=== PATIENT | female | born 1950 | race Caucasian/White ===

== ENCOUNTER 2018-03-14 14:48 | Inpatient (IN) ==
[2018-03-14] MEDS ORDERED: Vancomycin Inj 1,000 MG in Sodium Chlor 0.9% Inj 250 ML IV.SIG STA (15:08)
[2018-03-14] MEDS ORDERED: Piperacil/Tazo 4.5 GM Premix 4.5 GM/100 ML BAG IV.SIG STA (15:08)
[2018-03-14] MEDS ORDERED: Sod Chloride 0.9% Inj 1,000 ML IV.SIG ONE (15:10)
--- NOTE | 2018-03-14 15:15 | ED ---
HPI General Chief complaint: Weakness Stated complaint: Weakness Time Seen by Provider: 03/14/18 15:17 Source: patient and EMS Mode of arrival: EMS Limitations: no limitations History of Present Illness HPI narrative: 67-year-old female patient presents to the ER today brought in by EMS, apparently had gone to her doctor's office because of several days history of general weakness, left leg redness and swelling, and a sore has been getting more more swollen than the right lower quadrant abdominal area, has been nauseous, vomiting multiple times, having diarrhea at home and has been feeling increasingly weak. She has been feeling subjective fevers, reports mild dyspnea on exertion as well. She denies other issues. Related Data Home Medications Medication Instructions Recorded Confirmed lisinopril 20 mg PO DAILY 03/14/18 03/14/18 Allergies Allergy/AdvReac Type Severity Reaction Status Date / Time No Known Allergies Allergy Unverified 03/14/18 16:15 Review of Systems Except as stated in HPI: all other systems reviewed are negative PMFSH History History Provided By: Patient Social History Social History Second Hand Smoke Exposure: No Smoking Status: Never smoker How Often Do You Have a Drink Containing Alcohol: Monthly or less Recent Travel in [facility] within the Last 8 Weeks: No Recent Out of Country Travel within the Last 8 Weeks: No Exam Narrative Exam Narrative: GENERAL: Well-developed obese elderly white female patient currently in moderate distress. Awake and oriented 3. SKIN: Focused skin assessment warm/dry. There is notable edema and erythema of the left lower extremity going up to the half the calf area, mildly tender to palpation. HEAD: Atraumatic. Normocephalic. EYES: Pupils equal and round. No scleral icterus. No injection or drainage. ENT: No nasal bleeding or discharge. Mucous membranes pink and moist. NECK: Trachea midline. No JVD. CARDIOVASCULAR: Regular rate and rhythm. No murmur appreciated. RESPIRATORY: No accessory muscle use. Clear to auscultation. Breath sounds equal bilaterally. GASTROINTESTINAL: Abdomen soft, obese, intense erythema and induration over the right lower quadrant area of the pannus, with a large 8 cm area of ulceration, with surrounding erythema and fairly tender to palpation, nondistended. Hepatic and splenic margins not palpable. MUSCULOSKELETAL: No obvious deformities. No clubbing. No cyanosis. Bilateral pitting edema of the legs. NEUROLOGICAL: Awake and alert. No obvious cranial nerve deficits. Motor grossly within normal limits. Normal speech. PSYCHIATRIC: Appropriate mood and affect; insight and judgment normal. Course Hospital Course: Patient was given several boluses of IV fluids for hypotension, white blood cell count is 35, and there is strong suspicion of sepsis. IV antibiotics Zosyn and vancomycin were initiated after cultures were drawn. Lab work also shows significant acute kidney injury with elevated BUN and creatinines, glucose elevation with an anion gap of 18, concerning for underlying DKA. DKA protocol initiated. Her potassium is low at 3.0, IV potassium initiated in the ER as well. CAT scan has been ordered to evaluate the right side pannus for possible underlying abscess or acute intra-abdominal processes. At this point, patient has significant unstable vital signs and critical findings, case was discussed with Dr. Graff for admission to ICU. He agrees to admit the patient, comes down to see the patient, but also would like me to discuss the case with general surgery. Case was discussed with , who agrees to come see the patient, but wants to await the CAT scan for further treatment. Initial Documented Vital Signs Temperature 97.8 F 03/14/18 15:33 Pulse Rate 84 03/14/18 15:33 Respiratory Rate 19 03/14/18 15:33 Blood Pressure 86/42 L 03/14/18 15:33 Pulse Oximetry 98 03/14/18 15:33 Last Documented Vital Signs Temperature 97.8 F 03/14/18 15:33 Pulse Rate 86 03/14/18 17:19 Respiratory Rate 18 03/14/18 17:19 Blood Pressure 91/50 L 03/14/18 17:19 Pulse Oximetry 99 03/14/18 17:19 Critical Care Time Critical Care Time: Yes Total Critical Care Time: 35 Attestation: Aggregate critical care time was 35 minutes. Time to perform other separately billable procedures was not included in the critical care time. My time did not include minutes spent treating any other patients simultaneously or on activities that did not directly contribute to the patient's treatment. The services I provided to this patient were to treat and/or prevent clinically significant deterioration that could result in: Worsening sepsis, septic shock, cardiopulmonary arrest, I provided critical care services requiring my management, as noted below: Chart data review, documentation time, medication orders and management, vital sign assessments/reviewing monitor data, ordering and reviewing lab tests, ordering and interpreting/reviewing x-rays and diagnostic studies, care of the patient and discussion of the patient with the admitting physicians. Medical Decision Making Differential Diagnosis Differential Diagnosis: Sepsis versus acute intra-abdominal processes versus abdominal wall abscess versus dehydration versus electrolyte abnormalities Lab Data Result diagrams: 03/14/18 15:13 03/14/18 15:13 Lab Results 03/14/18 03/14/18 03/14/18 Range/Units 15:13 15:13 15:14 WBC 35.9 H (4.0-11.0) th/mm3 RBC 3.71 L (4.00-5.30) mil/mm3 Hgb 11.8 (11.6-15.3) gm/dL Hct 35.7 (35.0-46.0) % MCV 96.3 (80.0-100.0) fL MCH 31.9 (27.0-34.0) pg MCHC 33.2 (32.0-36.0) % RDW 14.2 (11.6-17.2) % Plt Count 390 (150-450) th/mm3 MPV 8.8 (7.0-11.0) fL Prelim Diff (Auto) Slide review pending Neut % (Auto) 93.6 H (16.0-70.0) % Lymph % (Auto) 1.7 L (9.0-44.0) % [place] % (Auto) 2.9 (0.0-8.0) % Eos % (Auto) 1.6 (0.0-4.0) % Baso % (Auto) 0.2 (0.0-2.0) % Neut # (Auto) 33.6 H (1.8-7.7) th/mm3 Lymph # (Auto) 0.6 L (1.0-4.8) th/mm3 [place] # (Auto) 1.1 H (0.0-0.9) th/mm3 Eos # (Auto) 0.6 H (0.0-0.4) th/mm3 Baso # (Auto) 0.1 (0.0-0.2) th/mm3 WBC Differential Manual diff final Seg Neuts % (Manual) 82 H (16-70) % Band Neuts % (Manual) 9 H (0-6) % Lymphocytes % (Manual) 3 L (9-44) % Eosinophils % (Manual) 1 (0-4) % Metamyelocytes % (Man) 1 (0-1) % Myelocytes % (Man) 1 H (0-0) % Promyelocytes % (Man) 3 H (0-0) % Abs Neuts (Manual) 34.5 H (1.8-7.7) th/mm3 Differential Comment . Toxic Granulation 1+ H (None) Platelet Estimate Normal (Normal) Platelet Morphology Normal (Normal) Puncture Site Patient Temperature O2 Saturation (90-100) % ABG pH (7.380-7.420) ABG pCO2 (38-42) mmHg ABG pO2 (61-120) mmHg ABG HCO3 (22-26) mmol/L ABG O2 Content (12.0-20.0) Vol % ABG Base Excess (-2-2) mmol/L ABG Methemoglobin (0-2) % Watson Test Hemoglobin (12.0-16.0) G/DL Carboxyhemoglobin (0-4) % Inspired O2 % Critical Value Sodium 137 (136-145) meq/L Potassium 3.0 L (3.5-5.1) meq/L Chloride 103 (98-107) meq/L Carbon Dioxide 17.4 L (21.0-32.0) meq/L Anion Gap 17 H (5-15) meq/L BUN 62 H (7-18) mg/dL Creatinine 3.15 H (0.50-1.00) mg/dL Estimated GFR 15 L (>89) mL/min Random Glucose 355 H (74-106) mg/dL Lactic Acid 3.5 H (0.4-2.0) mmol/L Calcium 8.1 L (8.5-10.1) mg/dL Total Bilirubin 0.6 (0.2-1.0) mg/dL AST 37 (15-37) U/L ALT 33 (10-53) U/L Alkaline Phosphatase 164 H (45-117) U/L Troponin I Less than 0.02 L (0.02-0.05) ng/mL Total Protein 6.3 L (6.4-8.2) g/dL Albumin 1.5 L (3.4-5.0) g/dL 03/14/18 Range/Units 16:45 WBC (4.0-11.0) th/mm3 RBC (4.00-5.30) mil/mm3 Hgb (11.6-15.3) gm/dL Hct (35.0-46.0) % MCV (80.0-100.0) fL MCH (27.0-34.0) pg MCHC (32.0-36.0) % RDW (11.6-17.2) % Plt Count (150-450) th/mm3 MPV (7.0-11.0) fL Prelim Diff (Auto) Neut % (Auto) (16.0-70.0) % Lymph % (Auto) (9.0-44.0) % [place] % (Auto) (0.0-8.0) % Eos % (Auto) (0.0-4.0) % Baso % (Auto) (0.0-2.0) % Neut # (Auto) (1.8-7.7) th/mm3 Lymph # (Auto) (1.0-4.8) th/mm3 [place] # (Auto) (0.0-0.9) th/mm3 Eos # (Auto) (0.0-0.4) th/mm3 Baso # (Auto) (0.0-0.2) th/mm3 WBC Differential Seg Neuts % (Manual) (16-70) % Band Neuts % (Manual) (0-6) % Lymphocytes % (Manual) (9-44) % Eosinophils % (Manual) (0-4) % Metamyelocytes % (Man) (0-1) % Myelocytes % (Man) (0-0) % Promyelocytes % (Man) (0-0) % Abs Neuts (Manual) (1.8-7.7) th/mm3 Differential Comment Toxic Granulation (None) Platelet Estimate (Normal) Platelet Morphology (Normal) Puncture Site Left radial Patient Temperature 98.6 O2 Saturation 95 (90-100) % ABG pH 7.39 (7.380-7.420) ABG pCO2 28 L (38-42) mmHg ABG pO2 85 (61-120) mmHg ABG HCO3 17 L (22-26) mmol/L ABG O2 Content 16.4 (12.0-20.0) Vol % ABG Base Excess -7.4 L (-2-2) mmol/L ABG Methemoglobin 0.8 (0-2) % Watson Test Present Hemoglobin 12.2 (12.0-16.0) G/DL Carboxyhemoglobin 1.1 (0-4) % Inspired O2 21 % Critical Value No Sodium (136-145) meq/L Potassium (3.5-5.1) meq/L Chloride (98-107) meq/L Carbon Dioxide (21.0-32.0) meq/L Anion Gap (5-15) meq/L BUN (7-18) mg/dL Creatinine (0.50-1.00) mg/dL Estimated GFR (>89) mL/min Random Glucose (74-106) mg/dL Lactic Acid (0.4-2.0) mmol/L Calcium (8.5-10.1) mg/dL Total Bilirubin (0.2-1.0) mg/dL AST (15-37) U/L ALT (10-53) U/L Alkaline Phosphatase (45-117) U/L Troponin I (0.02-0.05) ng/mL Total Protein (6.4-8.2) g/dL Albumin (3.4-5.0) g/dL Imaging Data Radiologist's impression: Chest X-Ray 03/14/18 15:08 CONCLUSION: No evidence of acute cardiopulmonary process. Discharge Plan Discharge Disposition Patient Disposition: 30 Still Patient Discharge Condition Condition: Critical Discharge Details Anticipated Discharge Date: 03/14/18 Diagnosis: Sepsis, DKA (diabetic ketoacidoses), Hypokalemia, Cellulitis of left leg, Abdominal wall cellulitis Physicians Team ED Provider: Ari Branch Primary Care Provider: Hayden Cisneros Other Providers: Maxi Fitzgerald Rxs /Orders / Referrals /Forms Prescriptions: No Action lisinopril 20 mg Tablet 20 mg PO DAILY RF: 0 Discharge Interventions Interventions: Vital Signs Last Done: 03/14/18 16:35 Status ED Status: With Doctor
[2018-03-14 15:41] LABS: Baso # (Auto) 0.1 th/mm3 (0.0-0.2); Baso % (Auto) 0.2 % (0.0-2.0); Eos # (Auto) 0.6 th/mm3 (0.0-0.4); Eos % (Auto) 1.6 % (0.0-4.0); Hematocrit 35.7 % (35.0-46.0); Hemoglobin 11.8 gm/dL (11.6-15.3); Lymph # (Auto) 0.6 th/mm3 (1.0-4.8); Lymph % (Auto) 1.7 % (9.0-44.0); Mean Corpuscular HGB Conc 33.2 % (32.0-36.0); Mean Corpuscular Hemoglobin 31.9 pg (27.0-34.0); Mean Corpuscular Volume 96.3 fL (80.0-100.0); Mean Platelet Volume 8.8 fL (7.0-11.0); Mono # (Auto) 1.1 th/mm3 (0.0-0.9); Mono % (Auto) 2.9 % (0.0-8.0); Neut # (Auto) 33.6 th/mm3 (1.8-7.7); Neut % (Auto) 93.6 % (16.0-70.0); Platelet Count 390 th/mm3 (150-450); Red Blood Count 3.71 mil/mm3 (4.00-5.30); Red Cell Distribution Width 14.2 % (11.6-17.2); White Blood Count 35.9 th/mm3 (4.0-11.0)
--- NOTE | 2018-03-14 15:57 | XR ---
EXAM DATE: 03/14/2018 3:55 PM EDT AGE/SEX: 67 years / Female INDICATIONS: Fever. Weakness. Short of breath. Sharp pain in chest. CLINICAL DATA: This is the patient's initial encounter. Patient reports that signs and symptoms have been present for 2 days and indicates a pain score of 6/10. MEDICAL/SURGICAL HISTORY: None. None. COMPARISON: No prior exams available for comparison. FINDINGS: A single AP view of the chest demonstrates the lungs to be symmetrically aerated without evidence of mass, infiltrate or effusion. The cardiomediastinal contours are unremarkable. Osseous structures a re intact. CONCLUSION: No evidence of acute cardiopulmonary process. Electronically signed by: Kwabena Haley MD 03/14/2018 3:56 PM EDT
[2018-03-14 16:06] LABS: Alanine Aminotransferase 33 U/L (10-53); Albumin 1.5 g/dL (3.4-5.0); Anion Gap 17 meq/L (5-15); Aspartate Aminotransferase 37 U/L (15-37); Blood Urea Nitrogen 62 mg/dL (7-18); Calcium 8.1 mg/dL (8.5-10.1); Carbon Dioxide 17.4 meq/L (21.0-32.0); Chloride 103 meq/L (98-107); Glomerular Filtration Rate 15 mL/min (>89); Glucose,Random 355 mg/dL (74-106); Sodium 137 meq/L (136-145)
[2018-03-14 16:10] LABS: Alkaline Phosphatase 164 U/L (45-117); Total Protein 6.3 g/dL (6.4-8.2)
[2018-03-14] MEDS ORDERED: Potassium Chlor 20 mEq Premix 20 MEQ/100 ML PIGGYBACK IV.SIG PRN ×6 (16:10)
[2018-03-14] MEDS ORDERED: Sodium Phosphate Inj 15 MMOL in Sodium Chlor 0.9% Inj 100 ML IV.SIG PRN (16:10)
[2018-03-14] MEDS ORDERED: Potassium Chlor 40 mEq Premix 40 MEQ/100 ML PIGGYBACK IV.SIG PRN ×2 (16:10)
[2018-03-14 16:35] LABS: Eosinophils 1 % (0-4); Lymphocytes 3 % (9-44); Metamyelocytes 1 % (0-1); Myelocytes 1 % (0-0); Promyelocyte 3 % (0-0)
[2018-03-14 16:36] LABS: Platelet Estimate Normal (Normal); Platelet Morphology Normal (Normal); Toxic Granulation 1+
[2018-03-14] MEDS ORDERED: Bisacodyl 10 MG Supp RECTAL PRN (16:43)
[2018-03-14 16:57] LABS: ABG Base Excess -7.4 mmol/L (-2-2); ABG PCO2 28 mmHg (38-42); ABG PO2 85 mmHg (61-120)
[2018-03-14] MEDS ORDERED: Vancomycin Consult Pharmacy 1 EACH OTHER SCH (17:00)
[2018-03-14 17:43] LABS: Amorphous Sediment,Urine Moderate /hpf; Bilirubin,Urine Negative (Negative); Clarity,Urine Turbid (Clear); Color,Urine Yellow (Yellw/Straw); Glucose,Urine (UA) 500 or Greater mg/dL (Negative); Hyaline Casts,Urine 18 /lpf (0-3); Leukocyte Esterase,Urine Negative (Negative); Nitrite,Urine Negative (Negative); Specific Gravity,Urine 1.021 (1.002-1.035)
[2018-03-14 17:50] LABS: Bacteria,Urine Rare /hpf
--- NOTE | 2018-03-14 18:21 | MH ---
cc: Connor Skinner MD DATE OF ADMISSION: 03/14/2018 HISTORY OF PRESENT ILLNESS: The patient is a 67-year-old female with a past medical history of hypertension and rheumatoid arthritis, who presented from Dr. Cisneros's office, her primary care physician for generalized weakness, edema of her lower extremities and diarrhea. The patient states that she was seen by the nurse practitioner for Dr. Cisneros and after her visit, she was advised to go to the ED for further evaluation and management of her symptoms. On arrival to the ER, the patient was found hypotensive with a systolic blood pressure in the 80s and her laboratory data showed multiple electrolyte abnormalities with potassium level 3.0. In addition, the patient was in renal failure, BUN 62, creatinine 3.15, and with lactic acidosis, lactic acid level 3.5 and anion gap of 17. In addition, her blood sugar recorded at 355 on a BMP. The patient, however, denies any history of diabetes mellitus. Also, she was found to have a significant leukocytosis with a WBC of 35.9. ABG was performed on room air which showed a pH of 7.39, CO2 of 28, PaO2 of 85, bicarbonate 17, saturation 95%. When seen, she is on room air oxygen and she was given 1 liter of fluids by EMS and an additional 1 liter in the ED with current blood pressure of 91/50 with a MAP of 67. She reports occasional shortness of breath with exertion. Denies any chest pain. She reports feeling nauseous, having diarrhea for 3 days. She reports a wound culture that is draining from her lower abdomen. In addition to fluids, she is in the process of receiving 6 units of IV insulin and starting on insulin drip. Also, the patient was given vancomycin and Zosyn. She denies any cough or any constitutional symptoms. The patient is afebrile with a temperature of 97.8. Chest x-ray in the ED showed no evidence of any acute cardiopulmonary process. She is scheduled to undergo CT scan of the abdomen and pelvis. In addition, Dr. Mckee from General Surgery was notified regarding possible abscess in her pannus area. PAST MEDICAL HISTORY: Significant for hypertension and rheumatoid arthritis. PAST SURGICAL HISTORY: Cholecystectomy and previous neck surgery. SOCIAL HISTORY: Nonsmoker, occasional drinker. MEDICATIONS AT HOME: Blood pressure medications, which she does not remember, in addition to a water pill. FAMILY HISTORY: Noncontributing to present illness. REVIEW OF SYSTEMS: As per HPI. Rest of review of systems unremarkable. PHYSICAL EXAMINATION: GENERAL: A 67-year-old female lying in bed, in no acute respiratory distress, awake, alert. VITAL SIGNS: Temperature 97.8, pulse of 92, blood pressure 91/50, saturation 100% on room air. HEENT: Atraumatic, normocephalic. Pupils are equal, round, reacting to light and accommodation. Extraocular muscles intact. Conjunctivae pink. Nonicteric sclerae. Dry mucous membranes. NECK: Supple. No JVD, adenopathy or thyromegaly. Trachea in the midline. CARDIOVASCULAR: Regular rate and rhythm. Normal S1, S2. No murmurs, rubs or gallops noted. PULMONARY: Bilateral equal air entry. No rales or wheezing. ABDOMEN: Soft, obese, mild tenderness in lower abdomen. Wound noticed in the pannus area, which was draining. EXTREMITIES: No cyanosis or clubbing; +2 edema in addition to erythema of the left lower extremity. NEUROLOGIC: No focal sensory deficit. LABORATORY DATA: Sodium 137, potassium 3, chloride 103, CO2 of 17, anion gap 17, BUN 62, creatinine 3.15, glucose 355. Lactic acid 3.5, total bilirubin 0.6, AST 37, ALT 33, alkaline phosphatase 164. Troponin less than 0.02. Albumin 1.5. WBC 35.9, hemoglobin 11.8, hematocrit 35, platelet count 390. ABG shows pH of 7.39, CO2 of 28, pO2 of 85, bicarbonate 17, saturation of 95%. RADIOGRAPHIC STUDIES: Chest x-ray showed no evidence of any acute cardiopulmonary disease. IMPRESSION: 1. Severe sepsis. 2. Acute renal failure. 3. Lactic acidemia. 4. Leukocytosis with bandemia. 5. Anion gap metabolic acidosis. 6. Likely diabetic ketoacidosis. 7. Cellulitis of the left lower extremity. 8. Cellulitis and possible abscess in the pannus area. 9. History of hypertension. 10. History of rheumatoid arthritis. 11. Morbid obesity. RECOMMENDATIONS: 1. Monitor neuro status closely and avoid any sedatives. 2. Oxygen p.r.n. to maintain sats above 92%. 3. Bronchodilators on a p.r.n. basis. 4. Monitor heart rate and blood pressure closely and maintain MAP greater than 65 mmHg. The patient was given a total of 2 liters of crystalloids. We will give an additional 2 liters of NS and place on maintenance fluids per DKA protocol. 5. Monitor renal function, I's and O's and avoid nephrotoxins. Monitor BMP q.6 hours. In addition, we will check a beta hydroxybutyrate. 6. Electrolyte replacement as needed. 7. The patient was started on insulin drip per DKA protocol in the ED. We will start NS at 250 mL an hour and once her blood sugar falls less than 250, we will switch IV fluids to D5 NS at 200 an hour. 8. Continue with broad spectrum antibiotics in the form of vancomycin, Zosyn and Monitor for signs of infection, which include fever and WBC. Follow up on blood cultures. In addition, we will send for the wound culture, urinalysis with culture if indicated, patient for CT abdomen and pelvis without contrast. We will follow up. In addition, we will consult infectious disease service. 9. Given underlying history of diarrhea and leukocytosis, we will rule out Clostridium difficile with Clostridium difficile PCR. 10. Serial lactic acid monitoring until clear. 11. Consult general surgery for possible abscess of the pannus area and need of I and D. Case discussed with Dr. Mckee from General Surgery. Awaiting the CT abdomen and pelvis to be performed. 12. Insulin drip as stated above per DKA protocol. 13. Monitor CBC. 14. Gastrointestinal prophylaxis with Pepcid and DVT prophylaxis with SCDs for now. 15. Further recommendations will be based on hospital course. MD JOEL Caputo/СВЕТЛАНА , 05:46 PM , 06:19 PM
--- NOTE | 2018-03-14 18:35 | MB ---
cc: Cj Mckee MD DATE: 03/14/2018 REQUESTING PROVIDER: Dr. Skinner, merchandising stock associate REASON FOR CONSULTATION: Right lower abdominal wall and pannus wound associated with cellulitis. HISTORY OF PRESENT ILLNESS: The patient is a 67-year-old female who was admitted to [facility] with sepsis. The patient presented to the emergency department on 03/14/2018 and was found to have cellulitis of her left lower extremity as well as her right pannus. The patient is morbidly obese as well as multiple medical comorbidities. She underwent evaluation with CT scan but did not show any abscess in the abdominal wall; however, on physical exam, there was some concern for some necrotic skin. The patient states that she has had pain and swelling of her left leg and her right abdomen for at least 1 week. The patient has had a history of previous cellulitis. The patient previously had a gallbladder surgery, otherwise no major abdominal surgeries. REVIEW OF SYSTEMS: A 12-point review of systems conducted with the patient is negative other than the pertinent positives mentioned above in history of present illness. PAST MEDICAL HISTORY: Hypertension, super morbidly obese, and diabetes, glucose in the ER was 355. PAST SURGICAL HISTORY: Cholecystectomy, as above. SOCIAL HISTORY: The patient denies alcohol, tobacco or illicit drug use. ALLERGIES: NO KNOWN DRUG ALLERGIES. HOME MEDICATIONS: Lisinopril. FAMILY HISTORY: Noncontributory. PHYSICAL EXAMINATION: VITAL SIGNS: Temperature 97.8 degrees, pulse 84, respiration rate 19, blood pressure 86/42, O2 saturation 98%. GENERAL: The patient is super morbidly obese, acutely ill female seen in the emergency department. HEENT: Head is normocephalic, atraumatic. Pupils round, reactive and accommodate to light. Sclerae are anicteric. Oral cavity is clear. Airway is patent. NECK: Supple. No JVD. LUNGS: Breath sounds present bilaterally. Nonlabored breathing pattern. HEART: Regular rate and rhythm. ABDOMEN: Super morbidly obese with large overlying pannus. Exam of her abdomen, there is no palpable hernias or abscess. There is some area of wet malcolored scan concerning for ischemia and breakdown. EXTREMITIES: 2 to 3+ edema with cellulitis and erythema of the left lower extremity without fluctuance. NEUROLOGIC: Moving all extremities equally grossly. Cranial nerves 2-12 are grossly intact. The patient is alert and oriented x 3. Mood, judgment and insight are intact. LABORATORY VALUES: Blood glucose is 355, creatinine is 3.15. White blood cell count 35.9, hemoglobin 11.8, base deficit -7. IMAGING STUDIES: CT scan abdomen and pelvis does not show fluid collection in the abdominal wall or sign of obvious abscess formation. ASSESSMENT AND PLAN: The patient is a 67-year-old female with sepsis, renal failure, shock with acidosis, critically ill. She does have some necrotic or borderline nonviable tissue of the right pannus, which should be debrided in an urgent fashion as this could continue to act as the source of her infection. The patient has not been n.p.o. The patient is still stable at this time. I do agree with ICU admission and continued medical support for this patient and resuscitation and stabilization. When the patient is more stable, possibly tomorrow and she has been n.p.o., would consider bringing the patient down to the operating room for debridement of this wound and VAC placement. I discussed this with her. She is in agreement. Thank you very much for this consultation. We will follow along with the patient. MD CELESTE Keller/СВЕТЛАНА , 06:09 PM , 06:33 PM
--- NOTE | 2018-03-14 19:07 | CT ---
EXAM DATE: 03/14/2018 5:39 PM EDT AGE/SEX: 67 years / Female INDICATIONS: Abdominal pain. Weakness, fatigue for one week. Left lower extremity pain, redness and swelling since Saturday. CLINICAL DATA: This is the patient's initial encounter. Patient reports that signs and symptoms have been present for 1 day and indicates a pain score of 3/10. MEDICAL/SURGICAL HISTORY: None. Cholecystectomy. RADIATION DOSE: 34.23 CTDI (mGy) ; Patient body habitus COMPARISON: No prior exams available for comparison. TECHNIQUE: Multiple contiguous axial images were obtained through the abdomen. Images were obtained using multiple row detector helical technique. Using automated exposure control and adjustment of the mA and/or kV according to patient size, radiation dose was kept as low as reasonably achievable to o btain optimal diagnostic quality images. DICOM format image data is available electronically for rev iew and comparison. FINDINGS: Lower Lungs: The visualized lower lungs are clear. There is a calcified lymph node in the right trach eobronchial region. Liver: The liver has a homogeneous density without space-occupying lesion. There is no dilation of th e biliary tree. The patient is status post cholecystectomy. Spleen: Homogeneous density without enlargement. There are several punctate calcified granulomas. Pancreas: Unremarkable without mass or calcification. Kidneys: Normal in size and shape. No evidence of mass or hydronephrosis. Adrenal Glands: Unremarkable. Aorta: The aorta and proximal iliac vessels are grossly unremarkable without aneurysmal dilation. Bowel/Mesentery: The bowel loops are grossly unremarkable. The cecum and sigmoid colon have a normal configuration. Abdominal Wall: There is edema seen throughout the anterior subcutaneous fat. This appears to extend from the umbilicus region down into the pelvis within the superficial anterior abdominal wall fat. Retroperitoneum: No evidence of adenopathy in the retrocrural, para-aortic, or deep pelvic regions. Bladder: Contours are smooth. Reproductive Organs: No abnormal masses or calcifications seen. Inguinal: The inguinal region is unremarkable without evidence of adenopathy. Bony Structures: There is degenerative change in the lumbar spine. Post Contrast: No abnormal areas of enhancement seen. CONCLUSION: 1. No acute intra-abdominal abnormality seen. 2. Edema seen throughout the subcutaneous fat at the anterior abdominal wall. This should be correla lisa with any inflammatory process in this region. No focal fluid collection to suggest an abscess is seen. Electronically signed by: Alfa Be MD 03/14/2018 7:05 PM EDT
[2018-03-14] MEDS: Piperacil/Tazo 3.375 GM Premix 50 ML IV.SIG SCH (20:30)
[2018-03-14] MEDS: Insulin Regular (For Infusion) 100 UNIT in Sodium Chlor 0.9% Inj 99 ML IV.CONT PRN (21:30)
[2018-03-14 21:58] LABS: Baso # (Auto) 0.1 th/mm3 (0.0-0.2); Baso % (Auto) 0.4 % (0.0-2.0); Eos # (Auto) 0.5 th/mm3 (0.0-0.4); Eos % (Auto) 1.4 % (0.0-4.0); Hematocrit 34.2 % (35.0-46.0); Hemoglobin 11.2 gm/dL (11.6-15.3); Lymph % (Auto) 3.1 % (9.0-44.0); Mean Corpuscular HGB Conc 32.9 % (32.0-36.0); Mean Corpuscular Hemoglobin 31.8 pg (27.0-34.0); Mean Corpuscular Volume 96.7 fL (80.0-100.0); Mean Platelet Volume 8.6 fL (7.0-11.0); Mono # (Auto) 1.1 th/mm3 (0.0-0.9); Mono % (Auto) 3.3 % (0.0-8.0); Neut # (Auto) 30.7 th/mm3 (1.8-7.7); Neut % (Auto) 91.8 % (16.0-70.0); Platelet Count 359 th/mm3 (150-450); Red Blood Count 3.53 mil/mm3 (4.00-5.30); Red Cell Distribution Width 14.1 % (11.6-17.2); White Blood Count 33.4 th/mm3 (4.0-11.0)
[2018-03-14 22:16] LABS: Calcium 7.9 mg/dL (8.5-10.1); Carbon Dioxide 15.7 meq/L (21.0-32.0); Potassium 3.2 meq/L (3.5-5.1)
[2018-03-14 22:38] LABS: Eosinophils 1 % (0-4); Lymphocytes 4 % (9-44); Metamyelocytes 1 % (0-1); Monocytes 9 % (0-8); Myelocytes 1 % (0-0)
[2018-03-14 22:39] LABS: Platelet Estimate Normal (Normal); Platelet Morphology Normal (Normal); Toxic Granulation 1+
[2018-03-14] MEDS: Pantoprazole Inj 40 MG Vial IV.PUSH SCH (22:53)
[2018-03-14] MEDS: Dextrose 5%/NaCl 0.9% Inj 1,000 ML IV.CONT SCH (23:20)
[2018-03-15] MEDS: Piperacil/Tazo 3.375 GM Premix 50 ML IV.SIG SCH ×2 (00:40→11:09)
[2018-03-15] MEDS: HYDROmorphone PF Inj 2 MG/ML Vial IV.PUSH PRN ×2 (02:15→12:59)
[2018-03-15] MEDS: Dextrose 5%/NaCl 0.9% Inj 1,000 ML IV.CONT SCH ×5 (02:18→17:30)
[2018-03-15] MEDS ORDERED: Chlorhexidine Gluconate 2% 1 Pack (2 Cloths) TOPICAL PRN ×2 (04:00)
[2018-03-15 04:11] LABS: Baso % (Auto) 0.1 % (0.0-2.0); Eos # (Auto) 0.5 th/mm3 (0.0-0.4); Eos % (Auto) 1.6 % (0.0-4.0); Hematocrit 33.2 % (35.0-46.0); Lymph % (Auto) 3.2 % (9.0-44.0); Mean Corpuscular Hemoglobin 31.5 pg (27.0-34.0); Mean Corpuscular Volume 95.4 fL (80.0-100.0); Mean Platelet Volume 8.6 fL (7.0-11.0); Mono % (Auto) 3.2 % (0.0-8.0); Neut # (Auto) 29.2 th/mm3 (1.8-7.7); Neut % (Auto) 91.9 % (16.0-70.0); Platelet Count 367 th/mm3 (150-450); Red Blood Count 3.48 mil/mm3 (4.00-5.30); Red Cell Distribution Width 14.2 % (11.6-17.2); White Blood Count 31.8 th/mm3 (4.0-11.0)
[2018-03-15 04:48] LABS: Alanine Aminotransferase 38 U/L (10-53); Albumin 1.3 g/dL (3.4-5.0); Alkaline Phosphatase 262 U/L (45-117); Anion Gap 18 meq/L (5-15); Aspartate Aminotransferase 76 U/L (15-37); Blood Urea Nitrogen 64 mg/dL (7-18); Calcium 7.9 mg/dL (8.5-10.1); Carbon Dioxide 15.5 meq/L (21.0-32.0); Chloride 108 meq/L (98-107); Glomerular Filtration Rate 15 mL/min (>89); Glucose,Random 184 mg/dL (74-106); Sodium 141 meq/L (136-145)
[2018-03-15 04:51] LABS: Potassium 2.9 meq/L (3.5-5.1)
[2018-03-15] MEDS: Potassium Chlor 20 mEq Premix 20 MEQ/100 ML PIGGYBACK IV.SIG SCH ×4 (06:01→18:30)
[2018-03-15] MEDS ORDERED: Albumin Human 5% Inj 500 ML IV.SIG ONE (06:16)
[2018-03-15 07:34] LABS: Eosinophils 1 % (0-4); Lymphocytes 4 % (9-44); Monocytes 1 % (0-8); Myelocytes 1 % (0-0); Platelet Estimate Normal (Normal); Platelet Morphology Normal (Normal); Toxic Granulation 1+
[2018-03-15 07:35] LABS: Dohle Bodies Present
--- NOTE | 2018-03-15 07:46 | P.PNCC ---
Subjective Subjective Remarks/Hospital Course: HISTORY OF PRESENT ILLNESS: The patient is a 67-year-old female with a past medical history of hypertension and rheumatoid arthritis, who presented from Dr. Cisneros's office, her primary care physician for generalized weakness, edema of her lower extremities and diarrhea. The patient states that she was seen by the nurse practitioner for Dr. Cisneros and after her visit, she was advised to go to the ED for further evaluation and management of her symptoms. On arrival to the ER, the patient was found hypotensive with a systolic blood pressure in the 80s and her laboratory data showed multiple electrolyte abnormalities with potassium level 3.0. In addition, the patient was in renal failure, BUN 62, creatinine 3.15, and with lactic acidosis, lactic acid level 3.5 and anion gap of 17. In addition, her blood sugar recorded at 355 on a BMP. The patient, however, denies any history of diabetes mellitus. Also, she was found to have a significant leukocytosis with a WBC of 35.9. ABG was performed on room air which showed a pH of 7.39, CO2 of 28, PaO2 of 85, bicarbonate 17, saturation 95%. When seen, she is on room air oxygen and she was given 1 liter of fluids by EMS and an additional 1 liter in the ED with current blood pressure of 91/50 with a MAP of 67. She reports occasional shortness of breath with exertion. Denies any chest pain. She reports feeling nauseous, having diarrhea for 3 days. She reports a wound culture that is draining from her lower abdomen. In addition to fluids, she is in the process of receiving 6 units of IV insulin and starting on insulin drip. Also, the patient was given vancomycin and Zosyn. She denies any cough or any constitutional symptoms. The patient is afebrile with a temperature of 97.8. Chest x-ray in the ED showed no evidence of any acute cardiopulmonary process. She is scheduled to undergo CT scan of the abdomen and pelvis. In addition, Dr. Mckee from General Surgery was notified regarding possible abscess in her pannus area. 03/15: This morning the patient remains relatively dry and we have transfused an additional 2 L of saline and albumin-containing solutions. She is now normotensive with a pulse rate in the 70s. We will stop her insulin drip for the operating room to avoid any issues with hypoglycemia or hypokalemia. Potassium is 2.9 this morning replacement intravenously. Her pH is acceptable with a mild base deficit and urine output is marginal. She is awake and alert and well-perfused. We will not get control of her glucose intolerance until she is debrided. Although higher risk she does require urgent surgery for debridement of a spreading infection in the lower abdominal wall. She is ready for surgery albeit perhaps still a little dry. Normal saline or lactated Ringer 's or suitable resuscitation fluids for her at this point and we will try to avoid pushing her sugar any higher until she is back in the unit and we can restart her insulin drip. Objective Vital Signs / I&O: Vital Signs 03/14/18 15:33 03/14/18 15:44 03/14/18 16:10 Temperature 97.8 F Pulse Rate 84 83 84 Respiratory Rate 19 17 16 Blood Pressure 86/42 L 59/52 L 100/59 L Pulse Oximetry 98 98 98 03/14/18 16:35 03/14/18 17:19 03/14/18 17:27 Temperature Pulse Rate 92 H 86 93 H Respiratory Rate 20 18 23 Blood Pressure 112/58 L 91/50 L 89/49 L Pulse Oximetry 98 99 100 03/14/18 18:02 03/14/18 19:00 03/14/18 21:15 Temperature Pulse Rate 89 88 Respiratory Rate 20 20 Blood Pressure 104/64 Pulse Oximetry 98 100 03/14/18 22:49 03/15/18 00:01 03/15/18 00:09 Temperature 98.3 F Pulse Rate 89 86 86 Respiratory Rate 16 23 Blood Pressure 96/53 L 115/56 L Pulse Oximetry 100 100 03/15/18 04:00 Temperature 97.7 F Pulse Rate 83 Respiratory Rate 16 Blood Pressure Pulse Oximetry Intake & Output 03/14/18 03/15/18 03/15/18 18:59 06:59 18:59 Intake Total 100 / 100 Balance 100 / 100 Weight 147.27 kg Intake: IV 100 / 100 Zosyn 3.375 GM Premix 50 ML @ 100 / 100 100 mls/hr IV.SIG Q8H ED Rx#: [id number] Result Diagrams: 03/15/18 03:26 03/15/18 03:26 Objective Remarks: PHYSICAL EXAMINATION: GENERAL: A 67-year-old female lying in bed, in no acute respiratory distress, awake, alert. VITAL SIGNS: Temperature 97.8, pulse of 79, blood pressure 112/77 saturation 100% on room air. HEENT: Atraumatic, normocephalic. Pupils are equal, round, reacting to light and accommodation. Extraocular muscles intact. Conjunctivae pink. Nonicteric sclerae. Dry mucous membranes. NECK: Supple. No JVD, adenopathy or thyromegaly. Trachea in the midline. CARDIOVASCULAR: Regular rate and rhythm. Normal S1, S2. No murmurs, rubs or gallops noted. PULMONARY: Bilateral equal air entry. No rales or wheezing. ABDOMEN: Soft, obese, mild tenderness in lower abdomen. Wound noticed in the pannus area, severely necrotic, which was draining. EXTREMITIES: No cyanosis or clubbing; +2 edema in addition to erythema of the left lower extremity, particularly the foot. NEUROLOGIC: No focal sensory deficit. Conversant, oriented 3. Assessment and Plan - Assessment and Plan Plan: IMPRESSION: 1. Severe sepsis. 2. Acute renal failure. 3. Lactic acidemia. 4. Leukocytosis with bandemia. 5. Anion gap metabolic acidosis. 6. Likely diabetic ketoacidosis. 7. Cellulitis of the left lower extremity. 8. Cellulitis and possible abscess in the pannus area. 9. History of hypertension. 10. History of rheumatoid arthritis. 11. Morbid obesity. RECOMMENDATIONS: 1. Monitor neuro status closely and avoid any sedatives. 2. Oxygen p.r.n. to maintain sats above 92%. 3. Bronchodilators on a p.r.n. basis. 4. Monitor heart rate and blood pressure closely and maintain MAP greater than 65 mmHg. The patient was given a total of 2 liters of crystalloids. We will give an additional 2 liters of NS and place on maintenance fluids per DKA protocol. 5. Monitor renal function, I's and O's and avoid nephrotoxins. Monitor BMP q.6 hours. In addition, we will check a beta hydroxybutyrate. 6. Electrolyte replacement as needed. 7. The patient was started on insulin drip per DKA protocol in the ED. We will start NS at 250 mL an hour and once her blood sugar falls less than 250, we will switch IV fluids to D5 NS at 200 an hour. 8. Continue with broad spectrum antibiotics in the form of vancomycin, Zosyn and Monitor for signs of infection, which include fever and WBC. Follow up on blood cultures. In addition, we will send for the wound culture, urinalysis with culture if indicated, patient for CT abdomen and pelvis without contrast. We will follow up. In addition, we will consult infectious disease service. 9. Given underlying history of diarrhea and leukocytosis, we will rule out Clostridium difficile with Clostridium difficile PCR. 10. Serial lactic acid monitoring until clear. 11. Consult general surgery for possible abscess of the pannus area and need of I and D. Case discussed with Dr. Mckee from General Surgery. Awaiting the CT abdomen and pelvis to be performed. 12. Insulin drip as stated above per DKA protocol. 13. Monitor CBC. 14. Gastrointestinal prophylaxis with Pepcid and DVT prophylaxis with SCDs for now. 15. Further recommendations will be based on hospital course. Overall impression: This woman remains critically ill with a necrotizing infection involving the anterior abdominal wall. She requires urgent debridement to get her out of ketoacidosis. She is going to the operating room at this time for debridement of the abdominal wall armed with the knowledge that she is increased risk for surgery due to her diabetic state, mild acidosis , moderate dehydration. We have hydrated her aggressively in the mid level net developer but suspect we are still a little behind. We have stopped her insulin drip for the surgical procedure and will restart that following surgery. Critical care 45 minutes aside from invasive procedures.
[2018-03-15] MEDS ORDERED: Cisatracurium Inj 20 MG/10 ML Vial ONE ×2 (07:55→07:56)
--- NOTE | 2018-03-15 08:25 | ECG ---
Date Performed: 03/14/2018 Time Performed: 15:11:33 PTAGE: 67 years EKG: Sinus rhythm LOW QRS VOLTAGE IN PRECORDIAL LEADS BORDERLINE ECG PREVIOUS TRACING : 01/15/2014 13.22 DOCTOR: Alex Mcarthur Interpretating Date/Time 03/15/2018 08:21:01
--- NOTE | 2018-03-15 08:42 | P.OP ---
- Preoperative Diagnosis (1) Abdominal wall cellulitis - Postoperative Diagnosis (1) Abdominal wall cellulitis Date of procedure: 03/15/18 Procedure: I and D with vac abdomen and left leg Anesthesia: MARTINEZ Surgeon: Sang Soto MD Estimated blood loss (mL): 30 Pathology: other (abdominal tissue) Operation and Findings: necrotic area good seal with vac
[2018-03-15] MEDS ORDERED: Vancomycin Inj 1,750 MG in Sodium Chlor 0.9% Inj 500 ML IV.SIG ONE (10:00)
[2018-03-15] MEDS ORDERED: *Meperidine Inj 25 MG/ML Vial PERIprocedural Use ONLY ONE (10:07)
[2018-03-15] MEDS ORDERED: fentaNYL Citrate Inj 100 MCG/2 ML Ampul ONE (10:19)
[2018-03-15] MEDS: Pantoprazole Inj 40 MG Vial IV.PUSH SCH (11:10)
[2018-03-15] MEDS ORDERED: Phenylephrine/NS 1000 MCG/10ML Syringe IV.PUSH ONE (12:00)
[2018-03-15] MEDS ORDERED: Neostigmine Inj 5 MG/5 ML Syringe IV.PUSH ONE (12:00)
[2018-03-15] MEDS ORDERED: Lidocaine PF 1% Inj 5 ML Syringe INFILTRATN ONE (12:00)
[2018-03-15] MEDS ORDERED: Glycopyrrolate Inj 1 MG/5 ML Syringe IV.PUSH ONE (12:00)
[2018-03-15] MEDS: Chlorhexidine Gluconate 2% 1 Pack (2 Cloths) TOPICAL SCH ×2 (13:01)
--- NOTE | 2018-03-15 14:29 | MB ---
cc: Maxi Fitzgerald MD DATE: 03/15/2018 REQUESTING PHYSICIAN: Connor Skinner MD REASON FOR CONSULTATION: 1. Sepsis 2. Leukocytosis. HISTORY OF PRESENT ILLNESS: This is a 67-year-old white female who was admitted to the hospital yesterday. The patient developed redness of her right foot 5 days ago. She also notes that she had bouts of diarrhea for a couple of days prior to that. The diarrhea continued for 5 days and then stopped. She went to see her primary physician yesterday and she notes that they sent her to the emergency department because she appeared pale. She notes that she had a tiny lump on her right abdominal wall underneath the fold of skin. She has obese abdomen with large amount of pannus. She reports that the area around the nodule started draining some fluids. She was evaluated in the ED and was noted to have elevated white blood cell count of 35.9 and she had lactic acid level of 3.5. She also had acute kidney disease with creatinine of 3.51. The patient was admitted and eventually taken to surgery for an abdominal wall debridement. She was noted to have necrotic skin in that location. She underwent debridement and samples were taken for culture, which is pending. The blood culture has no growth. She went to surgery again this morning and she had further debridement and placement of a wound VAC. She also had some I and D of the left leg. She is currently awake. She was a little drowsy from the medications for procedure. She is noted to have hypotension. Current blood pressure is 101 systolic. She is receiving IV fluids. She has markedly decreased urine output. She tells me that she had chills for a couple of days before admission. She denies nausea or vomiting. She reports that the diarrhea stopped a few days ago. She has been given IV antibiotics with vancomycin today and she is also on Zosyn. The patient notes that she had been 10/10 scale at the right lower abdomen. PAST MEDICAL HISTORY: Hypertension, history of cervical discectomy and allograft bone fusion in 10/2013, bacteremia due to methicillin-sensitive Staphylococcus aureus in 10/2013. ALLERGIES: NO KNOWN DRUG ALLERGIES. MEDICATIONS: 1. Piperacillin/tazobactam. 2. Dilaudid. 3. Lactulose. 4. Oxycodone. 5. Protonix. 6. Potassium. SOCIAL HISTORY: No tobacco, rare alcohol, no illicit drugs. FAMILY HISTORY: Noncontributory. REVIEW OF SYSTEMS: All systems reviewed and are negative, except for that mentioned in the history of present illness. PHYSICAL EXAMINATION: GENERAL: This is a morbidly obese female who is in no acute distress. She is awake and alert and oriented. VITAL SIGNS: Temperature 98.3, blood pressure 99/55, respirations 16, heart rate is 92. HEENT: The head is atraumatic. Extraocular movements grossly intact. Pupils reactive to light. No icterus. Poor dentition. NECK: Supple without adenopathy. LUNGS: Clear breath sounds bilaterally. HEART: Regular S1, S2. No murmurs, rubs or gallops. ABDOMEN: Bowel sounds present, obese, soft. Vacuum device is present at the anterior abdominal wall on the right side and down to the groin fold on the right where the patient has excessive tissue. There is minimal erythema at the skin around the vacuum sponge. RECTAL: Not performed. EXTREMITIES: The left foot has erythema and swelling. SKIN: No diffuse rash. NEUROLOGIC: No gross focal findings. The patient is alert and oriented. PSYCHIATRIC: The patient is calm and cooperative. LABORATORY DATA: WBC 31.8, platelets 367, hemoglobin 11.0, 91% neutrophils. Creatinine 3.15, estimated GFR 15, AST 76, ALT 38, carbon dioxide 15.5. IMPRESSION: 1. Necrotic cellulitis of the abdominal wall. 2. Sepsis. 3. Left foot cellulitis. 4. Acute kidney disease. 5. Leukocytosis. RECOMMENDATIONS: 1. Start Piperacillin/tazobactam. 2. Discontinue vancomycin because of poor renal function. 3. We will switch to daptomycin to cover for gram-positive bacteria. 4. Monitor wound cultures. 5. Monitor blood cultures. 6. Monitor white blood cell count. 7. Monitor clinical status. Thank you for this consultation. I will monitor the patient's progress and make further recommendations on followup. MD SHERRIE Pink/СВЕТЛАНА , 01:08 PM , 02:27 PM CHIKI
[2018-03-15 14:56] LABS: Calcium 6.9 mg/dL (8.5-10.1); Carbon Dioxide 16.3 meq/L (21.0-32.0); Potassium 3.1 meq/L (3.5-5.1)
[2018-03-15 15:28] LABS: Total Protein 5.5 g/dL (6.4-8.2)
[2018-03-15] MEDS: Piperacil/Tazo 2.25 GM Premix 50 ML IV.SIG SCH ×2 (16:23→23:34)
[2018-03-15] MEDS: Insulin Regular (For Infusion) 100 UNIT in Sodium Chlor 0.9% Inj 99 ML IV.CONT PRN (16:25)
[2018-03-15] MEDS ORDERED: Sodium Bicarbonate 8.4% Inj 150 MEQ in Water for Inj, Sterile 850 ML IV.CONT SCH (17:00)
[2018-03-15 17:35] LABS: Phosphorus 2.2 mg/dL (2.5-4.9)
[2018-03-15] MEDS: Sod Chloride 0.9% Inj 1,000 ML IV.CONT SCH ×5 (19:31→19:33)
--- NOTE | 2018-03-15 20:21 | MP ---
cc: Sang Soto MD DATE OF OPERATION: 03/15/2018 DATE OF PROCEDURE:. 03/15/2018 PREOPERATIVE DIAGNOSES: Abdominal wall soft tissue abscess with abdominal wall soft tissue infection. POSTOPERATIVE DIAGNOSES: Abdominal wall soft tissue abscess with abdominal wall soft tissue infection. PROCEDURE PERFORMED: Incision and drainage with excisional debridement of abdominal wall, subcutaneous fat and skin and tissue. Abdominal defect 31 cm x 12 cm x 10 cm deep. Placement of negative pressure wound VAC. SURGEON: Sang Soto MD [facility] PHYSICIAN: Marianna. ANESTHESIA: GETA. IV FLUIDS: See anesthesia sheet. ESTIMATED BLOOD LOSS: 100 mL. DRAINS: Hemovac placement. FINDINGS: Abdominal wall soft tissue infection with abscesses, good hemostasis, VAC placement with good seal. WOUND CLASSIFICATION: Dirty/contaminated. SPECIMENS: Tissue of abdomen sent for culture, sensitivity, Gram stain, pathology. INDICATION FOR PROCEDURE: The patient is a 67-year-old female who presents with sepsis along with abdominal wall infection. The patient had CTscan confirming showing necrotic skin with soft tissue infection. Decision was made for operative intervention including wide debridement. DETAILS OF PROCEDURE: The patient was brought to the operating suite, placed in the supine position. She was prepped and draped in the usual sterile fashion after induction of general endotracheal anesthesia. Brief timeout done stating correct patient, procedure, surgical site. We were all in agreement with this. Attention was directed to the right lower abdomen where there was clearly necrotic-appearing skin. A 10-blade was used to excise a large portion of the right lower quadrant skin. Further dissection to the subcutaneous tissues was done with Bovie electrocautery. Excisional debridement of skin, along with subcutaneous soft tissues and fat was done. Area defect was 31 x 12 x 10 cm deep. Specimen sent for cultures. Hemostasis obtained with Bovie electrocautery. The defect was irrigated with 1.5 liters of normal saline. Once we were content with this, abdominal wound VAC was obtained. Five sponge pieces in total were placed within the abdominal wound, cut to various sizes. The top size was cut to conform to the size of the wound, again noting 31 x 12 cm. This was connected with estela. Plastic dressing placed. Track pad placed. VAC hooked to suction with a good seal. The patient tolerated the procedure well. No intraoperative complications. All lap and instrument counts were correct at the end of the procedure. The patient was extubated and taken stable to PACU. MD RIZWAN Roberts/СВЕТЛАНА , 11:03 AM , 11:48 AM CHIKI
[2018-03-15 22:26] LABS: Calcium 7.2 mg/dL (8.5-10.1); Carbon Dioxide 15.7 meq/L (21.0-32.0); Potassium 3.1 meq/L (3.5-5.1)
[2018-03-15 22:42] LABS: Total Protein 5.5 g/dL (6.4-8.2)
[2018-03-16] MEDS: Dextrose 5%/NaCl 0.9% Inj 1,000 ML IV.CONT SCH ×2 (01:00→08:09)
[2018-03-16] MEDS: Sod Chloride 0.9% Inj 1,000 ML IV.CONT SCH ×7 (03:41→20:02)
[2018-03-16] MEDS: Chlorhexidine Gluconate 2% 1 Pack (2 Cloths) TOPICAL SCH ×2 (05:07)
[2018-03-16] MEDS: Piperacil/Tazo 2.25 GM Premix 50 ML IV.SIG SCH ×3 (05:07→15:42)
[2018-03-16 05:24] LABS: Baso # (Auto) 0.1 th/mm3 (0.0-0.2); Baso % (Auto) 0.3 % (0.0-2.0); Eos # (Auto) 0.1 th/mm3 (0.0-0.4); Eos % (Auto) 0.5 % (0.0-4.0); Hematocrit 27.9 % (35.0-46.0); Hemoglobin 9.4 gm/dL (11.6-15.3); Lymph # (Auto) 1.6 th/mm3 (1.0-4.8); Lymph % (Auto) 7.9 % (9.0-44.0); Mean Corpuscular HGB Conc 33.8 % (32.0-36.0); Mean Corpuscular Hemoglobin 32.6 pg (27.0-34.0); Mean Corpuscular Volume 96.7 fL (80.0-100.0); Mean Platelet Volume 8.3 fL (7.0-11.0); Mono # (Auto) 0.7 th/mm3 (0.0-0.9); Mono % (Auto) 3.2 % (0.0-8.0); Neut # (Auto) 18.3 th/mm3 (1.8-7.7); Neut % (Auto) 88.1 % (16.0-70.0); Platelet Count 374 th/mm3 (150-450); Red Blood Count 2.88 mil/mm3 (4.00-5.30); Red Cell Distribution Width 14.9 % (11.6-17.2); White Blood Count 20.8 th/mm3 (4.0-11.0)
[2018-03-16 05:44] LABS: Calcium 6.9 mg/dL (8.5-10.1); Carbon Dioxide 16.2 meq/L (21.0-32.0); Magnesium 1.9 mg/dL (1.5-2.5); Potassium 3.1 meq/L (3.5-5.1)
[2018-03-16 06:03] LABS: Total Protein 5.7 g/dL (6.4-8.2)
[2018-03-16 07:50] LABS: Eosinophils 3 % (0-4); Lymphocytes 6 % (9-44); Metamyelocytes 7 % (0-1); Monocytes 1 % (0-8); Myelocytes 1 % (0-0); RBC Morphology Normal (Normal)
[2018-03-16 07:51] LABS: Platelet Estimate Normal (Normal); Platelet Morphology Normal (Normal)
[2018-03-16] MEDS ORDERED: DC previous DKA orders (HMC 1917) OTHER ONE (08:42)
[2018-03-16] MEDS ORDERED: DC Insulin drip 2 hrs post basal insulin dose OTHER ONE (08:42)
[2018-03-16] MEDS ORDERED: Dextrose 50% in Water 50 ML Vial IV.PUSH PRN (08:42)
[2018-03-16] MEDS ORDERED: Insulin Detemir Inj 1,000 UNIT/10 ML Vial SQ SCH (09:00)
[2018-03-16] MEDS ORDERED: Sodium Bicarbonate 8.4% Inj 150 MEQ in Water for Inj, Sterile 850 ML IV.CONT SCH (09:00)
--- NOTE | 2018-03-16 09:07 | P.PNCC ---
Subjective Subjective Remarks/Hospital Course: HISTORY OF PRESENT ILLNESS: The patient is a 67-year-old female with a past medical history of hypertension and rheumatoid arthritis, who presented from Dr. Cisneros's office, her primary care physician for generalized weakness, edema of her lower extremities and diarrhea. The patient states that she was seen by the nurse practitioner for Dr. Cisneros and after her visit, she was advised to go to the ED for further evaluation and management of her symptoms. On arrival to the ER, the patient was found hypotensive with a systolic blood pressure in the 80s and her laboratory data showed multiple electrolyte abnormalities with potassium level 3.0. In addition, the patient was in renal failure, BUN 62, creatinine 3.15, and with lactic acidosis, lactic acid level 3.5 and anion gap of 17. In addition, her blood sugar recorded at 355 on a BMP. The patient, however, denies any history of diabetes mellitus. Also, she was found to have a significant leukocytosis with a WBC of 35.9. ABG was performed on room air which showed a pH of 7.39, CO2 of 28, PaO2 of 85, bicarbonate 17, saturation 95%. When seen, she is on room air oxygen and she was given 1 liter of fluids by EMS and an additional 1 liter in the ED with current blood pressure of 91/50 with a MAP of 67. She reports occasional shortness of breath with exertion. Denies any chest pain. She reports feeling nauseous, having diarrhea for 3 days. She reports a wound culture that is draining from her lower abdomen. In addition to fluids, she is in the process of receiving 6 units of IV insulin and starting on insulin drip. Also, the patient was given vancomycin and Zosyn. She denies any cough or any constitutional symptoms. The patient is afebrile with a temperature of 97.8. Chest x-ray in the ED showed no evidence of any acute cardiopulmonary process. She is scheduled to undergo CT scan of the abdomen and pelvis. In addition, Dr. Mckee from General Surgery was notified regarding possible abscess in her pannus area. 03/15: This morning the patient remains relatively dry and we have transfused an additional 2 L of saline and albumin-containing solutions. She is now normotensive with a pulse rate in the 70s. We will stop her insulin drip for the operating room to avoid any issues with hypoglycemia or hypokalemia. Potassium is 2.9 this morning replacement intravenously. Her pH is acceptable with a mild base deficit and urine output is marginal. She is awake and alert and well-perfused. We will not get control of her glucose intolerance until she is debrided. Although higher risk she does require urgent surgery for debridement of a spreading infection in the lower abdominal wall. She is ready for surgery albeit perhaps still a little dry. Normal saline or lactated Ringer 's or suitable resuscitation fluids for her at this point and we will try to avoid pushing her sugar any higher until she is back in the unit and we can restart her insulin drip. 03/16: Glucose control improved but metabolic acidosis persists and urine output minimal, and inadequate. Deteriorating renal function. Will convert to twice daily Levemir now and sliding scale correction coverage. Continue aggressive hydration. Objective Vital Signs / I&O: Vital Signs 03/15/18 09:55 03/15/18 10:00 03/15/18 10:15 Temperature 97.8 F Pulse Rate 95 H 94 H 92 H Respiratory Rate 20 16 16 Blood Pressure 123/80 82/47 L 80/47 L Pulse Oximetry 96 03/15/18 10:30 03/15/18 10:40 03/15/18 12:00 Temperature 98.3 F 97.5 F L Pulse Rate 90 92 H 84 Respiratory Rate 16 16 20 Blood Pressure 90/53 L 99/55 L 89/52 L Pulse Oximetry 96 98 03/15/18 14:33 03/15/18 16:00 03/15/18 19:55 Temperature 97.4 F L Pulse Rate 83 85 Respiratory Rate 22 21 22 Blood Pressure 90/53 L Pulse Oximetry 95 03/15/18 20:00 03/15/18 23:31 03/16/18 00:00 Temperature 98.4 F 98.3 F Pulse Rate 84 94 H 88 Respiratory Rate 20 27 H 21 Blood Pressure 113/56 L 91/46 L Pulse Oximetry 99 100 03/16/18 04:00 03/16/18 08:23 Temperature 97 F L Pulse Rate 86 81 Respiratory Rate 19 16 Blood Pressure 92/48 L Pulse Oximetry 100 Intake & Output 03/15/18 03/16/18 03/16/18 18:59 06:59 18:59 Intake Total 4450 / 4450 3290 / 3290 Output Total 100 / 100 200 / 200 Balance 4350 / 4350 3090 / 3090 Weight 157.7 kg Intake: IV 3450 / 3450 3050 / 3050 D5W/Normal Saline Inj 1,000 ML 3000 / 3000 2000 / 2000 @ 200 mls/hr IV.CONT .Q5H ED Rx#:[id number] NovoLIN R (IV Infusion) 100 100 / 100 UNIT In NS Inj 99 ML @ 8 UNITS/ HR 8 mls/hr IV.CONT TITRATE PRN Rx#:[id number] NS Inj 1,000 ML @ 250 mls/hr IV 1000 / 1000 .CONT .Q4H ED Rx#:[id number] Zosyn 2.25 GM Premix 50 ML @ 50 / 50 50 / 50 100 mls/hr IV.SIG Q6H ED Rx#: [id number] KCl 20 mEq Premix Inj 20 meq In 300 / 300 100 ml @ 50 mls/hr IV.SIG Q2H ED Rx#:[id number] Oral 240 / 240 Anesthesia Amount 1000 / 1000 Output: Urine 150 / 150 Estimated Blood Loss 100 / 100 Wound Drainage 50 / 50 # 1 Medial Abdomen 50 / 50 Result Diagrams: 03/16/18 04:36 03/16/18 04:36 Objective Remarks: PHYSICAL EXAMINATION: GENERAL: A 67-year-old female lying in bed, in no acute respiratory distress, awake, alert. HEENT: Atraumatic, normocephalic. Pupils are equal, round, reacting to light and accommodation. Extraocular muscles intact. Conjunctivae pink. Nonicteric sclerae. Dry mucous membranes. NECK: Supple. Trachea in the midline. Airway widely patent. CARDIOVASCULAR: Regular rate and rhythm. Normal S1, S2. No murmurs, rubs or gallops noted. No JVD. PULMONARY: Bilateral equal air entry. No rales, light wheezing. ABDOMEN: Soft, obese, mild tenderness in lower abdomen. Wound VAC noticed in the pannus area. EXTREMITIES: No cyanosis or clubbing; +2 edema in addition to erythema of the left lower extremity, particularly the foot. NEUROLOGIC: No focal sensory deficit. Conversant, oriented 3. Assessment and Plan - Assessment and Plan Plan: IMPRESSION: 1. Severe sepsis. 2. Acute renal failure. 3. Lactic acidemia. 4. Leukocytosis with bandemia. 5. Anion gap metabolic acidosis. 6. Diabetic ketoacidosis. 7. Cellulitis of the left lower extremity. 8. Cellulitis and possible abscess in the pannus area. 9. History of hypertension. 10. History of rheumatoid arthritis. 11. Morbid obesity. PLAN: 1. Monitor neuro status closely and avoid any sedatives. 2. Oxygen p.r.n. to maintain sats above 92%. 3. Bronchodilators on a p.r.n. basis. 4. Monitor heart rate and blood pressure closely and maintain MAP greater than 65 mmHg. The patient was given a total of 2 liters of crystalloids. 5. Monitor renal function, I's and O's and avoid nephrotoxins. Monitor BMP q.6 hours. 6. Electrolyte replacement as needed. 7. Discontinue insulin drip and convert to twice daily Levemir, Add sliding scale correction coverage. 8. Antibiotic coverage per ID service. 9. Normal saline bolus until urine production 10. Serial lactic acid monitoring until clear. 11. General surgery to follow wound 12. Bicarb drip 13. Monitor CBC. 14. Gastrointestinal prophylaxis with Pepcid and DVT prophylaxis with SCDs for now. 15. Nephrology consult Overall impression: This woman remains critically ill with a necrotizing infection involving the anterior abdominal wall. She required urgent debridement to get her out of ketoacidosis. She was very aggressively hydrated prior to surgery but continues to have problems with oliguria and deteriorating renal function. Metabolic acidosis persists, related to impaired renal function. Peripheral perfusion is acceptable. Critical care 40 minutes aside from invasive procedures.
[2018-03-16] MEDS: Insulin Detemir Inj 1,000 UNIT/10 ML Vial SQ SCH (10:02)
[2018-03-16] MEDS: Pantoprazole Inj 40 MG Vial IV.PUSH SCH (10:02)
[2018-03-16] MEDS: Insulin NovoLOG Aspart Correctional Sugar Inj SQ SCH ×3 (13:23→21:00)
[2018-03-16 14:34] LABS: Calcium 6.9 mg/dL (8.5-10.1); Carbon Dioxide 16.6 meq/L (21.0-32.0); Potassium 3.1 meq/L (3.5-5.1)
[2018-03-16 14:46] LABS: Total Protein 5.9 g/dL (6.4-8.2)
[2018-03-16] MEDS: DAPTOmycin Inj 600 MG in Sodium Chlor 0.9% Inj 100 ML IV.SIG SCH (15:41)
--- NOTE | 2018-03-16 15:41 | P.PNID ---
Subjective Remarks: Patient states that she has pain all over. Rates the pain as 8/10 scale. Reports that she is not having much pain in the abdomen where the vacuum device is located. Has decreased urine output. Afebrile. Denies chills. Denies nausea. This is a 67-year-old white female who was admitted to the hospital yesterday. The patient developed redness of her right foot 5 days ago. She also notes that she had bouts of diarrhea for a couple of days prior to that. The diarrhea continued for 5 days and then stopped. She went to see her primary physician yesterday and she notes that they sent her to the emergency department because she appeared pale. She notes that she had a tiny lump on her right abdominal wall underneath the fold of skin. She has obese abdomen with large amount of pannus. She was evaluated in the ED and was noted to have elevated white blood cell count of 35.9 and she had lactic acid level of 3.5. She also had acute kidney disease with creatinine of 3.51. The patient was admitted and eventually taken to surgery for an abdominal wall debridement. She was noted to have necrotic skin in that location. She underwent debridement and samples were taken for culture. Past Medical History: PAST MEDICAL HISTORY: Hypertension, history of cervical discectomy and allograft bone fusion in 10/2013, bacteremia due to methicillin-sensitive Staphylococcus aureus in 10/2013. Allergies/Adverse Reactions: Allergies No Known Allergies Allergy (Unverified 03/14/18 16:15) Objective Vital Signs 03/15/18 16:00 03/15/18 19:55 03/15/18 20:00 Temperature 97.4 F L 98.4 F Pulse Rate 83 85 84 Respiratory Rate 21 22 20 Blood Pressure 90/53 L 113/56 L Pulse Oximetry 95 99 03/15/18 23:31 03/16/18 00:00 03/16/18 04:00 Temperature 98.3 F 97 F L Pulse Rate 94 H 88 86 Respiratory Rate 27 H 21 19 Blood Pressure 91/46 L 92/48 L Pulse Oximetry 100 100 03/16/18 08:00 03/16/18 08:23 03/16/18 09:00 Temperature 97.5 F L Pulse Rate 78 81 90 Respiratory Rate 19 16 Blood Pressure 87/51 L Pulse Oximetry 100 03/16/18 11:54 03/16/18 12:00 Temperature 98.3 F Pulse Rate 87 94 H Respiratory Rate 15 23 Blood Pressure 101/49 L Pulse Oximetry 94 L Intake & Output 03/15/18 03/16/18 03/16/18 18:59 06:59 18:59 Intake Total 4450 / 4450 4340 / 4340 Output Total 100 / 100 200 / 200 Balance 4350 / 4350 4140 / 4140 Weight 157.7 kg Intake: IV 3450 / 3450 4100 / 4100 D5W/Normal Saline Inj 1,000 ML 3000 / 3000 1999 / 1999 @ 200 mls/hr IV.CONT .Q5H ED Rx#:[id number] NovoLIN R (IV Infusion) 100 100 / 100 UNIT In NS Inj 99 ML @ 8 UNITS/ HR 8 mls/hr IV.CONT TITRATE PRN Rx#:[id number] NS Inj 1,000 ML @ 250 mls/hr IV 1999 .CONT .Q4H ED Rx#:[id number] Zosyn 2.25 GM Premix 50 ML @ 50 / 50 100 / 100 100 mls/hr IV.SIG Q6H ED Rx#: [id number] KCl 20 mEq Premix Inj 20 meq In 300 / 300 100 ml @ 50 mls/hr IV.SIG Q2H ED Rx#:[id number] Oral 240 / 240 Anesthesia Amount 1000 / 1000 Output: Urine 150 / 150 Estimated Blood Loss 100 / 100 Wound Drainage 50 / 50 # 1 Medial Abdomen 50 / 50 03/15/18 08:55 Tissue - Abdominal Gram Stain - Final 03/15/18 08:55 Tissue - Abdominal Wound Culture - Preliminary Group A beta (Strep pyogenes) 03/14/18 15:13 Blood - Peripheral Aerobic Blood Culture - Preliminary Staphylococcus coag negative 03/14/18 15:13 Blood - Peripheral Anaerobic Blood Culture - Preliminary No growth in 2 days 03/14/18 16:50 Clean Catch Urine Urine Culture - Final No growth in 48 hours 03/15/18 08:55 Tissue - Abdominal Acid Fast Bacilli Smear - Final No acid fast bacilli seen 03/15/18 08:55 Tissue - Abdominal Mycobacterial Culture - Pending 03/14/18 15:08 Blood - Peripheral Aerobic Blood Culture - Preliminary No growth in 2 days 03/14/18 15:08 Blood - Peripheral Anaerobic Blood Culture - Preliminary No growth in 2 days 03/14/18 19:15 Wound - Abdominal Gram Stain - Final 03/14/18 19:15 Wound - Abdominal Wound Culture - Preliminary Group A beta (Strep pyogenes) Staphylococcus aureus 03/15/18 08:55 Tissue - Abdominal Fungal Smear - Final No fungal elements seen 03/15/18 08:55 Tissue - Abdominal Fungal Culture - Pending Lab - Hematology Results 03/14/18 03/14/18 03/15/18 15:13 21:00 03:26 WBC 35.9 H 33.4 H 31.8 H RBC 3.71 L 3.53 L 3.48 L Hgb 11.8 11.2 L 11.0 L Hct 35.7 34.2 L 33.2 L MCV 96.3 96.7 95.4 MCH 31.9 31.8 31.5 MCHC 33.2 32.9 33.0 RDW 14.2 14.1 14.2 Plt Count 390 359 367 MPV 8.8 8.6 8.6 Prelim Diff (Auto) Slide review pending Slide review pending Slide review pending Neut % (Auto) 93.6 H 91.8 H 91.9 H Lymph % (Auto) 1.7 L 3.1 L 3.2 L [place] % (Auto) 2.9 3.3 3.2 Eos % (Auto) 1.6 1.4 1.6 Baso % (Auto) 0.2 0.4 0.1 Neut # (Auto) 33.6 H 30.7 H 29.2 H Lymph # (Auto) 0.6 L 1.0 1.0 [place] # (Auto) 1.1 H 1.1 H 1.0 H Eos # (Auto) 0.6 H 0.5 H 0.5 H Baso # (Auto) 0.1 0.1 0.0 WBC Differential Manual diff final Manual diff final Manual diff final Seg Neuts % (Manual) 82 H 75 H 79 H Band Neuts % (Manual) 9 H 9 H 14 H Lymphocytes % (Manual) 3 L 4 L 4 L Monocytes % (Manual) 9 H 1 Eosinophils % (Manual) 1 1 1 Metamyelocytes % (Man) 1 1 Myelocytes % (Man) 1 H 1 H 1 H Promyelocytes % (Man) 3 H Abs Neuts (Manual) 34.5 H 28.7 H 29.9 H Differential Comment . . . Toxic Granulation 1+ H 1+ H 1+ H Dohle Bodies Present H Platelet Estimate Normal Normal Normal Platelet Morphology Normal Normal Normal RBC Morphology 03/16/18 04:36 WBC 20.8 H RBC 2.88 L Hgb 9.4 L Hct 27.9 L MCV 96.7 MCH 32.6 MCHC 33.8 RDW 14.9 Plt Count 374 MPV 8.3 Prelim Diff (Auto) Slide review pending Neut % (Auto) 88.1 H Lymph % (Auto) 7.9 L [place] % (Auto) 3.2 Eos % (Auto) 0.5 Baso % (Auto) 0.3 Neut # (Auto) 18.3 H Lymph # (Auto) 1.6 [place] # (Auto) 0.7 Eos # (Auto) 0.1 Baso # (Auto) 0.1 WBC Differential Manual diff final Seg Neuts % (Manual) 61 Band Neuts % (Manual) 21 H Lymphocytes % (Manual) 6 L Monocytes % (Manual) 1 Eosinophils % (Manual) 3 Metamyelocytes % (Man) 7 H Myelocytes % (Man) 1 H Promyelocytes % (Man) Abs Neuts (Manual) 18.7 H Differential Comment . Toxic Granulation Dohle Bodies Platelet Estimate Normal Platelet Morphology Normal RBC Morphology Normal Lab - Chemistry Results 03/14/18 03/14/18 03/14/18 14:30 15:13 15:14 Sodium 137 Potassium 3.0 L Chloride 103 Carbon Dioxide 17.4 L Anion Gap 17 H BUN 62 H Creatinine 3.15 H Estimated GFR 15 L POC Glucose Random Glucose 355 H Lactic Acid 2.0 3.5 H Calcium 8.1 L Prot Corrected Calcium Phosphorus Magnesium Total Bilirubin 0.6 AST 37 ALT 33 Alkaline Phosphatase 164 H Troponin I Less than 0.02 L Total Protein 6.3 L Albumin 1.5 L Beta-Hydroxybutyric Acd 03/14/18 03/14/18 03/14/18 18:10 18:10 19:36 Sodium Potassium Chloride Carbon Dioxide Anion Gap BUN Creatinine Estimated GFR POC Glucose 291 H Random Glucose Lactic Acid Calcium Prot Corrected Calcium Phosphorus Magnesium 1.9 Total Bilirubin AST ALT Alkaline Phosphatase Troponin I Total Protein Albumin Beta-Hydroxybutyric Acd 0.24 03/14/18 03/14/18 03/14/18 21:00 21:08 22:30 Sodium 138 Potassium 3.2 L Chloride 106 Carbon Dioxide 15.7 L Anion Gap 16 H BUN 72 H Creatinine 2.94 H Estimated GFR 16 L POC Glucose 258 H Random Glucose 313 H Lactic Acid 3.0 H Calcium 7.9 L Prot Corrected Calcium Phosphorus Magnesium Total Bilirubin AST ALT Alkaline Phosphatase Troponin I Total Protein Albumin Beta-Hydroxybutyric Acd 03/14/18 03/14/18 03/15/18 22:30 23:41 00:43 Sodium Potassium Chloride Carbon Dioxide Anion Gap BUN Creatinine Estimated GFR POC Glucose 274 H 264 H 168 H Random Glucose Lactic Acid Calcium Prot Corrected Calcium Phosphorus Magnesium Total Bilirubin AST ALT Alkaline Phosphatase Troponin I Total Protein Albumin Beta-Hydroxybutyric Acd 03/15/18 03/15/18 03/15/18 01:53 02:55 03:26 Sodium 141 Potassium 2.9 L* Chloride 108 H Carbon Dioxide 15.5 L Anion Gap 18 H BUN 64 H Creatinine 3.15 H Estimated GFR 15 L POC Glucose 128 H 176 H Random Glucose 184 H D Lactic Acid Calcium 7.9 L Prot Corrected Calcium Phosphorus Magnesium Total Bilirubin 0.6 AST 76 H ALT 38 Alkaline Phosphatase 262 H Troponin I Total Protein 6.0 L Albumin 1.3 L Beta-Hydroxybutyric Acd 03/15/18 03/15/18 03/15/18 03:49 04:53 05:55 Sodium Potassium Chloride Carbon Dioxide Anion Gap BUN Creatinine Estimated GFR POC Glucose 187 H 220 H 249 H Random Glucose Lactic Acid Calcium Prot Corrected Calcium Phosphorus Magnesium Total Bilirubin AST ALT Alkaline Phosphatase Troponin I Total Protein Albumin Beta-Hydroxybutyric Acd 03/15/18 03/15/18 03/15/18 06:41 10:06 11:14 Sodium Potassium Chloride Carbon Dioxide Anion Gap BUN Creatinine Estimated GFR POC Glucose 214 H 217 H 234 H Random Glucose Lactic Acid Calcium Prot Corrected Calcium Phosphorus Magnesium Total Bilirubin AST ALT Alkaline Phosphatase Troponin I Total Protein Albumin Beta-Hydroxybutyric Acd 03/15/18 03/15/18 03/15/18 12:43 13:36 14:20 Sodium 141 Potassium 3.1 L Chloride 112 H Carbon Dioxide 16.3 L Anion Gap 13 BUN 68 H Creatinine 3.49 H Estimated GFR 13 L POC Glucose 241 H 230 H Random Glucose 216 H Lactic Acid Calcium 6.9 L* D Prot Corrected Calcium 7.7 L Phosphorus Magnesium Total Bilirubin AST ALT Alkaline Phosphatase Troponin I Total Protein 5.5 L Albumin Beta-Hydroxybutyric Acd 03/15/18 03/15/18 03/15/18 14:20 14:22 14:55 Sodium Cancelled Potassium Cancelled Chloride Cancelled Carbon Dioxide Cancelled Anion Gap Cancelled BUN Cancelled Creatinine Cancelled Estimated GFR Cancelled POC Glucose 198 H 263 H Random Glucose Cancelled Lactic Acid Calcium Cancelled Prot Corrected Calcium Phosphorus 2.2 L Magnesium 2.0 Total Bilirubin AST ALT Alkaline Phosphatase Troponin I Total Protein Albumin Beta-Hydroxybutyric Acd 03/15/18 03/15/18 03/15/18 16:01 17:21 18:37 Sodium Potassium Chloride Carbon Dioxide Anion Gap BUN Creatinine Estimated GFR POC Glucose 155 H 177 H 167 H Random Glucose Lactic Acid Calcium Prot Corrected Calcium Phosphorus Magnesium Total Bilirubin AST ALT Alkaline Phosphatase Troponin I Total Protein Albumin Beta-Hydroxybutyric Acd 03/15/18 03/15/18 03/15/18 19:22 20:17 21:18 Sodium 142 Potassium 3.1 L Chloride 111 H Carbon Dioxide 15.7 L Anion Gap 15 BUN 63 H Creatinine 3.52 H Estimated GFR 13 L POC Glucose 154 H 159 H Random Glucose 181 H Lactic Acid Calcium 7.2 L* Prot Corrected Calcium 8.1 L Phosphorus Magnesium Total Bilirubin AST ALT Alkaline Phosphatase Troponin I Total Protein 5.5 L Albumin Beta-Hydroxybutyric Acd 03/15/18 03/15/18 03/16/18 22:18 23:56 01:12 Sodium Potassium Chloride Carbon Dioxide Anion Gap BUN Creatinine Estimated GFR POC Glucose 136 H 111 H 142 H Random Glucose Lactic Acid Calcium Prot Corrected Calcium Phosphorus Magnesium Total Bilirubin AST ALT Alkaline Phosphatase Troponin I Total Protein Albumin Beta-Hydroxybutyric Acd 03/16/18 03/16/18 03/16/18 02:25 03:59 04:36 Sodium 143 Potassium 3.1 L Chloride 111 H Carbon Dioxide 16.2 L Anion Gap 16 H BUN 65 H Creatinine 4.02 H Estimated GFR 11 L POC Glucose 209 H 179 H Random Glucose 176 H Lactic Acid Calcium 6.9 L* Prot Corrected Calcium 7.6 L Phosphorus 2.0 L Magnesium 1.9 Total Bilirubin AST ALT Alkaline Phosphatase Troponin I Total Protein 5.7 L Albumin Beta-Hydroxybutyric Acd 03/16/18 03/16/18 03/16/18 05:15 06:10 07:19 Sodium Potassium Chloride Carbon Dioxide Anion Gap BUN Creatinine Estimated GFR POC Glucose 157 H 135 H 134 H Random Glucose Lactic Acid Calcium Prot Corrected Calcium Phosphorus Magnesium Total Bilirubin AST ALT Alkaline Phosphatase Troponin I Total Protein Albumin Beta-Hydroxybutyric Acd 03/16/18 03/16/18 03/16/18 08:12 09:43 10:34 Sodium Potassium Chloride Carbon Dioxide Anion Gap BUN Creatinine Estimated GFR POC Glucose 177 H 217 H 200 H Random Glucose Lactic Acid Calcium Prot Corrected Calcium Phosphorus Magnesium Total Bilirubin AST ALT Alkaline Phosphatase Troponin I Total Protein Albumin Beta-Hydroxybutyric Acd 03/16/18 03/16/18 13:17 13:57 Sodium 140 Potassium 3.1 L Chloride 108 H Carbon Dioxide 16.6 L Anion Gap 15 BUN 60 H Creatinine 3.99 H Estimated GFR 11 L POC Glucose 242 H Random Glucose 295 H D Lactic Acid Calcium 6.9 L* Prot Corrected Calcium 7.5 L Phosphorus Magnesium Total Bilirubin AST ALT Alkaline Phosphatase Troponin I Total Protein 5.9 L Albumin Beta-Hydroxybutyric Acd Imaging: ITS Impressions Chest X-Ray 03/14/18 15:08 CONCLUSION: No evidence of acute cardiopulmonary process. Abdomen/Pelvis CT 03/14/18 16:22 CONCLUSION: 1. No acute intra-abdominal abnormality seen. 2. Edema seen throughout the subcutaneous fat at the anterior abdominal wall. This should be correlated with any inflammatory process in this region. No focal fluid collection to suggest an abscess is seen. Physical Exam: GENERAL: No acute distress. Awake and alert and oriented. HEENT: No icterus. Poor dentition. NECK: Supple without adenopathy. LUNGS: Clear breath sounds. HEART: Regular S1, S2. No murmurs, rubs or gallops. ABDOMEN: Bowel sounds present, obese, soft. Vacuum device is present at the anterior abdominal wall on the right side and down to the groin fold on the right where the patient has excessive tissue. There is minimal erythema at the skin around the vacuum sponge. EXTREMITIES: The right foot has erythema and swelling. SKIN: No diffuse rash. NEUROLOGIC: No gross focal findings. The patient is alert and oriented. PSYCHIATRIC: Calm and cooperative. Assessment and Plan - Plan IMPRESSION: 1. Necrotic cellulitis of the abdominal wall. 2. Sepsis. 3. Left foot cellulitis. 4. Acute kidney disease. 5. Leukocytosis. The one positive blood culture bottle with coag negative staph is very likely contamination. RECOMMENDATIONS: 1. Stop piperacillin/tazobactam. 2. Continue Daptomycin 3. Add IV Ancef 2 grams Q 24 hours for abdominal wall cellulitis and left foot cellulitis. 4. Monitor renal function. 5. Monitor wound cultures. 6. Monitor blood cultures. 7. Monitor white blood cell count. 8. Monitor clinical status.
[2018-03-16] MEDS ORDERED: Gelatin 12 MM/7 MM Topical Foam TOPICAL PRN (15:54)
[2018-03-16] MEDS ORDERED: Heparin 10,000 UNITS/10 ML Vial (for IV use) IV.FLUSH PRN (15:54)
[2018-03-16] MEDS ORDERED: Albumin Human 25% Inj 100 ML IV.SIG PRN (15:54)
[2018-03-16] MEDS ORDERED: Sod Chloride 0.9% Inj 1,000 ML IV.CONT PRN (15:54)
[2018-03-16] MEDS ORDERED: Acetaminophen 325 MG Tablet PO PRN (15:54)
[2018-03-16] MEDS ORDERED: Sod Chloride 0.9% Inj 1,000 ML OTHER PRN ×2 (15:54)
[2018-03-16] MEDS ORDERED: Midazolam Inj 5 MG/ML 1 ML Vial IV.PUSH ONE (16:00)
[2018-03-16] MEDS ORDERED: Heparin - SQ 10,000 UNITS/ML Vial SQ ONE (16:00)
--- NOTE | 2018-03-16 16:08 | P.CONNP ---
History of Present Illness Consult date: 03/16/18 Reason for Consult: Acute renal failure. Primary Care Provider: Hayden Cisneros Family Provider: Hayden Cisneros History of Present Illness: This patient is a 67-year-old female who denies any previous knowledge of kidney disease although there was an admission in the past a few years ago associated with acute renal insufficiency and subsequently renal function returned to normal. Prior to this presentation she indicated to me that she has been using NSAIDs chronically on a daily basis. Subsequently presented to this institution complaining of weakness, diarrhea for a few days and although not being diabetic was noted on presentation to have a blood sugar of 355. Patient was noted to have evidence of a necrotizing infection involving the anterior abdominal wall upper extremity. Status post debridement March 15, 2018. On presentation she did have significant azotemia which continue to worsen, despite aggressive hydration, with developing metabolic acidosis. Patient is oliguric at this time. Possible history significant for hypertension, obesity and rheumatoid arthritis. Review of Systems All other systems reviewed negative except as stated in HPI PMFSH - History History Provided By: Patient - Medical History Medical History: Medical History (Last Updated 03/16/18 @ 16:03 by Chandana Olvera MD) Hypertension Obesity Rheumatoid arthritis - Surgical History Surgical History: Surgical History (Last Updated 03/16/18 @ 16:03 by Chandana Olvrea MD) S/P cholecystectomy - Tobacco History Second Hand Smoke Exposure: No Tobacco Use In Past 30 Days: No Smoking Status: Never smoker - Alcohol History How Often Do You Have a Drink Containing Alcohol: Monthly or less - Travel History Recent Travel in the [place] Within the Last 8 Weeks: No Recent Travel Out of the Country Within the Last 8 Weeks: No - Immunization History Tetanus Immunization: >5 Years Hx Influenza Vaccine This Season: No Medications and Allergies Active Medications: Active Medications Al Hydroxide/Mg Hydroxide (Milk Of Kim [place]) 30 ml PO Q12H PRN PRN Reason: Mild Constipation Albuterol (Duoneb Neb (Edward)) 1 ampul NEB Q4HR NEB EDWARD Last Admin: 03/16/18 11:53 Dose: 1 ampul Bisacodyl (Dulcolax Supp) 10 mg RECTAL DAILY PRN PRN Reason: SEVERE CONSITIPATION Chlorhexidine Gluconate (Chlorhexidine 2% Cloth) 3 pack TOPICAL DAILY@0400 EDWARD Stop: 03/20/18 03:59 Last Admin: 03/16/18 05:07 Dose: 3 pack Chlorhexidine Gluconate (Chlorhexidine 2% Cloth) 3 pack TOPICAL DAILY@0400 PRN PRN Reason: Extra cloth needed Stop: 03/20/18 03:59 Dextrose (D50w Vial) 50 ml IV.PUSH UNSCH PRN PRN Reason: PER HYPOGLYCEMIA PROTOCOL Glucagon (Glucagon Inj) 1 mg OTHER PRN PRN PRN Reason: for Hypoglycemia Protocol Heparin Sodium (Porcine) (Heparin Inj) 5,000 units SQ ONCE ONE Stop: 03/16/18 16:01 Hydromorphone HCl (Dilaudid Pf Inj) 0.2 mg IV.PUSH Q4H PRN PRN Reason: pain 8-10 or not taking po Last Admin: 03/15/18 12:59 Dose: 0.2 mg Sodium Chloride (Ns Inj) 1,000 mls @ 250 mls/hr IV.CONT .Q4H EDWARD Last Admin: 03/16/18 15:47 Dose: Not Given Daptomycin 600 mg/ Sodium (Chloride) 100 mls @ 200 mls/hr IV.SIG Q48H EDWARD Last Admin: 03/16/18 15:41 Dose: 200 mls/hr Sodium Chloride (Ns Inj) 1,000 mls @ 125 mls/hr IV.CONT .Q8H EDWARD Last Admin: 03/16/18 10:19 Dose: 125 mls/hr Cefazolin Sodium/Dextrose (Ancef 2 Gm Premix Inj) 2 gm in 50 mls @ 200 mls/hr IV.SIG Q24H EDWARD Insulin Aspart (Novolog Insulin Suppl Scale Inj) 0 unit SQ 08,12,17,21 EDWARD; Protocol Last Admin: 03/16/18 13:23 Dose: 10 unit Insulin Detemir (Levemir Inj) 12 unit SQ DAILY EDWARD Last Admin: 03/16/18 10:02 Dose: 12 unit Lactulose (Lactulose Liq) 30 ml PO DAILY PRN PRN Reason: SEVERE CONSITIPATION Midazolam HCl (Versed Inj) 5 mg IV.PUSH ONCE ONE Stop: 03/16/18 16:01 Nystatin (Mycostatin Powder) 1 applicatio TOPICAL QID EDWARD Oxycodone HCl (Roxicodone) 5 mg PO Q4H PRN PRN Reason: pain 3-7 Last Admin: 03/15/18 23:51 Dose: 5 mg Pantoprazole Sodium (Protonix Inj) 40 mg IV.PUSH DAILY EDWARD Last Admin: 03/16/18 10:02 Dose: 40 mg Sennosides (Senokot) 17.2 mg PO Q12H PRN PRN Reason: Moderate Constipation Sodium Bicarbonate (Sodium Bicarbonate 8.4% Inj) 100 meq IV.PUSH UNSCH PRN PRN Reason: for pH less than 6.9 Sodium Bicarbonate (Sodium Bicarbonate 8.4% Inj) 50 meq IV.PUSH UNSCH PRN PRN Reason: for pH 6.9 to 7.0 Allergies Allergy/AdvReac Type Severity Reaction Status Date / Time No Known Allergies Allergy Unverified 03/14/18 16:15 Home Medications Medication Instructions Recorded Confirmed Type lisinopril 20 mg PO DAILY 03/14/18 03/14/18 History Exam Vital signs: Vital Signs 03/15/18 16:00 03/15/18 19:55 03/15/18 20:00 Temperature 97.4 F L 98.4 F Pulse Rate 83 85 84 Respiratory Rate 21 22 20 Blood Pressure 90/53 L 113/56 L Pulse Oximetry 95 99 03/15/18 23:31 03/16/18 00:00 03/16/18 04:00 Temperature 98.3 F 97 F L Pulse Rate 94 H 88 86 Respiratory Rate 27 H 21 19 Blood Pressure 91/46 L 92/48 L Pulse Oximetry 100 100 03/16/18 08:00 03/16/18 08:23 03/16/18 09:00 Temperature 97.5 F L Pulse Rate 78 81 90 Respiratory Rate 19 16 Blood Pressure 87/51 L Pulse Oximetry 100 03/16/18 11:54 03/16/18 12:00 Temperature 98.3 F Pulse Rate 87 94 H Respiratory Rate 15 23 Blood Pressure 101/49 L Pulse Oximetry 94 L Intake & Output 03/15/18 03/16/18 03/16/18 18:59 06:59 18:59 Intake Total 4450 / 4450 4340 / 4340 50 / 50 Output Total 100 / 100 200 / 200 Balance 4350 / 4350 4140 / 4140 50 / 50 Weight 157.7 kg Intake: IV 3450 / 3450 4100 / 4100 50 / 50 D5W/Normal Saline Inj 1,000 ML 3000 / 3000 2000 / 2000 @ 200 mls/hr IV.CONT .Q5H EDAWRD Rx#:[id number] NovoLIN R (IV Infusion) 100 100 / 100 UNIT In NS Inj 99 ML @ 8 UNITS/ HR 8 mls/hr IV.CONT TITRATE PRN Rx#:[id number] NS Inj 1,000 ML @ 250 mls/hr IV 1999 .CONT .Q4H EDWARD Rx#:[id number] Zosyn 2.25 GM Premix 50 ML @ 50 / 50 100 / 100 50 / 50 100 mls/hr IV.SIG Q6H EDWARD Rx#: [id number] KCl 20 mEq Premix Inj 20 meq In 300 / 300 100 ml @ 50 mls/hr IV.SIG Q2H EDWARD Rx#:[id number] Oral 240 / 240 Anesthesia Amount 1000 / 1000 Output: Urine 150 / 150 Estimated Blood Loss 100 / 100 Wound Drainage 50 / 50 # 1 Medial Abdomen 50 / 50 Narrative: GENERAL: Obese female who does appear to be somewhat older than her stated age. SKIN: Warm and dry. Patient alert responding to questions appropriately. HEAD: Normocephalic. EYES: No scleral icterus. No injection or drainage. NECK: Supple, trachea midline. No JVD or lymphadenopathy. CARDIOVASCULAR: Regular rate and rhythm without murmurs, gallops, or rubs. RESPIRATORY: Breath sounds equal bilaterally. No accessory muscle use. GASTROINTESTINAL: Abdomen soft, non-tender, nondistended. MUSCULOSKELETAL: No cyanosis, 2+ pitting edema lower extremities.. Results - Lab Results 03/16/18 04:36 03/16/18 13:57 Most recent lab results ABG pH 7.39 (7.380-7.420) 03/14/18 16:45 ABG pCO2 28 mmHg (38-42) L 03/14/18 16:45 ABG pO2 85 mmHg (61-120) 03/14/18 16:45 ABG HCO3 17 mmol/L (22-26) L 03/14/18 16:45 Calcium 6.9 mg/dL (8.5-10.1) L* 03/16/18 13:57 Phosphorus 2.0 mg/dL (2.5-4.9) L 03/16/18 04:36 Magnesium 1.9 mg/dL (1.5-2.5) 03/16/18 04:36 Assessment and Plan - Assessment (1) Acute renal failure due to tubular necrosis Code(s): N17.0 - Acute kidney failure with tubular necrosis Status: Acute Plan: Patient appears to have established ATN with worsening azotemia despite aggressive hydration. I do not anticipate any improvement in patient's renal function immediately and given severity of azotemia, oliguria and persisting metabolic acidosis recommended proceeding with renal replacement therapy i.e. dialysis. I discussed with the patient the dialytic procedure, risks associated with dialysis, benefits and alternative and patient agrees to proceed with hemodialysis at this time with Vas-Cath placement. She was advised that dialysis may not be required permanently but it may take several days to weeks for renal recovery to occur. Medications should be adjusted for the patient's estimated GFR if clinically indicated. Avoid agents with significant potential for nephrotoxicity possible including NSAIDs for analgesia, iodine contrast agents. Gadolinium is contraindicated if the GFR is below 30. (2) Acidosis, metabolic Code(s): E87.2 - Acidosis Status: Acute Plan: Secondary to renal failure and probable coexisting diabetic ketoacidosis. (3) Sepsis Code(s): A41.9 - Sepsis, unspecified organism Status: Acute (4) Cellulitis of left leg Code(s): L03.116 - Cellulitis of left lower limb Status: Acute Plan: Management per infectious disease and surgery. (5) Abdominal wall cellulitis Code(s): L03.311 - Cellulitis of abdominal wall Status: Acute Plan: Status post debridement. Management per surgery and infectious disease.
--- NOTE | 2018-03-16 17:34 | P.PCN ---
Date of procedure: 03/16/18 Procedure: Preop diagnosis: Acute kidney injury with an anuria, poor venous access Procedure: 1. Insertion left internal jugular vein hemodialysis catheter, 2 lumen 2. Insertion left subclavian vein triple-lumen central venous access line Operation: Patient consented, timeout performed, proper identification completed. Patient was sedated with 5 mg of intravenous Versed in small increments. Supplemental oxygen and the usual ICU monitoring was in place. The left chest and neck were painted, prepped and draped a sterile sheets. 1% Xylocaine infiltration anesthetic was used under the clavicle and in the anterior neck. Using a thin-walled needle the subclavian vein on the left side was cannulated and a wire easily advanced. Dilator was passed in the 3 lm catheter was advanced over the wire to 18 cm. All 3 lm were aspirated and flushed. Using ultrasound guidance the left internal jugular vein was identified and easily cannulated with a thin-walled needle. Wire was advanced and dilators were passed. The 2 lm hemodialysis catheter was then passed over the wire to a distance of 18 cm. Lumens were aspirated, flushed, and packed with heparin 1000 U/cc. The hemodialysis catheter was sutured in place and the triple-lumen catheter was secured with a StatLock. Sterile dressings were applied. Chest x-ray confirmed good position of both catheters suitable for use.
--- NOTE | 2018-03-16 17:50 | XR ---
EXAM DATE: 03/16/2018 5:35 PM EDT AGE/SEX: 67 years / Female INDICATIONS: Dialysis and CVL line placement. CLINICAL DATA: This is the patient's subsequent encounter. Patient reports that signs and symptoms h ave been present for 3 days and indicates a pain score of 3/10. MEDICAL/SURGICAL HISTORY: None. None. COMPARISON: [facility], CHEST 1V SINGLE AP, 03/14/2018. . FINDINGS: The heart size is normal. The lungs are grossly clear. There is elevation of the left hemidiaphragm. There is a left subclavian and left internal jugular central line in place. No pneumothorax is seen. There is an anterior cervical fusion plate. CONCLUSION: Left subclavian central venous line and double-lumen dialysis catheter in place from the left interna l jugular approach in good position without evidence of pneumothorax. Electronically signed by: Alfa Be MD 03/16/2018 5:49 PM EDT
[2018-03-16 19:28] LABS: Hepatitis A IgM Antibody Nonreactive (Nonreactive); Hepatitits B Surface Antigen Nonreactive (Nonreactive)
[2018-03-16] MEDS: Nystatin 100,000 UNITS/GM Powder 15 GM Bottle TOPICAL SCH ×2 (20:01→21:26)
[2018-03-16] MEDS: ceFAZolin 2 GM Premix Inj 2 GM/50 ML PIGGYBACK IV.SIG SCH (21:02)
[2018-03-16 22:50] LABS: Calcium 6.8 mg/dL (8.5-10.1); Carbon Dioxide 22.7 meq/L (21.0-32.0)
[2018-03-16 23:28] LABS: Total Protein 5.8 g/dL (6.4-8.2)
[2018-03-17] MEDS: Sod Chloride 0.9% Inj 1,000 ML IV.CONT SCH ×3 (01:43→16:50)
[2018-03-17 05:10] LABS: Baso % (Auto) 0.2 % (0.0-2.0); Eos # (Auto) 0.1 th/mm3 (0.0-0.4); Eos % (Auto) 0.6 % (0.0-4.0); Hematocrit 27.3 % (35.0-46.0); Hemoglobin 9.2 gm/dL (11.6-15.3); Lymph # (Auto) 1.5 th/mm3 (1.0-4.8); Lymph % (Auto) 10.8 % (9.0-44.0); Mean Corpuscular HGB Conc 33.9 % (32.0-36.0); Mean Corpuscular Hemoglobin 32.5 pg (27.0-34.0); Mean Corpuscular Volume 95.9 fL (80.0-100.0); Mean Platelet Volume 8.2 fL (7.0-11.0); Mono # (Auto) 0.7 th/mm3 (0.0-0.9); Mono % (Auto) 4.9 % (0.0-8.0); Neut # (Auto) 11.4 th/mm3 (1.8-7.7); Neut % (Auto) 83.5 % (16.0-70.0); Platelet Count 322 th/mm3 (150-450); Red Blood Count 2.84 mil/mm3 (4.00-5.30); Red Cell Distribution Width 14.3 % (11.6-17.2); White Blood Count 13.6 th/mm3 (4.0-11.0)
[2018-03-17 05:28] LABS: Albumin 1.3 g/dL (3.4-5.0); Calcium 7.2 mg/dL (8.5-10.1); Carbon Dioxide 19.7 meq/L (21.0-32.0); Potassium 3.1 meq/L (3.5-5.1)
[2018-03-17 07:13] LABS: Eosinophils 1 % (0-4); Lymphocytes 7 % (9-44); Metamyelocytes 3 % (0-1); Monocytes 2 % (0-8); Myelocytes 2 % (0-0); Platelet Estimate Normal (Normal); Platelet Morphology Normal (Normal); Promyelocyte 1 % (0-0)
[2018-03-17] MEDS: Insulin NovoLOG Aspart Correctional Sugar Inj SQ SCH ×3 (09:04→16:45)
[2018-03-17] MEDS: Nystatin 100,000 UNITS/GM Powder 15 GM Bottle TOPICAL SCH ×3 (09:05→17:21)
[2018-03-17] MEDS: Pantoprazole Inj 40 MG Vial IV.PUSH SCH (09:06)
[2018-03-17] MEDS: Insulin Detemir Inj 1,000 UNIT/10 ML Vial SQ SCH (09:14)
[2018-03-17] MEDS: Heparin 10,000 UNITS/10 ML Vial (for IV use) OTHER PRN (09:37)
--- NOTE | 2018-03-17 10:06 | P.PNCC ---
Subjective Subjective Remarks/Hospital Course: HISTORY OF PRESENT ILLNESS: The patient is a 67-year-old female with a past medical history of hypertension and rheumatoid arthritis, who presented from Dr. Cisneros's office, her primary care physician for generalized weakness, edema of her lower extremities and diarrhea. The patient states that she was seen by the nurse practitioner for Dr. Cisneros and after her visit, she was advised to go to the ED for further evaluation and management of her symptoms. On arrival to the ER, the patient was found hypotensive with a systolic blood pressure in the 80s and her laboratory data showed multiple electrolyte abnormalities with potassium level 3.0. In addition, the patient was in renal failure, BUN 62, creatinine 3.15, and with lactic acidosis, lactic acid level 3.5 and anion gap of 17. In addition, her blood sugar recorded at 355 on a BMP. The patient, however, denies any history of diabetes mellitus. Also, she was found to have a significant leukocytosis with a WBC of 35.9. ABG was performed on room air which showed a pH of 7.39, CO2 of 28, PaO2 of 85, bicarbonate 17, saturation 95% . When seen, she is on room air oxygen and she was given 1 liter of fluids by EMS and an additional 1 liter in the ED with current blood pressure of 91/50 with a MAP of 67. She reports occasional shortness of breath with exertion. Denies any chest pain. She reports feeling nauseous, having diarrhea for 3 days. She reports a wound culture that is draining from her lower abdomen. In addition to fluids, she is in the process of receiving 6 units of IV insulin and starting on insulin drip. Also, the patient was given vancomycin and Zosyn. She denies any cough or any constitutional symptoms. The patient is afebrile with a temperature of 97.8. Chest x-ray in the ED showed no evidence of any acute cardiopulmonary process. She is scheduled to undergo CT scan of the abdomen and pelvis. In addition, Dr. Mckee from General Surgery was notified regarding possible abscess in her pannus area. 03/15: This morning the patient remains relatively dry and we have transfused an additional 2 L of saline and albumin-containing solutions. She is now normotensive with a pulse rate in the 70s. We will stop her insulin drip for the operating room to avoid any issues with hypoglycemia or hypokalemia. Potassium is 2.9 this morning replacement intravenously. Her pH is acceptable with a mild base deficit and urine output is marginal. She is awake and alert and well-perfused. We will not get control of her glucose intolerance until she is debrided. Although higher risk she does require urgent surgery for debridement of a spreading infection in the lower abdominal wall. She is ready for surgery albeit perhaps still a little dry. Normal saline or lactated Ringer 's or suitable resuscitation fluids for her at this point and we will try to avoid pushing her sugar any higher until she is back in the unit and we can restart her insulin drip. 03/16: Glucose control improved but metabolic acidosis persists and urine output minimal, and inadequate. Deteriorating renal function. Will convert to twice daily Levemir now and sliding scale correction coverage. Continue aggressive hydration. 03/17: Receiving dialysis now. WBC count steadily improving 13.6 today. Wound culture growing strep pyogenes and staph aureus. Glycemic control improved. General surgery planning for the debridement and wound VAC change tomorrow Objective Vital Signs / I&O: Vital Signs 03/16/18 11:54 03/16/18 12:00 03/16/18 16:00 Temperature 98.3 F 98.5 F Pulse Rate 87 94 H 88 Respiratory Rate 15 23 22 Blood Pressure 101/49 L 101/49 L Pulse Oximetry 94 L 100 03/16/18 20:00 03/17/18 00:00 03/17/18 04:00 Temperature 97.7 F 97.9 F 97.8 F Pulse Rate 92 H 86 92 H Respiratory Rate 20 20 14 Blood Pressure 134/63 85/52 L 106/62 Pulse Oximetry 100 99 97 03/17/18 04:03 03/17/18 07:57 Temperature Pulse Rate 86 89 Respiratory Rate 23 24 Blood Pressure Pulse Oximetry Intake & Output 03/16/18 03/17/18 03/17/18 18:59 06:59 18:59 Intake Total 1050 / 1050 1240 / 1240 1000 / 1000 Output Total 600 / 600 Balance 1050 / 1050 640 / 640 1000 / 1000 Intake: IV 1050 / 1050 1000 / 1000 1000 / 1000 NS Inj 1,000 ML @ 125 mls/hr IV 1000 / 1000 1000 / 1000 1000 / 1000 .CONT .Q8H [facility] Rx#:[id number] Zosyn 2.25 GM Premix 50 ML @ 50 / 50 100 mls/hr IV.SIG Q6H ED Rx#: [id number] Oral 240 / 240 Output: Urine 0 / 0 Hemodialysis Amount 500 / 500 Wound Drainage 100 / 100 # 1 Medial Abdomen 100 / 100 Other: # Bowel Movements 0 Result Diagrams: 03/17/18 05:00 03/17/18 05:00 Objective Remarks: GENERAL: A 67-year-old female lying in bed, in no acute respiratory distress, awake, alert. HEENT: Atraumatic, normocephalic. pink. Nonicteric sclerae. Dry mucous membranes. NECK: Supple. Trachea in the midline. Airway widely patent. CARDIOVASCULAR: Regular rate and rhythm. Normal S1, S2. No murmurs, rubs or gallops noted. No JVD. PULMONARY: Bilateral equal air entry. No rales, light wheezing. ABDOMEN: Soft, obese, mild tenderness in lower abdomen. Wound VAC noticed in the pannus area. EXTREMITIES: No cyanosis or clubbing; +2 edema in addition to erythema of the left lower extremity, particularly the foot. NEUROLOGIC: No focal sensory deficit. Conversant, oriented 3. Assessment and Plan - Assessment and Plan Plan: IMPRESSION: 1. Severe sepsis. 2. Acute renal failure, now on HD. 3. Lactic acidemia. 4. Leukocytosis with bandemia. 5. Anion gap metabolic acidosis. 6. Diabetic ketoacidosis. 7. Cellulitis of the left lower extremity. 8. Lower Abdominal wall soft tissue abscess with abdominal wall soft tissue infection. 9. History of hypertension. 10. History of rheumatoid arthritis. 11. Morbid obesity. PLAN: 1. Monitor neuro status closely and avoid any sedatives. 2. Oxygen p.r.n. to maintain sat above 92%. 3. Bronchodilators on a p.r.n. basis. 4. Monitor heart rate and blood pressure closely and maintain MAP greater than 65 mmHg. The patient was given a total of 2 liters of crystalloids. 5. Monitor renal function, I's and O's and avoid nephrotoxins. Monitor BMP q.6 hours. Getting HD now 6. Electrolyte replacement as needed. 7. Twice daily Levemir, sliding scale insulin. 8. Antibiotic coverage per ID service. 9. Monitor I/O closely, replace potassium 10. Serial lactic acid monitoring until clear. 11. General surgery following, 12. Bicarb drip 13. Monitor CBC. 14. Gastrointestinal prophylaxis with Pepcid and DVT prophylaxis with SCDs for now. 15. Nephrology following Overall impression: Critically ill with a necrotizing infection involving the anterior abdominal wall, with abscess. She required urgent debridement, repeat OR tomorrow. She was very aggressively hydrated prior to surgery but continues to have problems with oliguria and deteriorating renal function. Metabolic acidosis persists, related to impaired renal function. Started on HD Critical care 32 minutes aside from invasive procedures.
--- NOTE | 2018-03-17 11:08 | P.PNNP ---
Subjective Interval history: This patient is a 67-year-old female who denies any previous knowledge of kidney disease although there was an admission in the past a few years ago associated with acute renal insufficiency and subsequently renal function returned to normal. Prior to this presentation she indicated to me that she has been using NSAIDs chronically on a daily basis. Subsequently presented to this institution complaining of weakness, diarrhea for a few days and although not being diabetic was noted on presentation to have a blood sugar of 355. Patient was noted to have evidence of a necrotizing infection involving the anterior abdominal wall upper extremity. Status post debridement March 15, 2018. On presentation she did have significant azotemia which continue to worsen, despite aggressive hydration, with developing metabolic acidosis. Patient is oliguric at this time. Possible history significant for hypertension, obesity and rheumatoid arthritis. Patient was seen today during her second dialysis session. Tolerating it well axis is working well. Patient apparently scheduled for surgery tomorrow. Physical Exam Vital signs: Vital Signs 03/16/18 11:54 03/16/18 12:00 03/16/18 16:00 Temperature 98.3 F 98.5 F Pulse Rate 87 94 H 88 Respiratory Rate 15 23 22 Blood Pressure 101/49 L 101/49 L Pulse Oximetry 94 L 100 03/16/18 20:00 03/17/18 00:00 03/17/18 04:00 Temperature 97.7 F 97.9 F 97.8 F Pulse Rate 92 H 86 92 H Respiratory Rate 20 20 14 Blood Pressure 134/63 85/52 L 106/62 Pulse Oximetry 100 99 97 03/17/18 04:03 03/17/18 07:57 03/17/18 08:00 Temperature Pulse Rate 86 89 93 H Respiratory Rate 23 24 Blood Pressure Pulse Oximetry 03/17/18 09:00 Temperature Pulse Rate 92 H Respiratory Rate Blood Pressure Pulse Oximetry Intake & Output 03/16/18 03/17/18 03/17/18 18:59 06:59 18:59 Intake Total 1050 / 1050 1240 / 1240 1000 / 1000 Output Total 600 / 600 Balance 1050 / 1050 640 / 640 1000 / 1000 Intake: IV 1050 / 1050 1000 / 1000 1000 / 1000 NS Inj 1,000 ML @ 125 mls/hr IV 1000 / 1000 1000 / 1000 1000 / 1000 .CONT .Q8H [facility] Rx#:[id number] Zosyn 2.25 GM Premix 50 ML @ 50 / 50 100 mls/hr IV.SIG Q6H ED Rx#: [id number] Oral 240 / 240 Output: Urine 0 / 0 Hemodialysis Amount 500 / 500 Wound Drainage 100 / 100 # 1 Medial Abdomen 100 / 100 Other: # Bowel Movements 0 Narrative: GENERAL: Obese female lying in bed not in respiratory distress. She appears alert. SKIN: Warm and dry. HEAD: Normocephalic. EYES: No scleral icterus. No injection or drainage. NECK: Supple, trachea midline. No JVD CARDIOVASCULAR: Regular rate and rhythm without murmurs, gallops, or rubs. RESPIRATORY: Breath sounds equal bilaterally. No accessory muscle use. GASTROINTESTINAL: Abdomen soft, non-tender, nondistended. MUSCULOSKELETAL: No cyanosis, 2+ pitting edema lower extremities. 1+ pitting edema hands and forearms. - Urinary Catheter Management Indwelling Urethral Catheter Cath placed during this visit: yes, but has since been removed by the nurse Reason for continuing: Decision to DC catheter Insertion date: 03/15/18 Insertion time: 17:00 Removal date: 03/16/18 Removal time: 06:00 Assessment and Plan - Assessment (1) Acute renal failure due to tubular necrosis Code(s): N17.0 - Acute kidney failure with tubular necrosis Status: Acute Plan: Patient appears to have established ATN with worsening azotemia despite aggressive hydration. Patient was seen during her dialysis session. Vas-Cath working well. She is tolerating the session. Patient's renal indices have actually worsened since yesterday despite having dialysis yesterday. Most likely related to infection with increased catabolic rate. Dialysis for 3 hours today. We will increase ultrafiltration goal to 4037-6606 mL as she does appear to be showing evidence of fluid retention at this time secondary to her acute renal failure. I offered to speak to her regarding her current renal status for the patient indicated to me that she would rather do this herself and she will talk to him later today. She was advised that dialysis may not be required permanently but it may take several days to weeks for renal recovery to occur. Medications should be adjusted for the patient's estimated GFR if clinically indicated. Avoid agents with significant potential for nephrotoxicity possible including NSAIDs for analgesia, iodine contrast agents. Gadolinium is contraindicated if the GFR is below 30. (2) Acidosis, metabolic Code(s): E87.2 - Acidosis Status: Acute Plan: Secondary to acute renal failure and sepsis. Dialysis should improve her acid- base status (3) Sepsis Code(s): A41.9 - Sepsis, unspecified organism Status: Acute (4) Cellulitis of left leg Code(s): L03.116 - Cellulitis of left lower limb Status: Acute Plan: Management per infectious disease and surgery. (5) Abdominal wall cellulitis Code(s): L03.311 - Cellulitis of abdominal wall Status: Acute Plan: Status post debridement. Management per surgery and infectious disease.
[2018-03-17] MEDS: ceFAZolin 2 GM Premix Inj 2 GM/50 ML PIGGYBACK IV.SIG SCH (16:45)
--- NOTE | 2018-03-17 16:54 | P.PNID ---
Subjective Remarks: Patient states that she has pain all over. Underwent hemodialysis yesterday and today. Still has decreased urine output. Afebrile. Denies chills. Denies nausea. This is a 67-year-old white female who was admitted to the hospital yesterday. The patient developed redness of her right foot 5 days ago. She also notes that she had bouts of diarrhea for a couple of days prior to that. The diarrhea continued for 5 days and then stopped. She went to see her primary physician and she notes that they sent her to the emergency department because she appeared pale. She notes that she had a tiny lump on her right abdominal wall underneath the fold of skin. She has obese abdomen with large amount of pannus. She was evaluated in the ED and was noted to have elevated white blood cell count of 35.9 and she had lactic acid level of 3.5. She also had acute kidney disease with creatinine of 3.51. The patient was admitted and eventually taken to surgery for an abdominal wall debridement. She was noted to have necrotic skin at the right lower abdomen. Wound VAC was applied. Past Medical History: PAST MEDICAL HISTORY: Hypertension, history of cervical discectomy and allograft bone fusion in 10/2013, bacteremia due to methicillin-sensitive Staphylococcus aureus in 10/2013. Allergies/Adverse Reactions: Allergies No Known Allergies Allergy (Unverified 03/14/18 16:15) Objective Vital Signs 03/16/18 20:00 03/17/18 00:00 03/17/18 04:00 Temperature 97.7 F 97.9 F 97.8 F Pulse Rate 92 H 86 92 H Respiratory Rate 20 20 14 Blood Pressure 134/63 85/52 L 106/62 Pulse Oximetry 100 99 97 03/17/18 04:03 03/17/18 07:57 03/17/18 08:00 Temperature 98.4 F Pulse Rate 86 89 88 Respiratory Rate 23 24 27 H Blood Pressure 113/59 L Pulse Oximetry 98 03/17/18 09:00 03/17/18 12:00 03/17/18 13:54 Temperature 98.6 F Pulse Rate 92 H 92 H Respiratory Rate 21 20 Blood Pressure 106/62 Pulse Oximetry 100 03/17/18 15:55 Temperature Pulse Rate 88 Respiratory Rate 17 Blood Pressure Pulse Oximetry Intake & Output 07/15/18 07/16/18 07/16/18 18:59 06:59 18:59 Intake Total 1050 / 1050 1290 / 1290 1000 / 1000 Output Total 600 / 600 Balance 1050 / 1050 690 / 690 1000 / 1000 Intake: IV 1050 / 1050 1050 / 1050 1000 / 1000 NS Inj 1,000 ML @ 125 mls/hr IV 1000 / 1000 1000 / 1000 1000 / 1000 .CONT .Q8H [facility] Rx#:[id number] Zosyn 2.25 GM Premix 50 ML @ 50 / 50 100 mls/hr IV.SIG Q6H [facility] Rx#: [id number] Ancef 2 GM Premix Inj 2 gm In 50 / 50 50 ml @ 200 mls/hr IV.SIG Q24H [facility] Rx#:[id number] Oral 240 / 240 Output: Urine 0 / 0 Hemodialysis Amount 500 / 500 Wound Drainage 100 / 100 # 1 Medial Abdomen 100 / 100 Other: # Bowel Movements 0 03/15/18 08:55 Tissue - Abdominal Gram Stain - Final 03/15/18 08:55 Tissue - Abdominal Wound Culture - Final Group A beta (Strep pyogenes) 03/14/18 19:15 Wound - Abdominal Gram Stain - Final 03/14/18 19:15 Wound - Abdominal Wound Culture - Final Group A beta (Strep pyogenes) Staphylococcus aureus 03/14/18 15:13 Blood - Peripheral Aerobic Blood Culture - Preliminary Staphylococcus coag negative 03/14/18 15:13 Blood - Peripheral Anaerobic Blood Culture - Preliminary No growth in 3 days 03/14/18 15:08 Blood - Peripheral Aerobic Blood Culture - Preliminary No growth in 3 days 03/14/18 15:08 Blood - Peripheral Anaerobic Blood Culture - Preliminary No growth in 3 days 03/14/18 16:50 Clean Catch Urine Urine Culture - Final No growth in 48 hours 03/15/18 08:55 Tissue - Abdominal Acid Fast Bacilli Smear - Final No acid fast bacilli seen 03/15/18 08:55 Tissue - Abdominal Mycobacterial Culture - Pending 03/15/18 08:55 Tissue - Abdominal Fungal Smear - Final No fungal elements seen 03/15/18 08:55 Tissue - Abdominal Fungal Culture - Pending Lab - Hematology Results 03/16/18 03/17/18 04:36 05:00 WBC 20.8 H 13.6 H RBC 2.88 L 2.84 L Hgb 9.4 L 9.2 L Hct 27.9 L 27.3 L MCV 96.7 95.9 MCH 32.6 32.5 MCHC 33.8 33.9 RDW 14.9 14.3 Plt Count 374 322 MPV 8.3 8.2 Prelim Diff (Auto) Slide review pending Slide review pending Neut % (Auto) 88.1 H 83.5 H Lymph % (Auto) 7.9 L 10.8 [place] % (Auto) 3.2 4.9 Eos % (Auto) 0.5 0.6 Baso % (Auto) 0.3 0.2 Neut # (Auto) 18.3 H 11.4 H Lymph # (Auto) 1.6 1.5 [place] # (Auto) 0.7 0.7 Eos # (Auto) 0.1 0.1 Baso # (Auto) 0.1 0.0 WBC Differential Manual diff final Manual diff final Seg Neuts % (Manual) 61 78 H Band Neuts % (Manual) 21 H 5 Lymphocytes % (Manual) 6 L 7 L Monocytes % (Manual) 1 2 Eosinophils % (Manual) 3 1 Basophils % (Manual) 1 Metamyelocytes % (Man) 7 H 3 H Myelocytes % (Man) 1 H 2 H Promyelocytes % (Man) 1 H Abs Neuts (Manual) 18.7 H 12.1 H Differential Comment . . Platelet Estimate Normal Normal Platelet Morphology Normal Normal RBC Morphology Normal Lab - Chemistry Results 03/15/18 03/15/18 03/15/18 14:20 17:21 18:37 Sodium Cancelled Potassium Cancelled Chloride Cancelled Carbon Dioxide Cancelled Anion Gap Cancelled BUN Cancelled Creatinine Cancelled Estimated GFR Cancelled POC Glucose 177 H 167 H Random Glucose Cancelled Calcium Cancelled Prot Corrected Calcium Phosphorus 2.2 L Magnesium 2.0 Total Protein Albumin 03/15/18 03/15/18 03/15/18 19:22 20:17 21:18 Sodium 142 Potassium 3.1 L Chloride 111 H Carbon Dioxide 15.7 L Anion Gap 15 BUN 63 H Creatinine 3.52 H Estimated GFR 13 L POC Glucose 154 H 159 H Random Glucose 181 H Calcium 7.2 L* Prot Corrected Calcium 8.1 L Phosphorus Magnesium Total Protein 5.5 L Albumin 03/15/18 03/15/18 03/16/18 22:18 23:56 01:12 Sodium Potassium Chloride Carbon Dioxide Anion Gap BUN Creatinine Estimated GFR POC Glucose 136 H 111 H 142 H Random Glucose Calcium Prot Corrected Calcium Phosphorus Magnesium Total Protein Albumin 03/16/18 03/16/18 03/16/18 02:25 03:59 04:36 Sodium 143 Potassium 3.1 L Chloride 111 H Carbon Dioxide 16.2 L Anion Gap 16 H BUN 65 H Creatinine 4.02 H Estimated GFR 11 L POC Glucose 209 H 179 H Random Glucose 176 H Calcium 6.9 L* Prot Corrected Calcium 7.6 L Phosphorus 2.0 L Magnesium 1.9 Total Protein 5.7 L Albumin 03/16/18 03/16/18 03/16/18 05:15 06:10 07:19 Sodium Potassium Chloride Carbon Dioxide Anion Gap BUN Creatinine Estimated GFR POC Glucose 157 H 135 H 134 H Random Glucose Calcium Prot Corrected Calcium Phosphorus Magnesium Total Protein Albumin 03/16/18 03/16/18 03/16/18 08:12 09:43 10:34 Sodium Potassium Chloride Carbon Dioxide Anion Gap BUN Creatinine Estimated GFR POC Glucose 177 H 217 H 200 H Random Glucose Calcium Prot Corrected Calcium Phosphorus Magnesium Total Protein Albumin 03/16/18 03/16/18 03/16/18 13:17 13:57 15:58 Sodium 140 Potassium 3.1 L Chloride 108 H Carbon Dioxide 16.6 L Anion Gap 15 BUN 60 H Creatinine 3.99 H Estimated GFR 11 L POC Glucose 242 H 178 H Random Glucose 295 H D Calcium 6.9 L* Prot Corrected Calcium 7.5 L Phosphorus Magnesium Total Protein 5.9 L Albumin 03/16/18 03/16/18 03/17/18 21:08 21:50 05:00 Sodium 142 141 Potassium 3.0 L 3.1 L Chloride 107 107 Carbon Dioxide 22.7 19.7 L Anion Gap 12 14 BUN 49 H 50 H Creatinine 3.35 H 3.69 H Estimated GFR 14 L 12 L POC Glucose 98 Random Glucose 126 H D 129 H Calcium 6.8 L* 7.2 L* Prot Corrected Calcium 7.5 L Phosphorus 3.0 D Magnesium Total Protein 5.8 L Albumin 1.3 L 03/17/18 03/17/18 03/17/18 08:56 11:58 16:33 Sodium Potassium Chloride Carbon Dioxide Anion Gap BUN Creatinine Estimated GFR POC Glucose 139 H 123 H 172 H Random Glucose Calcium Prot Corrected Calcium Phosphorus Magnesium Total Protein Albumin Imaging: ITS Impressions Abdomen/Pelvis CT 03/14/18 16:22 CONCLUSION: 1. No acute intra-abdominal abnormality seen. 2. Edema seen throughout the subcutaneous fat at the anterior abdominal wall. This should be correlated with any inflammatory process in this region. No focal fluid collection to suggest an abscess is seen. Chest X-Ray 03/16/18 17:10 CONCLUSION: Left subclavian central venous line and double-lumen dialysis catheter in place from the left internal jugular approach in good position without evidence of pneumothorax. Physical Exam: GENERAL: No acute distress. Awake and alert and oriented. HEENT: No icterus. Poor dentition. NECK: Supple without adenopathy. LUNGS: Clear breath sounds. HEART: Regular S1, S2. No murmurs, rubs or gallops. ABDOMEN: Bowel sounds present, obese, soft. Vacuum device is present at the anterior abdominal wall on the right side and down to the groin fold on the right where the patient has excessive tissue. There is minimal erythema at the skin around the vacuum sponge. EXTREMITIES: The left foot erythema is decreased. And swelling. SKIN: No diffuse rash. NEUROLOGIC: No gross focal findings. The patient is alert and oriented. PSYCHIATRIC: Calm and cooperative. Assessment and Plan - Plan IMPRESSION: 1. Necrotic cellulitis of the abdominal wall. 2. Sepsis. 3. Left foot cellulitis. 4. Acute kidney disease. 5. Leukocytosis. The one positive blood culture bottle with coag negative staph is very likely contamination. RECOMMENDATIONS: 1. Continue cefazolin. 2. Continue Daptomycin 3. Monitor white blood cell count. 4. Monitor renal function. 5. Monitor clinical status.
--- NOTE | 2018-03-17 17:05 | P.PNGS ---
<MlaloryRae de anda - Last Filed: 03/17/18 17:02> Subjective Interval history: Anxious; crying; does not like eggs Physical Exam Vital signs: Vital Signs 03/16/18 20:00 03/17/18 00:00 03/17/18 04:00 Temperature 97.7 F 97.9 F 97.8 F Pulse Rate 92 H 86 92 H Respiratory Rate 20 20 14 Blood Pressure 134/63 85/52 L 106/62 Pulse Oximetry 100 99 97 03/17/18 04:03 03/17/18 07:57 03/17/18 08:00 Temperature 98.4 F Pulse Rate 86 89 88 Respiratory Rate 23 24 27 H Blood Pressure 113/59 L Pulse Oximetry 98 03/17/18 09:00 03/17/18 12:00 03/17/18 13:54 Temperature 98.6 F Pulse Rate 92 H 92 H Respiratory Rate 21 20 Blood Pressure 106/62 Pulse Oximetry 100 03/17/18 15:55 Temperature Pulse Rate 88 Respiratory Rate 17 Blood Pressure Pulse Oximetry Intake & Output 03/16/18 03/17/18 03/17/18 18:59 06:59 18:59 Intake Total 1050 / 1050 1290 / 1290 1999 Output Total 600 / 600 Balance 1050 / 1050 690 / 690 1999 Intake: IV 1050 / 1050 1050 / 1050 1999 / 1999 NS Inj 1,000 ML @ 125 mls/hr IV 1000 / 1000 1000 / 1000 1999 .CONT .Q8H ED Rx#:[id number] Zosyn 2.25 GM Premix 50 ML @ 50 / 50 100 mls/hr IV.SIG Q6H ED Rx#: [id number] Ancef 2 GM Premix Inj 2 gm In 50 / 50 50 ml @ 200 mls/hr IV.SIG Q24H ED Rx#:[id number] Oral 240 / 240 Output: Urine 0 / 0 Hemodialysis Amount 500 / 500 Wound Drainage 100 / 100 # 1 Medial Abdomen 100 / 100 Other: # Bowel Movements 0 Narrative: Alert and awake; anxious Cardio: RRR Resp: CTAB Abd: large Wound vac in place with good seal Moderate BLE edema - Urinary Catheter Management Indwelling Urethral Catheter Cath placed during this visit: yes, but has since been removed by the nurse Reason for continuing: Decision to DC catheter Insertion date: 03/15/18 Insertion time: 17:00 Removal date: 03/16/18 Removal time: 06:00 Assessment and Plan - Plan 67 year old female with abdominal wall infection s/p debridement and Wound Vac placement -Renal diet---added Nepro -Acute kidney disease--- Nephrology following -Will plan for OR tomorrow for Wound Vac change -NPO after MN <KobyscarCj - Last Filed: 03/17/18 19:20> Physical Exam Vital signs: Vital Signs 03/16/18 20:00 03/17/18 00:00 03/17/18 04:00 Temperature 97.7 F 97.9 F 97.8 F Pulse Rate 92 H 86 92 H Respiratory Rate 20 20 14 Blood Pressure 134/63 85/52 L 106/62 Pulse Oximetry 100 99 97 03/17/18 04:03 03/17/18 07:57 03/17/18 08:00 Temperature 98.4 F Pulse Rate 86 89 88 Respiratory Rate 23 24 27 H Blood Pressure 113/59 L Pulse Oximetry 98 03/17/18 09:00 03/17/18 12:00 03/17/18 13:54 Temperature 98.6 F Pulse Rate 92 H 92 H Respiratory Rate 21 20 Blood Pressure 106/62 Pulse Oximetry 100 03/17/18 15:55 03/17/18 16:00 Temperature 98.0 F Pulse Rate 88 92 H Respiratory Rate 17 26 H Blood Pressure 118/59 L Pulse Oximetry 100 Intake & Output 03/17/18 03/17/18 03/18/18 06:59 18:59 06:59 Intake Total 1290 / 1290 3770 / 3770 Output Total 600 / 600 50 / 50 3000 / 3000 Balance 690 / 690 3720 / 3720 -3000 / -3000 Intake: IV 1050 / 1050 3050 / 3050 NS Inj 1,000 ML @ 125 mls/hr IV 1000 / 1000 2000 / 2000 .CONT .Q8H ED Rx#:[id number] Ancef 2 GM Premix Inj 2 gm In 50 / 50 50 / 50 50 ml @ 200 mls/hr IV.SIG Q24H ED Rx#:[id number] NS Inj 1,000 ML @ As Directed 1000 / 1000 OTHER .Q0M PRN Rx#:[id number] Oral 240 / 240 720 / 720 Output: Urine 0 / 0 50 / 50 Hemodialysis Amount 500 / 500 3000 / 3000 Wound Drainage 100 / 100 # 1 Medial Abdomen 100 / 100 Other: # Bowel Movements 0 - Urinary Catheter Management Indwelling Urethral Catheter Cath placed during this visit: no Assessment and Plan - Attending Attestation The exam, history, and the medical decision-making described in the above note were completed with the assistance of the mid-level provider. I reviewed and agree with the findings presented. I attest that I had a [id number] encounter with the patient on the same day, and personally performed and documented my assessment and findings in the medical record. cellulitis and necrotizing wound s/p debridement dressings intact if patient remains stable will take to OR Saturday for VAC change
--- NOTE | 2018-03-17 22:45 | US ---
EXAM DATE: 03/17/2018 10:24 PM EDT AGE/SEX: 67 years / Female INDICATIONS: Increased lab values. CLINICAL DATA: This is the patient's initial encounter. Patient reports that signs and symptoms have been present for 1 day and indicates a pain score of 0/10. MEDICAL/SURGICAL HISTORY: Hypertension. Rheumatoid arthritis. Cholecystectomy. COMPARISON: [facility] [place]BDOMEN & PELVIS W/O CONTRAST, 03/14/2018. . MEASUREMENTS: Left Kidney:__12.1 x 6.0 x 7.3 cm FINDINGS: This is a limited examination due to inability to scan areas due to bandages. The right kidney is not identified. The bladder is not identified. The left kidney has a normal sonographic appearance witho ut evidence of hydronephrosis. CONCLUSION: 1. Limited examination without gross abnormality in the left kidney. 2. Right kidney and urinary bladder not visualized. Electronically signed by: Kalin Dewitt MD 03/17/2018 10:43 PM EDT
[2018-03-18 04:52] LABS: Baso % (Auto) 0.3 % (0.0-2.0); Eos # (Auto) 0.1 th/mm3 (0.0-0.4); Eos % (Auto) 0.8 % (0.0-4.0); Hematocrit 26.6 % (35.0-46.0); Hemoglobin 9.2 gm/dL (11.6-15.3); Lymph # (Auto) 1.3 th/mm3 (1.0-4.8); Mean Corpuscular HGB Conc 34.7 % (32.0-36.0); Mean Corpuscular Hemoglobin 33.1 pg (27.0-34.0); Mean Corpuscular Volume 95.6 fL (80.0-100.0); Mean Platelet Volume 7.9 fL (7.0-11.0); Mono # (Auto) 0.5 th/mm3 (0.0-0.9); Mono % (Auto) 5.6 % (0.0-8.0); Neut # (Auto) 7.8 th/mm3 (1.8-7.7); Neut % (Auto) 80.3 % (16.0-70.0); Platelet Count 281 th/mm3 (150-450); Red Blood Count 2.78 mil/mm3 (4.00-5.30); Red Cell Distribution Width 14.2 % (11.6-17.2); White Blood Count 9.7 th/mm3 (4.0-11.0)
[2018-03-18 05:21] LABS: Albumin 1.4 g/dL (3.4-5.0); Calcium 6.9 mg/dL (8.5-10.1); Carbon Dioxide 26.1 meq/L (21.0-32.0); Potassium 3.4 meq/L (3.5-5.1); Total Protein 6.1 g/dL (6.4-8.2)
[2018-03-18 05:53] LABS: Eosinophils 2 % (0-4); Lymphocytes 12 % (9-44); Metamyelocytes 6 % (0-1); Monocytes 1 % (0-8)
[2018-03-18 05:54] LABS: Platelet Estimate Normal (Normal); Platelet Morphology Normal (Normal); Stomatocytes 2+
[2018-03-18] MEDS ORDERED: Sod Chloride 0.9% Inj 1,000 ML IV.CONT SCH (09:30)
--- NOTE | 2018-03-18 09:44 | P.PNCC ---
Subjective Subjective Remarks/Hospital Course: HISTORY OF PRESENT ILLNESS: The patient is a 67-year-old female with a past medical history of hypertension and rheumatoid arthritis, who presented from Dr. Cisneros's office, her primary care physician for generalized weakness, edema of her lower extremities and diarrhea. The patient states that she was seen by the nurse practitioner for Dr. Cisneros and after her visit, she was advised to go to the ED for further evaluation and management of her symptoms. On arrival to the ER, the patient was found hypotensive with a systolic blood pressure in the 80s and her laboratory data showed multiple electrolyte abnormalities with potassium level 3.0. In addition, the patient was in renal failure, BUN 62, creatinine 3.15, and with lactic acidosis, lactic acid level 3.5 and anion gap of 17. In addition, her blood sugar recorded at 355 on a BMP. The patient, however, denies any history of diabetes mellitus. Also, she was found to have a significant leukocytosis with a WBC of 35.9. ABG was performed on room air which showed a pH of 7.39, CO2 of 28, PaO2 of 85, bicarbonate 17, saturation 95% . When seen, she is on room air oxygen and she was given 1 liter of fluids by EMS and an additional 1 liter in the ED with current blood pressure of 91/50 with a MAP of 67. She reports occasional shortness of breath with exertion. Denies any chest pain. She reports feeling nauseous, having diarrhea for 3 days. She reports a wound culture that is draining from her lower abdomen. In addition to fluids, she is in the process of receiving 6 units of IV insulin and starting on insulin drip. Also, the patient was given vancomycin and Zosyn. She denies any cough or any constitutional symptoms. The patient is afebrile with a temperature of 97.8. Chest x-ray in the ED showed no evidence of any acute cardiopulmonary process. She is scheduled to undergo CT scan of the abdomen and pelvis. In addition, Dr. Mckee from General Surgery was notified regarding possible abscess in her pannus area. 03/15: This morning the patient remains relatively dry and we have transfused an additional 2 L of saline and albumin-containing solutions. She is now normotensive with a pulse rate in the 70s. We will stop her insulin drip for the operating room to avoid any issues with hypoglycemia or hypokalemia. Potassium is 2.9 this morning replacement intravenously. Her pH is acceptable with a mild base deficit and urine output is marginal. She is awake and alert and well-perfused. We will not get control of her glucose intolerance until she is debrided. Although higher risk she does require urgent surgery for debridement of a spreading infection in the lower abdominal wall. She is ready for surgery albeit perhaps still a little dry. Normal saline or lactated Ringer 's or suitable resuscitation fluids for her at this point and we will try to avoid pushing her sugar any higher until she is back in the unit and we can restart her insulin drip. 03/16: Glucose control improved but metabolic acidosis persists and urine output minimal, and inadequate. Deteriorating renal function. Will convert to twice daily Levemir now and sliding scale correction coverage. Continue aggressive hydration. 03/17: Receiving dialysis now. WBC count steadily improving 13.6 today. Wound culture growing strep pyogenes and staph aureus. Glycemic control improved. General surgery planning for the debridement and wound VAC change tomorrow 03/18: WBC count has normalized. Patient is anxious plan for OR today. Intermittent desaturation at night most likely from obstructive sleep apnea. Remains practically anuric will DC IV fluid Objective Vital Signs / I&O: Vital Signs 03/17/18 12:00 03/17/18 13:54 03/17/18 15:55 Temperature 98.6 F Pulse Rate 92 H 88 Respiratory Rate 21 20 17 Blood Pressure 106/62 Pulse Oximetry 100 03/17/18 16:00 03/17/18 20:00 03/17/18 20:20 Temperature 98.0 F 98.3 F Pulse Rate 92 H 94 H 95 H Respiratory Rate 26 H 22 18 Blood Pressure 118/59 L 120/71 Pulse Oximetry 100 99 03/17/18 23:44 03/18/18 00:00 03/18/18 04:00 Temperature 98.3 F 98.4 F Pulse Rate 93 H 102 H 88 Respiratory Rate 18 21 Blood Pressure 113/54 L 111/58 L Pulse Oximetry 97 95 03/18/18 04:06 03/18/18 07:43 03/18/18 08:00 Temperature 98.1 F Pulse Rate 91 H 88 93 H Respiratory Rate 16 20 18 Blood Pressure 112/58 L Pulse Oximetry 98 Intake & Output 03/17/18 03/18/18 03/18/18 18:59 06:59 18:59 Intake Total 3770 / 3770 720 / 720 1000 / 1000 Output Total 50 / 50 3000 / 3000 Balance 3720 / 3720 -2280 / -2280 1000 / 1000 Weight 157.7 kg Intake: IV 3050 / 3050 1000 / 1000 NS Inj 1,000 ML @ 125 mls/hr IV 2000 / 2000 1000 / 1000 .CONT .Q8H ED Rx#:[id number] Ancef 2 GM Premix Inj 2 gm In 50 / 50 50 ml @ 200 mls/hr IV.SIG Q24H ED Rx#:[id number] NS Inj 1,000 ML @ As Directed 1000 / 1000 OTHER .Q0M PRN Rx#:[id number] Oral 720 / 720 720 / 720 Output: Urine 50 / 50 Hemodialysis Amount 3000 / 3000 Result Diagrams: 03/18/18 04:25 03/18/18 04:25 Objective Remarks: GENERAL: A 67-year-old female lying in bed, in no acute respiratory distress, awake, alert. HEENT: Atraumatic, normocephalic. pink. Nonicteric sclerae. Dry mucous membranes. NECK: Supple. Trachea in the midline. Airway widely patent. CARDIOVASCULAR: Regular rate and rhythm. Normal S1, S2. No murmurs, rubs or gallops noted. No JVD. PULMONARY: Bilateral equal air entry. No rales, light wheezing. ABDOMEN: Soft, obese, mild tenderness in lower abdomen. Wound VAC noticed in the pannus area. EXTREMITIES: No cyanosis or clubbing; +2 edema in addition to erythema of the left lower extremity, particularly the foot. NEUROLOGIC: No focal sensory deficit. Conversant, oriented 3. Assessment and Plan - Assessment and Plan Plan: IMPRESSION: 1. Severe sepsis. 2. Acute renal failure, now on HD. 3. Lactic acidemia. 4. Leukocytosis with bandemia. 5. Anion gap metabolic acidosis. 6. Diabetic ketoacidosis. 7. Cellulitis of the left lower extremity. 8. Lower Abdominal wall soft tissue abscess with abdominal wall soft tissue infection. 9. History of hypertension. 10. History of rheumatoid arthritis. 11. Morbid obesity. PLAN: 1. Monitor neuro status closely and avoid any sedatives. 2. Oxygen p.r.n. to maintain sat above 92%. CXR today. Use BiPAP PRN 3. Bronchodilators on a p.r.n. basis. 4. Monitor heart rate and blood pressure closely and maintain MAP greater than 65 mmHg. 5. Monitor renal function, I's and O's and avoid nephrotoxins. Monitor BMP q.6 hours. HD 03/17/2018 with 3 L removed, plan for HD again today 6. Electrolyte replacement as needed. 7. Twice daily Levemir, sliding scale insulin. 8. Antibiotic coverage per ID service. 9. Monitor I/O closely, replace potassium 10. Serial lactic acid monitoring until clear. 11. General surgery following, 12. Monitor CBC. 13. Gastrointestinal prophylaxis with Pepcid and DVT prophylaxis with SCDs for now. 14. Nephrology following Overall impression: Critically ill with a necrotizing infection involving the anterior abdominal wall, with abscess. She required urgent debridement, repeat whole lot today. She was very aggressively hydrated prior to surgery but continues to have problems with oliguria and deteriorating renal function. Metabolic acidosis persists, related to impaired renal function. Continue hemodialysis per nephrology Level 3
[2018-03-18] MEDS: Nystatin 100,000 UNITS/GM Powder 15 GM Bottle TOPICAL SCH ×5 (09:46→22:14)
[2018-03-18] MEDS: Insulin Detemir Inj 1,000 UNIT/10 ML Vial SQ SCH (09:49)
[2018-03-18] MEDS: Pantoprazole Inj 40 MG Vial IV.PUSH SCH (09:49)
[2018-03-18] MEDS: Chlorhexidine Gluconate 2% 1 Pack (2 Cloths) TOPICAL SCH ×2 (09:50→09:54)
[2018-03-18] MEDS: Insulin NovoLOG Aspart Correctional Sugar Inj SQ SCH ×5 (09:53→22:14)
--- NOTE | 2018-03-18 10:09 | XR ---
EXAM DATE: 03/18/2018 9:59 AM EDT AGE/SEX: 67 years / Female INDICATIONS: . Edema CLINICAL DATA: This is the patient's initial encounter. Patient reports that signs and symptoms have been present for 3 days and indicates a pain score of 0/10. MEDICAL/SURGICAL HISTORY: None. Cholecystectomy. COMPARISON: [facility] [place] 1V SINGLE AP, 03/16/2018. . FINDINGS: The lungs are clear without infiltrate, nodule, or mass. There is no appreciable pleural effusion for technique. Heart and mediastinum are unremarkable. Left IJ line is present with tip ove rlapping the expected region of the SVC. Left subclavian line is present with tip overlapping the ex pected region of the SVC. No definite pneumothorax is seen for technique. CONCLUSION: No acute cardiopulmonary disease. Electronically signed by: Mars Fajardo MD 03/18/2018 10:08 AM EDT
[2018-03-18] MEDS: HYDROmorphone PF Inj 2 MG/ML Vial IV.PUSH PRN ×2 (10:26→15:34)
[2018-03-18] MEDS ORDERED: Phenylephrine/NS 1000 MCG/10ML Syringe IV.PUSH ONE (12:00)
[2018-03-18] MEDS ORDERED: Succinylcholine Inj 100 MG/5 ML Syringe IV.PUSH ONE (12:00)
[2018-03-18] MEDS ORDERED: Lidocaine PF 1% Inj 5 ML Syringe INFILTRATN ONE (12:00)
[2018-03-18] MEDS ORDERED: Glycopyrrolate Inj 1 MG/5 ML Syringe IV.PUSH ONE (12:00)
[2018-03-18] MEDS ORDERED: Neostigmine Inj 5 MG/5 ML Syringe IV.PUSH ONE (12:00)
[2018-03-18] MEDS: Heparin 10,000 UNITS/10 ML Vial (for IV use) OTHER PRN (13:06)
--- NOTE | 2018-03-18 13:24 | P.PNNP ---
Subjective Interval history: Patient still oliguric. No new verbal complaints. She is scheduled for surgery after dialysis today. Physical Exam Vital signs: Vital Signs 03/17/18 13:54 03/17/18 15:55 03/17/18 16:00 Temperature 98.0 F Pulse Rate 88 92 H Respiratory Rate 20 17 26 H Blood Pressure 118/59 L Pulse Oximetry 100 03/17/18 20:00 03/17/18 20:20 03/17/18 23:44 Temperature 98.3 F Pulse Rate 94 H 95 H 93 H Respiratory Rate 22 18 18 Blood Pressure 120/71 Pulse Oximetry 99 03/18/18 00:00 03/18/18 04:00 03/18/18 04:06 Temperature 98.3 F 98.4 F Pulse Rate 102 H 88 91 H Respiratory Rate 21 16 Blood Pressure 113/54 L 111/58 L Pulse Oximetry 97 95 03/18/18 07:43 03/18/18 08:00 03/18/18 09:00 Temperature 98.1 F Pulse Rate 88 93 H 95 H Respiratory Rate 20 18 Blood Pressure 112/58 L Pulse Oximetry 98 03/18/18 11:32 Temperature Pulse Rate 92 H Respiratory Rate 22 Blood Pressure Pulse Oximetry Intake & Output 03/17/18 03/18/18 03/18/18 18:59 06:59 18:59 Intake Total 3770 / 3770 720 / 720 1000 / 1000 Output Total 50 / 50 3000 / 3000 Balance 3720 / 3720 -2280 / -2280 1000 / 1000 Weight 157.7 kg Intake: IV 3050 / 3050 1000 / 1000 NS Inj 1,000 ML @ 125 mls/hr IV 1999 / 1999 1000 / 1000 .CONT .Q8H ED Rx#:[id number] Ancef 2 GM Premix Inj 2 gm In 50 / 50 50 ml @ 200 mls/hr IV.SIG Q24H ED Rx#:[id number] NS Inj 1,000 ML @ As Directed 1000 / 1000 OTHER .Q0M PRN Rx#:[id number] Oral 720 / 720 720 / 720 Output: Urine 50 / 50 Hemodialysis Amount 3000 / 3000 Narrative: GENERAL: Patient lying in bed not in respiratory distress. She is somewhat anxious regarding surgery later today. SKIN: Warm and dry. HEAD: Normocephalic. EYES: No scleral icterus. No injection or drainage. NECK: Supple, trachea midline. No JVD or lymphadenopathy. CARDIOVASCULAR: Regular rate and rhythm without murmurs, gallops, or rubs. RESPIRATORY: Breath sounds equal bilaterally. No accessory muscle use. GASTROINTESTINAL: Abdomen soft, non-tender, nondistended. MUSCULOSKELETAL: No cyanosis, 1+ pitting edema lower extremities. - Urinary Catheter Management Indwelling Urethral Catheter Cath placed during this visit: yes, but has since been removed by the nurse Reason for continuing: Decision to DC catheter Insertion date: 03/15/18 Insertion time: 17:00 Removal date: 03/16/18 Removal time: 06:00 Assessment and Plan - Assessment (1) Acute renal failure due to tubular necrosis Code(s): N17.0 - Acute kidney failure with tubular necrosis Status: Acute Plan: Patient appears to have established ATN with oliguria. She does seem somewhat clinically improved today with treatment of infection and initiation of dialysis. Patient was seen during her dialysis session today. Vas-Cath working well. She is tolerating the session. Medications should be adjusted for the patient's estimated GFR if clinically indicated. Avoid agents with significant potential for nephrotoxicity possible including NSAIDs for analgesia, iodine contrast agents. Gadolinium is contraindicated if the GFR is below 30. (2) Acidosis, metabolic Code(s): E87.2 - Acidosis Status: Acute Plan: Secondary to acute renal failure and sepsis. Dialysis should improve her acid- base status (3) Sepsis Code(s): A41.9 - Sepsis, unspecified organism Status: Acute (4) Cellulitis of left leg Code(s): L03.116 - Cellulitis of left lower limb Status: Acute Plan: Management per infectious disease and surgery. (5) Abdominal wall cellulitis Code(s): L03.311 - Cellulitis of abdominal wall Status: Acute Plan: Status post debridement. Management per surgery and infectious disease.
--- NOTE | 2018-03-18 14:41 | P.PNID ---
Subjective Remarks: Dialysis in progress. Still has decreased urine output. Awake and alert. Afebrile. Denies chills. Denies nausea. This is a 67-year-old white female who was admitted to the hospital yesterday. The patient developed redness of her right foot 5 days ago. She also notes that she had bouts of diarrhea for a couple of days prior to that. The diarrhea continued for 5 days and then stopped. She went to see her primary physician and she notes that they sent her to the emergency department because she appeared pale. She notes that she had a tiny lump on her right abdominal wall underneath the fold of skin. She has obese abdomen with large amount of pannus. She was evaluated in the ED and was noted to have elevated white blood cell count of 35.9 and she had lactic acid level of 3.5. She also had acute kidney disease with creatinine of 3.51. The patient was admitted and eventually taken to surgery for an abdominal wall debridement. She was noted to have necrotic skin at the right lower abdomen. Wound VAC was applied. Past Medical History: PAST MEDICAL HISTORY: Hypertension, history of cervical discectomy and allograft bone fusion in 10/2013, bacteremia due to methicillin-sensitive Staphylococcus aureus in 10/2013. Allergies/Adverse Reactions: Allergies No Known Allergies Allergy (Unverified 03/14/18 16:15) Objective Vital Signs 03/17/18 15:55 03/17/18 16:00 03/17/18 20:00 Temperature 98.0 F 98.3 F Pulse Rate 88 92 H 94 H Respiratory Rate 17 26 H 22 Blood Pressure 118/59 L 120/71 Pulse Oximetry 100 99 03/17/18 20:20 03/17/18 23:44 03/18/18 00:00 Temperature 98.3 F Pulse Rate 95 H 93 H 102 H Respiratory Rate 18 18 Blood Pressure 113/54 L Pulse Oximetry 97 03/18/18 04:00 03/18/18 04:06 03/18/18 07:43 Temperature 98.4 F Pulse Rate 88 91 H 88 Respiratory Rate 21 16 20 Blood Pressure 111/58 L Pulse Oximetry 95 03/18/18 08:00 03/18/18 09:00 03/18/18 11:32 Temperature 98.1 F Pulse Rate 93 H 95 H 92 H Respiratory Rate 18 22 Blood Pressure 112/58 L Pulse Oximetry 98 03/18/18 12:00 03/18/18 13:28 Temperature 98.2 F Pulse Rate 93 H Respiratory Rate 20 20 Blood Pressure 118/57 L Pulse Oximetry 99 Intake & Output 03/17/18 03/18/18 03/18/18 18:59 06:59 18:59 Intake Total 3770 / 3770 720 / 720 1000 / 1000 Output Total 50 / 50 3000 / 3000 Balance 3720 / 3720 -2280 / -2280 1000 / 1000 Weight 157.7 kg Intake: IV 3050 / 3050 1000 / 1000 NS Inj 1,000 ML @ 125 mls/hr IV 2000 / 2000 1000 / 1000 .CONT .Q8H ED Rx#:[id number] Ancef 2 GM Premix Inj 2 gm In 50 / 50 50 ml @ 200 mls/hr IV.SIG Q24H ED Rx#:[id number] NS Inj 1,000 ML @ As Directed 1000 / 1000 OTHER .Q0M PRN Rx#:[id number] Oral 720 / 720 720 / 720 Output: Urine 50 / 50 Hemodialysis Amount 3000 / 3000 03/14/18 15:13 Blood - Peripheral Aerobic Blood Culture - Preliminary Staphylococcus coag negative 03/14/18 15:13 Blood - Peripheral Anaerobic Blood Culture - Preliminary No growth in 4 days 03/14/18 15:08 Blood - Peripheral Aerobic Blood Culture - Preliminary No growth in 4 days 03/14/18 15:08 Blood - Peripheral Anaerobic Blood Culture - Preliminary No growth in 4 days 03/15/18 08:55 Tissue - Abdominal Gram Stain - Final 03/15/18 08:55 Tissue - Abdominal Wound Culture - Final Group A beta (Strep pyogenes) 03/14/18 19:15 Wound - Abdominal Gram Stain - Final 03/14/18 19:15 Wound - Abdominal Wound Culture - Final Group A beta (Strep pyogenes) Staphylococcus aureus 03/14/18 16:50 Clean Catch Urine Urine Culture - Final No growth in 48 hours 03/15/18 08:55 Tissue - Abdominal Acid Fast Bacilli Smear - Final No acid fast bacilli seen 03/15/18 08:55 Tissue - Abdominal Mycobacterial Culture - Pending 03/15/18 08:55 Tissue - Abdominal Fungal Smear - Final No fungal elements seen 03/15/18 08:55 Tissue - Abdominal Fungal Culture - Pending Lab - Hematology Results 03/17/18 03/18/18 05:00 04:25 WBC 13.6 H 9.7 RBC 2.84 L 2.78 L Hgb 9.2 L 9.2 L Hct 27.3 L 26.6 L MCV 95.9 95.6 MCH 32.5 33.1 MCHC 33.9 34.7 RDW 14.3 14.2 Plt Count 322 281 MPV 8.2 7.9 Prelim Diff (Auto) Slide review pending Slide review pending Neut % (Auto) 83.5 H 80.3 H Lymph % (Auto) 10.8 13.0 [place] % (Auto) 4.9 5.6 Eos % (Auto) 0.6 0.8 Baso % (Auto) 0.2 0.3 Neut # (Auto) 11.4 H 7.8 H Lymph # (Auto) 1.5 1.3 [place] # (Auto) 0.7 0.5 Eos # (Auto) 0.1 0.1 Baso # (Auto) 0.0 0.0 WBC Differential Manual diff final Manual diff final Seg Neuts % (Manual) 78 H 77 H Band Neuts % (Manual) 5 2 Lymphocytes % (Manual) 7 L 12 Monocytes % (Manual) 2 1 Eosinophils % (Manual) 1 2 Basophils % (Manual) 1 Metamyelocytes % (Man) 3 H 6 H Myelocytes % (Man) 2 H Promyelocytes % (Man) 1 H Abs Neuts (Manual) 12.1 H 8.2 H Differential Comment . . Platelet Estimate Normal Normal Platelet Morphology Normal Normal Stomatocytes 2+ H Lab - Chemistry Results 03/16/18 03/16/18 03/16/18 13:57 15:58 21:08 Sodium 140 Potassium 3.1 L Chloride 108 H Carbon Dioxide 16.6 L Anion Gap 15 BUN 60 H Creatinine 3.99 H Estimated GFR 11 L POC Glucose 178 H 98 Random Glucose 295 H D Calcium 6.9 L* Prot Corrected Calcium 7.5 L Phosphorus Total Bilirubin AST ALT Alkaline Phosphatase Total Protein 5.9 L Albumin 03/16/18 03/17/18 03/17/18 21:50 05:00 08:56 Sodium 142 141 Potassium 3.0 L 3.1 L Chloride 107 107 Carbon Dioxide 22.7 19.7 L Anion Gap 12 14 BUN 49 H 50 H Creatinine 3.35 H 3.69 H Estimated GFR 14 L 12 L POC Glucose 139 H Random Glucose 126 H D 129 H Calcium 6.8 L* 7.2 L* Prot Corrected Calcium 7.5 L Phosphorus 3.0 D Total Bilirubin AST ALT Alkaline Phosphatase Total Protein 5.8 L Albumin 1.3 L 03/17/18 03/17/18 03/17/18 11:58 16:33 22:43 Sodium Potassium Chloride Carbon Dioxide Anion Gap BUN Creatinine Estimated GFR POC Glucose 123 H 172 H 165 H Random Glucose Calcium Prot Corrected Calcium Phosphorus Total Bilirubin AST ALT Alkaline Phosphatase Total Protein Albumin 03/18/18 03/18/18 03/18/18 04:25 09:38 11:52 Sodium 142 Potassium 3.4 L Chloride 106 Carbon Dioxide 26.1 Anion Gap 10 BUN 31 H Creatinine 2.98 H Estimated GFR 16 L POC Glucose 191 H 172 H Random Glucose 154 H Calcium 6.9 L* Prot Corrected Calcium 7.4 L* Phosphorus Total Bilirubin 0.6 AST 30 ALT 19 Alkaline Phosphatase 104 Total Protein 6.1 L Albumin 1.4 L Imaging: ITS Impressions Abdomen/Pelvis CT 03/14/18 16:22 CONCLUSION: 1. No acute intra-abdominal abnormality seen. 2. Edema seen throughout the subcutaneous fat at the anterior abdominal wall. This should be correlated with any inflammatory process in this region. No focal fluid collection to suggest an abscess is seen. Abdomen/Bladder Ultrasound 03/17/18 16:09 CONCLUSION: 1. Limited examination without gross abnormality in the left kidney. 2. Right kidney and urinary bladder not visualized. Chest X-Ray 03/18/18 00:00 CONCLUSION: No acute cardiopulmonary disease. Physical Exam: GENERAL: No acute distress. Awake and alert and oriented. HEENT: No icterus. Poor dentition. NECK: Supple without adenopathy. LUNGS: Decreased breath sounds. HEART: Regular S1, S2. No murmurs, rubs or gallops. ABDOMEN: Bowel sounds present, obese, soft. Vacuum device is present at the anterior abdominal wall on the right side and down to the groin fold on the right where the patient has excessive tissue. There is minimal erythema at the skin around the vacuum sponge. EXTREMITIES: The left foot erythema is decreased. And swelling. SKIN: No diffuse rash. NEUROLOGIC: No gross focal findings. PSYCHIATRIC: Calm and cooperative. Assessment and Plan - Plan IMPRESSION: 1. Necrotic cellulitis of the abdominal wall. 2. Sepsis. 3. Left foot cellulitis. 4. Acute kidney disease. 5. Leukocytosis. WBC is improved. The one positive blood culture bottle with coag negative staph is very likely contamination. Looks stable. RECOMMENDATIONS: 1. Continue Cefazolin. Renal dose. 2. Continue Daptomycin 3. Monitor renal function. 4. Monitor clinical status.
[2018-03-18] MEDS: DAPTOmycin Inj 600 MG in Sodium Chlor 0.9% Inj 100 ML IV.SIG SCH (15:10)
[2018-03-18] MEDS: ceFAZolin 2 GM Premix Inj 2 GM/50 ML PIGGYBACK IV.SIG SCH (15:36)
[2018-03-18] MEDS ORDERED: fentaNYL Citrate Inj 100 MCG/2 ML Ampul ONE (19:16)
[2018-03-18] MEDS ORDERED: Sugammadex Inj 200 MG/2 ML Vial IV.PUSH ONE (19:35)
[2018-03-18] MEDS ORDERED: *Ondansetron Inj 4 MG/2 ML Vial PERIprocedural Use ONLY ONE (20:13)
[2018-03-18] MEDS ORDERED: *morphine SULFATE 4 MG/ML PERIprocedure ONLY ONE ×2 (20:21→20:47)
[2018-03-18] MEDS ORDERED: *Promethazine Inj 25 MG/ML Vial PERIprocedural use ONLY ONE (20:33)
--- NOTE | 2018-03-18 20:43 | MP ---
cc: Cj Mckee MD DATE OF OPERATION: 03/18/2018 PREOPERATIVE DIAGNOSES: 1. Soft tissue infection. 2. Sepsis. 3. History of previous excisional debridement of skin and subcutaneous tissue and vacuum-assisted closure placement. POSTOPERATIVE DIAGNOSES: 1. Soft tissue infection. 2. Sepsis. 3. History of previous excisional debridement of skin and subcutaneous tissue and vacuum-assisted closure placement. PROCEDURES PERFORMED: 1. VAC change under anesthesia, placement of VAC dressing 26 x 20 cm. 2. Excisional debridement of skin and subcutaneous tissue as measured by skin debrided, 15 x 2 cm on the medial aspect of the wound. ATTENDING SURGEON: Cj Mckee MD PEDIATRICIAN/MEDICAL DOCTOR: Medical student, Selene Griffin BLOOD LOSS: 100 mL COMPLICATIONS: None. FINDINGS: Some significant remaining necrosis on the medial aspect of the wound, approximately 15 cm long x 2 cm deep as measured by the skin, but also subsequent underlying subcutaneous tissue also debrided. INDICATIONS FOR PROCEDURE: The patient is a 67-year-old female who was admitted to [facility] with sepsis due to left lower extremity cellulitis and right abdominal wall cellulitis with secondary necrosis. The patient was taken to the operating room over the weekend for urgent debridement of nonviable skin and subcutaneous tissue. A VAC dressing was placed. A second look for VAC change and possible debridement was planned. The patient was taken back to the operating room after consent was obtained for VAC change and possible further debridement based on findings. DESCRIPTION OF PROCEDURE: The patient was taken to the operating room and placed in a supine position in her ICU bed, as she was too large to fit on the OR table, and placed under general endotracheal anesthesia. The patient's abdomen was prepped and draped after the VAC sponge was removed. This was prepped with Betadine. A timeout was performed. The wound was evaluated and irrigated. There were a few areas of some very superficial nonviable tissue laterally, however, there was a significant amount of nonviable tissue medially, approximately 2 cm as measured by the skin and underlying tissue on the patient's pannus. This was approximately 15 cm long or longer as it tracked from under the umbilicus down towards the mons pubis. This was sharply debrided with curved Mathews scissors, as well as the Bovie electrocautery. We had excellent hemostasis with the Bovie electrocautery. We irrigated out the wound thoroughly. We had 100% viable subcutaneous fat and skin. No part of the wound was down to the muscle or fascia. We then measured this wound. It was exactly the length of the VAC sponge used, which was 26 cm in length, but was 20 cm tall. Therefore, two 26 x 20 sponges were used. These were custom cut in position and stapled together with skin estela to make a 20 x 26 cm VAC sponge to cover the wound completely. This was stapled on the skin edge to assure good alignment with the sponge and the skin edge. We then placed the sterile occlusive dressings per manufacturers recommendations. We placed the suction portion of a new canister and placed it back to suction. We had excellent seal, with no leak. At this point in time, we turned our attention towards completion. The patient was discontinued by Anesthesia and taken back to the intensive care unit in a stable condition. The patient tolerated the procedure well. No apparent complications. All counts were correct. I was present and scrubbed for the entire procedure. MD CELESTE Keller/MERRY , 08:06 PM , 08:42 PM CHIKI
[2018-03-19] MEDS: Chlorhexidine Gluconate 2% 1 Pack (2 Cloths) TOPICAL SCH (03:52)
[2018-03-19 05:56] LABS: Baso # (Auto) 0.1 th/mm3 (0.0-0.2); Baso % (Auto) 0.8 % (0.0-2.0); Eos % (Auto) 0.2 % (0.0-4.0); Hematocrit 26.6 % (35.0-46.0); Lymph # (Auto) 0.8 th/mm3 (1.0-4.8); Lymph % (Auto) 8.2 % (9.0-44.0); Mean Corpuscular HGB Conc 33.8 % (32.0-36.0); Mean Corpuscular Hemoglobin 32.8 pg (27.0-34.0); Mean Platelet Volume 7.9 fL (7.0-11.0); Mono # (Auto) 0.3 th/mm3 (0.0-0.9); Mono % (Auto) 3.6 % (0.0-8.0); Neut % (Auto) 87.2 % (16.0-70.0); Platelet Count 289 th/mm3 (150-450); Red Blood Count 2.74 mil/mm3 (4.00-5.30); White Blood Count 9.2 th/mm3 (4.0-11.0)
[2018-03-19 06:24] LABS: Calcium 6.9 mg/dL (8.5-10.1); Carbon Dioxide 27.6 meq/L (21.0-32.0); Potassium 3.8 meq/L (3.5-5.1)
[2018-03-19 06:43] LABS: Total Protein 6.4 g/dL (6.4-8.2)
[2018-03-19 10:24] LABS: Lymphocytes 5 % (9-44); Metamyelocytes 2 % (0-1); Myelocytes 1 % (0-0); Promyelocyte 2 % (0-0)
[2018-03-19 10:25] LABS: Stomatocytes 2+; Target Cells 1+
[2018-03-19 10:26] LABS: Platelet Estimate Normal (Normal); Platelet Morphology Normal (Normal)
--- NOTE | 2018-03-19 11:29 | P.PNCC ---
Subjective Subjective Remarks/Hospital Course: HISTORY OF PRESENT ILLNESS: The patient is a 67-year-old female with a past medical history of hypertension and rheumatoid arthritis, who presented from Dr. Cisneros's office, her primary care physician for generalized weakness, edema of her lower extremities and diarrhea. The patient states that she was seen by the nurse practitioner for Dr. Cisneros and after her visit, she was advised to go to the ED for further evaluation and management of her symptoms. On arrival to the ER, the patient was found hypotensive with a systolic blood pressure in the 80s and her laboratory data showed multiple electrolyte abnormalities with potassium level 3.0. In addition, the patient was in renal failure, BUN 62, creatinine 3.15, and with lactic acidosis, lactic acid level 3.5 and anion gap of 17. In addition, her blood sugar recorded at 355 on a BMP. The patient, however, denies any history of diabetes mellitus. Also, she was found to have a significant leukocytosis with a WBC of 35.9. ABG was performed on room air which showed a pH of 7.39, CO2 of 28, PaO2 of 85, bicarbonate 17, saturation 95% . When seen, she is on room air oxygen and she was given 1 liter of fluids by EMS and an additional 1 liter in the ED with current blood pressure of 91/50 with a MAP of 67. She reports occasional shortness of breath with exertion. Denies any chest pain. She reports feeling nauseous, having diarrhea for 3 days. She reports a wound culture that is draining from her lower abdomen. In addition to fluids, she is in the process of receiving 6 units of IV insulin and starting on insulin drip. Also, the patient was given vancomycin and Zosyn. She denies any cough or any constitutional symptoms. The patient is afebrile with a temperature of 97.8. Chest x-ray in the ED showed no evidence of any acute cardiopulmonary process. She is scheduled to undergo CT scan of the abdomen and pelvis. In addition, Dr. Mckee from General Surgery was notified regarding possible abscess in her pannus area. 03/15: This morning the patient remains relatively dry and we have transfused an additional 2 L of saline and albumin-containing solutions. She is now normotensive with a pulse rate in the 70s. We will stop her insulin drip for the operating room to avoid any issues with hypoglycemia or hypokalemia. Potassium is 2.9 this morning replacement intravenously. Her pH is acceptable with a mild base deficit and urine output is marginal. She is awake and alert and well-perfused. We will not get control of her glucose intolerance until she is debrided. Although higher risk she does require urgent surgery for debridement of a spreading infection in the lower abdominal wall. She is ready for surgery albeit perhaps still a little dry. Normal saline or lactated Ringer 's or suitable resuscitation fluids for her at this point and we will try to avoid pushing her sugar any higher until she is back in the unit and we can restart her insulin drip. 03/16: Glucose control improved but metabolic acidosis persists and urine output minimal, and inadequate. Deteriorating renal function. Will convert to twice daily Levemir now and sliding scale correction coverage. Continue aggressive hydration. 03/17: Receiving dialysis now. WBC count steadily improving 13.6 today. Wound culture growing strep pyogenes and staph aureus. Glycemic control improved. General surgery planning for the debridement and wound VAC change tomorrow 03/18: WBC count has normalized. Patient is anxious plan for OR today. Intermittent desaturation at night most likely from obstructive sleep apnea. Remains practically anuric will DC IV fluid 03/19: Clinically improving labs are acceptable. Status post wound VAC change yesterday in the OR. Breathing comfortably no hypoxia reported Objective Vital Signs / I&O: Vital Signs 03/18/18 11:32 03/18/18 12:00 03/18/18 13:28 Temperature 98.2 F Pulse Rate 92 H 93 H Respiratory Rate 22 20 20 Blood Pressure 118/57 L Pulse Oximetry 99 03/18/18 16:00 03/18/18 16:08 03/18/18 17:20 Temperature 98.1 F Pulse Rate 97 H 98 H Respiratory Rate 20 18 25 H Blood Pressure 120/62 Pulse Oximetry 99 03/18/18 20:13 03/18/18 20:15 03/18/18 20:30 Temperature 97.6 F Pulse Rate 99 H 99 H 93 H Respiratory Rate 20 20 20 Blood Pressure 129/67 134/70 131/65 Pulse Oximetry 97 98 100 03/18/18 20:45 03/18/18 21:00 03/18/18 21:10 Temperature 98.1 F Pulse Rate 92 H 88 78 Respiratory Rate 19 20 Blood Pressure 138/61 123/60 Pulse Oximetry 100 100 100 03/18/18 21:19 03/18/18 23:26 03/19/18 00:00 Temperature 98.5 F Pulse Rate 90 91 H 95 H Respiratory Rate 16 16 Blood Pressure 105/51 L Pulse Oximetry 92 L 03/19/18 04:00 03/19/18 09:05 Temperature 98.2 F Pulse Rate 94 H 81 Respiratory Rate 20 20 Blood Pressure 116/58 L Pulse Oximetry 94 L Intake & Output 03/18/18 03/19/18 03/19/18 18:59 06:59 18:59 Intake Total 1250 / 1250 1400 / 1400 Output Total 3900 / 3900 250 / 250 Balance -2650 / -2650 1150 / 1150 Weight 155.1 kg Intake: IV 1250 / 1250 NS Inj 1,000 ML @ 125 mls/hr IV 1000 / 1000 .CONT .Q8H ED Rx#:[id number] Flexbumin 25% Inj 100 ML @ 60 100 / 100 mls/hr IV.SIG WITH DIALYSIS PRN Rx#:[id number] Cubicin Inj 600 MG In NS Inj 100 / 100 100 ML @ 200 mls/hr IV.SIG Q48H ED Rx#:[id number] Ancef 2 GM Premix Inj 2 gm In 50 / 50 50 ml @ 200 mls/hr IV.SIG Q24H ED Rx#:[id number] Oral 0 / 0 800 / 800 Anesthesia Amount 600 / 600 Output: Urine 450 / 450 150 / 150 Hemodialysis Amount 3000 / 3000 Estimated Blood Loss 100 / 100 Wound Drainage 450 / 450 0 / 0 # 1 Medial Abdomen 450 / 450 0 / 0 Other: # Bowel Movements 0 0 Result Diagrams: 03/19/18 05:30 03/19/18 05:30 Objective Remarks: GENERAL: A 67-year-old female lying in bed, in no acute respiratory distress, awake, alert. HEENT: Atraumatic, normocephalic. pink. Nonicteric sclerae. Dry mucous membranes. NECK: Supple. Trachea in the midline. Airway widely patent. CARDIOVASCULAR: Regular rate and rhythm. Normal S1, S2. No murmurs, rubs or gallops noted. No JVD. PULMONARY: Bilateral equal air entry. No rales, light wheezing. ABDOMEN: Soft, obese, mild tenderness in lower abdomen. Wound VAC noticed in the pannus area. EXTREMITIES: No cyanosis or clubbing; +2 edema in addition to erythema of the left lower extremity, particularly the foot. NEUROLOGIC: No focal sensory deficit. Conversant, oriented 3. Assessment and Plan - Assessment and Plan Plan: IMPRESSION: 1. Severe sepsis-resolving 2. Acute renal failure, now on HD. 3. Lactic acidemia. 4. Leukocytosis with bandemia. 5. Anion gap metabolic acidosis. 6. Diabetic ketoacidosis. 7. Cellulitis of the left lower extremity. 8. Lower Abdominal wall soft tissue abscess with abdominal wall soft tissue infection. 9. History of hypertension. 10. History of rheumatoid arthritis. 11. Morbid obesity. PLAN: 1. Monitor neuro status closely and avoid any sedatives. 2. Oxygen p.r.n. to maintain sat above 92%. CXR today. Use BiPAP PRN 3. Bronchodilators on a p.r.n. basis. 4. Monitor heart rate and blood pressure closely and maintain MAP greater than 65 mmHg. 5. Monitor renal function, I's and O's and avoid nephrotoxins. Monitor BMP q.6 hours. HD per renal 6. Electrolyte replacement as needed. 7. Twice daily Levemir, sliding scale insulin. 8. Antibiotic coverage per ID service. 9. Monitor I/O closely, replace potassium 10. Serial lactic acid monitoring until clear. 11. General surgery following, 12. Monitor CBC. 13. Gastrointestinal prophylaxis with Pepcid and DVT prophylaxis with SCDs for now. 14. Nephrology following Overall impression: Critically ill with a necrotizing infection involving the anterior abdominal wall, with abscess. She required urgent debridement, repeat whole lot today. She was very aggressively hydrated prior to surgery but continues to have problems with oliguria and deteriorating renal function. Continue hemodialysis per nephrology. Overall improving Level 2 Transfer to with Tele, hospitalist consulted to assume care in a.m. 03/20/2018
--- NOTE | 2018-03-19 12:36 | P.PNID ---
Subjective Remarks: Patient feels sleepy. Has pain in r abdomen wound. 12/10. Still has decreased urine output. Continue to receive dialysis. Notes episode of diarrhea. Afebrile. Denies chills. Denies nausea. Ate breakfast this am. ABRAHAM ugarte. This is a 67-year-old white female who was admitted to the hospital yesterday. The patient developed redness of her right foot 5 days ago. She also notes that she had bouts of diarrhea for a couple of days prior to that. The diarrhea continued for 5 days and then stopped. She went to see her primary physician and she notes that they sent her to the emergency department because she appeared pale. She notes that she had a tiny lump on her right abdominal wall underneath the fold of skin. She has obese abdomen with large amount of pannus. She was evaluated in the ED and was noted to have elevated white blood cell count of 35.9 and she had lactic acid level of 3.5. She also had acute kidney disease with creatinine of 3.51. The patient was admitted and eventually taken to surgery for an abdominal wall debridement. She was noted to have necrotic skin at the right lower abdomen. Wound VAC was applied. Past Medical History: PAST MEDICAL HISTORY: Hypertension, history of cervical discectomy and allograft bone fusion in 10/2013, bacteremia due to methicillin-sensitive Staphylococcus aureus in 10/2013. Allergies/Adverse Reactions: Allergies No Known Allergies Allergy (Unverified 03/14/18 16:15) Objective Vital Signs 03/18/18 13:28 03/18/18 16:00 03/18/18 16:08 Temperature 98.1 F Pulse Rate 97 H 98 H Respiratory Rate 20 20 18 Blood Pressure 120/62 Pulse Oximetry 99 03/18/18 17:20 03/18/18 20:13 03/18/18 20:15 Temperature 97.6 F Pulse Rate 99 H 99 H Respiratory Rate 25 H 20 20 Blood Pressure 129/67 134/70 Pulse Oximetry 97 98 03/18/18 20:30 03/18/18 20:45 03/18/18 21:00 Temperature 98.1 F Pulse Rate 93 H 92 H 88 Respiratory Rate 20 19 20 Blood Pressure 131/65 138/61 123/60 Pulse Oximetry 100 100 100 03/18/18 21:10 03/18/18 21:19 03/18/18 23:26 Temperature Pulse Rate 78 90 91 H Respiratory Rate 16 Blood Pressure Pulse Oximetry 100 03/19/18 00:00 03/19/18 04:00 03/19/18 08:00 Temperature 98.5 F 98.2 F 98.2 F Pulse Rate 95 H 94 H 86 Respiratory Rate 16 20 17 Blood Pressure 105/51 L 116/58 L 105/53 L Pulse Oximetry 92 L 94 L 95 03/19/18 09:00 03/19/18 09:05 03/19/18 11:43 Temperature Pulse Rate 104 H 81 97 H Respiratory Rate 20 24 Blood Pressure Pulse Oximetry Intake & Output 03/18/18 03/19/18 03/19/18 18:59 06:59 18:59 Intake Total 1250 / 1250 1400 / 1400 Output Total 3900 / 3900 250 / 250 Balance -2650 / -2650 1150 / 1150 Weight 155.1 kg Intake: IV 1250 / 1250 NS Inj 1,000 ML @ 125 mls/hr IV 1000 / 1000 .CONT .Q8H [facility] Rx#:[id number] Flexbumin 25% Inj 100 ML @ 60 100 / 100 mls/hr IV.SIG WITH DIALYSIS PRN Rx#:[id number] Cubicin Inj 600 MG In NS Inj 100 / 100 100 ML @ 200 mls/hr IV.SIG Q48H [facility] Rx#:[id number] Ancef 2 GM Premix Inj 2 gm In 50 / 50 50 ml @ 200 mls/hr IV.SIG Q24H ED Rx#:[id number] Oral 0 / 0 800 / 800 Anesthesia Amount 600 / 600 Output: Urine 450 / 450 150 / 150 Hemodialysis Amount 3000 / 3000 Estimated Blood Loss 100 / 100 Wound Drainage 450 / 450 0 / 0 # 1 Medial Abdomen 450 / 450 0 / 0 Other: Date of Last Bowel Movement 03/19/18 # Bowel Movements 0 0 03/14/18 15:13 Blood - Peripheral Aerobic Blood Culture - Final Staphylococcus auricularis 03/14/18 15:13 Blood - Peripheral Anaerobic Blood Culture - Final No growth in 5 days 03/14/18 15:08 Blood - Peripheral Aerobic Blood Culture - Final No growth in 5 days 03/14/18 15:08 Blood - Peripheral Anaerobic Blood Culture - Final No growth in 5 days 03/15/18 08:55 Tissue - Abdominal Gram Stain - Final 03/15/18 08:55 Tissue - Abdominal Wound Culture - Final Group A beta (Strep pyogenes) 03/14/18 19:15 Wound - Abdominal Gram Stain - Final 03/14/18 19:15 Wound - Abdominal Wound Culture - Final Group A beta (Strep pyogenes) Staphylococcus aureus 03/14/18 16:50 Clean Catch Urine Urine Culture - Final No growth in 48 hours 03/15/18 08:55 Tissue - Abdominal Acid Fast Bacilli Smear - Final No acid fast bacilli seen 03/15/18 08:55 Tissue - Abdominal Mycobacterial Culture - Pending Lab - Hematology Results 03/18/18 03/19/18 04:25 05:30 WBC 9.7 9.2 RBC 2.78 L 2.74 L Hgb 9.2 L 9.0 L Hct 26.6 L 26.6 L MCV 95.6 97.0 MCH 33.1 32.8 MCHC 34.7 33.8 RDW 14.2 14.0 Plt Count 281 289 MPV 7.9 7.9 Prelim Diff (Auto) Slide review pending Slide review pending Neut % (Auto) 80.3 H 87.2 H Lymph % (Auto) 13.0 8.2 L [place] % (Auto) 5.6 3.6 Eos % (Auto) 0.8 0.2 Baso % (Auto) 0.3 0.8 Neut # (Auto) 7.8 H 8.0 H Lymph # (Auto) 1.3 0.8 L [place] # (Auto) 0.5 0.3 Eos # (Auto) 0.1 0.0 Baso # (Auto) 0.0 0.1 WBC Differential Manual diff final Manual diff final Seg Neuts % (Manual) 77 H 85 H Band Neuts % (Manual) 2 5 Lymphocytes % (Manual) 12 5 L Monocytes % (Manual) 1 Eosinophils % (Manual) 2 Metamyelocytes % (Man) 6 H 2 H Myelocytes % (Man) 1 H Promyelocytes % (Man) 2 H Abs Neuts (Manual) 8.2 H 8.7 H Differential Comment . . Platelet Estimate Normal Normal Platelet Morphology Normal Normal Target Cells 1+ H Stomatocytes 2+ H 2+ H Lab - Chemistry Results 03/17/18 03/17/18 03/18/18 16:33 22:43 04:25 Sodium 142 Potassium 3.4 L Chloride 106 Carbon Dioxide 26.1 Anion Gap 10 BUN 31 H Creatinine 2.98 H Estimated GFR 16 L POC Glucose 172 H 165 H Random Glucose 154 H Calcium 6.9 L* Prot Corrected Calcium 7.4 L* Total Bilirubin 0.6 AST 30 ALT 19 Alkaline Phosphatase 104 Total Protein 6.1 L Albumin 1.4 L 03/18/18 03/18/18 03/18/18 09:38 11:52 17:13 Sodium Potassium Chloride Carbon Dioxide Anion Gap BUN Creatinine Estimated GFR POC Glucose 191 H 172 H 133 H Random Glucose Calcium Prot Corrected Calcium Total Bilirubin AST ALT Alkaline Phosphatase Total Protein Albumin 03/19/18 05:30 Sodium 141 Potassium 3.8 Chloride 104 Carbon Dioxide 27.6 Anion Gap 9 BUN 23 H Creatinine 2.34 H Estimated GFR 21 L POC Glucose Random Glucose 147 H Calcium 6.9 L* Prot Corrected Calcium 7.3 L* Total Bilirubin AST ALT Alkaline Phosphatase Total Protein 6.4 Albumin Imaging: ITS Impressions Abdomen/Pelvis CT 03/14/18 16:22 CONCLUSION: 1. No acute intra-abdominal abnormality seen. 2. Edema seen throughout the subcutaneous fat at the anterior abdominal wall. This should be correlated with any inflammatory process in this region. No focal fluid collection to suggest an abscess is seen. Abdomen/Bladder Ultrasound 03/17/18 16:09 CONCLUSION: 1. Limited examination without gross abnormality in the left kidney. 2. Right kidney and urinary bladder not visualized. Chest X-Ray 03/18/18 00:00 CONCLUSION: No acute cardiopulmonary disease. Physical Exam: GENERAL: No acute distress. Awake and alert and oriented. HEENT: EOMI,VICENTE. No icterus. Poor dentition. NECK: Supple without adenopathy. LUNGS: Decreased breath sounds. HEART: Regular S1, S2. No murmurs, rubs or gallops. ABDOMEN: Bowel sounds present, obese, soft. Vacuum device is present at the anterior abdominal wall on the right side and down to the groin fold on the right where the patient has excessive tissue. No erythema at the skin around the vacuum sponge. EXTREMITIES: The left foot erythema is decreased. SKIN: No diffuse rash. NEUROLOGIC: No gross focal findings. PSYCHIATRIC: Calm and cooperative. Assessment and Plan - Plan IMPRESSION: 1. Necrotic cellulitis of the abdominal wall. 2. Sepsis. Improved. 3. Left foot cellulitis. 4. Acute kidney disease. 5. Leukocytosis. WBC is improved. The one positive blood culture bottle with coag negative staph identified as staph auricularis which I think is contamination. RECOMMENDATIONS: 1. Continue Cefazolin. Renal dose. 2. Continue Daptomycin 3. Monitor renal function. 4. Monitor wound and clinical status.
--- NOTE | 2018-03-19 13:38 | P.PNGS ---
<Rae Tejada - Last Filed: 03/19/18 13:36> Subjective Interval history: Alert and awake; no issues; seems less anxious today Physical Exam Vital signs: Vital Signs 03/18/18 16:00 03/18/18 16:08 03/18/18 17:20 Temperature 98.1 F Pulse Rate 97 H 98 H Respiratory Rate 20 18 25 H Blood Pressure 120/62 Pulse Oximetry 99 03/18/18 20:13 03/18/18 20:15 03/18/18 20:30 Temperature 97.6 F Pulse Rate 99 H 99 H 93 H Respiratory Rate 20 20 20 Blood Pressure 129/67 134/70 131/65 Pulse Oximetry 97 98 100 03/18/18 20:45 03/18/18 21:00 03/18/18 21:10 Temperature 98.1 F Pulse Rate 92 H 88 78 Respiratory Rate 19 20 Blood Pressure 138/61 123/60 Pulse Oximetry 100 100 100 03/18/18 21:19 03/18/18 23:26 03/19/18 00:00 Temperature 98.5 F Pulse Rate 90 91 H 95 H Respiratory Rate 16 16 Blood Pressure 105/51 L Pulse Oximetry 92 L 03/19/18 04:00 03/19/18 08:00 03/19/18 09:00 Temperature 98.2 F 98.2 F Pulse Rate 94 H 86 104 H Respiratory Rate 20 17 Blood Pressure 116/58 L 105/53 L Pulse Oximetry 94 L 95 03/19/18 09:05 03/19/18 11:43 03/19/18 12:00 Temperature 98.6 F Pulse Rate 81 97 H 95 H Respiratory Rate 20 24 25 H Blood Pressure 95/53 L Pulse Oximetry 97 Intake & Output 03/18/18 03/19/18 03/19/18 18:59 06:59 18:59 Intake Total 1250 / 1250 1400 / 1400 Output Total 3900 / 3900 250 / 250 Balance -2650 / -2650 1150 / 1150 Weight 155.1 kg Intake: IV 1250 / 1250 NS Inj 1,000 ML @ 125 mls/hr IV 1000 / 1000 .CONT .Q8H [facility] Rx#:[id number] Flexbumin 25% Inj 100 ML @ 60 100 / 100 mls/hr IV.SIG WITH DIALYSIS PRN Rx#:[id number] Cubicin Inj 600 MG In NS Inj 100 / 100 100 ML @ 200 mls/hr IV.SIG Q48H ED Rx#:[id number] Ancef 2 GM Premix Inj 2 gm In 50 / 50 50 ml @ 200 mls/hr IV.SIG Q24H ED Rx#:[id number] Oral 0 / 0 800 / 800 Anesthesia Amount 600 / 600 Output: Urine 450 / 450 150 / 150 Hemodialysis Amount 3000 / 3000 Estimated Blood Loss 100 / 100 Wound Drainage 450 / 450 0 / 0 # 1 Medial Abdomen 450 / 450 0 / 0 Other: Date of Last Bowel Movement 03/19/18 # Bowel Movements 0 0 Narrative: Alert and awake Cardio: RRR Resp: CTAB Abd: large Wound Vac in place with good seal - Urinary Catheter Management Indwelling Urethral Catheter Cath placed during this visit: yes, but has since been removed by the nurse Reason for continuing: Decision to DC catheter Insertion date: 03/15/18 Insertion time: 17:00 Removal date: 03/16/18 Removal time: 06:00 Assessment and Plan - Plan 67 year old female with abdominal wall infection s/p debridement and Wound Vac placement -POD1 Wound Vac change -Consult to Plastic Surgery -Renal diet---with Nepro -Acute kidney disease--- Nephrology following -Transfer to when bed available <Cj Mckee - Last Filed: 03/20/18 08:46> Physical Exam Vital signs: Vital Signs 03/19/18 09:00 03/19/18 09:05 03/19/18 11:43 Temperature Pulse Rate 104 H 81 97 H Respiratory Rate 20 24 Blood Pressure Pulse Oximetry 03/19/18 12:00 03/19/18 16:00 03/19/18 17:00 Temperature 98.6 F 98 F 98.1 F Pulse Rate 95 H 100 H 98 H Respiratory Rate 25 H 28 H 18 Blood Pressure 95/53 L 120/59 L 131/60 Pulse Oximetry 97 95 98 03/19/18 20:00 03/19/18 20:02 03/20/18 00:00 Temperature 98.1 F 97.9 F Pulse Rate 105 H 99 H 99 H Respiratory Rate 20 18 20 Blood Pressure 132/59 L 122/77 Pulse Oximetry 98 94 L 03/20/18 04:00 03/20/18 08:00 Temperature 98.0 F 97.6 F Pulse Rate 93 H 93 H Respiratory Rate 20 22 Blood Pressure 126/62 127/68 Pulse Oximetry 98 93 L Intake & Output 03/19/18 03/20/18 03/20/18 18:59 06:59 18:59 Intake Total 1155 / 1155 Output Total 450 / 450 100 / 100 Balance 705 / 705 -100 / -100 Intake: IV 50 / 50 Ancef 2 GM Premix Inj 2 gm In 50 / 50 50 ml @ 200 mls/hr IV.SIG Q24H [facility] Rx#:[id number] Oral 1105 / 1105 Output: Urine 400 / 400 Wound Vac Amount 50 / 50 100 / 100 Right Abdomen 50 / 50 100 / 100 Other: Mode Setting Right Abdomen Continuous Continuous # Voids 3 Date of Last Bowel Movement 03/19/18 03/19/18 # Bowel Movements 1 3 - Urinary Catheter Management Indwelling Urethral Catheter Cath placed during this visit: no Assessment and Plan - Attending Attestation The exam, history, and the medical decision-making described in the above note were completed with the assistance of the mid-level provider. I reviewed and agree with the findings presented. I attest that I had a [id number] encounter with the patient on the same day, and personally performed and documented my assessment and findings in the medical record. s/p debridement and VAC will consult plastics for closure options start bedside VAC changes, consult wound care
[2018-03-19] MEDS: Insulin NovoLOG Aspart Correctional Sugar Inj SQ SCH ×4 (15:27→20:58)
[2018-03-19] MEDS: Insulin Detemir Inj 1,000 UNIT/10 ML Vial SQ SCH (15:29)
[2018-03-19] MEDS: Nystatin 100,000 UNITS/GM Powder 15 GM Bottle TOPICAL SCH ×4 (15:29→20:47)
[2018-03-19] MEDS: Pantoprazole Inj 40 MG Vial IV.PUSH SCH (15:30)
[2018-03-19] MEDS: ceFAZolin 2 GM Premix Inj 2 GM/50 ML PIGGYBACK IV.SIG SCH (16:01)
--- NOTE | 2018-03-19 18:09 | P.PNNP ---
Subjective Interval history: Patient transferred out of the ICU. In good spirits. No verbal complaints. Physical Exam Vital signs: Vital Signs 03/18/18 20:13 03/18/18 20:15 03/18/18 20:30 Temperature 97.6 F Pulse Rate 99 H 99 H 93 H Respiratory Rate 20 20 20 Blood Pressure 129/67 134/70 131/65 Pulse Oximetry 97 98 100 03/18/18 20:45 03/18/18 21:00 03/18/18 21:10 Temperature 98.1 F Pulse Rate 92 H 88 78 Respiratory Rate 19 20 Blood Pressure 138/61 123/60 Pulse Oximetry 100 100 100 03/18/18 21:19 03/18/18 23:26 03/19/18 00:00 Temperature 98.5 F Pulse Rate 90 91 H 95 H Respiratory Rate 16 16 Blood Pressure 105/51 L Pulse Oximetry 92 L 03/19/18 04:00 03/19/18 08:00 03/19/18 09:00 Temperature 98.2 F 98.2 F Pulse Rate 94 H 86 104 H Respiratory Rate 20 17 Blood Pressure 116/58 L 105/53 L Pulse Oximetry 94 L 95 03/19/18 09:05 03/19/18 11:43 03/19/18 12:00 Temperature 98.6 F Pulse Rate 81 97 H 95 H Respiratory Rate 20 24 25 H Blood Pressure 95/53 L Pulse Oximetry 97 03/19/18 16:00 03/19/18 17:00 Temperature 98 F 98.1 F Pulse Rate 100 H 98 H Respiratory Rate 28 H 18 Blood Pressure 120/59 L 131/60 Pulse Oximetry 95 98 Intake & Output 03/18/18 03/19/18 03/19/18 18:59 06:59 18:59 Intake Total 1250 / 1250 1400 / 1400 675 / 675 Output Total 3900 / 3900 250 / 250 450 / 450 Balance -2650 / -2650 1150 / 1150 225 / 225 Weight 155.1 kg Intake: IV 1250 / 1250 50 / 50 NS Inj 1,000 ML @ 125 mls/hr IV 1000 / 1000 .CONT .Q8H [facility] Rx#:[id number] Flexbumin 25% Inj 100 ML @ 60 100 / 100 mls/hr IV.SIG WITH DIALYSIS PRN Rx#:[id number] Cubicin Inj 600 MG In NS Inj 100 / 100 100 ML @ 200 mls/hr IV.SIG Q48H [facility] Rx#:[id number] Ancef 2 GM Premix Inj 2 gm In 50 / 50 50 / 50 50 ml @ 200 mls/hr IV.SIG Q24H [facility] Rx#:[id number] Oral 0 / 0 800 / 800 625 / 625 Anesthesia Amount 600 / 600 Output: Urine 450 / 450 150 / 150 400 / 400 Hemodialysis Amount 3000 / 3000 Estimated Blood Loss 100 / 100 Wound Drainage 450 / 450 0 / 0 # 1 Medial Abdomen 450 / 450 0 / 0 Wound Vac Amount 50 / 50 Right Abdomen 50 / 50 Other: Mode Setting Right Abdomen Continuous Continuous Continuous Date of Last Bowel Movement 03/19/18 # Bowel Movements 0 0 1 Narrative: GENERAL: Patient lying in bed. Not in respiratory distress. SKIN: Warm and dry. HEAD: Normocephalic. EYES: No scleral icterus. No injection or drainage. NECK: Supple, trachea midline. No JVD CARDIOVASCULAR: Regular rate and rhythm without murmurs, gallops, or rubs. RESPIRATORY: Breath sounds equal bilaterally. No accessory muscle use. GASTROINTESTINAL: Abdomen soft, non-tender, nondistended. MUSCULOSKELETAL: No cyanosis, or edema. - Urinary Catheter Management Indwelling Urethral Catheter Cath placed during this visit: yes, but has since been removed by the nurse Reason for continuing: Decision to DC catheter Insertion date: 03/15/18 Insertion time: 17:00 Removal date: 03/16/18 Removal time: 06:00 Assessment and Plan - Assessment (1) Acute renal failure due to tubular necrosis Code(s): N17.0 - Acute kidney failure with tubular necrosis Status: Acute Plan: Patient refusing to have Thompson placed so cannot evaluate urinary output. Continue to monitor renal indices evidence of improvement. Repeat BMP tomorrow. Plan for dialysis tomorrow also. Medications should be adjusted for the patient's estimated GFR if clinically indicated. Avoid agents with significant potential for nephrotoxicity possible including NSAIDs for analgesia, iodine contrast agents. Gadolinium is contraindicated if the GFR is below 30. (2) Acidosis, metabolic Code(s): E87.2 - Acidosis Status: Acute Plan: Secondary to acute renal failure and sepsis. Dialysis should improve her acid- base status (3) Sepsis Code(s): A41.9 - Sepsis, unspecified organism Status: Acute (4) Cellulitis of left leg Code(s): L03.116 - Cellulitis of left lower limb Status: Acute Plan: Management per infectious disease and surgery. (5) Abdominal wall cellulitis Code(s): L03.311 - Cellulitis of abdominal wall Status: Acute Plan: Status post debridement. Management per surgery and infectious disease.
[2018-03-19] MEDS: HYDROmorphone PF Inj 2 MG/ML Vial IV.PUSH PRN (20:44)
[2018-03-20] MEDS: Insulin Detemir Inj 1,000 UNIT/10 ML Vial SQ SCH (08:07)
[2018-03-20] MEDS: Pantoprazole Inj 40 MG Vial IV.PUSH SCH (08:08)
[2018-03-20] MEDS: Nystatin 100,000 UNITS/GM Powder 15 GM Bottle TOPICAL SCH ×4 (08:09→23:23)
[2018-03-20] MEDS: Insulin NovoLOG Aspart Correctional Sugar Inj SQ SCH ×4 (08:15→23:33)
--- NOTE | 2018-03-20 10:28 | P.PNGS ---
Subjective Interval history: Resting in bed Concerned about bowel habits Physical Exam Vital signs: Vital Signs 03/19/18 11:43 03/19/18 12:00 03/19/18 16:00 Temperature 98.6 F 98 F Pulse Rate 97 H 95 H 100 H Respiratory Rate 24 25 H 28 H Blood Pressure 95/53 L 120/59 L Pulse Oximetry 97 95 03/19/18 17:00 03/19/18 20:00 03/19/18 20:02 Temperature 98.1 F 98.1 F Pulse Rate 98 H 105 H 99 H Respiratory Rate 18 20 18 Blood Pressure 131/60 132/59 L Pulse Oximetry 98 98 03/20/18 00:00 03/20/18 04:00 03/20/18 08:00 Temperature 97.9 F 98.0 F 97.6 F Pulse Rate 99 H 93 H 93 H Respiratory Rate 20 20 22 Blood Pressure 122/77 126/62 127/68 Pulse Oximetry 94 L 98 93 L 03/20/18 08:51 Temperature Pulse Rate 93 H Respiratory Rate 14 Blood Pressure Pulse Oximetry Intake & Output 03/19/18 03/20/18 03/20/18 18:59 06:59 18:59 Intake Total 1155 / 1155 Output Total 450 / 450 100 / 100 Balance 705 / 705 -100 / -100 Intake: IV 50 / 50 Ancef 2 GM Premix Inj 2 gm In 50 / 50 50 ml @ 200 mls/hr IV.SIG Q24H [facility] Rx#:[id number] Oral 1105 / 1105 Output: Urine 400 / 400 Wound Vac Amount 50 / 50 100 / 100 Right Abdomen 50 / 50 100 / 100 Other: Mode Setting Right Abdomen Continuous Continuous # Voids 3 Date of Last Bowel Movement 03/19/18 03/19/18 # Bowel Movements 1 3 Narrative: Alert and awake Cardio: RRR Resp: CTAB Abd: Wound Vac in place with good seal - Urinary Catheter Management Indwelling Urethral Catheter Cath placed during this visit: yes, but has since been removed by the nurse Reason for continuing: Decision to DC catheter Insertion date: 03/15/18 Insertion time: 17:00 Removal date: 03/16/18 Removal time: 06:00 Assessment and Plan - Plan 67 year old female with abdominal wall infection s/p debridement and Wound Vac placement -POD2 Wound Vac change -Will start bedside vac change tomorrow and continue MWF -Consult to Plastic Surgery ---will continue to follow for timing of skin graft -Renal diet---with Nepro -Acute kidney disease--- Nephrology following; Vascath in place
--- NOTE | 2018-03-20 11:55 | P.PNIM ---
Subjective Interval history: Patient reports she is feeling okay today. Complains of a persistent cough. No fevers. No shortness of breath. She would like to work with physical therapy. Physical Exam Vital signs: Vital Signs 03/19/18 12:00 03/19/18 16:00 03/19/18 17:00 Temperature 98.6 F 98 F 98.1 F Pulse Rate 95 H 100 H 98 H Respiratory Rate 25 H 28 H 18 Blood Pressure 95/53 L 120/59 L 131/60 Pulse Oximetry 97 95 98 03/19/18 20:00 03/19/18 20:02 03/20/18 00:00 Temperature 98.1 F 97.9 F Pulse Rate 105 H 99 H 99 H Respiratory Rate 20 18 20 Blood Pressure 132/59 L 122/77 Pulse Oximetry 98 94 L 03/20/18 04:00 03/20/18 08:00 03/20/18 08:51 Temperature 98.0 F 97.6 F Pulse Rate 93 H 93 H 93 H Respiratory Rate 20 22 14 Blood Pressure 126/62 127/68 Pulse Oximetry 98 93 L 03/20/18 11:39 Temperature Pulse Rate 93 H Respiratory Rate 14 Blood Pressure Pulse Oximetry Intake & Output 03/19/18 03/20/18 03/20/18 18:59 06:59 18:59 Intake Total 1155 / 1155 Output Total 450 / 450 100 / 100 Balance 705 / 705 -100 / -100 Intake: IV 50 / 50 Ancef 2 GM Premix Inj 2 gm In 50 / 50 50 ml @ 200 mls/hr IV.SIG Q24H [facility] Rx#:[id number] Oral 1105 / 1105 Output: Urine 400 / 400 Wound Vac Amount 50 / 50 100 / 100 Right Abdomen 50 / 50 100 / 100 Other: Mode Setting Right Abdomen Continuous Continuous # Voids 3 Date of Last Bowel Movement 03/19/18 03/19/18 # Bowel Movements 1 3 Narrative: GENERAL: Morbidly obese female in no acute distress. CARDIOVASCULAR: Normal rate and regular rhythm without murmurs, gallops, or rubs. RESPIRATORY: Good respiratory efforts. Breath sounds equal and clear to auscultation bilaterally. GASTROINTESTINAL: Abdomen is obese, there is a large wound VAC in place on the lower abdomen. MUSCULOSKELETAL: Extremities without cyanosis, or edema. NEURO: Alert & Oriented x4 to person, place, time, situation. Moves all ext x4 PSYCH: Appropriate mood and affect. - Urinary Catheter Management Indwelling Urethral Catheter Cath placed during this visit: yes, but has since been removed by the nurse Reason for continuing: Decision to DC catheter Insertion date: 03/15/18 Insertion time: 17:00 Removal date: 03/16/18 Removal time: 06:00 Results - Labs CBC & Chem 7: 03/20/18 12:44 03/20/18 12:44 Laboratory Results - last 24 hr 03/19/18 03/19/18 03/19/18 12:34 16:54 20:50 POC Glucose 161 H 166 H 158 H Stl C.difficile Tox PCR St C. diff Tox Epid 027 03/20/18 03/20/18 01:55 08:11 POC Glucose 144 H Stl C.difficile Tox PCR Negative St C. diff Tox Epid 027 Negative Microbiology 03/14/18 15:13 Blood - Peripheral Aerobic Blood Culture - Final Staphylococcus auricularis 03/14/18 15:13 Blood - Peripheral Anaerobic Blood Culture - Final No growth in 5 days 03/14/18 15:08 Blood - Peripheral Aerobic Blood Culture - Final No growth in 5 days 03/14/18 15:08 Blood - Peripheral Anaerobic Blood Culture - Final No growth in 5 days Assessment and Plan - Assessment (1) Sepsis Code(s): A41.9 - Sepsis, unspecified organism Status: Acute (2) Abdominal wall cellulitis Code(s): L03.311 - Cellulitis of abdominal wall Status: Acute (3) Acute renal failure due to tubular necrosis Code(s): N17.0 - Acute kidney failure with tubular necrosis Status: Acute (4) Acidosis, metabolic Code(s): E87.2 - Acidosis Status: Acute - Plan 67-year-old female sepsis secondary to necrotizing infection of the abdominal wall with abscess. She is status post urgent debridement. Severe sepsis secondary to abdominal wall infection with abscess: -Status post emergent debridement. General surgery following. Plastic surgery consulted. -Wound care per surgery. Pain control. Continue antibiotics per infectious disease. Acute renal failure, now on HD. -Nephrology following. Continue hemodialysis. Follow BMP and renal recovery. Urine very concentrated. Urinary output improving per the patient. Left foot cellulitis: Much improved. Continue antibiotics per ID Diabetes: -Continue Levemir. Sliding scale insulin with Accu-Cheks Electrolyte abnormalities: -Replace and monitor.
[2018-03-20 13:08] LABS: Baso # (Auto) 0.1 th/mm3 (0.0-0.2); Baso % (Auto) 0.6 % (0.0-2.0); Eos # (Auto) 0.1 th/mm3 (0.0-0.4); Eos % (Auto) 1.1 % (0.0-4.0); Hematocrit 29.1 % (35.0-46.0); Hemoglobin 9.7 gm/dL (11.6-15.3); Lymph # (Auto) 1.4 th/mm3 (1.0-4.8); Lymph % (Auto) 16.2 % (9.0-44.0); Mean Corpuscular HGB Conc 33.5 % (32.0-36.0); Mean Corpuscular Hemoglobin 32.4 pg (27.0-34.0); Mean Corpuscular Volume 96.6 fL (80.0-100.0); Mean Platelet Volume 7.4 fL (7.0-11.0); Mono # (Auto) 0.4 th/mm3 (0.0-0.9); Mono % (Auto) 4.8 % (0.0-8.0); Neut # (Auto) 6.8 th/mm3 (1.8-7.7); Neut % (Auto) 77.3 % (16.0-70.0); Platelet Count 310 th/mm3 (150-450); Red Blood Count 3.01 mil/mm3 (4.00-5.30); White Blood Count 8.8 th/mm3 (4.0-11.0)
[2018-03-20 13:49] LABS: Calcium 7.1 mg/dL (8.5-10.1); Carbon Dioxide 28.8 meq/L (21.0-32.0); Potassium 3.7 meq/L (3.5-5.1)
[2018-03-20 14:08] LABS: Total Protein 7.2 g/dL (6.4-8.2)
[2018-03-20 14:33] LABS: Eosinophils 3 % (0-4); Lymphocytes 11 % (9-44); Metamyelocytes 5 % (0-1); Monocytes 3 % (0-8); Myelocytes 2 % (0-0); Promyelocyte 2 % (0-0); Stomatocytes 1+; Toxic Granulation 2+
[2018-03-20 14:34] LABS: Platelet Estimate Normal (Normal); Platelet Morphology Normal (Normal)
[2018-03-20] MEDS: DAPTOmycin Inj 600 MG in Sodium Chlor 0.9% Inj 100 ML IV.SIG SCH (14:54)
--- NOTE | 2018-03-20 15:34 | P.PNID ---
Subjective Remarks: Patient is awake and alert. Sitting up in chair. Has pain in r abdomen wound. 12/10. Still has decreased urine output. Continue to receive dialysis. Afebrile. Denies nausea. This is a 67-year-old white female who was admitted to the hospital yesterday. The patient developed redness of her right foot 5 days ago. She also notes that she had bouts of diarrhea for a couple of days prior to that. The diarrhea continued for 5 days and then stopped. She went to see her primary physician and she notes that they sent her to the emergency department because she appeared pale. She notes that she had a tiny lump on her right abdominal wall underneath the fold of skin. She has obese abdomen with large amount of pannus. She was evaluated in the ED and was noted to have elevated white blood cell count of 35.9 and she had lactic acid level of 3.5. She also had acute kidney disease with creatinine of 3.51. The patient was admitted and eventually taken to surgery for an abdominal wall debridement. She was noted to have necrotic skin at the right lower abdomen. Wound VAC was applied. Past Medical History: PAST MEDICAL HISTORY: Hypertension, history of cervical discectomy and allograft bone fusion in 10/2013, bacteremia due to methicillin-sensitive Staphylococcus aureus in 10/2013. Allergies/Adverse Reactions: Allergies No Known Allergies Allergy (Unverified 03/14/18 16:15) Objective Vital Signs 03/19/18 16:00 03/19/18 17:00 03/19/18 20:00 Temperature 98 F 98.1 F 98.1 F Pulse Rate 100 H 98 H 105 H Respiratory Rate 28 H 18 20 Blood Pressure 120/59 L 131/60 132/59 L Pulse Oximetry 95 98 98 03/19/18 20:02 03/20/18 00:00 03/20/18 04:00 Temperature 97.9 F 98.0 F Pulse Rate 99 H 99 H 93 H Respiratory Rate 18 20 20 Blood Pressure 122/77 126/62 Pulse Oximetry 94 L 98 03/20/18 08:00 03/20/18 08:51 03/20/18 11:39 Temperature 97.6 F Pulse Rate 93 H 93 H 93 H Respiratory Rate 22 14 14 Blood Pressure 127/68 Pulse Oximetry 93 L 03/20/18 12:00 Temperature 98.0 F Pulse Rate 98 H Respiratory Rate 20 Blood Pressure 169/70 H Pulse Oximetry 94 L Intake & Output 03/19/18 03/20/18 03/20/18 18:59 06:59 18:59 Intake Total 1155 / 1155 Output Total 450 / 450 100 / 100 Balance 705 / 705 -100 / -100 Intake: IV 50 / 50 Ancef 2 GM Premix Inj 2 gm In 50 / 50 50 ml @ 200 mls/hr IV.SIG Q24H ED Rx#:[id number] Oral 1105 / 1105 Output: Urine 400 / 400 Wound Vac Amount 50 / 50 100 / 100 Right Abdomen 50 / 50 100 / 100 Other: Mode Setting Right Abdomen Continuous Continuous # Voids 3 Date of Last Bowel Movement 03/19/18 03/19/18 # Bowel Movements 1 3 03/14/18 15:13 Blood - Peripheral Aerobic Blood Culture - Final Staphylococcus auricularis 03/14/18 15:13 Blood - Peripheral Anaerobic Blood Culture - Final No growth in 5 days 03/14/18 15:08 Blood - Peripheral Aerobic Blood Culture - Final No growth in 5 days 03/14/18 15:08 Blood - Peripheral Anaerobic Blood Culture - Final No growth in 5 days Lab - Hematology Results 03/19/18 03/20/18 05:30 12:44 WBC 9.2 8.8 RBC 2.74 L 3.01 L Hgb 9.0 L 9.7 L Hct 26.6 L 29.1 L MCV 97.0 96.6 MCH 32.8 32.4 MCHC 33.8 33.5 RDW 14.0 14.0 Plt Count 289 310 MPV 7.9 7.4 Prelim Diff (Auto) Slide review pending Slide review pending Neut % (Auto) 87.2 H 77.3 H Lymph % (Auto) 8.2 L 16.2 [place] % (Auto) 3.6 4.8 Eos % (Auto) 0.2 1.1 Baso % (Auto) 0.8 0.6 Neut # (Auto) 8.0 H 6.8 Lymph # (Auto) 0.8 L 1.4 [place] # (Auto) 0.3 0.4 Eos # (Auto) 0.0 0.1 Baso # (Auto) 0.1 0.1 WBC Differential Manual diff final Manual diff final Seg Neuts % (Manual) 85 H 68 Band Neuts % (Manual) 5 5 Lymphocytes % (Manual) 5 L 11 Monocytes % (Manual) 3 Eosinophils % (Manual) 3 Basophils % (Manual) 1 Metamyelocytes % (Man) 2 H 5 H Myelocytes % (Man) 1 H 2 H Promyelocytes % (Man) 2 H 2 H Abs Neuts (Manual) 8.7 H 7.2 Differential Comment . . Toxic Granulation 2+ H Platelet Estimate Normal Normal Platelet Morphology Normal Normal Target Cells 1+ H Stomatocytes 2+ H 1+ H Lab - Chemistry Results 03/18/18 03/19/18 03/19/18 17:13 05:30 12:34 Sodium 141 Potassium 3.8 Chloride 104 Carbon Dioxide 27.6 Anion Gap 9 BUN 23 H Creatinine 2.34 H Estimated GFR 21 L POC Glucose 133 H 161 H Random Glucose 147 H Calcium 6.9 L* Prot Corrected Calcium 7.3 L* Total Protein 6.4 03/19/18 03/19/18 03/20/18 16:54 20:50 08:11 Sodium Potassium Chloride Carbon Dioxide Anion Gap BUN Creatinine Estimated GFR POC Glucose 166 H 158 H 144 H Random Glucose Calcium Prot Corrected Calcium Total Protein 03/20/18 03/20/18 12:44 14:42 Sodium 141 Potassium 3.7 Chloride 105 Carbon Dioxide 28.8 Anion Gap 7 BUN 24 H Creatinine 2.39 H Estimated GFR 20 L POC Glucose 167 H Random Glucose 142 H Calcium 7.1 L* Prot Corrected Calcium 7.1 L* Total Protein 7.2 D Imaging: ITS Impressions Abdomen/Pelvis CT 03/14/18 16:22 CONCLUSION: 1. No acute intra-abdominal abnormality seen. 2. Edema seen throughout the subcutaneous fat at the anterior abdominal wall. This should be correlated with any inflammatory process in this region. No focal fluid collection to suggest an abscess is seen. Abdomen/Bladder Ultrasound 03/17/18 16:09 CONCLUSION: 1. Limited examination without gross abnormality in the left kidney. 2. Right kidney and urinary bladder not visualized. Chest X-Ray 03/18/18 00:00 CONCLUSION: No acute cardiopulmonary disease. Physical Exam: GENERAL: No acute distress. Awake and alert and oriented. HEENT: EOMI,VICENTE. No icterus. Poor dentition. NECK: Supple without adenopathy. LUNGS: Decreased breath sounds. HEART: Regular S1, S2. No murmurs, rubs or gallops. ABDOMEN: Bowel sounds present, obese, soft. Vacuum device is present at the anterior abdominal wall on the right side and down to the groin fold on the right where the patient has excessive tissue. No erythema at the skin around the vacuum sponge. EXTREMITIES: The left foot erythema is decreased. SKIN: No diffuse rash. NEUROLOGIC: No gross focal findings. PSYCHIATRIC: Calm and cooperative. Assessment and Plan - Plan IMPRESSION: 1. Necrotic cellulitis of the abdominal wall. 2. Sepsis. Improved. 3. Left foot cellulitis. Improving 4. Acute kidney disease. 5. Leukocytosis. WBC is improved. The one positive blood culture bottle with coag negative staph identified as staph auricularis which I think is contamination. RECOMMENDATIONS: 1. Continue Cefazolin. Renal dose. 2. Continue Daptomycin 3. Monitor renal function. 4. Monitor wound. 5. Monitor clinical status.
[2018-03-20] MEDS: ceFAZolin 2 GM Premix Inj 2 GM/50 ML PIGGYBACK IV.SIG SCH (15:57)
--- NOTE | 2018-03-20 16:16 | P.PNNP ---
Subjective Interval history: Patient complaining of lower extremity edema but otherwise resting comfortably. Physical Exam Vital signs: Vital Signs 03/19/18 17:00 03/19/18 20:00 03/19/18 20:02 Temperature 98.1 F 98.1 F Pulse Rate 98 H 105 H 99 H Respiratory Rate 18 20 18 Blood Pressure 131/60 132/59 L Pulse Oximetry 98 98 03/20/18 00:00 03/20/18 04:00 03/20/18 08:00 Temperature 97.9 F 98.0 F 97.6 F Pulse Rate 99 H 93 H 93 H Respiratory Rate 20 20 22 Blood Pressure 122/77 126/62 127/68 Pulse Oximetry 94 L 98 93 L 03/20/18 08:51 03/20/18 11:39 03/20/18 12:00 Temperature 98.0 F Pulse Rate 93 H 93 H 98 H Respiratory Rate 14 14 20 Blood Pressure 169/70 H Pulse Oximetry 94 L Intake & Output 03/19/18 03/20/18 03/20/18 18:59 06:59 18:59 Intake Total 1155 / 1155 Output Total 450 / 450 100 / 100 Balance 705 / 705 -100 / -100 Intake: IV 50 / 50 Ancef 2 GM Premix Inj 2 gm In 50 / 50 50 ml @ 200 mls/hr IV.SIG Q24H ED Rx#:[id number] Oral 1105 / 1105 Output: Urine 400 / 400 Wound Vac Amount 50 / 50 100 / 100 Right Abdomen 50 / 50 100 / 100 Other: Mode Setting Right Abdomen Continuous Continuous # Voids 3 Date of Last Bowel Movement 03/19/18 03/19/18 # Bowel Movements 1 3 Narrative: GENERAL: Morbidly obese female in no acute distress. CARDIOVASCULAR: Normal rate and regular rhythm without murmurs, gallops, or rubs. RESPIRATORY: Good respiratory efforts. Breath sounds equal and clear to auscultation bilaterally. GASTROINTESTINAL: Abdomen is obese, there is a large wound VAC in place on the lower abdomen. MUSCULOSKELETAL: Extremities without cyanosis, 2+ pitting edema lower legs. NEURO: Alert & Oriented x4 to person, place, time, situation. Moves all ext x4 PSYCH: Appropriate mood and affect. - Urinary Catheter Management Indwelling Urethral Catheter Cath placed during this visit: yes, but has since been removed by the nurse Reason for continuing: Decision to DC catheter Insertion date: 03/15/18 Insertion time: 17:00 Removal date: 03/16/18 Removal time: 06:00 Assessment and Plan - Assessment (1) Acute renal failure due to tubular necrosis Code(s): N17.0 - Acute kidney failure with tubular necrosis Status: Acute Plan: The patient's renal indices have remained relatively stable since yesterday. We will defer dialysis today and review labs tomorrow. Hopefully significant renal recovery is occurring. Furosemide today to improve fluid retention. Discussed with patient. Medications should be adjusted for the patient's estimated GFR if clinically indicated. Avoid agents with significant potential for nephrotoxicity possible including NSAIDs for analgesia, iodine contrast agents. Gadolinium is contraindicated if the GFR is below 30. (2) Acidosis, metabolic Code(s): E87.2 - Acidosis Status: Resolved Plan: Improved. (3) Sepsis Code(s): A41.9 - Sepsis, unspecified organism Status: Acute (4) Cellulitis of left leg Code(s): L03.116 - Cellulitis of left lower limb Status: Acute Plan: Management per infectious disease and surgery. (5) Abdominal wall cellulitis Code(s): L03.311 - Cellulitis of abdominal wall Status: Acute Plan: Status post debridement. Management per surgery and infectious disease.
--- NOTE | 2018-03-20 16:45 | P.CON ---
History of Present Illness Service: Plastic surgery Consult date: 03/20/18 Reason for Consult: Abdominal wound Primary Care Provider: Hayden Cisneros Family Provider: Hayden Cisneros History of Present Illness: History obtained from patient and patient's chart The patient is a 67-year-old female with a past medical history of hypertension and rheumatoid arthritis, who presented to ED for generalized weakness, edema of her lower extremities and diarrhea. On arrival to the ER, the patient was found hypotensive with a systolic blood pressure in the 80s and her laboratory data showed multiple electrolyte abnormalities with potassium level 3.0. In addition, the patient was in renal failure, BUN 62, creatinine 3.15, and with lactic acidosis, lactic acid level 3.5 and anion gap of 17. In addition, her blood sugar recorded at 355 on a BMP. The patient, however, denies any history of diabetes mellitus. Also, she was found to have a significant leukocytosis with a WBC of 35.9. ABG was performed on room air which showed a pH of 7.39, CO2 of 28, PaO2 of 85, bicarbonate 17, saturation 95% . Patient was taken to the operating room multiple times by the general surgery team for a large abscess in her pannus. She now has a infraumbilical wound which is VAC'd. Patient reports moderate pain over the area, which is stable. She also reports that due to her habitus she is unable to stand and/or walk. PAST MEDICAL HISTORY: Significant for hypertension and rheumatoid arthritis. PAST SURGICAL HISTORY: Cholecystectomy and previous neck surgery. SOCIAL HISTORY: Nonsmoker, occasional drinker. MEDICATIONS AT HOME: Blood pressure medications, which she does not remember, in addition to a water pill. FAMILY HISTORY: Noncontributing to present illness. REVIEW OF SYSTEMS: As per HPI. Rest of review of systems unremarkable. No known drug allergies PMFSH - History History Provided By: Patient - Medical History Medical History: Medical History (Last Updated 03/16/18 @ 16:03 by Chandana Olvera MD) Hypertension Obesity Rheumatoid arthritis - Surgical History Surgical History: Surgical History (Last Updated 03/16/18 @ 16:03 by Chandana Olvera MD) S/P cholecystectomy - Tobacco History Second Hand Smoke Exposure: No Tobacco Use In Past 30 Days: No Smoking Status: Never smoker - Alcohol History How Often Do You Have a Drink Containing Alcohol: Monthly or less - Travel History Recent Travel in the [place] Within the Last 8 Weeks: No Recent Travel Out of the Country Within the Last 8 Weeks: No - Immunization History Tetanus Immunization: >5 Years Hx Influenza Vaccine This Season: No Medications and Allergies Active Medications: Active Medications Acetaminophen (Tylenol) 650 mg PO UNSCH PRN PRN Reason: SEE LABEL COMMENTS Al Hydroxide/Mg Hydroxide (Milk Of Kim Adler) 30 ml PO Q12H PRN PRN Reason: Mild Constipation Albuterol (Duoneb Neb (Edward)) 1 ampul NEB Q4HR NEB EDWARD Last Admin: 03/20/18 16:15 Dose: 1 ampul Bisacodyl (Dulcolax Supp) 10 mg RECTAL DAILY PRN PRN Reason: SEVERE CONSITIPATION Clonidine HCl (Catapres) 0.1 mg PO UNSCH PRN PRN Reason: SEE LABEL COMMENTS Dextrose (D50w Vial) 50 ml IV.PUSH UNSCH PRN PRN Reason: PER HYPOGLYCEMIA PROTOCOL Diphenhydramine HCl (Benadryl) 25 mg PO UNSCH PRN PRN Reason: SEE LABEL COMMENTS Gelatin (Gelfoam 12 Mm/7 Mm Topical) 1 foam TOPICAL PRN PRN PRN Reason: help stop bleeding from site Gentamicin Sulfate (Gentamicin Inj) 20 mg OTHER WITH DIALYSIS PRN PRN Reason: Dwell Gentamycin Lock Last Admin: 03/18/18 13:06 Dose: 20 mg Glucagon (Glucagon Inj) 1 mg OTHER PRN PRN PRN Reason: for Hypoglycemia Protocol Heparin Sodium (Porcine) (Heparin Inj) 8,000 units IV.FLUSH WITH DIALYSIS PRN PRN Reason: for machine prime Heparin Sodium (Porcine) (Heparin Inj) 1,000 units OTHER WITH DIALYSIS PRN PRN Reason: Dwell Heparin to Fill Catheter Last Admin: 03/18/18 13:06 Dose: 1,000 units Hydromorphone HCl (Dilaudid Pf Inj) 0.2 mg IV.PUSH Q4H PRN PRN Reason: pain 8-10 or not taking po Last Admin: 03/19/18 20:44 Dose: 0.2 mg Hydromorphone HCl (Dilaudid Pf Inj) 1 mg IV.PUSH DAILY PRN PRN Reason: Bedside dressing changes Daptomycin 600 mg/ Sodium (Chloride) 100 mls @ 200 mls/hr IV.SIG Q48H [facility] Last Infusion: 03/20/18 16:08 Dose: 200 mls/hr Cefazolin Sodium/Dextrose (Ancef 2 Gm Premix Inj) 2 gm in 50 mls @ 200 mls/hr IV.SIG Q24H [facility] Last Admin: 03/20/18 15:57 Dose: 200 mls/hr Albumin Human (Flexbumin 25% Inj) 100 mls @ 60 mls/hr IV.SIG WITH DIALYSIS PRN PRN Reason: hypotension / volume replace Last Infusion: 03/18/18 15:39 Dose: Infused Sodium Chloride (Ns Inj) 1,000 mls @ 0 mls/hr OTHER .Q0M PRN PRN Reason: for prime and rinse back Last Infusion: 03/17/18 18:17 Dose: Infused Sodium Chloride (Ns Inj) 1,000 mls @ 200 mls/hr OTHER .Q5H PRN PRN Reason: for dialyzer flush PRN Insulin Aspart (Novolog Insulin Suppl Scale Inj) 0 unit SQ 08,12,17,21 [facility]; Protocol Last Admin: 03/20/18 12:00 Dose: 5 unit Insulin Detemir (Levemir Inj) 12 unit SQ DAILY [facility] Last Admin: 03/20/18 08:07 Dose: 12 unit Lactulose (Lactulose Liq) 30 ml PO DAILY PRN PRN Reason: SEVERE CONSITIPATION Nitroglycerin (Nitrostat Sl) 0.4 mg SL Q5M PRN PRN Reason: CHEST PAIN Nystatin (Mycostatin Powder) 1 applicatio TOPICAL QID [facility] Last Admin: 03/20/18 14:54 Dose: 1 applicatio Ondansetron HCl (Zofran Inj) 4 mg IV.PUSH UNSCH PRN PRN Reason: NAUSEA OR VOMITING Last Admin: 03/17/18 23:01 Dose: 4 mg Oxycodone HCl (Roxicodone) 5 mg PO Q4H PRN PRN Reason: pain 3-7 Last Admin: 03/20/18 14:56 Dose: 5 mg Pantoprazole Sodium (Protonix Inj) 40 mg IV.PUSH DAILY [facility] Last Admin: 03/20/18 08:08 Dose: 40 mg Sennosides (Senokot) 17.2 mg PO Q12H PRN PRN Reason: Moderate Constipation Sodium Bicarbonate (Sodium Bicarbonate 8.4% Inj) 100 meq IV.PUSH UNSCH PRN PRN Reason: for pH less than 6.9 Sodium Bicarbonate (Sodium Bicarbonate 8.4% Inj) 50 meq IV.PUSH UNSCH PRN PRN Reason: for pH 6.9 to 7.0 Sodium Chloride (Ns Flush) 5 ml IV.FLUSH PRN PRN PRN Reason: flush each lumen during HD Allergies Allergy/AdvReac Type Severity Reaction Status Date / Time No Known Allergies Allergy Unverified 03/14/18 16:15 Home Medications Medication Instructions Recorded Confirmed Type lisinopril 20 mg PO DAILY 03/14/18 03/14/18 History Physical Exam Vital signs: Vital Signs 03/19/18 17:00 03/19/18 20:00 03/19/18 20:02 Temperature 98.1 F 98.1 F Pulse Rate 98 H 105 H 99 H Respiratory Rate 18 20 18 Blood Pressure 131/60 132/59 L Pulse Oximetry 98 98 03/20/18 00:00 03/20/18 04:00 03/20/18 08:00 Temperature 97.9 F 98.0 F 97.6 F Pulse Rate 99 H 93 H 93 H Respiratory Rate 20 20 22 Blood Pressure 122/77 126/62 127/68 Pulse Oximetry 94 L 98 93 L 03/20/18 08:51 03/20/18 11:39 03/20/18 12:00 Temperature 98.0 F Pulse Rate 93 H 93 H 98 H Respiratory Rate 14 14 20 Blood Pressure 169/70 H Pulse Oximetry 94 L 03/20/18 16:17 Temperature Pulse Rate 98 H Respiratory Rate 20 Blood Pressure Pulse Oximetry Intake & Output 03/19/18 03/20/18 03/20/18 18:59 06:59 18:59 Intake Total 1155 / 1155 Output Total 450 / 450 100 / 100 Balance 705 / 705 -100 / -100 Intake: IV 50 / 50 Ancef 2 GM Premix Inj 2 gm In 50 / 50 50 ml @ 200 mls/hr IV.SIG Q24H [facility] Rx#:[id number] Oral 1105 / 1105 Output: Urine 400 / 400 Wound Vac Amount 50 / 50 100 / 100 Right Abdomen 50 / 50 100 / 100 Other: Mode Setting Right Abdomen Continuous Continuous # Voids 3 Date of Last Bowel Movement 03/19/18 03/19/18 # Bowel Movements 1 3 Narrative: No apparent anxiety moist mucous membranes PERRLA skin without rash respirations nonlabored moves all 4 extremities to command Exam limited by patient's habitus as she is unable to stand Large pannus Mild intertrigo Roughly 20 cm x 10 cm infraumbilical wound VAC holding good suction Minimal surrounding erythema Moderately tender - Urinary Catheter Management Indwelling Urethral Catheter Cath placed during this visit: yes, but has since been removed by the nurse Reason for continuing: Decision to DC catheter Insertion date: 03/15/18 Insertion time: 17:00 Removal date: 03/16/18 Removal time: 06:00 Assessment and Plan - Assessment (1) Panniculitis Code(s): M79.3 - Panniculitis, unspecified Status: Acute - Plan 67-year-old female with abdominal wound Risks benefits and alternative treatments discussed All questions answered and the patient expressed understanding Please have nurse call with next VAC change so that wound may be examined
[2018-03-20] MEDS ORDERED: CALCIUM CHLORIDE IV.SIG ONE (22:00)
[2018-03-20] MEDS ORDERED: SODIUM CHLOR 0.9% IV.SIG ONE (22:00)
[2018-03-20] MEDS: Benzonatate 100 MG Capsule PO PRN (23:22)
[2018-03-21 07:09] LABS: Hematocrit 28.1 % (35.0-46.0); Hemoglobin 9.4 gm/dL (11.6-15.3); Mean Corpuscular HGB Conc 33.4 % (32.0-36.0); Mean Corpuscular Hemoglobin 32.4 pg (27.0-34.0); Mean Corpuscular Volume 96.9 fL (80.0-100.0); Platelet Count 297 th/mm3 (150-450); Red Cell Distribution Width 13.9 % (11.6-17.2); White Blood Count 7.9 th/mm3 (4.0-11.0)
[2018-03-21 07:43] LABS: Calcium 7.6 mg/dL (8.5-10.1); Carbon Dioxide 29.9 meq/L (21.0-32.0); Potassium 3.8 meq/L (3.5-5.1)
[2018-03-21] MEDS: Pantoprazole Inj 40 MG Vial IV.PUSH SCH (10:01)
[2018-03-21] MEDS: Nystatin 100,000 UNITS/GM Powder 15 GM Bottle TOPICAL SCH ×4 (10:02→23:15)
[2018-03-21] MEDS: Insulin Detemir Inj 1,000 UNIT/10 ML Vial SQ SCH (10:02)
[2018-03-21] MEDS: Insulin NovoLOG Aspart Correctional Sugar Inj SQ SCH ×4 (10:02→23:14)
--- NOTE | 2018-03-21 12:00 | P.PNNP ---
Subjective Interval history: Last HD 03/19/18 Says she is somewhat nauseous today. UOP improving. Physical Exam Vital signs: Vital Signs 03/20/18 12:00 03/20/18 16:00 03/20/18 16:17 Temperature 98.0 F 98.2 F Pulse Rate 98 H 96 H 98 H Respiratory Rate 20 18 20 Blood Pressure 169/70 H 151/66 H Pulse Oximetry 94 L 97 03/20/18 19:53 03/20/18 20:00 03/21/18 00:00 Temperature 97.9 F 97.1 F L Pulse Rate 98 H 105 H 99 H Respiratory Rate 18 20 20 Blood Pressure 154/68 H 139/63 Pulse Oximetry 98 94 L 03/21/18 04:00 03/21/18 08:00 03/21/18 08:49 Temperature 97.7 F 97.8 F Pulse Rate 96 H 91 H 92 H Respiratory Rate 18 18 12 Blood Pressure 178/84 H 112/66 Pulse Oximetry 96 95 03/21/18 11:44 Temperature Pulse Rate 94 H Respiratory Rate 14 Blood Pressure Pulse Oximetry Intake & Output 03/20/18 03/21/18 03/21/18 18:59 06:59 18:59 Intake Total 800 / 800 253.6 / 253.6 6617.5 / 6617.5 Output Total 1999 Balance 800 / 800 -1746.4 / -1746.4 6617.5 / 6617.5 Intake: IV 253.6 / 253.6 6617.5 / 6617.5 Calcium Chloride Inj 0.36 GM In 103.6 / 103.6 NS Inj 100 ML @ 103.6 mls/hr IV.SIG ONCE ONE Rx#:[id number] Cubicin Inj 600 MG In NS Inj 100 / 100 100 ML @ 200 mls/hr IV.SIG Q48H ED Rx#:[id number] Ancef 2 GM Premix Inj 2 gm In 50 / 50 50 ml @ 200 mls/hr IV.SIG Q24H ED Rx#:[id number] Oral 800 / 800 Output: Urine 1999 Other: Mode Setting Right Abdomen Continuous Continuous # Voids 1 Date of Last Bowel Movement 03/20/18 03/20/18 # Bowel Movements 2 # Incontinent Bowel Movements 6 - Constitutional no acute distress - Routine HEENT Exam Head: Present: normocephalic - Routine Neck Exam Present: supple - Routine Respiratory Exam Present: decreased breath sounds, diminished air movement - Routine Cardiovascular Exam Present: RRR, S1, S2 - Routine Abdominal Exam Comments: Wound Vac present - Routine Extremities Exam Present: edema (2+ pitting LE with trace-1+ in hips.) - Routine Neurological Exam Present: alert, oriented X3 - Urinary Catheter Management Indwelling Urethral Catheter Cath placed during this visit: yes, but has since been removed by the nurse Urethral indwelling: No Insertion date: 03/15/18 Insertion time: 17:00 Removal date: 03/16/18 Removal time: 06:00 Assessment and Plan - Assessment (1) Acute renal failure due to tubular necrosis Code(s): N17.0 - Acute kidney failure with tubular necrosis Status: Acute Plan: Renal functions have improved and UOP appears to be improving as well. Still with significant edema. Will give another dose of parenteral Lasix today. If renal functions and volume status continue to improve, we may be able to D/C dialysis---this was discussed with the patient. Medications should be adjusted for the patient's estimated GFR if clinically indicated. Avoid agents with significant potential for nephrotoxicity possible including NSAIDs for analgesia, iodine contrast agents. Gadolinium is contraindicated if the GFR is below 30. (2) Sepsis Code(s): A41.9 - Sepsis, unspecified organism Status: Acute Plan: Clinically improving (3) Cellulitis of left leg Code(s): L03.116 - Cellulitis of left lower limb Status: Acute Plan: Management per infectious disease and surgery. (4) Abdominal wall cellulitis Code(s): L03.311 - Cellulitis of abdominal wall Status: Acute Plan: Status post debridement. Management per surgery and infectious disease.
--- NOTE | 2018-03-21 12:23 | P.PNIM ---
Subjective Interval history: Patient had bright red blood per rectum today. She reports some nausea but no vomiting. She reports a history of bleeding hemorrhoids. Never had a colonoscopy. Physical Exam Vital signs: Vital Signs 03/20/18 16:00 03/20/18 16:17 03/20/18 19:53 Temperature 98.2 F Pulse Rate 96 H 98 H 98 H Respiratory Rate 18 20 18 Blood Pressure 151/66 H Pulse Oximetry 97 03/20/18 20:00 03/21/18 00:00 03/21/18 04:00 Temperature 97.9 F 97.1 F L 97.7 F Pulse Rate 105 H 99 H 96 H Respiratory Rate 20 18 Blood Pressure 154/68 H 139/63 178/84 H Pulse Oximetry 98 94 L 96 03/21/18 08:00 03/21/18 08:49 03/21/18 11:44 Temperature 97.8 F Pulse Rate 91 H 92 H 94 H Respiratory Rate 18 12 14 Blood Pressure 112/66 Pulse Oximetry 95 Intake & Output 03/20/18 03/21/18 03/21/18 18:59 06:59 18:59 Intake Total 800 / 800 253.6 / 253.6 6617.5 / 6617.5 Output Total 1999 / 1999 Balance 800 / 800 -1746.4 / -1746.4 6617.5 / 6617.5 Intake: IV 253.6 / 253.6 6617.5 / 6617.5 Calcium Chloride Inj 0.36 GM In 103.6 / 103.6 NS Inj 100 ML @ 103.6 mls/hr IV.SIG ONCE ONE Rx#:[id number] Cubicin Inj 600 MG In NS Inj 100 / 100 100 ML @ 200 mls/hr IV.SIG Q48H ED Rx#:[id number] Ancef 2 GM Premix Inj 2 gm In 50 / 50 50 ml @ 200 mls/hr IV.SIG Q24H ED Rx#:[id number] Oral 800 / 800 Output: Urine 1999 Other: Mode Setting Right Abdomen Continuous Continuous # Voids 1 Date of Last Bowel Movement 03/20/18 03/20/18 # Bowel Movements 2 # Incontinent Bowel Movements 6 Narrative: GENERAL: Morbidly obese female in no acute distress. CARDIOVASCULAR: Normal rate and regular rhythm without murmurs, gallops, or rubs. RESPIRATORY: Good respiratory efforts. Breath sounds equal and clear to auscultation bilaterally. GASTROINTESTINAL: Abdomen is obese, there is a large wound VAC in place on the lower abdomen. MUSCULOSKELETAL: Extremities without cyanosis, or edema. NEURO: Alert & Oriented x4 to person, place, time, situation. Moves all ext x4 PSYCH: Appropriate mood and affect. Rectal exam: No obvious mass, bright red blood noted. - Urinary Catheter Management Indwelling Urethral Catheter Cath placed during this visit: yes, but has since been removed by the nurse Urethral indwelling: No Reason for continuing: Decision to DC catheter Insertion date: 03/15/18 Insertion time: 17:00 Removal date: 03/16/18 Removal time: 06:00 Results - Labs CBC & Chem 7: 03/21/18 05:57 03/21/18 05:57 Laboratory Results - last 24 hr 03/20/18 03/20/18 03/20/18 12:44 12:44 14:42 WBC 8.8 RBC 3.01 L Hgb 9.7 L Hct 29.1 L MCV 96.6 MCH 32.4 MCHC 33.5 RDW 14.0 Plt Count 310 MPV 7.4 Prelim Diff (Auto) Slide review pending Neut % (Auto) 77.3 H Lymph % (Auto) 16.2 [place] % (Auto) 4.8 Eos % (Auto) 1.1 Baso % (Auto) 0.6 Neut # (Auto) 6.8 Lymph # (Auto) 1.4 [place] # (Auto) 0.4 Eos # (Auto) 0.1 Baso # (Auto) 0.1 WBC Differential Manual diff final Seg Neuts % (Manual) 68 Band Neuts % (Manual) 5 Lymphocytes % (Manual) 11 Monocytes % (Manual) 3 Eosinophils % (Manual) 3 Basophils % (Manual) 1 Metamyelocytes % (Man) 5 H Myelocytes % (Man) 2 H Promyelocytes % (Man) 2 H Abs Neuts (Manual) 7.2 Differential Comment . Toxic Granulation 2+ H Platelet Estimate Normal Platelet Morphology Normal Stomatocytes 1+ H Sodium 141 Potassium 3.7 Chloride 105 Carbon Dioxide 28.8 Anion Gap 7 BUN 24 H Creatinine 2.39 H Estimated GFR 20 L POC Glucose 167 H Random Glucose 142 H Calcium 7.1 L* Prot Corrected Calcium 7.1 L* Total Protein 7.2 D 0703/20/18 03/21/18 19:02 21:37 05:57 WBC 7.9 RBC 2.90 L Hgb 9.4 L Hct 28.1 L MCV 96.9 MCH 32.4 MCHC 33.4 RDW 13.9 Plt Count 297 MPV 8.0 Prelim Diff (Auto) Neut % (Auto) Lymph % (Auto) [place] % (Auto) Eos % (Auto) Baso % (Auto) Neut # (Auto) Lymph # (Auto) [place] # (Auto) Eos # (Auto) Baso # (Auto) WBC Differential Seg Neuts % (Manual) Band Neuts % (Manual) Lymphocytes % (Manual) Monocytes % (Manual) Eosinophils % (Manual) Basophils % (Manual) Metamyelocytes % (Man) Myelocytes % (Man) Promyelocytes % (Man) Abs Neuts (Manual) Differential Comment Toxic Granulation Platelet Estimate Platelet Morphology Stomatocytes Sodium Potassium Chloride Carbon Dioxide Anion Gap BUN Creatinine Estimated GFR POC Glucose 179 H 104 Random Glucose Calcium Prot Corrected Calcium Total Protein 03/21/18 03/21/18 05:57 08:21 WBC RBC Hgb Hct MCV MCH MCHC RDW Plt Count MPV Prelim Diff (Auto) Neut % (Auto) Lymph % (Auto) [place] % (Auto) Eos % (Auto) Baso % (Auto) Neut # (Auto) Lymph # (Auto) [place] # (Auto) Eos # (Auto) Baso # (Auto) WBC Differential Seg Neuts % (Manual) Band Neuts % (Manual) Lymphocytes % (Manual) Monocytes % (Manual) Eosinophils % (Manual) Basophils % (Manual) Metamyelocytes % (Man) Myelocytes % (Man) Promyelocytes % (Man) Abs Neuts (Manual) Differential Comment Toxic Granulation Platelet Estimate Platelet Morphology Stomatocytes Sodium 142 Potassium 3.8 Chloride 105 Carbon Dioxide 29.9 Anion Gap 7 BUN 23 H Creatinine 2.11 H Estimated GFR 24 L POC Glucose 147 H Random Glucose 119 H Calcium 7.6 L Prot Corrected Calcium Total Protein Assessment and Plan - Assessment (1) Sepsis Code(s): A41.9 - Sepsis, unspecified organism Status: Acute (2) Abdominal wall cellulitis Code(s): L03.311 - Cellulitis of abdominal wall Status: Acute (3) Acute renal failure due to tubular necrosis Code(s): N17.0 - Acute kidney failure with tubular necrosis Status: Acute (4) Acidosis, metabolic Code(s): E87.2 - Acidosis Status: Resolved - Plan 67-year-old female sepsis secondary to necrotizing infection of the abdominal wall with abscess. She is status post urgent debridement. Severe sepsis secondary to abdominal wall infection with abscess: -Status post emergent debridement. General surgery following. Plastic surgery consulted. -Wound care per surgery. Pain control. Continue antibiotics per infectious disease. Bright red blood per rectum: Possibly hemorrhoid bleed. Patient never had a colonoscopy - Consult GI. Monitor H&H. Acute renal failure, now on HD. -Nephrology following. Continue hemodialysis. Follow BMP and renal recovery. Urine very concentrated. Urinary output improving per the patient. Left foot cellulitis: Improved. Continue antibiotics per ID Diabetes: -Continue Levemir. Sliding scale insulin with Accu-Cheks Electrolyte abnormalities: -Replace and monitor.
--- NOTE | 2018-03-21 16:19 | P.PNID ---
Subjective Remarks: Patient is awake and alert. Sitting up in chair. With that the left leg hurts because of the pressure from swelling. Urine output improving. Afebrile. Reports that she has mild nausea. No other complaints. This is a 67-year-old white female who was admitted to the hospital yesterday. The patient developed redness of her right foot 5 days ago. She also notes that she had bouts of diarrhea for a couple of days prior to that. The diarrhea continued for 5 days and then stopped. She went to see her primary physician and she notes that they sent her to the emergency department because she appeared pale. She notes that she had a tiny lump on her right abdominal wall underneath the fold of skin. She has obese abdomen with large amount of pannus. She was evaluated in the ED and was noted to have elevated white blood cell count of 35.9 and she had lactic acid level of 3.5. She also had acute kidney disease with creatinine of 3.51. The patient was admitted and eventually taken to surgery for an abdominal wall debridement. She was noted to have necrotic skin at the right lower abdomen. Wound VAC was applied. Past Medical History: PAST MEDICAL HISTORY: Hypertension, history of cervical discectomy and allograft bone fusion in 10/2013, bacteremia due to methicillin-sensitive Staphylococcus aureus in 10/2013. Allergies/Adverse Reactions: Allergies No Known Allergies Allergy (Unverified 03/14/18 16:15) Objective Vital Signs 03/20/18 16:17 03/20/18 19:53 03/20/18 20:00 Temperature 97.9 F Pulse Rate 98 H 98 H 105 H Respiratory Rate 20 18 20 Blood Pressure 154/68 H Pulse Oximetry 98 03/21/18 00:00 03/21/18 04:00 03/21/18 08:00 Temperature 97.1 F L 97.7 F 97.8 F Pulse Rate 99 H 96 H 91 H Respiratory Rate 20 18 18 Blood Pressure 139/63 178/84 H 112/66 Pulse Oximetry 94 L 96 95 03/21/18 08:49 03/21/18 11:44 03/21/18 12:00 Temperature 98.1 F Pulse Rate 92 H 94 H 103 H Respiratory Rate 12 14 18 Blood Pressure 158/71 H Pulse Oximetry 97 Intake & Output 03/20/18 03/21/18 03/21/18 18:59 06:59 18:59 Intake Total 800 / 800 253.6 / 253.6 6617.5 / 6617.5 Output Total 1999 Balance 800 / 800 -1746.4 / -1746.4 6617.5 / 6617.5 Intake: IV 253.6 / 253.6 6617.5 / 6617.5 Calcium Chloride Inj 0.36 GM In 103.6 / 103.6 NS Inj 100 ML @ 103.6 mls/hr IV.SIG ONCE ONE Rx#:[id number] Cubicin Inj 600 MG In NS Inj 100 / 100 100 ML @ 200 mls/hr IV.SIG Q48H ED Rx#:[id number] Ancef 2 GM Premix Inj 2 gm In 50 / 50 50 ml @ 200 mls/hr IV.SIG Q24H ED Rx#:[id number] Oral 800 / 800 Output: Urine 1999 Other: Mode Setting Right Abdomen Continuous Continuous # Voids 1 Date of Last Bowel Movement 03/20/18 03/20/18 # Bowel Movements 2 # Incontinent Bowel Movements 6 03/14/18 15:13 Blood - Peripheral Aerobic Blood Culture - Final Staphylococcus auricularis 03/14/18 15:13 Blood - Peripheral Anaerobic Blood Culture - Final No growth in 5 days 03/14/18 15:08 Blood - Peripheral Aerobic Blood Culture - Final No growth in 5 days 03/14/18 15:08 Blood - Peripheral Anaerobic Blood Culture - Final No growth in 5 days Lab - Hematology Results 03/20/18 03/21/18 12:44 05:57 WBC 8.8 7.9 RBC 3.01 L 2.90 L Hgb 9.7 L 9.4 L Hct 29.1 L 28.1 L MCV 96.6 96.9 MCH 32.4 32.4 MCHC 33.5 33.4 RDW 14.0 13.9 Plt Count 310 297 MPV 7.4 8.0 Prelim Diff (Auto) Slide review pending Neut % (Auto) 77.3 H Lymph % (Auto) 16.2 [place] % (Auto) 4.8 Eos % (Auto) 1.1 Baso % (Auto) 0.6 Neut # (Auto) 6.8 Lymph # (Auto) 1.4 [place] # (Auto) 0.4 Eos # (Auto) 0.1 Baso # (Auto) 0.1 WBC Differential Manual diff final Seg Neuts % (Manual) 68 Band Neuts % (Manual) 5 Lymphocytes % (Manual) 11 Monocytes % (Manual) 3 Eosinophils % (Manual) 3 Basophils % (Manual) 1 Metamyelocytes % (Man) 5 H Myelocytes % (Man) 2 H Promyelocytes % (Man) 2 H Abs Neuts (Manual) 7.2 Differential Comment . Toxic Granulation 2+ H Platelet Estimate Normal Platelet Morphology Normal Stomatocytes 1+ H Lab - Chemistry Results 03/19/18 03/19/18 03/20/18 16:54 20:50 08:11 Sodium Potassium Chloride Carbon Dioxide Anion Gap BUN Creatinine Estimated GFR POC Glucose 166 H 158 H 144 H Random Glucose Calcium Prot Corrected Calcium Total Protein 03/20/18 03/20/18 03/20/18 12:44 14:42 19:02 Sodium 141 Potassium 3.7 Chloride 105 Carbon Dioxide 28.8 Anion Gap 7 BUN 24 H Creatinine 2.39 H Estimated GFR 20 L POC Glucose 167 H 179 H Random Glucose 142 H Calcium 7.1 L* Prot Corrected Calcium 7.1 L* Total Protein 7.2 D 03/20/18 03/21/18 03/21/18 21:37 05:57 08:21 Sodium 142 Potassium 3.8 Chloride 105 Carbon Dioxide 29.9 Anion Gap 7 BUN 23 H Creatinine 2.11 H Estimated GFR 24 L POC Glucose 104 147 H Random Glucose 119 H Calcium 7.6 L Prot Corrected Calcium Total Protein 03/21/18 13:26 Sodium Potassium Chloride Carbon Dioxide Anion Gap BUN Creatinine Estimated GFR POC Glucose 137 H Random Glucose Calcium Prot Corrected Calcium Total Protein Imaging: ITS Impressions Abdomen/Pelvis CT 03/14/18 16:22 CONCLUSION: 1. No acute intra-abdominal abnormality seen. 2. Edema seen throughout the subcutaneous fat at the anterior abdominal wall. This should be correlated with any inflammatory process in this region. No focal fluid collection to suggest an abscess is seen. Abdomen/Bladder Ultrasound 03/17/18 16:09 CONCLUSION: 1. Limited examination without gross abnormality in the left kidney. 2. Right kidney and urinary bladder not visualized. Chest X-Ray 03/18/18 00:00 CONCLUSION: No acute cardiopulmonary disease. Physical Exam: GENERAL: No acute distress. Awake and alert and oriented. HEENT: EOMI,VICENTE. No icterus. Poor dentition. NECK: Supple without adenopathy. LUNGS: Decreased breath sounds. HEART: Regular S1, S2. No murmurs, rubs or gallops. ABDOMEN: Bowel sounds present, obese, soft. Vacuum device is present at the anterior abdominal wall on the right side and down to the groin fold on the right where the patient has excessive tissue. No erythema at the skin around the vacuum sponge. EXTREMITIES: The left foot erythema is decreased. Still has edema of the legs and thighs. SKIN: No diffuse rash. NEUROLOGIC: No gross focal findings. PSYCHIATRIC: Calm and cooperative. Assessment and Plan - Plan IMPRESSION: 1. Necrotic cellulitis of the abdominal wall. 2. Sepsis. Improved. 3. Left foot cellulitis. Improving 4. Acute kidney disease. 5. Leukocytosis. WBC is improved. The one positive blood culture bottle with coag negative staph identified as staph auricularis which I think is contamination. RECOMMENDATIONS: 1. Continue Cefazolin increased dose to 2 g every 24 hours. 2. Stop daptomycin 3. Monitor renal function. 4. Monitor wound. 5. Monitor clinical status. Dr. Sri Smith available on weekend if needed
--- NOTE | 2018-03-21 16:42 | P.CONGI ---
History of Present Illness Consult date: 03/21/18 Consult reason: Bright red rectal bleeding Chief complaint: cellulitis, sepsis dka History of Present Illness: This is a morbid obese female who was admitted to the hospital on 713 with generalized weakness left leg cellulitis, abdominal wound sepsis, nausea vomiting and diarrhea. It was noted patient had negative C. difficile toxin. Patient has been aggressively treated for lower abdominal open sore and sepsis with multiple antibiotics. Hemoglobin on admission 9.4 and currently rechecked today shows 9.4. Patient does note history of bleeding hemorrhoids in the past. According to staff patient got up to bedside commode this a.m. for defecation urgency and past some bright red rectal bleeding without stool. Currently patient has had no more bleeding, and states loose diarrhea stool is now beginning to form. Patient initially had nausea and vomiting on admission but states that has gradually resolved and she is beginning to feel better now that she is on antibiotic therapy. Patient denies any dyspepsia and denies any choking episodes but does have to remind herself to eat slowly and chew her failed food well. Patient denies any history of EGD or colonoscopy and no family history of colon cancer. Currently patient has no abdominal pain to light palpation and no epigastric pain. She states she has a history of diarrhea at home when she gets sick but no obvious irritable bowel syndrome or GI disease. According to the record patient has also received hemodialysis this week which now appears to be showing some gradual improvement. Gastroenterology was consulted to evaluate patient's bright red rectal bleeding. We appreciate the consult. <Sia Segura - Last Filed: 03/21/18 16:44> [facility] - History History Provided By: Patient - Medical History Medical History: Medical History (Last Updated 03/16/18 @ 16:03 by Chandana Olvera MD) Hypertension Obesity Rheumatoid arthritis - Surgical History Surgical History: Surgical History (Last Updated 03/16/18 @ 16:03 by Chandana Olvera MD) S/P cholecystectomy - Tobacco History Second Hand Smoke Exposure: No Tobacco Use In Past 30 Days: No Smoking Status: Never smoker - Alcohol History How Often Do You Have a Drink Containing Alcohol: Monthly or less - Travel History Recent Travel in the [place] Within the Last 8 Weeks: No Recent Travel Out of the Country Within the Last 8 Weeks: No - Immunization History Tetanus Immunization: >5 Years Hx Influenza Vaccine This Season: No <Sia Segura - Last Filed: 03/21/18 16:44> - Medical History Medical History: Medical History (Last Updated 03/16/18 @ 16:03 by Chandana Olvera MD) Hypertension Obesity Rheumatoid arthritis - Surgical History Surgical History: Surgical History (Last Updated 03/16/18 @ 16:03 by Chandana Olvera MD) S/P cholecystectomy <Sa Gonsaloalcira Fletcher - Last Filed: 03/21/18 19:12> Medications and Allergies Active Medications: Active Medications Acetaminophen (Tylenol) 650 mg PO UNSCH PRN PRN Reason: SEE LABEL COMMENTS Al Hydroxide/Mg Hydroxide (Milk Of Magnsunni Liq) 30 ml PO Q12H PRN PRN Reason: Mild Constipation Albuterol (Duoneb Neb (Edward)) 1 ampul NEB Q4HR NEB EDWARD Last Admin: 03/21/18 11:43 Dose: 1 ampul Benzonatate (Tessalon Perles) 100 mg PO TID PRN PRN Reason: COUGH Last Admin: 03/20/18 23:22 Dose: 100 mg Bisacodyl (Dulcolax Supp) 10 mg RECTAL DAILY PRN PRN Reason: SEVERE CONSITIPATION Clonidine HCl (Catapres) 0.1 mg PO UNSCH PRN PRN Reason: SEE LABEL COMMENTS Dextrose (D50w Vial) 50 ml IV.PUSH UNSCH PRN PRN Reason: PER HYPOGLYCEMIA PROTOCOL Diphenhydramine HCl (Benadryl) 25 mg PO UNSCH PRN PRN Reason: SEE LABEL COMMENTS Gelatin (Gelfoam 12 Mm/7 Mm Topical) 1 foam TOPICAL PRN PRN PRN Reason: help stop bleeding from site Gentamicin Sulfate (Gentamicin Inj) 20 mg OTHER WITH DIALYSIS PRN PRN Reason: Dwell Gentamycin Lock Last Admin: 03/18/18 13:06 Dose: 20 mg Glucagon (Glucagon Inj) 1 mg OTHER PRN PRN PRN Reason: for Hypoglycemia Protocol Heparin Sodium (Porcine) (Heparin Inj) 8,000 units IV.FLUSH WITH DIALYSIS PRN PRN Reason: for machine prime Heparin Sodium (Porcine) (Heparin Inj) 1,000 units OTHER WITH DIALYSIS PRN PRN Reason: Dwell Heparin to Fill Catheter Last Admin: 03/18/18 13:06 Dose: 1,000 units Hydrocortisone Acetate (Hemorrhoidal Hc Supp) 25 mg RECTAL BID EDWARD Hydromorphone HCl (Dilaudid Pf Inj) 0.2 mg IV.PUSH Q4H PRN PRN Reason: pain 8-10 or not taking po Last Admin: 03/19/18 20:44 Dose: 0.2 mg Hydromorphone HCl (Dilaudid Pf Inj) 1 mg IV.PUSH DAILY PRN PRN Reason: Bedside dressing changes Cefazolin Sodium/Dextrose (Ancef 2 Gm Premix Inj) 2 gm in 50 mls @ 200 mls/hr IV.SIG Q24H [facility] Last Infusion: 03/20/18 19:42 Dose: Infused Albumin Human (Flexbumin 25% Inj) 100 mls @ 60 mls/hr IV.SIG WITH DIALYSIS PRN PRN Reason: hypotension / volume replace Last Infusion: 03/18/18 15:39 Dose: Infused Sodium Chloride (Ns Inj) 1,000 mls @ 0 mls/hr OTHER .Q0M PRN PRN Reason: for prime and rinse back Last Infusion: 03/17/18 18:17 Dose: Infused Sodium Chloride (Ns Inj) 1,000 mls @ 200 mls/hr OTHER .Q5H PRN PRN Reason: for dialyzer flush PRN Insulin Aspart (Novolog Insulin Suppl Scale Inj) 0 unit SQ 08,12,17,21 [facility]; Protocol Last Admin: 03/21/18 15:26 Dose: Not Given Insulin Detemir (Levemir Inj) 12 unit SQ DAILY [facility] Last Admin: 03/21/18 10:02 Dose: 12 unit Lactulose (Lactulose Liq) 30 ml PO DAILY PRN PRN Reason: SEVERE CONSITIPATION Nitroglycerin (Nitrostat Sl) 0.4 mg SL Q5M PRN PRN Reason: CHEST PAIN Nystatin (Mycostatin Powder) 1 applicatio TOPICAL QID [facility] Last Admin: 03/21/18 10:02 Dose: 1 applicatio Ondansetron HCl (Zofran Inj) 4 mg IV.PUSH UNSCH PRN PRN Reason: NAUSEA OR VOMITING Last Admin: 03/17/18 23:01 Dose: 4 mg Ondansetron HCl (Zofran Odt) 4 mg PO Q6H PRN PRN Reason: NAUSEA OR VOMITING Oxycodone HCl (Roxicodone) 5 mg PO Q4H PRN PRN Reason: pain 3-7 Last Admin: 03/20/18 14:56 Dose: 5 mg Pantoprazole Sodium (Protonix Inj) 40 mg IV.PUSH DAILY EDWARD Last Admin: 03/21/18 10:01 Dose: 40 mg Sennosides (Senokot) 17.2 mg PO Q12H PRN PRN Reason: Moderate Constipation Sodium Bicarbonate (Sodium Bicarbonate 8.4% Inj) 100 meq IV.PUSH UNSCH PRN PRN Reason: for pH less than 6.9 Sodium Bicarbonate (Sodium Bicarbonate 8.4% Inj) 50 meq IV.PUSH UNSCH PRN PRN Reason: for pH 6.9 to 7.0 Sodium Chloride (Ns Flush) 5 ml IV.FLUSH PRN PRN PRN Reason: flush each lumen during HD <Sia Segura - Last Filed: 03/21/18 16:44> Active Medications: Active Medications Acetaminophen (Tylenol) 650 mg PO UNSCH PRN PRN Reason: SEE LABEL COMMENTS Al Hydroxide/Mg Hydroxide (Milk Of Kim Adler) 30 ml PO Q12H PRN PRN Reason: Mild Constipation Albuterol (Duoneb Neb (Edward)) 1 ampul NEB Q4HR NEB EDWARD Last Admin: 03/21/18 17:11 Dose: Not Given Benzonatate (Tessalon Perles) 100 mg PO TID PRN PRN Reason: COUGH Last Admin: 03/20/18 23:22 Dose: 100 mg Bisacodyl (Dulcolax Supp) 10 mg RECTAL DAILY PRN PRN Reason: SEVERE CONSITIPATION Clonidine HCl (Catapres) 0.1 mg PO UNSCH PRN PRN Reason: SEE LABEL COMMENTS Dextrose (D50w Vial) 50 ml IV.PUSH UNSCH PRN PRN Reason: PER HYPOGLYCEMIA PROTOCOL Diphenhydramine HCl (Benadryl) 25 mg PO UNSCH PRN PRN Reason: SEE LABEL COMMENTS Gelatin (Gelfoam 12 Mm/7 Mm Topical) 1 foam TOPICAL PRN PRN PRN Reason: help stop bleeding from site Gentamicin Sulfate (Gentamicin Inj) 20 mg OTHER WITH DIALYSIS PRN PRN Reason: Dwell Gentamycin Lock Last Admin: 03/18/18 13:06 Dose: 20 mg Glucagon (Glucagon Inj) 1 mg OTHER PRN PRN PRN Reason: for Hypoglycemia Protocol Heparin Sodium (Porcine) (Heparin Inj) 8,000 units IV.FLUSH WITH DIALYSIS PRN PRN Reason: for machine prime Heparin Sodium (Porcine) (Heparin Inj) 1,000 units OTHER WITH DIALYSIS PRN PRN Reason: Dwell Heparin to Fill Catheter Last Admin: 03/18/18 13:06 Dose: 1,000 units Hydrocortisone Acetate (Hemorrhoidal Hc Supp) 25 mg RECTAL BID EDWARD Hydromorphone HCl (Dilaudid Pf Inj) 0.2 mg IV.PUSH Q4H PRN PRN Reason: pain 8-10 or not taking po Last Admin: 03/19/18 20:44 Dose: 0.2 mg Hydromorphone HCl (Dilaudid Pf Inj) 1 mg IV.PUSH DAILY PRN PRN Reason: Bedside dressing changes Last Admin: 03/21/18 16:56 Dose: 1 mg Cefazolin Sodium/Dextrose (Ancef 2 Gm Premix Inj) 2 gm in 50 mls @ 200 mls/hr IV.SIG Q24H [facility] Last Admin: 03/21/18 17:00 Dose: 200 mls/hr Albumin Human (Flexbumin 25% Inj) 100 mls @ 60 mls/hr IV.SIG WITH DIALYSIS PRN PRN Reason: hypotension / volume replace Last Infusion: 03/18/18 15:39 Dose: Infused Sodium Chloride (Ns Inj) 1,000 mls @ 0 mls/hr OTHER .Q0M PRN PRN Reason: for prime and rinse back Last Infusion: 03/17/18 18:17 Dose: Infused Sodium Chloride (Ns Inj) 1,000 mls @ 200 mls/hr OTHER .Q5H PRN PRN Reason: for dialyzer flush PRN Insulin Aspart (Novolog Insulin Suppl Scale Inj) 0 unit SQ 08,12,17,21 [facility]; Protocol Last Admin: 03/21/18 17:00 Dose: Not Given Insulin Detemir (Levemir Inj) 12 unit SQ DAILY [facility] Last Admin: 03/21/18 10:02 Dose: 12 unit Lactulose (Lactulose Liq) 30 ml PO DAILY PRN PRN Reason: SEVERE CONSITIPATION Nitroglycerin (Nitrostat Sl) 0.4 mg SL Q5M PRN PRN Reason: CHEST PAIN Nystatin (Mycostatin Powder) 1 applicatio TOPICAL QID [facility] Last Admin: 03/21/18 10:02 Dose: 1 applicatio Ondansetron HCl (Zofran Inj) 4 mg IV.PUSH UNSCH PRN PRN Reason: NAUSEA OR VOMITING Last Admin: 03/17/18 23:01 Dose: 4 mg Ondansetron HCl (Zofran Odt) 4 mg PO Q6H PRN PRN Reason: NAUSEA OR VOMITING Oxycodone HCl (Roxicodone) 5 mg PO Q4H PRN PRN Reason: pain 3-7 Last Admin: 03/20/18 14:56 Dose: 5 mg Pantoprazole Sodium (Protonix Inj) 40 mg IV.PUSH DAILY EDWARD Last Admin: 03/21/18 10:01 Dose: 40 mg Sennosides (Senokot) 17.2 mg PO Q12H PRN PRN Reason: Moderate Constipation Sodium Bicarbonate (Sodium Bicarbonate 8.4% Inj) 100 meq IV.PUSH UNSCH PRN PRN Reason: for pH less than 6.9 Sodium Bicarbonate (Sodium Bicarbonate 8.4% Inj) 50 meq IV.PUSH UNSCH PRN PRN Reason: for pH 6.9 to 7.0 Sodium Chloride (Ns Flush) 5 ml IV.FLUSH PRN PRN PRN Reason: flush each lumen during HD <Mark Brush E - Last Filed: 03/21/18 19:12> Allergies Allergy/AdvReac Type Severity Reaction Status Date / Time No Known Allergies Allergy Unverified 03/14/18 16:15 Home Medications Medication Instructions Recorded Confirmed Type lisinopril 20 mg PO DAILY 03/14/18 03/14/18 History Exam Vital signs: Vital Signs 03/20/18 19:53 03/20/18 20:00 03/21/18 00:00 Temperature 97.9 F 97.1 F L Pulse Rate 98 H 105 H 99 H Respiratory Rate 18 20 20 Blood Pressure 154/68 H 139/63 Pulse Oximetry 98 94 L 03/21/18 04:00 03/21/18 08:00 03/21/18 08:49 Temperature 97.7 F 97.8 F Pulse Rate 96 H 91 H 92 H Respiratory Rate 18 18 12 Blood Pressure 178/84 H 112/66 Pulse Oximetry 96 95 03/21/18 11:44 03/21/18 12:00 Temperature 98.1 F Pulse Rate 94 H 103 H Respiratory Rate 14 18 Blood Pressure 158/71 H Pulse Oximetry 97 Intake & Output 03/20/18 03/21/18 03/21/18 18:59 06:59 18:59 Intake Total 800 / 800 253.6 / 253.6 6617.5 / 6617.5 Output Total 1999 Balance 800 / 800 -1746.4 / -1746.4 6617.5 / 6617.5 Intake: IV 253.6 / 253.6 6617.5 / 6617.5 Calcium Chloride Inj 0.36 GM In 103.6 / 103.6 NS Inj 100 ML @ 103.6 mls/hr IV.SIG ONCE ONE Rx#:[id number] Cubicin Inj 600 MG In NS Inj 100 / 100 100 ML @ 200 mls/hr IV.SIG Q48H EDWARD Rx#:[id number] Ancef 2 GM Premix Inj 2 gm In 50 / 50 50 ml @ 200 mls/hr IV.SIG Q24H EDWARD Rx#:[id number] Oral 800 / 800 Output: Urine 1999 Other: Mode Setting Right Abdomen Continuous Continuous # Voids 1 Date of Last Bowel Movement 03/20/18 03/20/18 # Bowel Movements 2 # Incontinent Bowel Movements 6 - Constitutional no acute distress, morbidly obese - Routine HEENT Exam Head: Present: normocephalic, atraumatic ENT: Present: mucous membranes moist - Routine Neck Exam Present: supple (Obese) - Routine Respiratory Exam Present: accessory muscle use (Even, unlabored, cough, dry) - Routine Cardiovascular Exam Present: S1, S2 (Distant) - Routine Abdominal Exam Present: wound (Large right lower abdominal wound, currently open to air with dressings and pending wound VAC placement) - Routine Extremities Exam Present: edema (Bilateral lower extremity edema , elevated on pillows, 3+ with erythema) - Routine Skin Exam Present: wounds (Right open lower abdominal wound) <Sia Segura - Last Filed: 03/21/18 16:44> Vital signs: Vital Signs 03/20/18 19:53 03/20/18 20:00 03/21/18 00:00 Temperature 97.9 F 97.1 F L Pulse Rate 98 H 105 H 99 H Respiratory Rate 18 20 20 Blood Pressure 154/68 H 139/63 Pulse Oximetry 98 94 L 03/21/18 04:00 03/21/18 08:00 03/21/18 08:49 Temperature 97.7 F 97.8 F Pulse Rate 96 H 91 H 92 H Respiratory Rate 18 18 12 Blood Pressure 178/84 H 112/66 Pulse Oximetry 96 95 03/21/18 11:44 03/21/18 12:00 03/21/18 16:00 Temperature 98.1 F 97.6 F Pulse Rate 94 H 103 H 103 H Respiratory Rate 14 18 18 Blood Pressure 158/71 H 155/70 H Pulse Oximetry 97 95 Intake & Output 03/21/18 03/21/18 03/22/18 06:59 18:59 06:59 Intake Total 253.6 / 253.6 6617.5 / 6617.5 Output Total 1999 Balance -1746.4 / -1746.4 6617.5 / 6617.5 Intake: IV 253.6 / 253.6 6617.5 / 6617.5 Calcium Chloride Inj 0.36 GM In 103.6 / 103.6 NS Inj 100 ML @ 103.6 mls/hr IV.SIG ONCE ONE Rx#:[id number] Cubicin Inj 600 MG In NS Inj 100 / 100 100 ML @ 200 mls/hr IV.SIG Q48H EDWARD Rx#:[id number] Ancef 2 GM Premix Inj 2 gm In 50 / 50 50 ml @ 200 mls/hr IV.SIG Q24H EDWARD Rx#:[id number] Output: Urine 1999 Other: Mode Setting Right Abdomen Continuous Date of Last Bowel Movement 03/20/18 # Bowel Movements 2 <Mark Brush E - Last Filed: 03/21/18 19:12> Results - Labs CBC & Chem 7: 03/21/18 05:57 03/21/18 05:57 Labs: Laboratory Results - last 24 hr 03/20/18 03/20/18 03/21/18 19:02 21:37 05:57 WBC 7.9 RBC 2.90 L Hgb 9.4 L Hct 28.1 L MCV 96.9 MCH 32.4 MCHC 33.4 RDW 13.9 Plt Count 297 MPV 8.0 Sodium Potassium Chloride Carbon Dioxide Anion Gap BUN Creatinine Estimated GFR POC Glucose 179 H 104 Random Glucose Calcium 03/21/18 03/21/18 03/21/18 05:57 08:21 13:26 WBC RBC Hgb Hct MCV MCH MCHC RDW Plt Count MPV Sodium 142 Potassium 3.8 Chloride 105 Carbon Dioxide 29.9 Anion Gap 7 BUN 23 H Creatinine 2.11 H Estimated GFR 24 L POC Glucose 147 H 137 H Random Glucose 119 H Calcium 7.6 L <Sia Segura Kalani - Last Filed: 03/21/18 16:44> - Labs CBC & Chem 7: 03/21/18 05:57 03/21/18 05:57 Labs: Laboratory Results - last 24 hr 03/20/18 03/20/18 03/21/18 19:02 21:37 05:57 WBC 7.9 RBC 2.90 L Hgb 9.4 L Hct 28.1 L MCV 96.9 MCH 32.4 MCHC 33.4 RDW 13.9 Plt Count 297 MPV 8.0 Sodium Potassium Chloride Carbon Dioxide Anion Gap BUN Creatinine Estimated GFR POC Glucose 179 H 104 Random Glucose Calcium 03/21/18 03/21/18 03/21/18 05:57 08:21 13:26 WBC RBC Hgb Hct MCV MCH MCHC RDW Plt Count MPV Sodium 142 Potassium 3.8 Chloride 105 Carbon Dioxide 29.9 Anion Gap 7 BUN 23 H Creatinine 2.11 H Estimated GFR 24 L POC Glucose 147 H 137 H Random Glucose 119 H Calcium 7.6 L <Mark Brush - Last Filed: 03/21/18 19:12> Assessment and Plan - Plan Bright red rectal bleeding, 1 event on 03/21/2018. No further bleeding noted. Patient states history of hemorrhoids and occasional bleeding when she has diarrhea and has been sick. Patient denies any previous GI workup no EGD no colonoscopy no family history of colon cancer Currently being treated for a large open abdominal wound and sepsis with comorbid conditions. Including obesity, hypertension, renal failure requiring dialysis this week and multiple antibiotics for her wound Nausea and vomiting on admission but this could have been secondary to patient' s sepsis. Patient has occasional nausea and is currently being managed on Protonix 40 mg daily. Patient denies any dyspepsia and states dysphasia when she eats too fast and does not chew her food well. Patient notes occasional diarrhea when she gets sick at home denies any constipation. Currently diarrhea has resolved and patient stool is beginning to form. Currently patient is on multiple antibiotics which includes Ancef, daptomycin, with her dialysis. Patient has also received some heparin flushes with her dialysis care but no other anticoagulants on a routine basis. History of hemorrhoids. Will monitor patient's episode of bright red bleeding for now and consider colonoscopy or sigmoidoscopy if bleeding persist. We appreciate this consult and we will follow with you Plan Diet per attending Hemorrhoidal HC suppository twice a day Soft cleaning and wiping after bowel movement. Okay to use baby wipes Monitor hemoglobin for any obvious acute changes and transfuse as needed Supportive care PPI Bowel regimen only as needed Further recommendations to follow Patient was seen per myself and Dr. Brush, this note was written on his behalf <Sia Segura M - Last Filed: 03/21/18 16:44> - Attending Attestation Patient seen and examined Agree with above Continue current supportive care Monitor labs <Mark Brush - Last Filed: 03/21/18 19:12>
[2018-03-21] MEDS: HYDROmorphone PF Inj 2 MG/ML Vial IV.PUSH PRN (16:56)
[2018-03-21] MEDS: ceFAZolin 2 GM Premix Inj 2 GM/50 ML PIGGYBACK IV.SIG SCH (17:00)
--- NOTE | 2018-03-21 19:29 | P.PNWCN ---
Wound Care Nurse Consult Description: Received wound VAC management consult from CALIXTO Tejada for M-W-F VAC changes starting SaturdayMarch 21 Communicated with: SHIELA Johnston [address] [place] [address] Recommendation: Please reinforce dressing with stoma paste and VAC drape for leak. Wound care nurse will change on Saturday. Wound/Pressure Injury - Patient Status Premedicated for Pain Prior to Dressing Change: No - Wound Right Abdomen Wound Assessment: Ongoing Wound Type: Abscess Is This a Chronic Wound: No Requested from Provider a Wound Care Consult: No Length: 15 (~15cm) Width: 29 (~29cm) Depth: 11 (~11cm) Wound Bed Appearance: Cloverly, Red, Tunneling/Undermining, Yellow Wound Bed Appearance: Wound bed presents with ~50% red non granulation tissue, and ~50% adipose tissue. Tunneling is noted at 10 o'clock with small pocket located in center of wound next to tunneling. Surrounding Tissue Appearance: Cloverly (unremarkable periwound) Surrounding Tissue Temperature: Warm Drainage Description: Serosanguinous Drainage Amount: Minimal Drainage Odor: No Odor Dressing Status: Changed Cleansing Solution: Saline Wound Packing Type: Woundvac Sponge Primary Dressing: Negative Pressure Wound Dressing Cover Dressing: Transparent Wound Dressing Change Date: 03/21/18 Wound Margin Description: Wound margins are uneven and steep Wound Vac - Wound Vac Right Abdomen Pressure Setting (mmHg): 125 (mm/Hg) Mode Setting: Continuous Drainage Description: Sanguinous Foam type: Black - Additional Information Patient seen on for wound VAC dressing change. Patient was seen earlier by Hung KUO, [facility] estela were removed and two large pieces of granufoam sponge were removed.Patient was seen by Doctor Brooke plastics before wound VAC dressing was reapplied. Removed moist to dry dressing in place to R abdomen to reveal woud. Wound to abdomen was cleansed with normal saline and patted dry. one piece White foam was then applied to tunneled area and small pocket noted above. Applied skin barrier film to periwound and allowed to dry, before window paning wound with VAC drape from 8 to 4 o'clock. Stoma paste was then applied from 5 to 7 o'clock periwound. Applied One large piece of granufoam foam and one small piece of granufoam to wound bed. Secured with VAC drape. Applied one more small piece of black granufoam to cover wound bed. Four pieces of granufoam in total were applied to wound bed. Secured with VAC drape. Applied VAC drape to bridge from wound bed to proximal R abdomen. Cut hole in VAC drape exposing black granufoam. One strip of black granufoam was used to bridge to R proximal abdomen. Applied Sensi trac pad with attached mushroom cap of black granufoam to R proximal abdomen. Wound VAc is suctioning at 125 mm/ Hg continuous suction.
--- NOTE | 2018-03-21 19:55 | P.PN ---
Subjective Interval history: Patient reports slowly improving abdominal pain. She endorses bright red blood per rectum, with a history of hemorrhoids. Physical Exam Vital signs: Vital Signs 03/20/18 19:53 03/20/18 20:00 03/21/18 00:00 Temperature 97.9 F 97.1 F L Pulse Rate 98 H 105 H 99 H Respiratory Rate 18 20 20 Blood Pressure 154/68 H 139/63 Pulse Oximetry 98 94 L 03/21/18 04:00 03/21/18 08:00 03/21/18 08:49 Temperature 97.7 F 97.8 F Pulse Rate 96 H 91 H 92 H Respiratory Rate 18 18 12 Blood Pressure 178/84 H 112/66 Pulse Oximetry 96 95 03/21/18 11:44 03/21/18 12:00 03/21/18 16:00 Temperature 98.1 F 97.6 F Pulse Rate 94 H 103 H 103 H Respiratory Rate 14 18 18 Blood Pressure 158/71 H 155/70 H Pulse Oximetry 97 95 Intake & Output 03/21/18 03/21/18 03/22/18 06:59 18:59 06:59 Intake Total 253.6 / 253.6 6617.5 / 6617.5 Output Total 1999 Balance -1746.4 / -1746.4 6617.5 / 6617.5 Intake: IV 253.6 / 253.6 6617.5 / 6617.5 Calcium Chloride Inj 0.36 GM In 103.6 / 103.6 NS Inj 100 ML @ 103.6 mls/hr IV.SIG ONCE ONE Rx#:[id number] Cubicin Inj 600 MG In NS Inj 100 / 100 100 ML @ 200 mls/hr IV.SIG Q48H [facility] Rx#:[id number] Ancef 2 GM Premix Inj 2 gm In 50 / 50 50 ml @ 200 mls/hr IV.SIG Q24H [facility] Rx#:[id number] Output: Urine 1999 Other: Mode Setting Right Abdomen Continuous Continuous Date of Last Bowel Movement 03/20/18 # Bowel Movements 2 Narrative: Afebrile Abdominal wound VAC removed Large edematous pannus Wound with minimal surrounding erythema Moderately tender pannus adjacent to wound No discharge expressed Non-malodorous - Urinary Catheter Management Indwelling Urethral Catheter Cath placed during this visit: yes, but has since been removed by the nurse Urethral indwelling: No Reason for continuing: Decision to DC catheter Insertion date: 03/15/18 Insertion time: 17:00 Removal date: 03/16/18 Removal time: 06:00 Results - Labs CBC & Chem 7: 03/21/18 05:57 03/21/18 05:57 Laboratory Results - last 24 hr 03/20/18 03/21/18 03/21/18 21:37 05:57 05:57 WBC 7.9 RBC 2.90 L Hgb 9.4 L Hct 28.1 L MCV 96.9 MCH 32.4 MCHC 33.4 RDW 13.9 Plt Count 297 MPV 8.0 Sodium 142 Potassium 3.8 Chloride 105 Carbon Dioxide 29.9 Anion Gap 7 BUN 23 H Creatinine 2.11 H Estimated GFR 24 L POC Glucose 104 Random Glucose 119 H Calcium 7.6 L 03/21/18 03/21/18 08:21 13:26 WBC RBC Hgb Hct MCV MCH MCHC RDW Plt Count MPV Sodium Potassium Chloride Carbon Dioxide Anion Gap BUN Creatinine Estimated GFR POC Glucose 147 H 137 H Random Glucose Calcium Assessment and Plan - Assessment (1) Panniculitis Code(s): M79.3 - Panniculitis, unspecified Status: Acute - Plan 67-year-old female with abdominal wound Risks benefits and alternative treatments discussed All questions answered and the patient expressed understanding Patient needs time to consider reconstructive options Wound does not appear to be progressing/worsening Please have wound nurse contact me to again monitor the progress of the wound with subsequent VAC changes
[2018-03-21] MEDS: Hydrocortisone Acetate 25 MG Supp RECTAL SCH (23:15)
[2018-03-22 08:15] LABS: Hematocrit 28.4 % (35.0-46.0); Hemoglobin 9.5 gm/dL (11.6-15.3); Mean Corpuscular HGB Conc 33.4 % (32.0-36.0); Mean Corpuscular Hemoglobin 32.3 pg (27.0-34.0); Mean Corpuscular Volume 96.9 fL (80.0-100.0); Mean Platelet Volume 7.8 fL (7.0-11.0); Neut % (Auto) 74.4 % (16.0-70.0); Platelet Count 325 th/mm3 (150-450); Red Blood Count 2.93 mil/mm3 (4.00-5.30); Red Cell Distribution Width 14.2 % (11.6-17.2); White Blood Count 8.6 th/mm3 (4.0-11.0)
[2018-03-22 08:16] LABS: Baso # (Auto) 0.1 th/mm3 (0.0-0.2); Eos # (Auto) 0.1 th/mm3 (0.0-0.4); Eos % (Auto) 1.1 % (0.0-4.0); Lymph # (Auto) 1.5 th/mm3 (1.0-4.8); Lymph % (Auto) 17.2 % (9.0-44.0); Mono # (Auto) 0.5 th/mm3 (0.0-0.9); Mono % (Auto) 6.3 % (0.0-8.0); Neut # (Auto) 6.4 th/mm3 (1.8-7.7)
[2018-03-22] MEDS: Insulin NovoLOG Aspart Correctional Sugar Inj SQ SCH ×4 (08:39→20:49)
[2018-03-22] MEDS: Hydrocortisone Acetate 25 MG Supp RECTAL SCH ×2 (08:40→20:47)
[2018-03-22] MEDS: Insulin Detemir Inj 1,000 UNIT/10 ML Vial SQ SCH (08:40)
[2018-03-22] MEDS: Pantoprazole Inj 40 MG Vial IV.PUSH SCH (08:40)
[2018-03-22] MEDS: Nystatin 100,000 UNITS/GM Powder 15 GM Bottle TOPICAL SCH ×4 (08:40→20:47)
[2018-03-22 08:41] LABS: Albumin 1.8 g/dL (3.4-5.0); Calcium 7.6 mg/dL (8.5-10.1); Carbon Dioxide 27.6 meq/L (21.0-32.0); Phosphorus 3.3 mg/dL (2.5-4.9)
[2018-03-22 11:30] LABS: Eosinophils 4 % (0-4); Lymphocytes 4 % (9-44); Metamyelocytes 4 % (0-1); Monocytes 5 % (0-8); Tallied Nucleated RBC 1 (0-0)
[2018-03-22 11:31] LABS: Platelet Estimate Normal (Normal); Platelet Morphology Normal (Normal)
--- NOTE | 2018-03-22 14:01 | P.PNGI ---
Subjective Interval history: Pt is sitting in chair, endorses slight bleeding on the pad, unsure of the source. No other issues Physical Exam Vital signs: Vital Signs 03/21/18 16:00 03/21/18 20:00 03/21/18 20:49 Temperature 97.6 F 97.7 F Pulse Rate 103 H 98 H 90 Respiratory Rate 18 18 16 Blood Pressure 155/70 H 148/70 H Pulse Oximetry 95 96 03/22/18 00:00 03/22/18 04:00 03/22/18 08:00 Temperature 97.5 F L 97.7 F 97.9 F Pulse Rate 95 H 98 H 96 H Respiratory Rate 18 18 18 Blood Pressure 139/72 135/79 142/65 H Pulse Oximetry 96 96 97 03/22/18 12:00 Temperature 97.9 F Pulse Rate 95 H Respiratory Rate 17 Blood Pressure 130/62 Pulse Oximetry 100 Intake & Output 03/21/18 03/22/18 03/22/18 18:59 06:59 18:59 Intake Total 6617.5 / 6617.5 530 / 530 Balance 6617.5 / 6617.5 530 / 530 Weight 154.5 kg Intake: IV 6617.5 / 6617.5 50 / 50 Ancef 2 GM Premix Inj 2 gm In 50 / 50 50 ml @ 200 mls/hr IV.SIG Q24H ED Rx#:[id number] Oral 480 / 480 Other: Mode Setting Right Abdomen Continuous Continuous Continuous # Incontinent Voids 10 Date of Last Bowel Movement 03/21/18 03/21/18 # Bowel Movements 1 - Constitutional no acute distress - Routine HEENT Exam Head: Present: normocephalic Eye: Present: PERRL - Routine Neck Exam Present: supple - Routine Respiratory Exam Present: CTA bilaterally - Routine Cardiovascular Exam Present: RRR - Routine Abdominal Exam Present: soft Comments: Large right lower abdominal wound, currently open to air with dressings and pending wound VAC placement) - Routine Extremities Exam Present: edema - Routine Neurological Exam Present: alert, oriented X3 - Urinary Catheter Management Indwelling Urethral Catheter Cath placed during this visit: yes, but has since been removed by the nurse Urethral indwelling: No Reason for continuing: Decision to DC catheter Insertion date: 03/15/18 Insertion time: 17:00 Removal date: 03/16/18 Removal time: 06:00 Results - Labs CBC & Chem 7: 03/22/18 05:03 03/22/18 05:03 Laboratory Results - last 24 hr 03/21/18 03/21/18 03/22/18 16:44 22:34 05:03 WBC 8.6 RBC 2.93 L Hgb 9.5 L Hct 28.4 L MCV 96.9 MCH 32.3 MCHC 33.4 RDW 14.2 Plt Count 325 MPV 7.8 Prelim Diff (Auto) Slide review pending Neut % (Auto) 74.4 H Lymph % (Auto) 17.2 Bradley % (Auto) 6.3 Eos % (Auto) 1.1 Baso % (Auto) 1.0 Neut # (Auto) 6.4 Lymph # (Auto) 1.5 Bradley # (Auto) 0.5 Eos # (Auto) 0.1 Baso # (Auto) 0.1 WBC Differential Manual diff final Seg Neuts % (Manual) 70 Band Neuts % (Manual) 13 H Lymphocytes % (Manual) 4 L Monocytes % (Manual) 5 Eosinophils % (Manual) 4 Metamyelocytes % (Man) 4 H Abs Neuts (Manual) 7.5 Nucleated RBCs/100 WBC 1 H Differential Comment . Platelet Estimate Normal Platelet Morphology Normal Sodium Potassium Chloride Carbon Dioxide Anion Gap BUN Creatinine Estimated GFR POC Glucose 116 H 170 H Random Glucose Calcium Phosphorus Albumin 03/22/18 03/22/18 03/22/18 05:03 07:46 12:04 WBC RBC Hgb Hct MCV MCH MCHC RDW Plt Count MPV Prelim Diff (Auto) Neut % (Auto) Lymph % (Auto) Bradley % (Auto) Eos % (Auto) Baso % (Auto) Neut # (Auto) Lymph # (Auto) Bradley # (Auto) Eos # (Auto) Baso # (Auto) WBC Differential Seg Neuts % (Manual) Band Neuts % (Manual) Lymphocytes % (Manual) Monocytes % (Manual) Eosinophils % (Manual) Metamyelocytes % (Man) Abs Neuts (Manual) Nucleated RBCs/100 WBC Differential Comment Platelet Estimate Platelet Morphology Sodium 142 Potassium 4.0 Chloride 104 Carbon Dioxide 27.6 Anion Gap 10 BUN 23 H Creatinine 1.80 H Estimated GFR 28 L POC Glucose 148 H 147 H Random Glucose 104 Calcium 7.6 L Phosphorus 3.3 Albumin 1.8 L Assessment and Plan - Plan Bright red rectal bleeding, 1 event on 03/21/2018. No further bleeding noted. Patient states history of hemorrhoids and occasional bleeding when she has diarrhea and has been sick. Patient denies any previous GI workup no EGD no colonoscopy no family history of colon cancer Currently being treated for a large open abdominal wound and sepsis with comorbid conditions. Including obesity, hypertension, renal failure requiring dialysis this week and multiple antibiotics for her wound Nausea and vomiting on admission but this could have been secondary to patient' s sepsis. Patient has occasional nausea and is currently being managed on Protonix 40 mg daily. Patient denies any dyspepsia and states dysphasia when she eats too fast and does not chew her food well. Patient notes occasional diarrhea when she gets sick at home denies any constipation. Currently diarrhea has resolved and patient stool is beginning to form. Currently patient is on multiple antibiotics which includes Ancef, daptomycin, with her dialysis. Patient has also received some heparin flushes with her dialysis care but no other anticoagulants on a routine basis. History of hemorrhoids. Will monitor patient's episode of bright red bleeding for now and consider colonoscopy or sigmoidoscopy if bleeding persist. We appreciate this consult and we will follow with you 03/22/18 Bright red rectal bleeding/anemia- Reports slight bleeding on the pad, not sure of source, hh stable Plan Diet per attending Monitor hemoglobin Notify GI for active bleed or decline in hgb Will hold off on endoscopy due to large abd wound Supportive care PPI Bowel regimen only as needed Further recommendations to follow Patient was seen per myself and Dr. Reyes this note was written on his behalf
--- NOTE | 2018-03-22 14:08 | P.PNIM ---
Subjective Interval history: Patient still reports another episode of bright red blood per rectum this morning after a bowel movement. No nausea vomiting. Physical Exam Vital signs: Vital Signs 03/21/18 16:00 03/21/18 20:00 03/21/18 20:49 Temperature 97.6 F 97.7 F Pulse Rate 103 H 98 H 90 Respiratory Rate 18 18 16 Blood Pressure 155/70 H 148/70 H Pulse Oximetry 95 96 03/22/18 00:00 03/22/18 04:00 03/22/18 08:00 Temperature 97.5 F L 97.7 F 97.9 F Pulse Rate 95 H 98 H 96 H Respiratory Rate 18 18 18 Blood Pressure 139/72 135/79 142/65 H Pulse Oximetry 96 96 97 03/22/18 12:00 Temperature 97.9 F Pulse Rate 95 H Respiratory Rate 17 Blood Pressure 130/62 Pulse Oximetry 100 Intake & Output 03/21/18 03/22/18 03/22/18 18:59 06:59 18:59 Intake Total 6617.5 / 6617.5 530 / 530 Balance 6617.5 / 6617.5 530 / 530 Weight 154.5 kg Intake: IV 6617.5 / 6617.5 50 / 50 Ancef 2 GM Premix Inj 2 gm In 50 / 50 50 ml @ 200 mls/hr IV.SIG Q24H ED Rx#:[id number] Oral 480 / 480 Other: Mode Setting Right Abdomen Continuous Continuous Continuous # Incontinent Voids 10 Date of Last Bowel Movement 03/21/18 03/21/18 # Bowel Movements 1 Narrative: GENERAL: Morbidly obese female in no acute distress. CARDIOVASCULAR: Normal rate and regular rhythm without murmurs, gallops, or rubs. RESPIRATORY: Good respiratory efforts. Breath sounds equal and clear to auscultation bilaterally. GASTROINTESTINAL: Abdomen is obese, there is a large wound VAC in place on the lower abdomen. MUSCULOSKELETAL: Extremities with 2+ edema. RLE with cellulitis. - Urinary Catheter Management Indwelling Urethral Catheter Cath placed during this visit: yes, but has since been removed by the nurse Urethral indwelling: No Reason for continuing: Decision to DC catheter Insertion date: 03/15/18 Insertion time: 17:00 Removal date: 03/16/18 Removal time: 06:00 Results - Labs CBC & Chem 7: 03/22/18 05:03 03/22/18 05:03 Laboratory Results - last 24 hr 03/21/18 03/21/18 03/22/18 16:44 22:34 05:03 WBC 8.6 RBC 2.93 L Hgb 9.5 L Hct 28.4 L MCV 96.9 MCH 32.3 MCHC 33.4 RDW 14.2 Plt Count 325 MPV 7.8 Prelim Diff (Auto) Slide review pending Neut % (Auto) 74.4 H Lymph % (Auto) 17.2 Garrett % (Auto) 6.3 Eos % (Auto) 1.1 Baso % (Auto) 1.0 Neut # (Auto) 6.4 Lymph # (Auto) 1.5 Garrett # (Auto) 0.5 Eos # (Auto) 0.1 Baso # (Auto) 0.1 WBC Differential Manual diff final Seg Neuts % (Manual) 70 Band Neuts % (Manual) 13 H Lymphocytes % (Manual) 4 L Monocytes % (Manual) 5 Eosinophils % (Manual) 4 Metamyelocytes % (Man) 4 H Abs Neuts (Manual) 7.5 Nucleated RBCs/100 WBC 1 H Differential Comment . Platelet Estimate Normal Platelet Morphology Normal Sodium Potassium Chloride Carbon Dioxide Anion Gap BUN Creatinine Estimated GFR POC Glucose 116 H 170 H Random Glucose Calcium Phosphorus Albumin 03/22/18 03/22/18 03/22/18 05:03 07:46 12:04 WBC RBC Hgb Hct MCV MCH MCHC RDW Plt Count MPV Prelim Diff (Auto) Neut % (Auto) Lymph % (Auto) Garrett % (Auto) Eos % (Auto) Baso % (Auto) Neut # (Auto) Lymph # (Auto) Garrett # (Auto) Eos # (Auto) Baso # (Auto) WBC Differential Seg Neuts % (Manual) Band Neuts % (Manual) Lymphocytes % (Manual) Monocytes % (Manual) Eosinophils % (Manual) Metamyelocytes % (Man) Abs Neuts (Manual) Nucleated RBCs/100 WBC Differential Comment Platelet Estimate Platelet Morphology Sodium 142 Potassium 4.0 Chloride 104 Carbon Dioxide 27.6 Anion Gap 10 BUN 23 H Creatinine 1.80 H Estimated GFR 28 L POC Glucose 148 H 147 H Random Glucose 104 Calcium 7.6 L Phosphorus 3.3 Albumin 1.8 L Assessment and Plan - Assessment (1) Sepsis Code(s): A41.9 - Sepsis, unspecified organism Status: Acute (2) Abdominal wall cellulitis Code(s): L03.311 - Cellulitis of abdominal wall Status: Acute (3) Acute renal failure due to tubular necrosis Code(s): N17.0 - Acute kidney failure with tubular necrosis Status: Acute (4) Acidosis, metabolic Code(s): E87.2 - Acidosis Status: Resolved - Plan 67-year-old female sepsis secondary to necrotizing infection of the abdominal wall with abscess. She is status post urgent debridement. Severe sepsis secondary to abdominal wall infection with abscess: -Status post emergent debridement. General surgery following. Plastic surgery following. -Wound care per surgery. Pain control. Continue antibiotics per infectious disease. Daptomycin discontinued. Continue Ancef. Bright red blood per rectum: Possibly hemorrhoid bleed. Patient never had a colonoscopy -GI following. Continue to monitor H&H. Stable today. However patient is still having episodes of bleeding. Acute renal failure requiring hemodialysis: -Nephrology following. Renal functions much improved. Hemodialysis on hold. Continue Lasix. Left foot cellulitis/lower extremity edema: Improved. Continue antibiotics per ID Continue Lasix Diabetes: -Continue Levemir. Sliding scale insulin with Accu-Cheks Electrolyte abnormalities: -Replace and monitor.
--- NOTE | 2018-03-22 14:33 | P.PNNP ---
Subjective Interval history: Patient complaining of persisting lower extremity edema. Otherwise no dyspnea. Physical Exam Vital signs: Vital Signs 03/21/18 16:00 03/21/18 20:00 03/21/18 20:49 Temperature 97.6 F 97.7 F Pulse Rate 103 H 98 H 90 Respiratory Rate 18 18 16 Blood Pressure 155/70 H 148/70 H Pulse Oximetry 95 96 03/22/18 00:00 03/22/18 04:00 03/22/18 08:00 Temperature 97.5 F L 97.7 F 97.9 F Pulse Rate 95 H 98 H 96 H Respiratory Rate 18 18 18 Blood Pressure 139/72 135/79 142/65 H Pulse Oximetry 96 96 97 03/22/18 12:00 Temperature 97.9 F Pulse Rate 95 H Respiratory Rate 17 Blood Pressure 130/62 Pulse Oximetry 100 Intake & Output 03/21/18 03/22/18 03/22/18 18:59 06:59 18:59 Intake Total 6617.5 / 6617.5 530 / 530 Balance 6617.5 / 6617.5 530 / 530 Weight 154.5 kg Intake: IV 6617.5 / 6617.5 50 / 50 Ancef 2 GM Premix Inj 2 gm In 50 / 50 50 ml @ 200 mls/hr IV.SIG Q24H ED Rx#:[id number] Oral 480 / 480 Other: Mode Setting Right Abdomen Continuous Continuous Continuous # Incontinent Voids 10 Date of Last Bowel Movement 03/21/18 03/21/18 # Bowel Movements 1 Narrative: GENERAL: Morbidly obese female in no acute distress. CARDIOVASCULAR: Normal rate and regular rhythm without murmurs, gallops, or rubs. RESPIRATORY: Good respiratory efforts. Breath sounds equal and clear to auscultation bilaterally. GASTROINTESTINAL: Abdomen is obese, there is a large wound VAC in place on the lower abdomen. MUSCULOSKELETAL: Extremities with 2+ edema. - Urinary Catheter Management Indwelling Urethral Catheter Cath placed during this visit: yes, but has since been removed by the nurse Urethral indwelling: No Reason for continuing: Decision to DC catheter Insertion date: 03/15/18 Insertion time: 17:00 Removal date: 03/16/18 Removal time: 06:00 Assessment and Plan - Assessment (1) Acute renal failure due to tubular necrosis Code(s): N17.0 - Acute kidney failure with tubular necrosis Status: Acute Plan: Renal functions have improved and UOP appears to be improving as well. Still with significant edema. We will continue with furosemide 60 mg twice daily with monitoring of renal indices and volume status. No indication for dialysis today as renal indices are improved and she appears to be making urine with response to diuretic therapy. If improvement continues will consider discontinuing the hemodialysis catheter in the next 24-48 hours. Medications should be adjusted for the patient's estimated GFR if clinically indicated. Avoid agents with significant potential for nephrotoxicity possible including NSAIDs for analgesia, iodine contrast agents. Gadolinium is contraindicated if the GFR is below 30. (2) Sepsis Code(s): A41.9 - Sepsis, unspecified organism Status: Acute Plan: Clinically improving (3) Cellulitis of left leg Code(s): L03.116 - Cellulitis of left lower limb Status: Acute Plan: Management per infectious disease and surgery. (4) Abdominal wall cellulitis Code(s): L03.311 - Cellulitis of abdominal wall Status: Acute Plan: Status post debridement. Management per surgery and infectious disease.
[2018-03-22] MEDS: ceFAZolin 2 GM Premix Inj 2 GM/50 ML PIGGYBACK IV.SIG SCH (15:37)
[2018-03-22] MEDS: Benzonatate 100 MG Capsule PO PRN ×2 (15:37→20:47)
[2018-03-23] MEDS: Benzonatate 100 MG Capsule PO PRN ×3 (04:02→20:22)
[2018-03-23 06:13] LABS: Hematocrit 26.4 % (35.0-46.0); Mean Corpuscular HGB Conc 34.1 % (32.0-36.0); Mean Corpuscular Hemoglobin 32.9 pg (27.0-34.0); Mean Corpuscular Volume 96.7 fL (80.0-100.0); Mean Platelet Volume 7.4 fL (7.0-11.0); Platelet Count 319 th/mm3 (150-450); Red Blood Count 2.73 mil/mm3 (4.00-5.30); Red Cell Distribution Width 13.7 % (11.6-17.2); White Blood Count 7.6 th/mm3 (4.0-11.0)
[2018-03-23 06:49] LABS: Calcium 7.5 mg/dL (8.5-10.1); Carbon Dioxide 31.7 meq/L (21.0-32.0); Potassium 3.9 meq/L (3.5-5.1)
[2018-03-23] MEDS: Pantoprazole Inj 40 MG Vial IV.PUSH SCH (09:22)
[2018-03-23] MEDS: Insulin Detemir Inj 1,000 UNIT/10 ML Vial SQ SCH (09:23)
[2018-03-23] MEDS: Insulin NovoLOG Aspart Correctional Sugar Inj SQ SCH ×4 (09:23→20:18)
[2018-03-23] MEDS: Nystatin 100,000 UNITS/GM Powder 15 GM Bottle TOPICAL SCH ×4 (09:24→20:16)
[2018-03-23] MEDS: Hydrocortisone Acetate 25 MG Supp RECTAL SCH ×2 (09:24→20:16)
--- NOTE | 2018-03-23 12:44 | P.PNGI ---
Subjective Interval history: RN at bedside. Per RN and pt, pt has had some BRB in the toilet and on the pad she has been sitting on, unclear where the bleeding is coming from. Pt with large abdominal wound to wound vac. <Ramonita Mujica - Last Filed: 03/23/18 12:38> Physical Exam Vital signs: Vital Signs 03/22/18 16:00 03/22/18 20:00 03/22/18 20:17 Temperature 97.4 F L 97.7 F Pulse Rate 96 H 96 H 105 H Respiratory Rate 18 18 Blood Pressure 159/73 H 144/69 H Pulse Oximetry 98 96 03/23/18 00:05 03/23/18 04:20 03/23/18 08:00 Temperature 97.5 F L 97.5 F L 97.5 F L Pulse Rate 95 H 92 H 88 Respiratory Rate 20 18 17 Blood Pressure 149/64 H 149/75 H 143/70 H Pulse Oximetry 97 95 98 03/23/18 12:00 Temperature 97.3 F L Pulse Rate 96 H Respiratory Rate 16 Blood Pressure 176/74 H Pulse Oximetry 97 Intake & Output 03/22/18 03/23/18 03/23/18 18:59 06:59 18:59 Intake Total 425 / 425 580 / 580 Output Total 150 / 150 70 / 70 Balance 275 / 275 510 / 510 Weight 155 kg Intake: IV 50 / 50 Ancef 2 GM Premix Inj 2 gm In 50 / 50 50 ml @ 200 mls/hr IV.SIG Q24H ED Rx#:[id number] Oral 375 / 375 580 / 580 Output: Wound Drainage 150 / 150 # 1 Medial Abdomen 150 / 150 Wound Vac Amount 70 / 70 Right Abdomen 70 / 70 Other: Mode Setting Right Abdomen Continuous Continuous Continuous # Voids 6 6 Date of Last Bowel Movement 03/22/18 # Bowel Movements 3 4 - Constitutional no acute distress - Routine HEENT Exam Head: Present: normocephalic, atraumatic - Routine Abdominal Exam Comments: Obese, large abdominal wound with wound vac - Routine Skin Exam Present: dry, warm - Routine Neurological Exam Present: alert, oriented X3 - Urinary Catheter Management Indwelling Urethral Catheter Cath placed during this visit: yes, but has since been removed by the nurse Urethral indwelling: No Reason for continuing: Decision to DC catheter Insertion date: 03/15/18 Insertion time: 17:00 Removal date: 03/16/18 Removal time: 06:00 <Ramonita Mujica - Last Filed: 03/23/18 12:38> Vital signs: Vital Signs 03/22/18 16:00 03/22/18 20:00 03/22/18 20:17 Temperature 97.4 F L 97.7 F Pulse Rate 96 H 96 H 105 H Respiratory Rate 18 18 Blood Pressure 159/73 H 144/69 H Pulse Oximetry 98 96 03/23/18 00:05 03/23/18 04:20 03/23/18 08:00 Temperature 97.5 F L 97.5 F L 97.5 F L Pulse Rate 95 H 92 H 88 Respiratory Rate 20 18 17 Blood Pressure 149/64 H 149/75 H 143/70 H Pulse Oximetry 97 95 98 03/23/18 12:00 Temperature 97.3 F L Pulse Rate 96 H Respiratory Rate 16 Blood Pressure 176/74 H Pulse Oximetry 97 Intake & Output 03/22/18 03/23/18 03/23/18 18:59 06:59 18:59 Intake Total 425 / 425 580 / 580 Output Total 150 / 150 70 / 70 Balance 275 / 275 510 / 510 Weight 155 kg Intake: IV 50 / 50 Ancef 2 GM Premix Inj 2 gm In 50 / 50 50 ml @ 200 mls/hr IV.SIG Q24H ED Rx#:[id number] Oral 375 / 375 580 / 580 Output: Wound Drainage 150 / 150 # 1 Medial Abdomen 150 / 150 Wound Vac Amount 70 / 70 Right Abdomen 70 / 70 Other: Mode Setting Right Abdomen Continuous Continuous Continuous # Voids 6 6 Date of Last Bowel Movement 03/22/18 # Bowel Movements 3 4 - Urinary Catheter Management Indwelling Urethral Catheter Cath placed during this visit: no <Mark Brush - Last Filed: 03/23/18 13:10> Results - Labs CBC & Chem 7: 03/23/18 06:00 03/23/18 06:00 Laboratory Results - last 24 hr 03/22/18 03/22/18 03/23/18 16:58 20:48 06:00 WBC 7.6 RBC 2.73 L Hgb 9.0 L Hct 26.4 L MCV 96.7 MCH 32.9 MCHC 34.1 RDW 13.7 Plt Count 319 MPV 7.4 Sodium Potassium Chloride Carbon Dioxide Anion Gap BUN Creatinine Estimated GFR POC Glucose 109 142 H Random Glucose Calcium 03/23/18 03/23/18 03/23/18 06:00 07:55 12:05 WBC RBC Hgb Hct MCV MCH MCHC RDW Plt Count MPV Sodium 141 Potassium 3.9 Chloride 103 Carbon Dioxide 31.7 Anion Gap 6 BUN 23 H Creatinine 1.75 H Estimated GFR 29 L POC Glucose 147 H 120 H Random Glucose 145 H Calcium 7.5 L Microbiology 03/15/18 08:55 Tissue - Abdominal Fungal Smear - Final No fungal elements seen 03/15/18 08:55 Tissue - Abdominal Fungal Culture - Preliminary No growth in 1 week 03/15/18 08:55 Tissue - Abdominal Acid Fast Bacilli Smear - Final No acid fast bacilli seen 03/15/18 08:55 Tissue - Abdominal Mycobacterial Culture - Preliminary No growth in 1 week <Ramonita Mujica - Last Filed: 03/23/18 12:38> - Labs CBC & Chem 7: 03/23/18 06:00 03/23/18 06:00 Laboratory Results - last 24 hr 03/22/18 03/22/18 03/23/18 16:58 20:48 06:00 WBC 7.6 RBC 2.73 L Hgb 9.0 L Hct 26.4 L MCV 96.7 MCH 32.9 MCHC 34.1 RDW 13.7 Plt Count 319 MPV 7.4 Sodium Potassium Chloride Carbon Dioxide Anion Gap BUN Creatinine Estimated GFR POC Glucose 109 142 H Random Glucose Calcium 03/23/18 03/23/18 03/23/18 06:00 07:55 12:05 WBC RBC Hgb Hct MCV MCH MCHC RDW Plt Count MPV Sodium 141 Potassium 3.9 Chloride 103 Carbon Dioxide 31.7 Anion Gap 6 BUN 23 H Creatinine 1.75 H Estimated GFR 29 L POC Glucose 147 H 120 H Random Glucose 145 H Calcium 7.5 L Microbiology 03/15/18 08:55 Tissue - Abdominal Fungal Smear - Final No fungal elements seen 03/15/18 08:55 Tissue - Abdominal Fungal Culture - Preliminary No growth in 1 week 03/15/18 08:55 Tissue - Abdominal Acid Fast Bacilli Smear - Final No acid fast bacilli seen 03/15/18 08:55 Tissue - Abdominal Mycobacterial Culture - Preliminary No growth in 1 week <Mark Brush - Last Filed: 03/23/18 13:10> Assessment and Plan - Plan Assessment: - Anemia with reports of BRB- unclear where the blood is coming from- has been noticed in the toilet bowl and on the pad she sits or lies on in bed. Pt does not think she has had EGD or colonoscopy in the past. ? Hemorrhoidal bleed- - Sepsis secondary to abdominal wall infection with abscess- GS and plastic surgery following. (03/23) Pt still having some BRB noticed on the pad she is sitting on as well as in the toilet bowl. According to RN and patient it is unclear where the bleeding is coming from whether bladder, rectum or vaginal. H/H remains stable. Pt being treated for abdominal wound at this time, and given H/H is stable would continue to monitor with no plans for GI procedures until further date unless needed on emergent basis. Plan Diet per attending GS and plastic surgery regarding abdominal mass As noted above, will hold off on endoscopic procedures Monitor H/H Our service will sign off, please reconsult if drop in H/H Have pt follow up with GI after DC if endoscopic procedures not done inpatient Patient has been seen and examined by myself and Dr. Brush and this note is written on his behalf <Ramonita Mujica - Last Filed: 03/23/18 12:38> - Attending Attestation Patient seen and examined Agree with above Continue with current supportive care Patient will require endoscopy but she needs to be in a better condition and at this point she seems to be stable hemodynamically with no serious consequences to current bleeding Monitor labs and transfuse as needed Reconsult if there is any compromise or patient's condition is improved We will sign off <aMrk Brush - Last Filed: 03/23/18 13:10>
--- NOTE | 2018-03-23 15:33 | P.PNIM ---
Subjective Interval history: Patient reports bleeding is significantly less. She is doing okay otherwise. No new issues. Physical Exam Vital signs: Vital Signs 03/22/18 16:00 03/22/18 20:00 03/22/18 20:17 Temperature 97.4 F L 97.7 F Pulse Rate 96 H 96 H 105 H Respiratory Rate 18 18 Blood Pressure 159/73 H 144/69 H Pulse Oximetry 98 96 03/23/18 00:05 03/23/18 04:20 03/23/18 08:00 Temperature 97.5 F L 97.5 F L 97.5 F L Pulse Rate 95 H 92 H 88 Respiratory Rate 20 18 17 Blood Pressure 149/64 H 149/75 H 143/70 H Pulse Oximetry 97 95 98 03/23/18 12:00 Temperature 97.3 F L Pulse Rate 96 H Respiratory Rate 16 Blood Pressure 176/74 H Pulse Oximetry 97 Intake & Output 03/22/18 03/23/18 03/23/18 18:59 06:59 18:59 Intake Total 425 / 425 580 / 580 Output Total 150 / 150 70 / 70 Balance 275 / 275 510 / 510 Weight 155 kg Intake: IV 50 / 50 Ancef 2 GM Premix Inj 2 gm In 50 / 50 50 ml @ 200 mls/hr IV.SIG Q24H ED Rx#:[id number] Oral 375 / 375 580 / 580 Output: Wound Drainage 150 / 150 # 1 Medial Abdomen 150 / 150 Wound Vac Amount 70 / 70 Right Abdomen 70 / 70 Other: Mode Setting Right Abdomen Continuous Continuous Continuous # Voids 6 6 Date of Last Bowel Movement 03/22/18 # Bowel Movements 3 4 Narrative: GENERAL: Morbidly obese female in no acute distress. CARDIOVASCULAR: Normal rate and regular rhythm without murmurs, gallops, or rubs. RESPIRATORY: Good respiratory efforts. Breath sounds equal and clear to auscultation bilaterally. GASTROINTESTINAL: Abdomen is obese, there is a large wound VAC in place on the lower abdomen. MUSCULOSKELETAL: Extremities with 2+ edema. RLE with cellulitis. - Urinary Catheter Management Indwelling Urethral Catheter Cath placed during this visit: yes, but has since been removed by the nurse Urethral indwelling: No Reason for continuing: Decision to DC catheter Insertion date: 03/15/18 Insertion time: 17:00 Removal date: 03/16/18 Removal time: 06:00 Results - Labs CBC & Chem 7: 03/23/18 06:00 03/23/18 06:00 Laboratory Results - last 24 hr 03/22/18 03/22/18 03/23/18 16:58 20:48 06:00 WBC 7.6 RBC 2.73 L Hgb 9.0 L Hct 26.4 L MCV 96.7 MCH 32.9 MCHC 34.1 RDW 13.7 Plt Count 319 MPV 7.4 Sodium Potassium Chloride Carbon Dioxide Anion Gap BUN Creatinine Estimated GFR POC Glucose 109 142 H Random Glucose Calcium 03/23/18 03/23/18 03/23/18 06:00 07:55 12:05 WBC RBC Hgb Hct MCV MCH MCHC RDW Plt Count MPV Sodium 141 Potassium 3.9 Chloride 103 Carbon Dioxide 31.7 Anion Gap 6 BUN 23 H Creatinine 1.75 H Estimated GFR 29 L POC Glucose 147 H 120 H Random Glucose 145 H Calcium 7.5 L Microbiology 03/15/18 08:55 Tissue - Abdominal Fungal Smear - Final No fungal elements seen 03/15/18 08:55 Tissue - Abdominal Fungal Culture - Preliminary No growth in 1 week 03/15/18 08:55 Tissue - Abdominal Acid Fast Bacilli Smear - Final No acid fast bacilli seen 03/15/18 08:55 Tissue - Abdominal Mycobacterial Culture - Preliminary No growth in 1 week Assessment and Plan - Assessment (1) Sepsis Code(s): A41.9 - Sepsis, unspecified organism Status: Acute (2) Abdominal wall cellulitis Code(s): L03.311 - Cellulitis of abdominal wall Status: Acute (3) Acute renal failure due to tubular necrosis Code(s): N17.0 - Acute kidney failure with tubular necrosis Status: Acute (4) Acidosis, metabolic Code(s): E87.2 - Acidosis Status: Resolved - Plan 67-year-old female sepsis secondary to necrotizing infection of the abdominal wall with abscess. She is status post urgent debridement. Severe sepsis secondary to abdominal wall infection with abscess: -Status post emergent debridement. General surgery following. Plastic surgery following. -Wound care per surgery. Pain control. Continue antibiotics per infectious disease. Daptomycin discontinued. Continue Ancef. Bright red blood per rectum: Resolving Possibly hemorrhoid bleed. Patient never had a colonoscopy -H&H remained stable. GI signed off. Per GI continue to monitor H&H and reconsult for significant drop in H&H. Outpatient follow-up advised for colonoscopy if not done inpatient. Acute renal failure requiring hemodialysis: -Nephrology following. Renal functions much improved. Hemodialysis on hold. Continue Lasix. Left foot cellulitis/lower extremity edema: Improved. Continue antibiotics per ID Continue Lasix Diabetes: -Continue Levemir. Sliding scale insulin with Accu-Cheks Electrolyte abnormalities: -Replace and monitor.
--- NOTE | 2018-03-23 16:50 | P.PNNP ---
Subjective Interval history: Patient sitting comfortably in a chair. Indicating to me that the swelling in the legs has improved since yesterday. Physical Exam Vital signs: Vital Signs 03/22/18 20:00 03/22/18 20:17 03/23/18 00:05 Temperature 97.7 F 97.5 F L Pulse Rate 96 H 105 H 95 H Respiratory Rate 18 20 Blood Pressure 144/69 H 149/64 H Pulse Oximetry 96 97 03/23/18 04:20 03/23/18 08:00 03/23/18 12:00 Temperature 97.5 F L 97.5 F L 97.3 F L Pulse Rate 92 H 88 96 H Respiratory Rate 18 17 16 Blood Pressure 149/75 H 143/70 H 176/74 H Pulse Oximetry 95 98 97 Intake & Output 03/22/18 03/23/18 03/23/18 18:59 06:59 18:59 Intake Total 425 / 425 580 / 580 Output Total 150 / 150 70 / 70 Balance 275 / 275 510 / 510 Weight 155 kg Intake: IV 50 / 50 Ancef 2 GM Premix Inj 2 gm In 50 / 50 50 ml @ 200 mls/hr IV.SIG Q24H ED Rx#:[id number] Oral 375 / 375 580 / 580 Output: Wound Drainage 150 / 150 # 1 Medial Abdomen 150 / 150 Wound Vac Amount 70 / 70 Right Abdomen 70 / 70 Other: Mode Setting Right Abdomen Continuous Continuous Continuous # Voids 6 6 Date of Last Bowel Movement 03/22/18 # Bowel Movements 3 4 Narrative: GENERAL: Morbidly obese female in no acute distress. CARDIOVASCULAR: Normal rate and regular rhythm without murmurs, gallops, or rubs. RESPIRATORY: Good respiratory efforts. Breath sounds equal and clear to auscultation bilaterally. GASTROINTESTINAL: Abdomen is obese, there is a large wound VAC in place on the lower abdomen. MUSCULOSKELETAL: Extremities with 2+ edema.. - Urinary Catheter Management Indwelling Urethral Catheter Cath placed during this visit: yes, but has since been removed by the nurse Urethral indwelling: No Reason for continuing: Decision to DC catheter Insertion date: 03/15/18 Insertion time: 17:00 Removal date: 03/16/18 Removal time: 06:00 Assessment and Plan - Assessment (1) Acute renal failure due to tubular necrosis Code(s): N17.0 - Acute kidney failure with tubular necrosis Status: Acute Plan: Continue IV furosemide. Lower extremity edema is showing some signs of improvement at this point in time and the creatinine level has improved again. If renal indices are stable improved tomorrow will discontinue Vas-Cath. This was discussed with the patient. Medications should be adjusted for the patient's estimated GFR if clinically indicated. Avoid agents with significant potential for nephrotoxicity possible including NSAIDs for analgesia, iodine contrast agents. Gadolinium is contraindicated if the GFR is below 30. (2) Sepsis Code(s): A41.9 - Sepsis, unspecified organism Status: Acute Plan: Clinically improving (3) Cellulitis of left leg Code(s): L03.116 - Cellulitis of left lower limb Status: Acute Plan: Management per infectious disease and surgery. (4) Abdominal wall cellulitis Code(s): L03.311 - Cellulitis of abdominal wall Status: Acute Plan: Status post debridement. Management per surgery and infectious disease.
[2018-03-23] MEDS: ceFAZolin 2 GM Premix Inj 2 GM/50 ML PIGGYBACK IV.SIG SCH (17:00)
[2018-03-24 08:09] LABS: Hematocrit 27.8 % (35.0-46.0); Hemoglobin 9.4 gm/dL (11.6-15.3); Mean Corpuscular HGB Conc 33.7 % (32.0-36.0); Mean Corpuscular Hemoglobin 32.4 pg (27.0-34.0); Mean Corpuscular Volume 96.2 fL (80.0-100.0); Mean Platelet Volume 7.4 fL (7.0-11.0); Platelet Count 364 th/mm3 (150-450); Red Blood Count 2.89 mil/mm3 (4.00-5.30); Red Cell Distribution Width 13.8 % (11.6-17.2); White Blood Count 8.2 th/mm3 (4.0-11.0)
[2018-03-24] MEDS: Insulin NovoLOG Aspart Correctional Sugar Inj SQ SCH ×4 (08:19→22:50)
[2018-03-24 08:29] LABS: Albumin 1.5 g/dL (3.4-5.0); Calcium 6.1 mg/dL (8.5-10.1); Carbon Dioxide 26.9 meq/L (21.0-32.0); Phosphorus 3.1 mg/dL (2.5-4.9); Potassium 3.2 meq/L (3.5-5.1)
[2018-03-24] MEDS: Benzonatate 100 MG Capsule PO PRN ×2 (08:31→14:42)
[2018-03-24] MEDS: Pantoprazole Inj 40 MG Vial IV.PUSH SCH (08:31)
[2018-03-24] MEDS: Insulin Detemir Inj 1,000 UNIT/10 ML Vial SQ SCH (08:31)
[2018-03-24] MEDS: Hydrocortisone Acetate 25 MG Supp RECTAL SCH ×2 (08:31→21:29)
[2018-03-24] MEDS: Nystatin 100,000 UNITS/GM Powder 15 GM Bottle TOPICAL SCH ×4 (08:32→21:29)
[2018-03-24 08:56] LABS: Total Protein 5.5 g/dL (6.4-8.2)
--- NOTE | 2018-03-24 10:38 | P.PNIM ---
Subjective Interval history: Patient reports she is feeling okay today. Urinating well. Physical Exam Vital signs: Vital Signs 03/23/18 12:00 03/23/18 16:00 03/23/18 20:00 Temperature 97.3 F L 97.3 F L Pulse Rate 96 H 100 H 90 Respiratory Rate 16 21 Blood Pressure 176/74 H 152/81 H Pulse Oximetry 97 98 03/23/18 20:46 03/24/18 00:18 03/24/18 04:14 Temperature 97.7 F 97.6 F 97.7 F Pulse Rate 94 H 89 92 H Respiratory Rate 18 18 18 Blood Pressure 147/63 H 133/61 122/56 L Pulse Oximetry 96 96 95 Intake & Output 03/23/18 03/24/18 03/24/18 18:59 06:59 18:59 Intake Total 1125 / 1125 480 / 480 Output Total 650 / 650 101 / 101 Balance 475 / 475 379 / 379 Weight 155 kg Intake: IV 50 / 50 Ancef 2 GM Premix Inj 2 gm In 50 / 50 50 ml @ 200 mls/hr IV.SIG Q24H ED Rx#:[id number] Oral 1075 / 1075 480 / 480 Output: Urine 500 / 500 Stool 1 / 1 Wound Drainage 150 / 150 100 / 100 # 1 Medial Abdomen 150 / 150 100 / 100 Other: Mode Setting Right Abdomen Continuous Continuous # Voids 4 5 Date of Last Bowel Movement 03/23/18 # Bowel Movements 1 Narrative: GENERAL: Morbidly obese female in no acute distress. CARDIOVASCULAR: Normal rate and regular rhythm without murmurs, gallops, or rubs. RESPIRATORY: Good respiratory efforts. Breath sounds equal and clear to auscultation bilaterally. GASTROINTESTINAL: Abdomen is obese, there is a large wound VAC in place on the lower abdomen. MUSCULOSKELETAL: Extremities with 2+ edema. RLE with cellulitis. - Urinary Catheter Management Indwelling Urethral Catheter Cath placed during this visit: yes, but has since been removed by the nurse Urethral indwelling: No Reason for continuing: Decision to DC catheter Insertion date: 03/15/18 Insertion time: 17:00 Removal date: 03/16/18 Removal time: 06:00 Results - Labs CBC & Chem 7: 03/24/18 07:40 03/24/18 07:40 Laboratory Results - last 24 hr 03/23/18 03/23/18 03/23/18 12:05 16:30 20:18 WBC RBC Hgb Hct MCV MCH MCHC RDW Plt Count MPV Sodium Potassium Chloride Carbon Dioxide Anion Gap BUN Creatinine Estimated GFR POC Glucose 120 H 142 H 131 H Random Glucose Calcium Prot Corrected Calcium Phosphorus Magnesium Total Protein Albumin 03/24/18 03/24/18 03/24/18 07:40 07:40 07:40 WBC 8.2 RBC 2.89 L Hgb 9.4 L Hct 27.8 L MCV 96.2 MCH 32.4 MCHC 33.7 RDW 13.8 Plt Count 364 MPV 7.4 Sodium 145 Potassium 3.2 L Chloride 109 H Carbon Dioxide 26.9 Anion Gap 9 BUN 20 H Creatinine 1.27 H Estimated GFR 42 L POC Glucose Random Glucose 93 Calcium 6.1 L* D Prot Corrected Calcium 6.8 L* Phosphorus 3.1 Magnesium 1.4 L Total Protein 5.5 L D Albumin 1.5 L 03/24/18 07:51 WBC RBC Hgb Hct MCV MCH MCHC RDW Plt Count MPV Sodium Potassium Chloride Carbon Dioxide Anion Gap BUN Creatinine Estimated GFR POC Glucose 131 H Random Glucose Calcium Prot Corrected Calcium Phosphorus Magnesium Total Protein Albumin Assessment and Plan - Assessment (1) Sepsis Code(s): A41.9 - Sepsis, unspecified organism Status: Acute (2) Abdominal wall cellulitis Code(s): L03.311 - Cellulitis of abdominal wall Status: Acute (3) Acute renal failure due to tubular necrosis Code(s): N17.0 - Acute kidney failure with tubular necrosis Status: Acute (4) Acidosis, metabolic Code(s): E87.2 - Acidosis Status: Resolved - Plan 67-year-old female sepsis secondary to necrotizing infection of the abdominal wall with abscess. She is status post urgent debridement. Severe sepsis secondary to abdominal wall infection with abscess: -Status post emergent debridement. General surgery following. Plastic surgery following. -Wound care per surgery. Pain control. Continue antibiotics per infectious disease. Daptomycin discontinued. Continue Ancef. Bright red blood per rectum: Resolving Possibly hemorrhoid bleed. Patient never had a colonoscopy -H&H remained stable. GI signed off. Per GI continue to monitor H&H and reconsult for significant drop in H&H. Outpatient follow-up advised for colonoscopy if not done inpatient. Acute renal failure requiring hemodialysis: -Nephrology following. Renal functions much improved. Hemodialysis on hold. Continue Lasix. -Renal functions recovering. Left foot cellulitis/lower extremity edema: Improved. Continue antibiotics per ID Continue Lasix Diabetes: -Continue Levemir. Sliding scale insulin with Accu-Cheks -Check hemoglobin A1c. Diabetic education. Consult dietitian. Electrolyte abnormalities: -Replace and monitor.
[2018-03-24] MEDS ORDERED: SODIUM CHLOR 0.9% IV.SIG ONE (11:00)
[2018-03-24] MEDS ORDERED: CALCIUM CHLORIDE IV.SIG ONE (11:00)
[2018-03-24] MEDS: Calcium Carbonate 500 MG Tablet PO SCH ×2 (11:33→21:26)
[2018-03-24] MEDS: Mag Sulf 1 gm/100 ml Premix 100 ML IV.SIG SCH ×2 (12:09→13:55)
[2018-03-24] MEDS: HYDROmorphone PF Inj 2 MG/ML Vial IV.PUSH PRN (12:11)
--- NOTE | 2018-03-24 12:34 | P.PNID ---
Subjective Remarks: Patient notes some unusual feeling in her lateral thighs. States that it is a little numb. Unable describe accurately. Sitting up in Urine output improved Afebrile. No fever or chills. This is a 67-year-old white female who was admitted to the hospital yesterday. The patient developed redness of her right foot 5 days ago. She also notes that she had bouts of diarrhea for a couple of days prior to that. The diarrhea continued for 5 days and then stopped. She went to see her primary physician and she notes that they sent her to the emergency department because she appeared pale. She notes that she had a tiny lump on her right abdominal wall underneath the fold of skin. She has obese abdomen with large amount of pannus. She was evaluated in the ED and was noted to have elevated white blood cell count of 35.9 and she had lactic acid level of 3.5. She also had acute kidney disease with creatinine of 3.51. The patient was admitted and eventually taken to surgery for an abdominal wall debridement. She was noted to have necrotic skin at the right lower abdomen. Past Medical History: PAST MEDICAL HISTORY: Hypertension, history of cervical discectomy and allograft bone fusion in 10/2013, bacteremia due to methicillin-sensitive Staphylococcus aureus in 10/2013. Allergies/Adverse Reactions: Allergies No Known Allergies Allergy (Unverified 03/14/18 16:15) Objective Vital Signs 03/23/18 16:00 03/23/18 20:00 03/23/18 20:46 Temperature 97.3 F L 97.7 F Pulse Rate 100 H 90 94 H Respiratory Rate 21 18 Blood Pressure 152/81 H 147/63 H Pulse Oximetry 98 96 03/24/18 00:18 03/24/18 04:14 Temperature 97.6 F 97.7 F Pulse Rate 89 92 H Respiratory Rate 18 18 Blood Pressure 133/61 122/56 L Pulse Oximetry 96 95 Intake & Output 03/23/18 03/24/18 03/24/18 18:59 06:59 18:59 Intake Total 1125 / 1125 480 / 480 Output Total 650 / 650 101 / 101 Balance 475 / 475 379 / 379 Weight 155 kg Intake: IV 50 / 50 Ancef 2 GM Premix Inj 2 gm In 50 / 50 50 ml @ 200 mls/hr IV.SIG Q24H ED Rx#:[id number] Oral 1075 / 1075 480 / 480 Output: Urine 500 / 500 Stool 1 Wound Drainage 150 / 150 100 / 100 # 1 Medial Abdomen 150 / 150 100 / 100 Other: Mode Setting Right Abdomen Continuous Continuous # Voids 4 5 Date of Last Bowel Movement 03/23/18 # Bowel Movements 1 03/15/18 08:55 Tissue - Abdominal Fungal Smear - Final No fungal elements seen 03/15/18 08:55 Tissue - Abdominal Fungal Culture - Preliminary No growth in 1 week 03/15/18 08:55 Tissue - Abdominal Acid Fast Bacilli Smear - Final No acid fast bacilli seen 03/15/18 08:55 Tissue - Abdominal Mycobacterial Culture - Preliminary No growth in 1 week Lab - Hematology Results 03/23/18 03/24/18 06:00 07:40 WBC 7.6 8.2 RBC 2.73 L 2.89 L Hgb 9.0 L 9.4 L Hct 26.4 L 27.8 L MCV 96.7 96.2 MCH 32.9 32.4 MCHC 34.1 33.7 RDW 13.7 13.8 Plt Count 319 364 MPV 7.4 7.4 Lab - Chemistry Results 03/22/18 03/22/18 03/23/18 16:58 20:48 06:00 Sodium 141 Potassium 3.9 Chloride 103 Carbon Dioxide 31.7 Anion Gap 6 BUN 23 H Creatinine 1.75 H Estimated GFR 29 L POC Glucose 109 142 H Random Glucose 145 H Calcium 7.5 L Prot Corrected Calcium Phosphorus Magnesium Total Protein Albumin 03/23/18 03/23/18 03/23/18 07:55 12:05 16:30 Sodium Potassium Chloride Carbon Dioxide Anion Gap BUN Creatinine Estimated GFR POC Glucose 147 H 120 H 142 H Random Glucose Calcium Prot Corrected Calcium Phosphorus Magnesium Total Protein Albumin 03/23/18 03/24/18 03/24/18 20:18 07:40 07:40 Sodium 145 Potassium 3.2 L Chloride 109 H Carbon Dioxide 26.9 Anion Gap 9 BUN 20 H Creatinine 1.27 H Estimated GFR 42 L POC Glucose 131 H Random Glucose 93 Calcium 6.1 L* D Prot Corrected Calcium 6.8 L* Phosphorus 3.1 Magnesium 1.4 L Total Protein 5.5 L D Albumin 1.5 L 03/24/18 03/24/18 07:51 12:22 Sodium Potassium Chloride Carbon Dioxide Anion Gap BUN Creatinine Estimated GFR POC Glucose 131 H 115 H Random Glucose Calcium Prot Corrected Calcium Phosphorus Magnesium Total Protein Albumin Imaging: ITS Impressions Abdomen/Pelvis CT 03/14/18 16:22 CONCLUSION: 1. No acute intra-abdominal abnormality seen. 2. Edema seen throughout the subcutaneous fat at the anterior abdominal wall. This should be correlated with any inflammatory process in this region. No focal fluid collection to suggest an abscess is seen. Abdomen/Bladder Ultrasound 03/17/18 16:09 CONCLUSION: 1. Limited examination without gross abnormality in the left kidney. 2. Right kidney and urinary bladder not visualized. Chest X-Ray 03/18/18 00:00 CONCLUSION: No acute cardiopulmonary disease. Physical Exam: GENERAL: No acute distress. Awake and alert and oriented. HEENT: EOMI,VICENTE. No icterus. Poor dentition. NECK: Supple without adenopathy. LUNGS: Decreased breath sounds. HEART: Regular S1, S2. No murmurs, rubs or gallops. ABDOMEN: Bowel sounds present, obese, soft. Vacuum device is present at the anterior abdominal wall on the right side and down to the groin fold on the right where the patient has excessive tissue. No erythema at the skin around the vacuum sponge. EXTREMITIES: The left foot erythema is decreased. Still has edema of the legs and thighs. The skin at both lateral thighs appears intact and has no erythema or discoloration. Sensation is intact over the thighs. SKIN: No diffuse rash. NEUROLOGIC: No gross focal findings. PSYCHIATRIC: Calm and cooperative. Assessment and Plan - Plan IMPRESSION: 1. Necrotic cellulitis of the abdominal wall. 2. Sepsis. Improved. 3. Left foot cellulitis. Continues to improve. 4. Acute kidney disease. Slowly improving. 5. Leukocytosis. WBC is improved. The one positive blood culture bottle with coag negative staph identified as staph auricularis which I think is contamination. RECOMMENDATIONS: 1. Continue Cefazolin changed to 2 g IV every 12 hours because of renal function is improving. 2. Monitor renal function. 3. Monitor clinical status.
--- NOTE | 2018-03-24 13:03 | P.PNNP ---
Subjective Interval history: Pt having wound dressed during exam States she is feeling better, however, legs feeling heavy with fluid. <Sherry Vasquez R - Last Filed: 03/24/18 13:00> Physical Exam Vital signs: Vital Signs 03/23/18 16:00 03/23/18 20:00 03/23/18 20:46 Temperature 97.3 F L 97.7 F Pulse Rate 100 H 90 94 H Respiratory Rate 21 18 Blood Pressure 152/81 H 147/63 H Pulse Oximetry 98 96 03/24/18 00:18 03/24/18 04:14 03/24/18 12:55 Temperature 97.6 F 97.7 F Pulse Rate 89 92 H Respiratory Rate 18 18 16 Blood Pressure 133/61 122/56 L Pulse Oximetry 96 95 Intake & Output 03/23/18 03/24/18 03/24/18 18:59 06:59 18:59 Intake Total 1125 / 1125 480 / 480 Output Total 650 / 650 101 / 101 Balance 475 / 475 379 / 379 Weight 155 kg Intake: IV 50 / 50 Ancef 2 GM Premix Inj 2 gm In 50 / 50 50 ml @ 200 mls/hr IV.SIG Q24H ED Rx#:[id number] Oral 1075 / 1075 480 / 480 Output: Urine 500 / 500 Stool 1 / 1 Wound Drainage 150 / 150 100 / 100 # 1 Medial Abdomen 150 / 150 100 / 100 Other: Mode Setting Right Abdomen Continuous Continuous # Voids 4 5 Date of Last Bowel Movement 03/23/18 # Bowel Movements 1 - Constitutional no acute distress - Routine Neck Exam Present: supple - Routine Respiratory Exam Present: CTA bilaterally - Routine Cardiovascular Exam Present: RRR, S1, S2 - Routine Extremities Exam Present: edema (2-3+ pitting edema bilat LEs to hips) - Routine Neurological Exam Present: alert, oriented X3 - Routine Psychiatric Exam Present: normal affect, normal thought process - Urinary Catheter Management Indwelling Urethral Catheter Cath placed during this visit: yes, but has since been removed by the nurse Urethral indwelling: No Reason for continuing: Decision to DC catheter Insertion date: 03/15/18 Insertion time: 17:00 Removal date: 03/16/18 Removal time: 06:00 <Sherry Vasquez - Last Filed: 03/24/18 13:00> Vital signs: Vital Signs 03/24/18 12:55 03/24/18 16:00 03/24/18 19:43 Temperature 97.7 F Pulse Rate 86 94 H Respiratory Rate 16 18 Blood Pressure 142/64 H Pulse Oximetry 99 03/24/18 20:00 03/25/18 00:00 03/25/18 00:06 Temperature 98.3 F 98.1 F Pulse Rate 95 H 81 86 Respiratory Rate 19 19 Blood Pressure 146/65 H 136/67 Pulse Oximetry 98 98 03/25/18 04:00 03/25/18 08:00 Temperature 98.6 F 97.7 F Pulse Rate 76 86 Respiratory Rate 19 18 Blood Pressure 128/67 136/65 Pulse Oximetry 98 99 Intake & Output 03/24/18 03/25/18 03/25/18 18:59 06:59 18:59 Intake Total 1070 / 1070 530 / 530 Output Total 50 / 50 Balance 1070 / 1070 480 / 480 Intake: IV 350 / 350 50 / 50 Calcium Chloride Inj 0.35 GM In 100 / 100 NS Inj 90 ML @ 100 mls/hr IV. SIG ONCE ONE Rx#:[id number] Magnesium Sulfate 1 gm/D5W 100 200 / 200 ml Premix 100 ML @ 100 mls/hr IV.SIG Q1H ED Rx#:[id number] Ancef 2 GM Premix Inj 2 gm In 50 / 50 50 / 50 50 ml @ 200 mls/hr IV.SIG Q12H ED Rx#:[id number] Oral 720 / 720 480 / 480 Output: Wound Drainage 0 / 0 # 1 Medial Abdomen 0 / 0 Wound Vac Amount 50 / 50 Right Abdomen 50 / 50 Other: Mode Setting Right Abdomen Continuous Continuous Continuous # Voids 5 Date of Last Bowel Movement 03/24/18 03/24/18 03/25/18 # Bowel Movements 1 1 - Urinary Catheter Management Indwelling Urethral Catheter Cath placed during this visit: no <Chandana Olvera - Last Filed: 03/25/18 12:10> Assessment and Plan - Assessment (1) Acute renal failure due to tubular necrosis Code(s): N17.0 - Acute kidney failure with tubular necrosis Status: Acute Plan: Continue parenteral diuretics. Renal functions improved. Will order for VasCath to be removed. KCl repletion as ordered Calcium supplement ordered. Encouraged continued efforts at increasing protein Medications should be adjusted for the patient's estimated GFR if clinically indicated. Avoid agents with significant potential for nephrotoxicity possible including NSAIDs for analgesia, iodine contrast agents. Gadolinium is contraindicated if the GFR is below 30. (2) Cellulitis of left leg Code(s): L03.116 - Cellulitis of left lower limb Status: Acute Plan: Management per infectious disease and surgery. (3) Abdominal wall cellulitis Code(s): L03.311 - Cellulitis of abdominal wall Status: Acute Plan: Status post debridement. Management per surgery and infectious disease. <Sherry Vasquez - Last Filed: 03/24/18 13:00> - Assessment (1) Acute renal failure due to tubular necrosis Code(s): N17.0 - Acute kidney failure with tubular necrosis Status: Acute (2) Cellulitis of left leg Code(s): L03.116 - Cellulitis of left lower limb Status: Acute (3) Abdominal wall cellulitis Code(s): L03.311 - Cellulitis of abdominal wall Status: Acute - Attending Attestation The exam, history, and the medical decision-making described in the above note were completed with the assistance of the JONATHAN. I reviewed and agree with the findings presented. <Chandana Olvera - Last Filed: 03/25/18 12:10>
--- NOTE | 2018-03-24 13:46 | P.PNWCN ---
Wound Care Nurse Consult Description: Received wound VAC management consult from CALIXTO Tejada for M-W-F VAC changes starting SaturdayMarch 21 Recommendation: Please reinforce dressing with stoma paste and VAC drape for leak. Wound care nurse will change on Saturday. Wound/Pressure Injury - Patient Status Premedicated for Pain Prior to Dressing Change: Yes - Wound Right Abdomen Wound Assessment: Ongoing Wound Type: Abscess Is This a Chronic Wound: No Requested from Provider a Wound Care Consult: No Length: 15 (~15cm) Width: 29 (~29cm) Depth: 11 (~11cm) Wound Bed Appearance: [place], Red, Tunneling/Undermining, Yellow Wound Bed Appearance: Wound bed presents with ~50% red non granulation tissue, and ~50% adipose tissue. Tunneling is noted at 10 o'clock with small pocket located in center of wound next to tunneling. Surrounding Tissue Appearance: [place] (unremarkable periwound) Surrounding Tissue Temperature: Warm Drainage Description: Serosanguinous Drainage Amount: Moderate Drainage Odor: No Odor Dressing Status: Dry & Intact, Changed Cleansing Solution: Saline Wound Packing Type: Woundvac Sponge Primary Dressing: Pressure Dressing Cover Dressing: Transparent Wound Dressing Change Date: 03/24/18 Wound Margin Description: Wound margins are uneven and steep Wound Vac - Wound Vac Right Abdomen Pressure Setting (mmHg): 125 Mode Setting: Continuous Drainage Description: Serosanguinous Foam type: Black, White - Additional Information Patient seen on for wound VAC dressing change by proposal manager writer and Mago DUNBAR .1 piece small white foam and 3 pieces of black GranuFoam removed intact .Wound to abdomen was cleansed with normal saline and patted dry. one piece White foam was then applied to tunneled area and small pocket noted above. Applied skin barrier film to periwound and allowed to dry, Applied One medium piece of GranuFoam foam cut in spiral fashion and one large piece of GranuFoam to wound bed. Secured with VAC drape. Three pieces of GranuFoam in total were applied to wound bed. Secured with VAC drape. Applied VAC drape and Cut half dollar size hole in VAC drape exposing black GranuFoam. Applied Sensi trac pad to exposed half dollar size black GranuFoam. Wound VAC is suctioning at 125 mm/ Hg continuous suction.Patient tolerated wound vac change well. Incision - Patient Status Premedicated for Pain Prior to Dressing Change: No - Incision Abdomen Incision Assessment: Ongoing Incision Type: Incision Incision Description: Approximated Incision Bed Appearance: Edematous Surrounding Tissue Temperature: Warm Drainage Description: Serosanguinous Drainage Amount: None Incision Dressing Status: Dry & Intact Incision Packing Type: Woundvac Sponge Primary Dressing: WOUND VAC,BLACK SPONGE Cover Dressing: Transparent Incision/Surgery Date: 03/15/18 Lower Abdomen Incision Assessment: Ongoing Incision Type: Incision Incision Description: Open Surrounding Tissue Temperature: Warm Drainage Description: Serosanguinous Drainage Amount: Moderate Drainage Odor: No Odor Incision Dressing Status: Dry & Intact Incision Packing Type: Woundvac Sponge Primary Dressing: Negative Pressure Wound Dressing Cover Dressing: Transparent Other Cover Dressing: WoundVac Incision Dressing Change Date: 03/21/18
[2018-03-24 16:13] LABS: Hemoglobin A1c 6.6 % (4.3-6.0)
[2018-03-24] MEDS: ceFAZolin 2 GM Premix Inj 2 GM/50 ML PIGGYBACK IV.SIG SCH (18:08)
[2018-03-25] MEDS: ceFAZolin 2 GM Premix Inj 2 GM/50 ML PIGGYBACK IV.SIG SCH ×2 (05:05→16:46)
[2018-03-25 06:18] LABS: Baso # (Auto) 0.1 th/mm3 (0.0-0.2); Baso % (Auto) 1.1 % (0.0-2.0); Eos # (Auto) 0.1 th/mm3 (0.0-0.4); Eos % (Auto) 1.2 % (0.0-4.0); Hematocrit 26.1 % (35.0-46.0); Lymph # (Auto) 1.7 th/mm3 (1.0-4.8); Lymph % (Auto) 18.7 % (9.0-44.0); Mean Corpuscular HGB Conc 34.5 % (32.0-36.0); Mean Corpuscular Hemoglobin 33.3 pg (27.0-34.0); Mean Corpuscular Volume 96.4 fL (80.0-100.0); Mean Platelet Volume 7.4 fL (7.0-11.0); Mono # (Auto) 0.7 th/mm3 (0.0-0.9); Mono % (Auto) 8.2 % (0.0-8.0); Neut # (Auto) 6.4 th/mm3 (1.8-7.7); Neut % (Auto) 70.8 % (16.0-70.0); Platelet Count 355 th/mm3 (150-450); Red Blood Count 2.71 mil/mm3 (4.00-5.30); Red Cell Distribution Width 13.7 % (11.6-17.2)
[2018-03-25 06:48] LABS: Carbon Dioxide 33.2 meq/L (21.0-32.0); Magnesium 1.7 mg/dL (1.5-2.5); Phosphorus 4.1 mg/dL (2.5-4.9)
[2018-03-25] MEDS: Insulin NovoLOG Aspart Correctional Sugar Inj SQ SCH ×4 (07:59→22:47)
[2018-03-25] MEDS: Pantoprazole Inj 40 MG Vial IV.PUSH SCH (08:11)
[2018-03-25] MEDS: Nystatin 100,000 UNITS/GM Powder 15 GM Bottle TOPICAL SCH ×4 (08:11→22:48)
[2018-03-25] MEDS: Calcium Carbonate 500 MG Tablet PO SCH ×2 (08:11→22:47)
[2018-03-25] MEDS: Insulin Detemir Inj 1,000 UNIT/10 ML Vial SQ SCH (08:12)
[2018-03-25] MEDS: Hydrocortisone Acetate 25 MG Supp RECTAL SCH ×2 (09:52→22:42)
--- NOTE | 2018-03-25 12:15 | P.PNNP ---
Subjective Interval history: Patient still complaining of lower extremity edema. Otherwise no verbal complaints. Physical Exam Vital signs: Vital Signs 03/24/18 12:55 03/24/18 16:00 03/24/18 19:43 Temperature 97.7 F Pulse Rate 86 94 H Respiratory Rate 16 18 Blood Pressure 142/64 H Pulse Oximetry 99 03/24/18 20:00 03/25/18 00:00 03/25/18 00:06 Temperature 98.3 F 98.1 F Pulse Rate 95 H 81 86 Respiratory Rate 19 19 Blood Pressure 146/65 H 136/67 Pulse Oximetry 98 98 03/25/18 04:00 03/25/18 08:00 03/25/18 12:00 Temperature 98.6 F 97.7 F 97.7 F Pulse Rate 76 86 85 Respiratory Rate 19 18 18 Blood Pressure 128/67 136/65 143/73 H Pulse Oximetry 98 99 98 Intake & Output 03/24/18 03/25/18 03/25/18 18:59 06:59 18:59 Intake Total 1070 / 1070 530 / 530 Output Total 50 / 50 Balance 1070 / 1070 480 / 480 Intake: IV 350 / 350 50 / 50 Calcium Chloride Inj 0.35 GM In 100 / 100 NS Inj 90 ML @ 100 mls/hr IV. SIG ONCE ONE Rx#:[id number] Magnesium Sulfate 1 gm/D5W 100 200 / 200 ml Premix 100 ML @ 100 mls/hr IV.SIG Q1H [facility] Rx#:[id number] Ancef 2 GM Premix Inj 2 gm In 50 / 50 50 / 50 50 ml @ 200 mls/hr IV.SIG Q12H [facility] Rx#:[id number] Oral 720 / 720 480 / 480 Output: Wound Drainage 0 / 0 # 1 Medial Abdomen 0 / 0 Wound Vac Amount 50 / 50 Right Abdomen 50 / 50 Other: Mode Setting Right Abdomen Continuous Continuous Continuous # Voids 5 Date of Last Bowel Movement 03/24/18 03/24/18 03/25/18 # Bowel Movements 1 1 Narrative: GENERAL: Patient sitting in a chair not in respiratory distress. SKIN: Warm and dry. HEAD: Normocephalic. EYES: No scleral icterus. No injection or drainage. NECK: Supple, trachea midline. No JVD or lymphadenopathy. CARDIOVASCULAR: Regular rate and rhythm without murmurs, gallops, or rubs. RESPIRATORY: Breath sounds equal bilaterally. No accessory muscle use. GASTROINTESTINAL: Abdomen soft, non-tender, nondistended. MUSCULOSKELETAL: No cyanosis, 2+ pitting edema legs. Lymphedema thighs. Nonpitting. BACK: Nontender without obvious deformity. No CVA tenderness. - Urinary Catheter Management Indwelling Urethral Catheter Cath placed during this visit: yes, but has since been removed by the nurse Urethral indwelling: No Reason for continuing: Decision to DC catheter Insertion date: 03/15/18 Insertion time: 17:00 Removal date: 03/16/18 Removal time: 06:00 Assessment and Plan - Assessment (1) Acute renal failure due to tubular necrosis Code(s): N17.0 - Acute kidney failure with tubular necrosis Status: Acute Plan: Lower extremity edema significantly improved. Patient's creatinine level deteriorated somewhat today. Will change to p.o. diuretics at this point. Repeat renal panel in a.m. Medications should be adjusted for the patient's estimated GFR if clinically indicated. Avoid agents with significant potential for nephrotoxicity possible including NSAIDs for analgesia, iodine contrast agents. Gadolinium is contraindicated if the GFR is below 30. (2) Cellulitis of left leg Code(s): L03.116 - Cellulitis of left lower limb Status: Acute Plan: Management per infectious disease and surgery. (3) Abdominal wall cellulitis Code(s): L03.311 - Cellulitis of abdominal wall Status: Acute Plan: Status post debridement. Management per surgery and infectious disease.
[2018-03-25] MEDS: Benzonatate 100 MG Capsule PO PRN ×2 (13:48→22:43)
--- NOTE | 2018-03-25 14:15 | P.PNIM ---
Subjective Interval history: Patient reports she is feeling okay. She reports much improvement in bilateral lower extremity edema. Renal function slightly declined. Urinary output is good. Physical Exam Vital signs: Vital Signs 03/24/18 16:00 03/24/18 19:43 03/24/18 20:00 Temperature 97.7 F 98.3 F Pulse Rate 86 94 H 95 H Respiratory Rate 18 19 Blood Pressure 142/64 H 146/65 H Pulse Oximetry 99 98 03/25/18 00:00 03/25/18 00:06 03/25/18 04:00 Temperature 98.1 F 98.6 F Pulse Rate 81 86 76 Respiratory Rate 19 19 Blood Pressure 136/67 128/67 Pulse Oximetry 98 98 03/25/18 08:00 03/25/18 12:00 Temperature 97.7 F 97.7 F Pulse Rate 86 85 Respiratory Rate 18 18 Blood Pressure 136/65 143/73 H Pulse Oximetry 99 98 Intake & Output 03/24/18 03/25/18 03/25/18 18:59 06:59 18:59 Intake Total 1070 / 1070 530 / 530 Output Total 50 / 50 Balance 1070 / 1070 480 / 480 Intake: IV 350 / 350 50 / 50 Calcium Chloride Inj 0.35 GM In 100 / 100 NS Inj 90 ML @ 100 mls/hr IV. SIG ONCE ONE Rx#:[id number] Magnesium Sulfate 1 gm/D5W 100 200 / 200 ml Premix 100 ML @ 100 mls/hr IV.SIG Q1H [facility] Rx#:[id number] Ancef 2 GM Premix Inj 2 gm In 50 / 50 50 / 50 50 ml @ 200 mls/hr IV.SIG Q12H [facility] Rx#:[id number] Oral 720 / 720 480 / 480 Output: Wound Drainage 0 / 0 # 1 Medial Abdomen 0 / 0 Wound Vac Amount 50 / 50 Right Abdomen 50 / 50 Other: Mode Setting Right Abdomen Continuous Continuous Continuous # Voids 5 Date of Last Bowel Movement 03/24/18 03/24/18 03/25/18 # Bowel Movements 1 1 Narrative: GENERAL: Morbidly obese female in no acute distress. CARDIOVASCULAR: Normal rate and regular rhythm without murmurs, gallops, or rubs. RESPIRATORY: Good respiratory efforts. Breath sounds equal and clear to auscultation bilaterally. GASTROINTESTINAL: Abdomen is obese, there is a large wound VAC in place on the lower abdomen. MUSCULOSKELETAL: Extremities with 2+ edema. Resolving cellulitis. - Urinary Catheter Management Indwelling Urethral Catheter Cath placed during this visit: yes, but has since been removed by the nurse Urethral indwelling: No Reason for continuing: Decision to DC catheter Insertion date: 03/15/18 Insertion time: 17:00 Removal date: 03/16/18 Removal time: 06:00 Results - Labs CBC & Chem 7: 03/25/18 06:00 03/25/18 06:00 Laboratory Results - last 24 hr 03/24/18 03/24/18 03/24/18 07:40 17:13 21:30 WBC RBC Hgb Hct MCV MCH MCHC RDW Plt Count MPV Neut % (Auto) Lymph % (Auto) [place] % (Auto) Eos % (Auto) Baso % (Auto) Neut # (Auto) Lymph # (Auto) [place] # (Auto) Eos # (Auto) Baso # (Auto) WBC Differential Differential Comment Sodium Potassium Chloride Carbon Dioxide Anion Gap BUN Creatinine Estimated GFR POC Glucose 119 H 135 H Random Glucose Hemoglobin A1c 6.6 H Calcium Phosphorus Magnesium Albumin 03/25/18 03/25/18 03/25/18 06:00 06:00 07:33 WBC 9.0 RBC 2.71 L Hgb 9.0 L Hct 26.1 L MCV 96.4 MCH 33.3 MCHC 34.5 RDW 13.7 Plt Count 355 MPV 7.4 Neut % (Auto) 70.8 H Lymph % (Auto) 18.7 Bates % (Auto) 8.2 H Eos % (Auto) 1.2 Baso % (Auto) 1.1 Neut # (Auto) 6.4 Lymph # (Auto) 1.7 Bates # (Auto) 0.7 Eos # (Auto) 0.1 Baso # (Auto) 0.1 WBC Differential . Differential Comment Auto diff final Sodium 139 Potassium 4.0 D Chloride 98 D Carbon Dioxide 33.2 H Anion Gap 8 BUN 24 H Creatinine 1.67 H Estimated GFR 31 L POC Glucose 123 H Random Glucose 120 H Hemoglobin A1c Calcium 8.0 L D Phosphorus 4.1 D Magnesium 1.7 Albumin 2.0 L 03/25/18 12:15 WBC RBC Hgb Hct MCV MCH MCHC RDW Plt Count MPV Neut % (Auto) Lymph % (Auto) [place] % (Auto) Eos % (Auto) Baso % (Auto) Neut # (Auto) Lymph # (Auto) Bates # (Auto) Eos # (Auto) Baso # (Auto) WBC Differential Differential Comment Sodium Potassium Chloride Carbon Dioxide Anion Gap BUN Creatinine Estimated GFR POC Glucose 110 Random Glucose Hemoglobin A1c Calcium Phosphorus Magnesium Albumin Assessment and Plan - Assessment (1) Sepsis Code(s): A41.9 - Sepsis, unspecified organism Status: Acute (2) Abdominal wall cellulitis Code(s): L03.311 - Cellulitis of abdominal wall Status: Acute (3) Acute renal failure due to tubular necrosis Code(s): N17.0 - Acute kidney failure with tubular necrosis Status: Acute (4) Acidosis, metabolic Code(s): E87.2 - Acidosis Status: Resolved - Plan 67-year-old female sepsis secondary to necrotizing infection of the abdominal wall with abscess. She is status post urgent debridement. Patient has a large abdominal wound VAC in place. Severe sepsis secondary to abdominal wall infection with abscess: -Status post emergent debridement. General surgery following. Plastic surgery following. -Wound care per surgery. Pain control. Continue antibiotics per infectious disease. Daptomycin discontinued. Continue Ancef. Bright red blood per rectum: Resolving Possibly hemorrhoid bleed. -H&H remained stable. GI signed off. Per GI continue to monitor H&H and reconsult for significant drop in H&H. Outpatient follow-up advised for colonoscopy if not done inpatient. Acute renal failure requiring hemodialysis: -Nephrology following. Renal functions have been steadily improving until today. -Renal functions recovering. -Lasix changed to role per nephrology. Continue to monitor. Avoid nephrotoxins. Left foot cellulitis/lower extremity edema: Improved. Continue antibiotics per ID Continue Lasix Diabetes: -Continue Levemir. Sliding scale insulin with Accu-Cheks -Hemoglobin A1c of 6.6. Diabetic education. Consult dietitian. Electrolyte abnormalities: -Replace and monitor. Discharge Planning: Will need SNF when ready.
[2018-03-25] MEDS: Furosemide 40 MG Tablet PO SCH (17:00)
[2018-03-26] MEDS: ceFAZolin 2 GM Premix Inj 2 GM/50 ML PIGGYBACK IV.SIG SCH ×2 (05:33→18:12)
[2018-03-26] MEDS: Benzonatate 100 MG Capsule PO PRN (05:53)
[2018-03-26 06:27] LABS: Hematocrit 26.9 % (35.0-46.0); Hemoglobin 9.2 gm/dL (11.6-15.3); Mean Corpuscular HGB Conc 34.1 % (32.0-36.0); Mean Corpuscular Volume 96.9 fL (80.0-100.0); Mean Platelet Volume 7.5 fL (7.0-11.0); Platelet Count 362 th/mm3 (150-450); Red Blood Count 2.78 mil/mm3 (4.00-5.30); Red Cell Distribution Width 14.1 % (11.6-17.2); White Blood Count 8.9 th/mm3 (4.0-11.0)
[2018-03-26 06:46] LABS: Calcium 7.7 mg/dL (8.5-10.1); Carbon Dioxide 34.2 meq/L (21.0-32.0)
[2018-03-26] MEDS: Insulin NovoLOG Aspart Correctional Sugar Inj SQ SCH ×4 (08:55→20:45)
--- NOTE | 2018-03-26 10:48 | P.PNIM ---
Subjective Interval history: Patient complaint of nagging dry cough. No other issues. Physical Exam Vital signs: Vital Signs 03/25/18 12:00 03/25/18 16:00 03/25/18 20:00 Temperature 97.7 F 97.9 F 98 F Pulse Rate 85 90 96 H Respiratory Rate 18 18 18 Blood Pressure 143/73 H 138/66 174/71 H Pulse Oximetry 98 99 99 03/26/18 00:00 03/26/18 04:00 03/26/18 08:00 Temperature 97.7 F 97.8 F 97.7 F Pulse Rate 99 H 92 H 86 Respiratory Rate 18 18 19 Blood Pressure 175/76 H 136/63 122/58 L Pulse Oximetry 99 96 95 Intake & Output 03/25/18 03/26/18 03/26/18 18:59 06:59 18:59 Intake Total 770 / 770 290 / 290 Output Total 100 / 100 Balance 670 / 670 290 / 290 Intake: IV 50 / 50 50 / 50 Ancef 2 GM Premix Inj 2 gm In 50 / 50 50 / 50 50 ml @ 200 mls/hr IV.SIG Q12H [facility] Rx#:[id number] Oral 720 / 720 240 / 240 Output: Wound Vac Amount 100 / 100 Right Abdomen 100 / 100 Other: Mode Setting Right Abdomen Continuous Continuous # Voids 5 5 Date of Last Bowel Movement 03/25/18 03/25/18 # Bowel Movements 1 Narrative: GENERAL: Morbidly obese female in no acute distress. CARDIOVASCULAR: Normal rate and regular rhythm without murmurs, gallops, or rubs. RESPIRATORY: Good respiratory efforts. Breath sounds equal and clear to auscultation bilaterally. GASTROINTESTINAL: Abdomen is obese, there is a large wound VAC in place on the lower abdomen. MUSCULOSKELETAL: Extremities with 2+ edema. Resolving cellulitis. - Urinary Catheter Management Indwelling Urethral Catheter Cath placed during this visit: yes, but has since been removed by the nurse Urethral indwelling: No Reason for continuing: Decision to DC catheter Insertion date: 03/15/18 Insertion time: 17:00 Removal date: 03/16/18 Removal time: 06:00 Results - Labs CBC & Chem 7: 03/26/18 06:00 03/26/18 06:00 Laboratory Results - last 24 hr 03/25/18 03/25/18 03/25/18 12:15 16:55 22:39 WBC RBC Hgb Hct MCV MCH MCHC RDW Plt Count MPV Sodium Potassium Chloride Carbon Dioxide Anion Gap BUN Creatinine Estimated GFR POC Glucose 110 143 H 190 H Random Glucose Calcium 03/26/18 03/26/18 03/26/18 06:00 06:00 08:53 WBC 8.9 RBC 2.78 L Hgb 9.2 L Hct 26.9 L MCV 96.9 MCH 33.0 MCHC 34.1 RDW 14.1 Plt Count 362 MPV 7.5 Sodium 138 Potassium 4.0 Chloride 98 Carbon Dioxide 34.2 H Anion Gap 6 BUN 25 H Creatinine 1.61 H Estimated GFR 32 L POC Glucose 145 H Random Glucose 140 H Calcium 7.7 L Assessment and Plan - Assessment (1) Sepsis Code(s): A41.9 - Sepsis, unspecified organism Status: Acute (2) Abdominal wall cellulitis Code(s): L03.311 - Cellulitis of abdominal wall Status: Acute (3) Acute renal failure due to tubular necrosis Code(s): N17.0 - Acute kidney failure with tubular necrosis Status: Acute (4) Acidosis, metabolic Code(s): E87.2 - Acidosis Status: Resolved - Plan 67-year-old female sepsis secondary to necrotizing infection of the abdominal wall with abscess. She is status post urgent debridement. Patient has a large abdominal wound VAC in place. Severe sepsis secondary to abdominal wall infection with abscess: -Status post emergent debridement. General surgery following. Plastic surgery following. -Wound care per surgery. Pain control. Continue antibiotics per infectious disease. Daptomycin discontinued. Continue Ancef. -Sepsis resolved. Bright red blood per rectum: Resolving Possibly hemorrhoid bleed. -H&H remained stable. GI signed off. Per GI continue to monitor H&H and reconsult for significant drop in H&H. Outpatient follow-up advised for colonoscopy if not done inpatient. Acute renal failure requiring hemodialysis: -Nephrology following. Renal functions much improved and stabilized. -Oral Lasix per nephrology. Continue to monitor. Avoid nephrotoxins. Left foot cellulitis/lower extremity edema: Improved. Continue antibiotics per ID Continue Lasix Diabetes: -Continue Levemir. Sliding scale insulin with Accu-Cheks -Hemoglobin A1c of 6.6. Diabetic education. Dietitian consulted. Discharge Planning: Will need SNF when ready. May need further surgical procedures. Plastic surgery following.
[2018-03-26] MEDS: Furosemide 40 MG Tablet PO SCH ×2 (10:56→18:16)
[2018-03-26] MEDS: Calcium Carbonate 500 MG Tablet PO SCH ×2 (10:56→20:41)
[2018-03-26] MEDS: Insulin Detemir Inj 1,000 UNIT/10 ML Vial SQ SCH (10:57)
[2018-03-26] MEDS: Pantoprazole Inj 40 MG Vial IV.PUSH SCH (10:57)
[2018-03-26] MEDS: Nystatin 100,000 UNITS/GM Powder 15 GM Bottle TOPICAL SCH ×4 (10:57→20:42)
[2018-03-26] MEDS: Hydrocortisone Acetate 25 MG Supp RECTAL SCH ×2 (10:58→20:46)
[2018-03-26] MEDS: HYDROmorphone PF Inj 2 MG/ML Vial IV.PUSH PRN (13:35)
[2018-03-26] MEDS: guaiFENesin/Codeine Syrup 200 MG/20 MG 10 ML UDC PO PRN ×2 (13:45→20:40)
--- NOTE | 2018-03-26 14:58 | P.PNWCN ---
Wound Care Nurse Consult Description: Received wound VAC management consult from CALIXTO Tejada for M-W-F VAC changes starting SaturdayMarch 21 Recommendation: Please reinforce dressing with stoma paste and VAC drape for leak. Wound care nurse will change on Saturday. Wound/Pressure Injury - Patient Status Premedicated for Pain Prior to Dressing Change: No - Wound Right Abdomen Wound Assessment: Ongoing Wound Type: Abscess Is This a Chronic Wound: No Requested from Provider a Wound Care Consult: No Length: 15 (~15cm) Width: 29 (~29cm) Depth: 11 (~11cm) Wound Bed Appearance: [place], Red, Tunneling/Undermining, Yellow Wound Bed Appearance: Wound bed presents with ~50% red non granulation tissue, and ~50% adipose tissue. Tunneling is noted at 10 o'clock with small pocket located in center of wound next to tunneling. Surrounding Tissue Appearance: [place] (unremarkable periwound) Surrounding Tissue Temperature: Warm Drainage Description: Serosanguinous Drainage Amount: None Drainage Odor: No Odor Dressing Status: Dry & Intact Cleansing Solution: Saline Wound Packing Type: Woundvac Sponge Primary Dressing: Pressure Dressing Cover Dressing: Transparent Wound Dressing Change Date: 03/24/18 Wound Margin Description: Wound margins are uneven and steep Left Upper Foot Wound Assessment: Ongoing Wound Type: Abscess Wound Bed Appearance: Edematous, Peeling Skin, Shiny Surrounding Tissue Appearance: Bright Red, Edematous Surrounding Tissue Temperature: Hot Drainage Amount: None Dressing Status: Open to Air Left Foot Wound Assessment: Ongoing Wound Type: Blister Is This a Chronic Wound: Yes Requested from Provider a Wound Care Consult: No Wound Bed Appearance: [place] Surrounding Tissue Appearance: [place] Surrounding Tissue Temperature: Warm Drainage Amount: None Drainage Odor: No Odor Dressing Status: Open to Air Wound Vac - Wound Vac Right Abdomen Pressure Setting (mmHg): 125 Mode Setting: Continuous Drainage Description: Sanguinous Foam type: Black, White Other Foam Type: black - Additional Information Patient seen on for wound VAC dressing change by chief writer and Mago DUNBAR .1 piece small white foam and 3 pieces of black GranuFoam removed intact .Wound to abdomen was cleansed with normal saline and patted dry. one piece White foam was then applied to tunneled area and one piece white foam applied to cavity base/small pocket noted above. Applied skin barrier film to periwound and allowed to dry, Applied One extra large piece of GranuFoam foam cut fit wound base and doubled over. Secured with VAC drape. Three pieces of GranuFoam in total were applied to wound bed. Secured with VAC drape. Applied VAC drape and Cut half dollar size hole in VAC drape exposing black GranuFoam. Applied Sensi trac pad to exposed half dollar size black GranuFoam. Wound VAC is suctioning at 125 mm/Hg continuous suction.Patient tolerated wound vac change well. Incision - Patient Status Premedicated for Pain Prior to Dressing Change: No - Incision Abdomen Incision Assessment: Ongoing Incision Type: Incision Incision Description: Approximated Incision Bed Appearance: Edematous Surrounding Tissue Temperature: Warm Drainage Description: Serosanguinous Drainage Amount: None Incision Dressing Status: Dry & Intact Incision Packing Type: Woundvac Sponge Primary Dressing: WOUND VAC,BLACK SPONGE Cover Dressing: Transparent Incision/Surgery Date: 03/15/18 Lower Abdomen Incision Assessment: Ongoing Incision Type: Incision Incision Description: Open Surrounding Tissue Temperature: Warm Drainage Description: Sanguinous Drainage Amount: Moderate Drainage Odor: No Odor Incision Dressing Status: Dry & Intact Incision Packing Type: Woundvac Sponge Primary Dressing: Negative Pressure Wound Dressing Cover Dressing: Drainage Sponge, Transparent Other Cover Dressing: WoundVac Tape Type: Transparent Incision Dressing Change Date: 03/25/18
--- NOTE | 2018-03-26 16:41 | P.PNNP ---
Subjective Interval history: Pt s/p wound care this afternoon. Says that she is feeling much better Leg fullness improved. Dry cough, but otherwise no specific complaints. <Sherry Vasquez - Last Filed: 03/26/18 16:38> Physical Exam Vital signs: Vital Signs 03/25/18 20:00 03/26/18 00:00 03/26/18 04:00 Temperature 98 F 97.7 F 97.8 F Pulse Rate 96 H 99 H 92 H Respiratory Rate 18 18 18 Blood Pressure 174/71 H 175/76 H 136/63 Pulse Oximetry 99 99 96 03/26/18 08:00 03/26/18 12:00 Temperature 97.7 F 97.8 F Pulse Rate 86 89 Respiratory Rate 19 18 Blood Pressure 122/58 L 145/74 H Pulse Oximetry 95 98 Intake & Output 03/25/18 03/26/18 03/26/18 18:59 06:59 18:59 Intake Total 770 / 770 290 / 290 Output Total 100 / 100 Balance 670 / 670 290 / 290 Intake: IV 50 / 50 50 / 50 Ancef 2 GM Premix Inj 2 gm In 50 / 50 50 / 50 50 ml @ 200 mls/hr IV.SIG Q12H ED Rx#:[id number] Oral 720 / 720 240 / 240 Output: Wound Vac Amount 100 / 100 Right Abdomen 100 / 100 Other: Mode Setting Right Abdomen Continuous Continuous Continuous # Voids 5 5 Date of Last Bowel Movement 03/25/18 03/25/18 # Bowel Movements 1 - Constitutional no acute distress - Routine HEENT Exam Head: Present: normocephalic - Routine Neck Exam Present: supple - Routine Cardiovascular Exam Present: RRR, S1, S2 - Routine Extremities Exam Present: edema (present in hips and LEs, but much improved. Apparent lymphedema BLE) - Routine Neurological Exam Present: alert, oriented X3 - Detailed Neurological Exam: Coma Scale Verbal Response: Oriented - Routine Psychiatric Exam Present: normal affect - Urinary Catheter Management Indwelling Urethral Catheter Cath placed during this visit: yes, but has since been removed by the nurse Urethral indwelling: No Reason for continuing: Decision to DC catheter Insertion date: 03/15/18 Insertion time: 17:00 Removal date: 03/16/18 Removal time: 06:00 <Sherry Vasquez - Last Filed: 03/26/18 16:38> Vital signs: Vital Signs 03/26/18 20:00 03/27/18 00:00 03/27/18 04:00 Temperature 97.7 F 98.1 F 97.8 F Pulse Rate 96 H 91 H 86 Respiratory Rate 22 22 22 Blood Pressure 155/68 H 134/59 L 124/57 L Pulse Oximetry 100 100 95 03/27/18 08:00 03/27/18 12:00 Temperature 97.6 F 97.6 F Pulse Rate 84 80 Respiratory Rate 18 16 Blood Pressure 132/79 123/57 L Pulse Oximetry 98 97 Intake & Output 03/26/18 03/27/18 03/27/18 18:59 06:59 18:59 Intake Total 1500 / 1500 420 / 420 Output Total Balance 1475 / 1475 420 / 420 Weight 155 kg Intake: IV 100 / 100 Ancef 2 GM Premix Inj 2 gm In 100 / 100 50 ml @ 200 mls/hr IV.SIG Q12H ED Rx#:[id number] Oral 1500 / 1500 320 / 320 Output: Wound Vac Amount Right Abdomen Other: Mode Setting Right Abdomen Continuous Continuous # Voids 5 3 Date of Last Bowel Movement 03/23/18 03/26/18 # Bowel Movements 1 1 - Urinary Catheter Management Indwelling Urethral Catheter Cath placed during this visit: no <Chandana Olvera - Last Filed: 03/27/18 17:04> Assessment and Plan - Assessment (1) Acute renal failure due to tubular necrosis Code(s): N17.0 - Acute kidney failure with tubular necrosis Status: Acute Plan: Lower extremity edema significantly improved. Renal functions improved with conversion to p.o. diuretics. Remains to be sen where he new renal baseline may be. Repeat renal panel in the AM. If stable, may see PRN. Medications should be adjusted for the patient's estimated GFR if clinically indicated. Avoid agents with significant potential for nephrotoxicity possible including NSAIDs for analgesia, iodine contrast agents. Gadolinium is contraindicated if the GFR is below 30. (2) Cellulitis of left leg Code(s): L03.116 - Cellulitis of left lower limb Status: Acute Plan: Management per infectious disease and surgery. (3) Abdominal wall cellulitis Code(s): L03.311 - Cellulitis of abdominal wall Status: Acute Plan: Status post debridement. Management per surgery and infectious disease. <Sherry Vasquez - Last Filed: 03/26/18 16:38> - Assessment (1) Acute renal failure due to tubular necrosis Code(s): N17.0 - Acute kidney failure with tubular necrosis Status: Acute (2) Cellulitis of left leg Code(s): L03.116 - Cellulitis of left lower limb Status: Acute (3) Abdominal wall cellulitis Code(s): L03.311 - Cellulitis of abdominal wall Status: Acute - Attending Attestation The exam, history, and the medical decision-making described in the above note were completed with the assistance of the JONATHAN. I reviewed and agree with the findings presented. <Chandana Olvera - Last Filed: 03/27/18 17:04>
--- NOTE | 2018-03-26 18:14 | P.DIET ---
Nutritional Evaluation Type of nutrition evaluation: initial [place] [facility] [facility] [place]: Diet Education Subjective Subjective Comments: Pt provided w/Nutrition Education for Consistent CHO diet. Objective - Diagnosis Cellultitis, Sepsis, DKA - Objective [place] body weight: 52 kg % IBW: 302 Body Weight Used for Calculations: IBW Energy Needs - Lower Range (kCal/kg): 30 Energy Needs - Upper Range (kCal/kg): 35 Lower Limit kCal/kg (kCals): 1,560 Upper Limit kCal/kg (kCals): 1,820 Lower Limit Protein Factor (Grams per Kg): 2.0 Upper Limit Protein Factor (Grams per Kg): 2.3 Lower Protein Needs (Protein): 104 Upper Protein Needs (Protein): 120 Dietitian Reviewed in Medical Record: Current diet, Curent medications, Intake & Output, Labs, Medical history, Wound/DTI Diet Order: Feeding - Current PO Supplement Current Supplement: Glucerna Shake Current Frequency of Supplement: Three times a day Current kCals Provided by Supplement: 220 Current Protein Provided by Supplement: 10 Assessment Assessment: [facility] [place]. Pt provided w/Nutrition Education for diet. Pt's questions answered to her satisfaction. Plan to follow-up for reinforcement and to answer questions as needed. Recommendations: 1.Pt provided w/Nutrition Education for diet 2.Pt's questions answered to her satisfaction 3.Plan to follow-up for reinforcement and to answer questions as needed
[2018-03-27] MEDS: guaiFENesin/Codeine Syrup 200 MG/20 MG 10 ML UDC PO PRN ×3 (01:09→21:06)
[2018-03-27] MEDS: Hydrocortisone Acetate 25 MG Supp RECTAL SCH ×3 (05:52→21:06)
[2018-03-27] MEDS: ceFAZolin 2 GM Premix Inj 2 GM/50 ML PIGGYBACK IV.SIG SCH ×2 (06:17→15:42)
[2018-03-27 06:52] LABS: Baso # (Auto) 0.1 th/mm3 (0.0-0.2); Baso % (Auto) 0.8 % (0.0-2.0); Eos # (Auto) 0.1 th/mm3 (0.0-0.4); Eos % (Auto) 1.5 % (0.0-4.0); Hematocrit 28.2 % (35.0-46.0); Hemoglobin 9.6 gm/dL (11.6-15.3); Lymph # (Auto) 2.4 th/mm3 (1.0-4.8); Lymph % (Auto) 25.2 % (9.0-44.0); Mean Platelet Volume 7.5 fL (7.0-11.0); Mono # (Auto) 0.8 th/mm3 (0.0-0.9); Neut # (Auto) 6.2 th/mm3 (1.8-7.7); Neut % (Auto) 64.5 % (16.0-70.0); Platelet Count 396 th/mm3 (150-450); Red Cell Distribution Width 14.4 % (11.6-17.2); White Blood Count 9.6 th/mm3 (4.0-11.0)
[2018-03-27 07:17] LABS: Albumin 2.2 g/dL (3.4-5.0); Calcium 7.9 mg/dL (8.5-10.1); Carbon Dioxide 33.9 meq/L (21.0-32.0); Phosphorus 3.7 mg/dL (2.5-4.9); Potassium 4.3 meq/L (3.5-5.1)
[2018-03-27] MEDS: Calcium Carbonate 500 MG Tablet PO SCH ×2 (09:03→21:05)
[2018-03-27] MEDS: Insulin NovoLOG Aspart Correctional Sugar Inj SQ SCH ×4 (09:03→21:06)
[2018-03-27] MEDS: Furosemide 40 MG Tablet PO SCH ×2 (09:03→18:08)
[2018-03-27] MEDS: Nystatin 100,000 UNITS/GM Powder 15 GM Bottle TOPICAL SCH ×4 (09:04→21:06)
[2018-03-27] MEDS: Insulin Detemir Inj 1,000 UNIT/10 ML Vial SQ SCH (09:04)
[2018-03-27] MEDS: Pantoprazole Inj 40 MG Vial IV.PUSH SCH (09:04)
--- NOTE | 2018-03-27 11:03 | P.PNIM ---
Subjective Interval history: Patient reports she is feeling better overall. She is ambulating better with physical therapy. Physical Exam Vital signs: Vital Signs 03/26/18 12:00 03/26/18 16:00 03/26/18 20:00 Temperature 97.8 F 97.6 F 97.7 F Pulse Rate 89 88 96 H Respiratory Rate 18 18 22 Blood Pressure 145/74 H 143/62 H 155/68 H Pulse Oximetry 98 100 100 03/27/18 00:00 03/27/18 04:00 Temperature 98.1 F 97.8 F Pulse Rate 91 H 86 Respiratory Rate 22 22 Blood Pressure 134/59 L 124/57 L Pulse Oximetry 100 95 Intake & Output 03/26/18 03/27/18 03/27/18 18:59 06:59 18:59 Intake Total 1500 / 1500 370 / 370 Output Total Balance 1475 / 1475 370 / 370 Weight 155 kg Intake: IV 50 / 50 Ancef 2 GM Premix Inj 2 gm In 50 / 50 50 ml @ 200 mls/hr IV.SIG Q12H ED Rx#:[id number] Oral 1500 / 1500 320 / 320 Output: Wound Vac Amount Right Abdomen Other: Mode Setting Right Abdomen Continuous Continuous # Voids 5 3 Date of Last Bowel Movement 03/23/18 03/26/18 # Bowel Movements 1 1 Narrative: GENERAL: Morbidly obese female in no acute distress. CARDIOVASCULAR: Normal rate and regular rhythm without murmurs, gallops, or rubs. RESPIRATORY: Good respiratory efforts. Breath sounds equal and clear to auscultation bilaterally. GASTROINTESTINAL: Abdomen is obese, there is a large wound VAC in place on the lower abdomen. MUSCULOSKELETAL: Extremities with 2+ edema. Resolving cellulitis. - Urinary Catheter Management Indwelling Urethral Catheter Cath placed during this visit: yes, but has since been removed by the nurse Urethral indwelling: No Reason for continuing: Decision to DC catheter Insertion date: 03/15/18 Insertion time: 17:00 Removal date: 03/16/18 Removal time: 06:00 Results - Labs CBC & Chem 7: 03/27/18 06:30 03/27/18 06:30 Laboratory Results - last 24 hr 03/26/18 03/26/18 03/26/18 13:15 18:11 20:40 WBC RBC Hgb Hct MCV MCH MCHC RDW Plt Count MPV Neut % (Auto) Lymph % (Auto) [place] % (Auto) Eos % (Auto) Baso % (Auto) Neut # (Auto) Lymph # (Auto) [place] # (Auto) Eos # (Auto) Baso # (Auto) WBC Differential Differential Comment Sodium Potassium Chloride Carbon Dioxide Anion Gap BUN Creatinine Estimated GFR POC Glucose 129 H 132 H 158 H Random Glucose Calcium Phosphorus Albumin 03/27/18 03/27/18 03/27/18 06:30 06:30 08:21 WBC 9.6 RBC 2.90 L Hgb 9.6 L Hct 28.2 L MCV 97.0 MCH 33.0 MCHC 34.0 RDW 14.4 Plt Count 396 MPV 7.5 Neut % (Auto) 64.5 Lymph % (Auto) 25.2 [place] % (Auto) 8.0 Eos % (Auto) 1.5 Baso % (Auto) 0.8 Neut # (Auto) 6.2 Lymph # (Auto) 2.4 [place] # (Auto) 0.8 Eos # (Auto) 0.1 Baso # (Auto) 0.1 WBC Differential . Differential Comment Auto diff final Sodium 138 Potassium 4.3 Chloride 98 Carbon Dioxide 33.9 H Anion Gap 6 BUN 26 H Creatinine 1.70 H Estimated GFR 30 L POC Glucose 144 H Random Glucose 113 H Calcium 7.9 L Phosphorus 3.7 Albumin 2.2 L Assessment and Plan - Assessment (1) Sepsis Code(s): A41.9 - Sepsis, unspecified organism Status: Acute (2) Abdominal wall cellulitis Code(s): L03.311 - Cellulitis of abdominal wall Status: Acute (3) Acute renal failure due to tubular necrosis Code(s): N17.0 - Acute kidney failure with tubular necrosis Status: Acute (4) Acidosis, metabolic Code(s): E87.2 - Acidosis Status: Resolved - Plan 67-year-old female admitted with sepsis secondary to necrotizing infection of the abdominal wall with abscess. She is status post urgent debridement. Patient has a large abdominal wound VAC in place. Severe sepsis secondary to abdominal wall infection with abscess: -Status post emergent debridement. General surgery following. -Wound care per surgery. Pain control. Continue antibiotics per infectious disease. Daptomycin discontinued. Continue Ancef. -Sepsis resolved. - Plastic surgery following for large abdominal wound. Timing for further surgical intervention to be determined. Bright red blood per rectum: Resolved Possibly hemorrhoid bleed. -H&H remained stable. GI signed off. Per GI continue to monitor H&H and reconsult for significant drop in H&H. Outpatient follow-up advised for colonoscopy if not done inpatient. Acute renal failure requiring hemodialysis: -Nephrology following. Renal functions much improved and stabilized. -Oral Lasix per nephrology. Continue to monitor. Avoid nephrotoxins. Left foot cellulitis/lower extremity edema: Improved. Continue antibiotics per ID Continue Lasix Diabetes: -Continue Levemir. Sliding scale insulin with Accu-Cheks -Hemoglobin A1c of 6.6. Diabetic education. Dietitian consulted. Discharge Planning: Will need SNF when ready. May need further surgical procedures. Plastic surgery following.
--- NOTE | 2018-03-27 17:07 | P.PNNP ---
Subjective Interval history: Patient sitting in a chair. No verbal complaints. She indicated that her lower extremity edema was improving. Physical Exam Vital signs: Vital Signs 03/26/18 20:00 03/27/18 00:00 03/27/18 04:00 Temperature 97.7 F 98.1 F 97.8 F Pulse Rate 96 H 91 H 86 Respiratory Rate 22 22 22 Blood Pressure 155/68 H 134/59 L 124/57 L Pulse Oximetry 100 100 95 03/27/18 08:00 03/27/18 12:00 Temperature 97.6 F 97.6 F Pulse Rate 84 80 Respiratory Rate 18 16 Blood Pressure 132/79 123/57 L Pulse Oximetry 98 97 Intake & Output 03/26/18 03/27/18 03/27/18 18:59 06:59 18:59 Intake Total 1500 / 1500 420 / 420 Output Total Balance 1475 / 1475 420 / 420 Weight 155 kg Intake: IV 100 / 100 Ancef 2 GM Premix Inj 2 gm In 100 / 100 50 ml @ 200 mls/hr IV.SIG Q12H ED Rx#:[id number] Oral 1500 / 1500 320 / 320 Output: Wound Vac Amount Right Abdomen Other: Mode Setting Right Abdomen Continuous Continuous # Voids 5 3 Date of Last Bowel Movement 03/23/18 03/26/18 # Bowel Movements 1 1 - Urinary Catheter Management Indwelling Urethral Catheter Cath placed during this visit: yes, but has since been removed by the nurse Urethral indwelling: No Reason for continuing: Decision to DC catheter Insertion date: 03/15/18 Insertion time: 17:00 Removal date: 03/16/18 Removal time: 06:00 Assessment and Plan - Assessment (1) Acute renal failure due to tubular necrosis Code(s): N17.0 - Acute kidney failure with tubular necrosis Status: Acute Plan: Lower extremity edema significantly improved. Renal functions improved with conversion to p.o. diuretics. Remains to be sen where he new renal baseline may be. Unfortunately unsure as to what her baseline renal function was prior to this admission. At this point in time patient will be seen on a as needed basis only. If she continues to have significant azotemia at time of discharge we will be happy to see her in the office as an this was discussed with her. Please reconsult if needed. Medications should be adjusted for the patient's estimated GFR if clinically indicated. Avoid agents with significant potential for nephrotoxicity possible including NSAIDs for analgesia, iodine contrast agents. Gadolinium is contraindicated if the GFR is below 30. (2) Cellulitis of left leg Code(s): L03.116 - Cellulitis of left lower limb Status: Acute Plan: Management per infectious disease and surgery. (3) Abdominal wall cellulitis Code(s): L03.311 - Cellulitis of abdominal wall Status: Acute Plan: Status post debridement. Management per surgery and infectious disease.
[2018-03-28] MEDS: ceFAZolin 2 GM Premix Inj 2 GM/50 ML PIGGYBACK IV.SIG SCH ×2 (05:49→15:00)
[2018-03-28 06:16] LABS: Hematocrit 25.3 % (35.0-46.0); Hemoglobin 8.8 gm/dL (11.6-15.3); Mean Corpuscular HGB Conc 34.7 % (32.0-36.0); Mean Corpuscular Hemoglobin 33.7 pg (27.0-34.0); Mean Corpuscular Volume 97.2 fL (80.0-100.0); Mean Platelet Volume 7.4 fL (7.0-11.0); Platelet Count 342 th/mm3 (150-450); Red Cell Distribution Width 14.2 % (11.6-17.2); White Blood Count 7.2 th/mm3 (4.0-11.0)
[2018-03-28 06:42] LABS: Calcium 7.9 mg/dL (8.5-10.1); Potassium 3.9 meq/L (3.5-5.1)
[2018-03-28] MEDS: Calcium Carbonate 500 MG Tablet PO SCH ×2 (09:01→21:19)
[2018-03-28] MEDS: Pantoprazole Inj 40 MG Vial IV.PUSH SCH (09:02)
[2018-03-28] MEDS: Hydrocortisone Acetate 25 MG Supp RECTAL SCH ×2 (09:03→21:20)
[2018-03-28] MEDS: Nystatin 100,000 UNITS/GM Powder 15 GM Bottle TOPICAL SCH ×4 (09:03→21:20)
[2018-03-28] MEDS: Insulin Detemir Inj 1,000 UNIT/10 ML Vial SQ SCH (09:04)
[2018-03-28] MEDS: Furosemide 40 MG Tablet PO SCH ×2 (09:06→17:08)
[2018-03-28] MEDS: guaiFENesin/Codeine Syrup 200 MG/20 MG 10 ML UDC PO PRN ×3 (09:07→21:20)
[2018-03-28] MEDS: Insulin NovoLOG Aspart Correctional Sugar Inj SQ SCH ×4 (10:06→21:25)
--- NOTE | 2018-03-28 10:16 | P.PNIM ---
Subjective Interval history: The patient was sitting up in a chair. She said that she still had a cough but it was slowly getting better. She says her leg swelling is getting better. She has been working with physical therapy. She had no acute complaints. Physical Exam Vital signs: Vital Signs 03/27/18 12:00 03/27/18 16:00 03/27/18 20:00 Temperature 97.6 F 97.7 F 98.1 F Pulse Rate 80 84 89 Respiratory Rate 16 18 Blood Pressure 123/57 L 117/56 L 137/62 Pulse Oximetry 97 99 96 03/28/18 00:00 03/28/18 04:00 03/28/18 08:00 Temperature 98 F 97.8 F 97.8 F Pulse Rate 86 84 90 Respiratory Rate 20 18 18 Blood Pressure 125/59 L 112/55 L 137/64 Pulse Oximetry 98 98 97 Intake & Output 03/27/18 03/28/18 03/28/18 18:59 06:59 18:59 Intake Total 740 / 740 290 / 290 50 / 50 Balance 740 / 740 290 / 290 50 / 50 Intake: IV 50 / 50 50 / 50 Ancef 2 GM Premix Inj 2 gm In 50 / 50 50 / 50 50 ml @ 200 mls/hr IV.SIG Q12H ED Rx#:[id number] Oral 740 / 740 240 / 240 Other: Mode Setting Right Abdomen Continuous Continuous # Voids 5 3 Date of Last Bowel Movement 03/27/18 03/27/18 # Bowel Movements 1 1 Narrative: GENERAL: Morbidly obese female in no acute distress. HEENT: NC, AT. CARDIOVASCULAR: Normal rate and regular rhythm without murmurs, gallops, or rubs. RESPIRATORY: Good respiratory efforts. Breath sounds equal and clear to auscultation bilaterally. GASTROINTESTINAL: Abdomen is obese, there is a large wound VAC in place on the lower abdomen. MUSCULOSKELETAL: Extremities with 2+ edema. Resolving cellulitis. NEURO: No gross deficits. - Urinary Catheter Management Indwelling Urethral Catheter Cath placed during this visit: yes, but has since been removed by the nurse Urethral indwelling: No Reason for continuing: Decision to DC catheter Insertion date: 03/15/18 Insertion time: 17:00 Removal date: 03/16/18 Removal time: 06:00 Results - Labs CBC & Chem 7: 03/28/18 05:58 03/28/18 05:58 Laboratory Results - last 24 hr 03/27/18 03/27/18 03/27/18 12:29 17:42 21:04 WBC RBC Hgb Hct MCV MCH MCHC RDW Plt Count MPV Sodium Potassium Chloride Carbon Dioxide Anion Gap BUN Creatinine Estimated GFR POC Glucose 135 H 124 H 152 H Random Glucose Calcium 03/28/18 03/28/18 05:58 05:58 WBC 7.2 RBC 2.60 L Hgb 8.8 L Hct 25.3 L MCV 97.2 MCH 33.7 MCHC 34.7 RDW 14.2 Plt Count 342 MPV 7.4 Sodium 138 Potassium 3.9 Chloride 97 L Carbon Dioxide 33.0 H Anion Gap 8 BUN 23 H Creatinine 1.54 H Estimated GFR 34 L POC Glucose Random Glucose 115 H Calcium 7.9 L Assessment and Plan - Assessment (1) Sepsis Code(s): A41.9 - Sepsis, unspecified organism Status: Acute (2) Abdominal wall cellulitis Code(s): L03.311 - Cellulitis of abdominal wall Status: Acute (3) Acute renal failure due to tubular necrosis Code(s): N17.0 - Acute kidney failure with tubular necrosis Status: Acute (4) Acidosis, metabolic Code(s): E87.2 - Acidosis Status: Resolved - Plan 67-year-old female admitted with sepsis secondary to necrotizing infection of the abdominal wall with abscess. She is status post urgent debridement. Patient has a large abdominal wound VAC in place. Severe sepsis secondary to abdominal wall infection with abscess -Status post emergent debridement. Surgery following. -Wound care per surgery. Pain control. - Continue antibiotics per infectious disease. Daptomycin discontinued. Continue Ancef. - Plastic surgery following for large abdominal wound. Timing for further surgical intervention to be determined. - PT, IS. Bright red blood per rectum Possibly hemorrhoid bleed. -H&H remained stable. GI signed off. -Per GI continue to monitor H&H and reconsult for significant drop in H&H. Outpatient follow-up advised for colonoscopy if not done inpatient. Acute renal failure requiring hemodialysis -Nephrology consult appreciated. Renal functions much improved and stabilized. -Oral Lasix per nephrology. - Avoid nephrotoxins and follow BMP. - outpt follow-up with nephrology. Left foot cellulitis/lower extremity edema Improved. -Continue antibiotics per ID -Continue Lasix Diabetes -Continue Levemir. Sliding scale insulin with Accu-Cheks -Hemoglobin A1c of 6.6. Diabetic education. Dietitian consulted. Cough Persistent. - repeat CXR. - continue cough meds as needed. PPx: Held s/t recent GIB Discharge Planning: Will need SNF when ready. May need further surgical procedures. Plastic surgery following.
--- NOTE | 2018-03-28 11:08 | XR ---
EXAM DATE: 03/28/2018 10:54 AM EDT AGE/SEX: 67 years / Female INDICATIONS: Cough CLINICAL DATA: This is the patient's initial encounter. Patient reports that signs and symptoms have been present for 2 weeks and indicates a pain score of 0/10. MEDICAL/SURGICAL HISTORY: . diabetes Cholecystectomy. COMPARISON: [facility] [place], CHEST 1V SINGLE AP, 03/18/2018. . FINDINGS: A single AP view of the chest demonstrates the lungs to be symmetrically aerated without evidence of mass, infiltrate or effusion. The cardiomediastinal contours are unremarkable. Osseous structures a re intact. Left-sided central line. No pneumothorax. CONCLUSION: No acute cardiopulmonary disease. Electronically signed by: Kalin Boudreaux MD 03/28/2018 11:06 AM EDT
[2018-03-28] MEDS: HYDROmorphone PF Inj 2 MG/ML Vial IV.PUSH PRN (11:46)
--- NOTE | 2018-03-28 12:27 | P.PNID ---
Subjective Remarks: Patient feels well. Walked to bathroom for the first time on her own without difficulty although having to move slowly. Urine output improved Afebrile. No fever, no chills. This is a 67-year-old white female who was admitted to the hospital After she developed redness of her right foot 5 days ago. She also notes that she had bouts of diarrhea for a couple of days prior to that. The diarrhea continued for 5 days and then stopped. She went to see her primary physician and she notes that they sent her to the emergency department because she appeared pale. She notes that she had a tiny lump on her right abdominal wall underneath the fold of skin. She has obese abdomen with large amount of pannus. She was evaluated in the ED and was noted to have elevated white blood cell count of 35.9 and she had lactic acid level of 3.5. She also had acute kidney disease with creatinine of 3.51. The patient was admitted and eventually taken to surgery for an abdominal wall debridement. She was noted to have necrotic skin at the right lower abdomen. Past Medical History: PAST MEDICAL HISTORY: Hypertension, history of cervical discectomy and allograft bone fusion in 10/2013, bacteremia due to methicillin-sensitive Staphylococcus aureus in 10/2013. Allergies/Adverse Reactions: Allergies No Known Allergies Allergy (Unverified 03/14/18 16:15) Objective Vital Signs 03/27/18 16:00 03/27/18 20:00 03/28/18 00:00 Temperature 97.7 F 98.1 F 98 F Pulse Rate 84 89 86 Respiratory Rate 18 20 Blood Pressure 117/56 L 137/62 125/59 L Pulse Oximetry 99 96 98 03/28/18 04:00 03/28/18 08:00 03/28/18 11:38 Temperature 97.8 F 97.8 F Pulse Rate 84 90 Respiratory Rate 18 18 18 Blood Pressure 112/55 L 137/64 Pulse Oximetry 98 97 Intake & Output 03/27/18 03/28/18 03/28/18 18:59 06:59 18:59 Intake Total 740 / 740 290 / 290 50 / 50 Balance 740 / 740 290 / 290 50 / 50 Intake: IV 50 / 50 50 / 50 Ancef 2 GM Premix Inj 2 gm In 50 / 50 50 / 50 50 ml @ 200 mls/hr IV.SIG Q12H ED Rx#:[id number] Oral 740 / 740 240 / 240 Other: Mode Setting Posterior Sacrum Continuous Right Abdomen Continuous Continuous # Voids 5 3 Date of Last Bowel Movement 03/27/18 03/27/18 # Bowel Movements 1 1 Lab - Hematology Results 03/27/18 03/28/18 06:30 05:58 WBC 9.6 7.2 RBC 2.90 L 2.60 L Hgb 9.6 L 8.8 L Hct 28.2 L 25.3 L MCV 97.0 97.2 MCH 33.0 33.7 MCHC 34.0 34.7 RDW 14.4 14.2 Plt Count 396 342 MPV 7.5 7.4 Neut % (Auto) 64.5 Lymph % (Auto) 25.2 [place] % (Auto) 8.0 Eos % (Auto) 1.5 Baso % (Auto) 0.8 Neut # (Auto) 6.2 Lymph # (Auto) 2.4 [place] # (Auto) 0.8 Eos # (Auto) 0.1 Baso # (Auto) 0.1 WBC Differential . Differential Comment Auto diff final Lab - Chemistry Results 03/26/18 03/26/18 03/26/18 13:15 18:11 20:40 Sodium Potassium Chloride Carbon Dioxide Anion Gap BUN Creatinine Estimated GFR POC Glucose 129 H 132 H 158 H Random Glucose Calcium Phosphorus Albumin 03/27/18 03/27/18 03/27/18 06:30 08:21 12:29 Sodium 138 Potassium 4.3 Chloride 98 Carbon Dioxide 33.9 H Anion Gap 6 BUN 26 H Creatinine 1.70 H Estimated GFR 30 L POC Glucose 144 H 135 H Random Glucose 113 H Calcium 7.9 L Phosphorus 3.7 Albumin 2.2 L 03/27/18 03/27/18 03/28/18 17:42 21:04 05:58 Sodium 138 Potassium 3.9 Chloride 97 L Carbon Dioxide 33.0 H Anion Gap 8 BUN 23 H Creatinine 1.54 H Estimated GFR 34 L POC Glucose 124 H 152 H Random Glucose 115 H Calcium 7.9 L Phosphorus Albumin 03/28/18 11:36 Sodium Potassium Chloride Carbon Dioxide Anion Gap BUN Creatinine Estimated GFR POC Glucose 120 H Random Glucose Calcium Phosphorus Albumin Imaging: ITS Impressions Abdomen/Pelvis CT 03/14/18 16:22 CONCLUSION: 1. No acute intra-abdominal abnormality seen. 2. Edema seen throughout the subcutaneous fat at the anterior abdominal wall. This should be correlated with any inflammatory process in this region. No focal fluid collection to suggest an abscess is seen. Abdomen/Bladder Ultrasound 03/17/18 16:09 CONCLUSION: 1. Limited examination without gross abnormality in the left kidney. 2. Right kidney and urinary bladder not visualized. Chest X-Ray 03/28/18 10:25 CONCLUSION: No acute cardiopulmonary disease. Physical Exam: GENERAL: No acute distress. Awake and alert and oriented. HEENT: EOMI,VICENTE. No icterus. Poor dentition. NECK: Supple without adenopathy. LUNGS: Decreased breath sounds. HEART: Regular S1, S2. No murmurs, rubs or gallops. ABDOMEN: Bowel sounds present, obese, soft. Abdominal wound has good granulation tissue Bleeding at the lower aspect upon removal sponge from the abdomen by the wound care nurse. Little slough the right edge of open wound. EXTREMITIES: The left foot has mild erythema at the dorsum. Still has edema of the legs and thighs. The skin at both lateral thighs appears intact and has no erythema or discoloration. SKIN: No diffuse rash. NEUROLOGIC: No gross focal findings. PSYCHIATRIC: Calm and cooperative. Assessment and Plan - Plan IMPRESSION: 1. Necrotic cellulitis of the abdominal wall. Patient with large abdominal wound with wound VAC. Group B beta strep and MSSA. 2. Sepsis. Improved. 3. Left foot cellulitis. Continues to improve. 4. Acute kidney disease. Slowly improving. 5. Leukocytosis. WBC is improved. The one positive blood culture bottle with coag negative staph identified as staph auricularis which I think is contamination. RECOMMENDATIONS: 1. Continue Cefazolin changed to 2 g IV every 12 hours. 2. Continue to monitor renal function. 3. Monitor clinical status. Monitor wound healing.
--- NOTE | 2018-03-28 13:58 | P.PNWCN ---
Wound Care Nurse Consult Description: Received wound VAC management consult from CALIXTO Tejada for M-W-F VAC changes starting SaturdayMarch 21 Recommendation: Please reinforce dressing with stoma paste and VAC drape for leak. Wound care nurse will change on Saturday. Wound/Pressure Injury - Patient Status Premedicated for Pain Prior to Dressing Change: No - Wound Right Abdomen Wound Assessment: Ongoing Wound Type: Abscess (Now open surgical wound) Is This a Chronic Wound: No Wound Bed Appearance: [place], Red, Tunneling/Undermining, Yellow Wound Bed Appearance: Wound bed presents with ~60% red non granulation tissue, and ~40% adipose tissue. Tunneling is noted at 10 o'clock with small pocket located in center of wound next to tunneling. Surrounding Tissue Appearance: [place] (unremarkable periwound) Surrounding Tissue Temperature: Warm Drainage Description: Sanguinous Drainage Amount: Minimal Drainage Odor: No Odor Dressing Status: Changed Cleansing Solution: Saline Wound Packing Type: Woundvac Sponge Primary Dressing: Negative Pressure Wound Dressing Cover Dressing: Transparent Wound Dressing Change Date: 03/28/18 Wound Margin Description: Wound margins are uneven and steep Wound Vac - Wound Vac Right Abdomen Pressure Setting (mmHg): 125 (mm/Hg) Mode Setting: Continuous Drainage Description: Sanguinous Foam type: Black Other Foam Type: black - Additional Information Patient seen on for wound VAC dressing change by movie writer with the assistance of student nurses and RN Danna wu.Removed one piece of small white foam and two pieces of black granufoam. Wound to abdomen was cleansed with normal saline and patted dry. Applied skin barrier film to periwound and allowed to dry. Window paned wound with VAC drape. Applied One strip of granufoam to wound base loosely packed and then applied two larger pieces of granufaom to wound secured with VAC drape. Applied three smaller pieces of granufoam to fill in entire wound bed. A total of 6 pieces of granufoam were applied to wound bed. Secured with VAC drape. Cut half dollar size hole in VAC drape exposing black GranuFoam. Applied one strip of granufoam over VAC drape from exposed granufoam in wound bed and bridged to proximal R lower abdomen. Applied Sensi trac pad with attached mushroom cap of granufoam to bridged granufoam.Covered all exposed granufoam with VAC drape. Willian seal was applied from 4 to 8 o'clock to seal wound VAC dressing. Wound VAC is suctioning at 125 mm/Hg continuous suction.Patient tolerated wound vac change well.
[2018-03-29] MEDS: guaiFENesin/Codeine Syrup 200 MG/20 MG 10 ML UDC PO PRN ×3 (04:23→21:40)
[2018-03-29] MEDS: ceFAZolin 2 GM Premix Inj 2 GM/50 ML PIGGYBACK IV.SIG SCH ×2 (04:23→16:37)
[2018-03-29] MEDS: Pantoprazole Inj 40 MG Vial IV.PUSH SCH (08:39)
[2018-03-29] MEDS: Insulin Detemir Inj 1,000 UNIT/10 ML Vial SQ SCH (08:40)
[2018-03-29] MEDS: Calcium Carbonate 500 MG Tablet PO SCH ×2 (08:40→21:40)
[2018-03-29] MEDS: Insulin NovoLOG Aspart Correctional Sugar Inj SQ SCH ×4 (08:41→21:41)
[2018-03-29] MEDS: Hydrocortisone Acetate 25 MG Supp RECTAL SCH ×3 (08:41→21:41)
[2018-03-29] MEDS: Nystatin 100,000 UNITS/GM Powder 15 GM Bottle TOPICAL SCH ×4 (08:42→21:41)
[2018-03-29] MEDS: Furosemide 40 MG Tablet PO SCH ×2 (08:44→17:27)
--- NOTE | 2018-03-29 12:00 | P.PNIM ---
Subjective Interval history: The patient was sitting up in a chair. She said that everything was going well. She had no acute complaints. She has been drinking Nepro once a day. Physical Exam Vital signs: Vital Signs 03/28/18 12:00 03/28/18 13:42 03/28/18 16:00 Temperature 97.5 F L 98.7 F Pulse Rate 86 91 H Respiratory Rate 18 0 L 19 Blood Pressure 132/61 137/65 Pulse Oximetry 99 96 03/28/18 16:04 03/28/18 20:00 03/29/18 00:00 Temperature 98.9 F 98.0 F Pulse Rate 90 85 Respiratory Rate 18 19 19 Blood Pressure 147/73 H 129/59 L Pulse Oximetry 100 96 03/29/18 04:00 03/29/18 08:00 Temperature 97.7 F 97.8 F Pulse Rate 93 H 87 Respiratory Rate 20 19 Blood Pressure 148/67 H 107/47 L Pulse Oximetry 99 99 Intake & Output 03/28/18 03/29/18 03/29/18 18:59 06:59 18:59 Intake Total 100 / 100 650 / 650 Balance 100 / 100 650 / 650 Weight 155 kg Intake: IV 100 / 100 50 / 50 Ancef 2 GM Premix Inj 2 gm In 100 / 100 50 / 50 50 ml @ 200 mls/hr IV.SIG Q12H ED Rx#:[id number] Oral 600 / 600 Other: Mode Setting Posterior Sacrum Continuous Right Abdomen Continuous Continuous Continuous # Voids 3 Date of Last Bowel Movement 03/27/18 Narrative: GENERAL: Morbidly obese female in no acute distress. HEENT: [place], AT. CARDIOVASCULAR: Normal rate and regular rhythm without murmurs, gallops, or rubs. RESPIRATORY: Good respiratory efforts. Breath sounds equal and clear to auscultation bilaterally. GASTROINTESTINAL: Abdomen is obese, there is a large wound VAC in place on the lower abdomen. MUSCULOSKELETAL: Extremities with 2+ edema. Resolving cellulitis. NEURO: No gross deficits. - Urinary Catheter Management Indwelling Urethral Catheter Cath placed during this visit: yes, but has since been removed by the nurse Urethral indwelling: No Reason for continuing: Decision to DC catheter Insertion date: 03/15/18 Insertion time: 17:00 Removal date: 03/16/18 Removal time: 06:00 Results - Labs CBC & Chem 7: 03/28/18 05:58 03/28/18 05:58 Laboratory Results - last 24 hr 03/28/18 03/28/18 03/28/18 11:36 16:40 21:17 POC Glucose 120 H 150 H 155 H 03/29/18 08:03 POC Glucose 112 H Assessment and Plan - Assessment (1) Sepsis Code(s): A41.9 - Sepsis, unspecified organism Status: Acute (2) Abdominal wall cellulitis Code(s): L03.311 - Cellulitis of abdominal wall Status: Acute (3) Acute renal failure due to tubular necrosis Code(s): N17.0 - Acute kidney failure with tubular necrosis Status: Acute (4) Acidosis, metabolic Code(s): E87.2 - Acidosis Status: Resolved - Plan 67-year-old female admitted with sepsis secondary to necrotizing infection of the abdominal wall with abscess. She is status post urgent debridement. Patient has a large abdominal wound VAC in place. Severe sepsis secondary to abdominal wall infection with abscess -Status post emergent debridement. Surgery following. -Wound care per surgery. Pain control. - Continue antibiotics per infectious disease. Daptomycin discontinued. Continue Ancef. - Plastic surgery following for large abdominal wound. Timing for further surgical intervention to be determined. - PT, IS. Bright red blood per rectum Possibly hemorrhoid bleed. -H&H remained stable. GI signed off. -Per GI continue to monitor H&H and reconsult for significant drop in H&H. Outpatient follow-up advised for colonoscopy if not done inpatient. Acute renal failure requiring hemodialysis -Nephrology consult appreciated. Renal functions much improved and stabilized. - Oral Lasix per nephrology. - Avoid nephrotoxins and follow BMP. - outpt follow-up with nephrology. Left foot cellulitis/lower extremity edema Improved. -Continue antibiotics per ID -Continue Lasix per nephrology. Diabetes -Continue Levemir. Sliding scale insulin with Accu-Cheks -Hemoglobin A1c of 6.6. Diabetic education. Dietitian consulted. Cough Persistent. CXR unremarkable. - continue cough meds as needed. PPx: Held s/t recent GIB Discharge Planning: Will need SNF when ready. May need further surgical procedures. Plastic surgery following.
[2018-03-30] MEDS: ceFAZolin 2 GM Premix Inj 2 GM/50 ML PIGGYBACK IV.SIG SCH ×2 (04:41→16:46)
[2018-03-30 04:44] LABS: Hematocrit 25.4 % (35.0-46.0); Hemoglobin 8.8 gm/dL (11.6-15.3); Mean Corpuscular HGB Conc 34.5 % (32.0-36.0); Mean Corpuscular Hemoglobin 33.4 pg (27.0-34.0); Mean Corpuscular Volume 96.7 fL (80.0-100.0); Mean Platelet Volume 7.2 fL (7.0-11.0); Platelet Count 329 th/mm3 (150-450); Red Blood Count 2.63 mil/mm3 (4.00-5.30); Red Cell Distribution Width 13.9 % (11.6-17.2); White Blood Count 6.2 th/mm3 (4.0-11.0)
[2018-03-30] MEDS: Calcium Carbonate 500 MG Tablet PO SCH ×2 (08:35→20:57)
[2018-03-30] MEDS: Pantoprazole Inj 40 MG Vial IV.PUSH SCH (08:35)
[2018-03-30] MEDS: Insulin Detemir Inj 1,000 UNIT/10 ML Vial SQ SCH (08:36)
[2018-03-30] MEDS: Insulin NovoLOG Aspart Correctional Sugar Inj SQ SCH ×4 (08:37→21:03)
[2018-03-30] MEDS: Furosemide 40 MG Tablet PO SCH ×2 (08:45→17:25)
[2018-03-30] MEDS: Hydrocortisone Acetate 25 MG Supp RECTAL SCH ×2 (08:45→20:56)
[2018-03-30] MEDS: Nystatin 100,000 UNITS/GM Powder 15 GM Bottle TOPICAL SCH ×4 (08:45→20:56)
[2018-03-30] MEDS: guaiFENesin/Codeine Syrup 200 MG/20 MG 10 ML UDC PO PRN ×2 (14:59→21:04)
--- NOTE | 2018-03-30 16:00 | P.PNIM ---
Subjective Interval history: The patient was sitting up in a chair. She wanted to know if her Lasix could be increased. She had no acute complaints. Discussed with nursing. Physical Exam Vital signs: Vital Signs 03/29/18 16:00 03/29/18 20:00 03/30/18 00:00 Temperature 97.9 F 97.7 F 98.2 F Pulse Rate 91 H 101 H 92 H Respiratory Rate 19 18 18 Blood Pressure 167/59 H 122/58 L 147/66 H Pulse Oximetry 99 97 96 03/30/18 04:00 03/30/18 08:00 03/30/18 12:00 Temperature 97.6 F 97.9 F 97.9 F Pulse Rate 84 93 H 95 H Respiratory Rate 18 18 19 Blood Pressure 143/66 H 138/63 137/72 Pulse Oximetry 97 99 99 Intake & Output 03/29/18 03/30/18 03/30/18 18:59 06:59 18:59 Intake Total 1010 / 1010 530 / 530 Output Total 1050 / 1050 3375 / 3375 Balance -40 / -40 -2845 / -2845 Intake: IV 50 / 50 50 / 50 Ancef 2 GM Premix Inj 2 gm In 50 / 50 50 / 50 50 ml @ 200 mls/hr IV.SIG Q12H ED Rx#:[id number] Oral 960 / 960 480 / 480 Output: Urine 800 / 800 Hemodialysis Amount 3000 / 3000 Wound Drainage 250 / 250 250 / 250 # 1 Medial Abdomen 250 / 250 250 / 250 Wound Vac Amount 125 / 125 Right Abdomen 125 / 125 Other: Mode Setting Right Abdomen Continuous Continuous Continuous # Voids 2 # Incontinent Voids 10 Date of Last Bowel Movement 03/27/18 03/29/18 03/29/18 # Bowel Movements 1 # Incontinent Bowel Movements 6 Narrative: GENERAL: Morbidly obese female in no acute distress. HEENT: [place], AT. CARDIOVASCULAR: Normal rate and regular rhythm without murmurs, gallops, or rubs. RESPIRATORY: Good respiratory efforts. Breath sounds equal and clear to auscultation bilaterally. GASTROINTESTINAL: Abdomen is obese, there is a large wound VAC in place on the lower abdomen. MUSCULOSKELETAL: Extremities with 2+ edema. Resolving cellulitis. NEURO: No gross deficits. - Urinary Catheter Management Indwelling Urethral Catheter Cath placed during this visit: yes, but has since been removed by the nurse Urethral indwelling: No Reason for continuing: Decision to DC catheter Insertion date: 03/15/18 Insertion time: 17:00 Removal date: 03/16/18 Removal time: 06:00 Results - Labs CBC & Chem 7: 03/30/18 04:10 03/28/18 05:58 Laboratory Results - last 24 hr 03/29/18 03/29/18 03/30/18 16:35 20:37 04:10 WBC 6.2 RBC 2.63 L Hgb 8.8 L Hct 25.4 L MCV 96.7 MCH 33.4 MCHC 34.5 RDW 13.9 Plt Count 329 MPV 7.2 POC Glucose 115 H 192 H 03/30/18 03/30/18 08:37 12:06 WBC RBC Hgb Hct MCV MCH MCHC RDW Plt Count MPV POC Glucose 139 H 135 H Microbiology 03/15/18 08:55 Tissue - Abdominal Fungal Smear - Final No fungal elements seen 03/15/18 08:55 Tissue - Abdominal Fungal Culture - Preliminary No growth in 2 weeks 03/15/18 08:55 Tissue - Abdominal Acid Fast Bacilli Smear - Final No acid fast bacilli seen 03/15/18 08:55 Tissue - Abdominal Mycobacterial Culture - Preliminary No growth in 2 weeks Assessment and Plan - Assessment (1) Sepsis Code(s): A41.9 - Sepsis, unspecified organism Status: Acute (2) Abdominal wall cellulitis Code(s): L03.311 - Cellulitis of abdominal wall Status: Acute (3) Acute renal failure due to tubular necrosis Code(s): N17.0 - Acute kidney failure with tubular necrosis Status: Acute (4) Acidosis, metabolic Code(s): E87.2 - Acidosis Status: Resolved - Plan 67-year-old female admitted with sepsis secondary to necrotizing infection of the abdominal wall with abscess. She is status post urgent debridement. Patient has a large abdominal wound VAC in place. Severe sepsis secondary to abdominal wall infection with abscess -Status post emergent debridement. Surgery following. -Wound care per surgery. Pain control. - Continue antibiotics per infectious disease. Daptomycin discontinued. Continue Ancef. - Plastic surgery following for large abdominal wound. Timing for further surgical intervention to be determined. - PT, IS. -follow with wound care nurse in AM. Bright red blood per rectum Possibly hemorrhoid bleed. -H&H remained stable. GI signed off. -Per GI continue to monitor H&H and reconsult for significant drop in H&H. Outpatient follow-up advised for colonoscopy if not done inpatient. Acute renal failure requiring hemodialysis -Nephrology consult appreciated. Renal functions much improved and stabilized. - Oral Lasix per nephrology. - Avoid nephrotoxins. - outpt follow-up with nephrology. - BMP in AM. Left foot cellulitis/lower extremity edema Improved. -Continue antibiotics per ID -Continue Lasix per nephrology. Diabetes -Continue Levemir. Sliding scale insulin with Accu-Cheks -Hemoglobin A1c of 6.6. Diabetic education. Dietitian consulted. Cough Persistent. CXR unremarkable. - continue cough meds as needed. PPx: Held s/t recent GIB Discharge Planning: Will need SNF when ready. May need further surgical procedures. Plastic surgery following.
[2018-03-31] MEDS: ceFAZolin 2 GM Premix Inj 2 GM/50 ML PIGGYBACK IV.SIG SCH ×2 (03:46→17:27)
[2018-03-31 07:27] LABS: Calcium 7.9 mg/dL (8.5-10.1); Carbon Dioxide 33.5 meq/L (21.0-32.0); Potassium 3.6 meq/L (3.5-5.1)
[2018-03-31] MEDS: Calcium Carbonate 500 MG Tablet PO SCH ×2 (09:30→21:38)
[2018-03-31] MEDS: Hydrocortisone Acetate 25 MG Supp RECTAL SCH (09:30)
[2018-03-31] MEDS: Pantoprazole Inj 40 MG Vial IV.PUSH SCH (09:30)
[2018-03-31] MEDS: Insulin NovoLOG Aspart Correctional Sugar Inj SQ SCH ×4 (09:31→21:39)
[2018-03-31] MEDS: Insulin Detemir Inj 1,000 UNIT/10 ML Vial SQ SCH (09:33)
[2018-03-31] MEDS: Nystatin 100,000 UNITS/GM Powder 15 GM Bottle TOPICAL SCH ×4 (09:37→21:39)
[2018-03-31] MEDS: Furosemide 40 MG Tablet PO SCH ×2 (09:39→17:31)
--- NOTE | 2018-03-31 14:55 | P.PNIM ---
Subjective Interval history: The patient was resting comfortably in a chair. She had no acute complaints. She wanted to know when her wound VAC would be changed. She wanted the amount of Glucerna reduced. Discussed with nursing. Physical Exam Vital signs: Vital Signs 03/30/18 16:00 03/30/18 18:04 03/30/18 20:00 Temperature 98.0 F 98.1 F Pulse Rate 90 97 H Respiratory Rate 18 18 18 Blood Pressure 132/61 134/60 Pulse Oximetry 99 99 03/31/18 00:00 03/31/18 04:00 03/31/18 08:00 Temperature 97.8 F 97.8 F 97.8 F Pulse Rate 87 87 88 Respiratory Rate 18 18 17 Blood Pressure 135/60 134/60 138/60 Pulse Oximetry 100 96 97 03/31/18 12:00 Temperature 97.7 F Pulse Rate 92 H Respiratory Rate 17 Blood Pressure 149/68 H Pulse Oximetry 100 Intake & Output 03/30/18 03/31/18 03/31/18 18:59 06:59 18:59 Intake Total 1010 / 1010 290 / 290 Output Total 1050 / 1050 Balance -40 / -40 290 / 290 Intake: IV 50 / 50 50 / 50 Ancef 2 GM Premix Inj 2 gm In 50 / 50 50 / 50 50 ml @ 200 mls/hr IV.SIG Q12H ED Rx#:[id number] Oral 960 / 960 240 / 240 Output: Urine 900 / 900 Wound Vac Amount 150 / 150 Right Abdomen 150 / 150 Other: Mode Setting Right Abdomen Continuous Continuous # Voids 3 Date of Last Bowel Movement 03/29/18 03/29/18 Narrative: GENERAL: Morbidly obese female in no acute distress. HEENT: [place], AT. CARDIOVASCULAR: Normal rate and regular rhythm without murmurs, gallops, or rubs. RESPIRATORY: Good respiratory efforts. Breath sounds equal and clear to auscultation bilaterally. GASTROINTESTINAL: Abdomen is obese, there is a large wound VAC in place on the lower abdomen. MUSCULOSKELETAL: Extremities with 2+ edema. Resolving cellulitis. NEURO: No gross deficits. - Urinary Catheter Management Indwelling Urethral Catheter Cath placed during this visit: yes, but has since been removed by the nurse Urethral indwelling: No Reason for continuing: Decision to DC catheter Insertion date: 03/15/18 Insertion time: 17:00 Removal date: 03/16/18 Removal time: 06:00 Results - Labs CBC & Chem 7: 03/30/18 04:10 03/31/18 06:30 Laboratory Results - last 24 hr 03/30/18 03/30/18 03/31/18 16:42 20:52 06:30 Sodium 139 Potassium 3.6 Chloride 100 Carbon Dioxide 33.5 H Anion Gap 6 BUN 20 H Creatinine 1.45 H Estimated GFR 36 L POC Glucose 121 H 168 H Random Glucose 108 H Calcium 7.9 L 03/31/18 03/31/18 07:56 11:41 Sodium Potassium Chloride Carbon Dioxide Anion Gap BUN Creatinine Estimated GFR POC Glucose 120 H 132 H Random Glucose Calcium Assessment and Plan - Assessment (1) Sepsis Code(s): A41.9 - Sepsis, unspecified organism Status: Acute (2) Abdominal wall cellulitis Code(s): L03.311 - Cellulitis of abdominal wall Status: Acute (3) Acute renal failure due to tubular necrosis Code(s): N17.0 - Acute kidney failure with tubular necrosis Status: Acute (4) Acidosis, metabolic Code(s): E87.2 - Acidosis Status: Resolved - Plan 67-year-old female admitted with sepsis secondary to necrotizing infection of the abdominal wall with abscess. She is status post urgent debridement. Patient has a large abdominal wound VAC in place. Severe sepsis secondary to abdominal wall infection with abscess -Status post emergent debridement. Surgery following. -Wound care per surgery. Pain control. -Continue antibiotics per infectious disease. Daptomycin discontinued. Continue Ancef. -Plastic surgery following for large abdominal wound. Timing for further surgical intervention to be determined. -PT, IS. -follow with wound care nurse. Bright red blood per rectum Possibly hemorrhoid bleed. -H&H remained stable. GI signed off. -Per GI continue to monitor H&H and reconsult for significant drop in H&H. Outpatient follow-up advised for colonoscopy if not done inpatient. Acute renal failure requiring hemodialysis -Nephrology consult appreciated. Renal function continues to improve. - Oral Lasix per nephrology. - Avoid nephrotoxins. - outpt follow-up with nephrology. Left foot cellulitis/lower extremity edema Improved. -Continue antibiotics per ID -Continue Lasix per nephrology. Diabetes -Continue Levemir. Sliding scale insulin with Accu-Cheks -Hemoglobin A1c of 6.6. Diabetic education. Dietitian consulted. Cough Persistent. CXR unremarkable. - continue cough meds as needed. PPx: Held s/t recent GIB Discharge Planning: Will need SNF when ready. May need further surgical procedures. Plastic surgery following.
--- NOTE | 2018-03-31 17:21 | P.PNID ---
Subjective Remarks: Patient feels okay. Ambulates with PT. Afebrile. No fever, no chills. No SOB. Wound vac to be changed today. Feel pain at the wound vac site. This is a 67-year-old white female who was admitted to the hospital After she developed redness of her right foot 5 days ago. She also notes that she had bouts of diarrhea for a couple of days prior to that. The diarrhea continued for 5 days and then stopped. She went to see her primary physician and she notes that they sent her to the emergency department because she appeared pale. She notes that she had a tiny lump on her right abdominal wall underneath the fold of skin. She has obese abdomen with large amount of pannus. She was evaluated in the ED and was noted to have elevated white blood cell count of 35.9 and she had lactic acid level of 3.5. She also had acute kidney disease with creatinine of 3.51. The patient was admitted and eventually taken to surgery for an abdominal wall debridement. She was noted to have necrotic skin at the right lower abdomen. Past Medical History: PAST MEDICAL HISTORY: Hypertension, history of cervical discectomy and allograft bone fusion in 10/2013, bacteremia due to methicillin-sensitive Staphylococcus aureus in 10/2013. Allergies/Adverse Reactions: Allergies No Known Allergies Allergy (Unverified 03/14/18 16:15) Objective Vital Signs 03/30/18 18:04 03/30/18 20:00 03/31/18 00:00 Temperature 98.1 F 97.8 F Pulse Rate 97 H 87 Respiratory Rate 18 18 18 Blood Pressure 134/60 135/60 Pulse Oximetry 99 100 03/31/18 04:00 03/31/18 08:00 03/31/18 12:00 Temperature 97.8 F 97.8 F 97.7 F Pulse Rate 87 88 92 H Respiratory Rate 18 17 17 Blood Pressure 134/60 138/60 149/68 H Pulse Oximetry 96 97 100 03/31/18 16:00 Temperature 97.8 F Pulse Rate 110 H Respiratory Rate 17 Blood Pressure 161/77 H Pulse Oximetry 98 Intake & Output 03/30/18 03/31/18 03/31/18 18:59 06:59 18:59 Intake Total 1010 / 1010 290 / 290 Output Total 1050 / 1050 Balance -40 / -40 290 / 290 Intake: IV 50 / 50 50 / 50 Ancef 2 GM Premix Inj 2 gm In 50 / 50 50 / 50 50 ml @ 200 mls/hr IV.SIG Q12H ED Rx#:[id number] Oral 960 / 960 240 / 240 Output: Urine 900 / 900 Wound Vac Amount 150 / 150 Right Abdomen 150 / 150 Other: Mode Setting Right Abdomen Continuous Continuous # Voids 3 Date of Last Bowel Movement 03/29/18 03/29/18 03/15/18 08:55 Tissue - Abdominal Fungal Smear - Final No fungal elements seen 03/15/18 08:55 Tissue - Abdominal Fungal Culture - Preliminary No growth in 2 weeks 03/15/18 08:55 Tissue - Abdominal Acid Fast Bacilli Smear - Final No acid fast bacilli seen 03/15/18 08:55 Tissue - Abdominal Mycobacterial Culture - Preliminary No growth in 2 weeks Lab - Hematology Results 03/30/18 04:10 WBC 6.2 RBC 2.63 L Hgb 8.8 L Hct 25.4 L MCV 96.7 MCH 33.4 MCHC 34.5 RDW 13.9 Plt Count 329 MPV 7.2 Lab - Chemistry Results 03/29/18 03/30/18 03/30/18 20:37 08:37 12:06 Sodium Potassium Chloride Carbon Dioxide Anion Gap BUN Creatinine Estimated GFR POC Glucose 192 H 139 H 135 H Random Glucose Calcium 03/30/18 03/30/18 03/31/18 16:42 20:52 06:30 Sodium 139 Potassium 3.6 Chloride 100 Carbon Dioxide 33.5 H Anion Gap 6 BUN 20 H Creatinine 1.45 H Estimated GFR 36 L POC Glucose 121 H 168 H Random Glucose 108 H Calcium 7.9 L 03/31/18 03/31/18 07:56 11:41 Sodium Potassium Chloride Carbon Dioxide Anion Gap BUN Creatinine Estimated GFR POC Glucose 120 H 132 H Random Glucose Calcium Imaging: ITS Impressions Abdomen/Pelvis CT 03/14/18 16:22 CONCLUSION: 1. No acute intra-abdominal abnormality seen. 2. Edema seen throughout the subcutaneous fat at the anterior abdominal wall. This should be correlated with any inflammatory process in this region. No focal fluid collection to suggest an abscess is seen. Abdomen/Bladder Ultrasound 03/17/18 16:09 CONCLUSION: 1. Limited examination without gross abnormality in the left kidney. 2. Right kidney and urinary bladder not visualized. Chest X-Ray 03/28/18 10:25 CONCLUSION: No acute cardiopulmonary disease. Physical Exam: GENERAL: No acute distress. Awake and alert and oriented. HEENT: EOMI,VICENTE. No icterus. NECK: Supple without adenopathy. LUNGS: Clear breath sounds. HEART: Regular S1, S2. No murmurs, rubs or gallops. ABDOMEN: Bowel sounds present, obese, soft. Wound vac in place. EXTREMITIES: The left foot erythema is now minimal. Less edema of the legs and thighs. The skin at both lateral thighs appears intact and has no erythema or discoloration. SKIN: No diffuse rash. NEUROLOGIC: No gross focal findings. PSYCHIATRIC: Calm and cooperative. Assessment and Plan - Plan IMPRESSION: 1. Necrotic cellulitis of the abdominal wall. Patient with large abdominal wound with wound VAC. Group B beta strep and MSSA. 2. Sepsis. Improved. 3. Left foot cellulitis. Continues to improve. 4. Acute kidney disease. Slowly improving. 5. Leukocytosis. WBC is improved. The one positive blood culture bottle with coag negative staph identified as staph auricularis which I think is contamination. RECOMMENDATIONS: 1. Continue the Cefazolin at 2 g IV every 12 hours. 2. Continue to monitor renal function. 3. Monitor clinical status. 4. Monitor wound healing.
[2018-03-31] MEDS: HYDROmorphone PF Inj 2 MG/ML Vial IV.PUSH PRN (18:17)
--- NOTE | 2018-03-31 19:40 | P.PNWCN ---
Wound Care Nurse Consult Description: Received wound VAC management consult from CALIXTO Tejada for M-W-F VAC changes starting SaturdayMarch 21 Recommendation: Please reinforce dressing with stoma paste and VAC drape for leak. Wound care nurse will change on Saturday, If no Surgery on Wound/Pressure Injury - Patient Status Premedicated for Pain Prior to Dressing Change: No - Wound Right Abdomen Wound Assessment: Ongoing Wound Type: Abscess (Now open surgical wound) Is This a Chronic Wound: Yes Requested from Provider a Wound Care Consult: Yes Wound Bed Appearance: [place], Red, Yellow Wound Bed Appearance: Wound bed presents with ~60% red non granulation tissue, and ~40% adipose tissue. Surrounding Tissue Appearance: [place] (unremarkable periwound) Surrounding Tissue Temperature: Warm Drainage Description: Sanguinous Drainage Amount: Minimal Drainage Odor: No Odor Dressing Status: Dry & Intact Cleansing Solution: Saline Wound Packing Type: Woundvac Sponge Primary Dressing: Negative Pressure Wound Dressing Cover Dressing: wound vac Tape Type: Transparent Wound Dressing Change Date: 03/28/18 Wound Margin Description: Wound margins are uneven and steep Left Upper Foot Dressing Status: Open to Air Wound Vac - Wound Vac Right Abdomen Pressure Setting (mmHg): 125 Mode Setting: Continuous Drainage Description: Serosanguinous Foam type: Black Other Foam Type: black - Additional Information Patient seen on for wound VAC dressing change by account underwriter.Removed 6 pieces of black granufoam. Wound to abdomen was cleansed with normal saline and patted dry. Applied skin barrier film to periwound and allowed to dry. Window paned wound with VAC drape. Applied one piece of white granufoam to wound base loosely packed and then applied two larger pieces of granufaom to wound secured with VAC drape. Applied one smaller piece of granufoam to fill in entire wound bed. A total of 4 pieces of granufoam were applied to wound bed. Secured with VAC drape. Cut half dollar size hole in VAC drape exposing black GranuFoam. Applied one strip of granufoam over VAC drape from exposed granufoam in wound bed and bridged to proximal R lower abdomen. Applied Sensi trac pad with attached mushroom cap of granufoam to bridged granufoam.Covered all exposed granufoam with VAC drape. Willian seal was applied from 4 to 8 o'clock to seal wound VAC dressing. Wound VAC is suctioning at 125 mm/Hg continuous suction.Patient tolerated wound vac change well.
--- NOTE | 2018-03-31 19:58 | P.PN ---
Subjective Interval history: Patient reports minimal pain to abdomen. Patient has been undergoing Saturday VAC changes by wound care. Physical Exam Vital signs: Vital Signs 03/30/18 20:00 03/31/18 00:00 03/31/18 04:00 Temperature 98.1 F 97.8 F 97.8 F Pulse Rate 97 H 87 87 Respiratory Rate 18 18 18 Blood Pressure 134/60 135/60 134/60 Pulse Oximetry 99 100 96 03/31/18 08:00 03/31/18 12:00 03/31/18 16:00 Temperature 97.8 F 97.7 F 97.8 F Pulse Rate 88 92 H 110 H Respiratory Rate 17 17 17 Blood Pressure 138/60 149/68 H 161/77 H Pulse Oximetry 97 100 98 Intake & Output 03/31/18 03/31/18 04/01/18 06:59 18:59 06:59 Intake Total 290 / 290 960 / 960 50 / 50 Output Total 200 / 200 Balance 290 / 290 760 / 760 50 / 50 Intake: IV 50 / 50 50 / 50 Ancef 2 GM Premix Inj 2 gm In 50 / 50 50 / 50 50 ml @ 200 mls/hr IV.SIG Q12H ED Rx#:[id number] Oral 240 / 240 960 / 960 Output: Wound Drainage 200 / 200 # 1 Medial Abdomen 200 / 200 Other: Mode Setting Right Abdomen Continuous Continuous # Voids 3 3 Date of Last Bowel Movement 03/29/18 # Bowel Movements 1 Narrative: Back holding excellent suction Minimal surrounding erythema/tenderness - Urinary Catheter Management Indwelling Urethral Catheter Cath placed during this visit: yes, but has since been removed by the nurse Urethral indwelling: No Reason for continuing: Decision to DC catheter Insertion date: 03/15/18 Insertion time: 17:00 Removal date: 03/16/18 Removal time: 06:00 Results - Labs CBC & Chem 7: 03/30/18 04:10 03/31/18 06:30 Laboratory Results - last 24 hr 03/30/18 03/31/18 03/31/18 20:52 06:30 07:56 Sodium 139 Potassium 3.6 Chloride 100 Carbon Dioxide 33.5 H Anion Gap 6 BUN 20 H Creatinine 1.45 H Estimated GFR 36 L POC Glucose 168 H 120 H Random Glucose 108 H Calcium 7.9 L 03/31/18 03/31/18 11:41 17:25 Sodium Potassium Chloride Carbon Dioxide Anion Gap BUN Creatinine Estimated GFR POC Glucose 132 H 130 H Random Glucose Calcium Assessment and Plan - Assessment (1) Panniculitis Code(s): M79.3 - Panniculitis, unspecified Status: Acute - Plan 67-year-old female with abdominal wound Risks benefits and alternative treatments discussed All questions answered and the patient expressed understanding Patient understands that this will not address her considerable lateral abdominal/dorsal fullness/adiposity Patient expresses understanding also that her umbilicus will be at the inferior aspect of her abdomen Patient expresses understanding of the above risks and elects to assume the risks of panniculectomy in order to excise the above wound Informed consent obtained We will plan for this
[2018-03-31] MEDS: guaiFENesin/Codeine Syrup 200 MG/20 MG 10 ML UDC PO PRN (21:38)
[2018-03-31] MEDS: Benzonatate 100 MG Capsule PO PRN (21:38)
[2018-04-01] MEDS: Hydrocortisone Acetate 25 MG Supp RECTAL SCH ×3 (00:20→22:22)
[2018-04-01] MEDS: ceFAZolin 2 GM Premix Inj 2 GM/50 ML PIGGYBACK IV.SIG SCH ×2 (05:42→18:01)
[2018-04-01] MEDS: Calcium Carbonate 500 MG Tablet PO SCH ×2 (08:06→22:21)
[2018-04-01] MEDS: Furosemide 40 MG Tablet PO SCH ×2 (08:06→18:01)
[2018-04-01] MEDS: Pantoprazole Inj 40 MG Vial IV.PUSH SCH (08:06)
[2018-04-01] MEDS: Insulin Detemir Inj 1,000 UNIT/10 ML Vial SQ SCH (08:08)
[2018-04-01] MEDS: Insulin NovoLOG Aspart Correctional Sugar Inj SQ SCH ×4 (08:09→22:22)
[2018-04-01] MEDS: Nystatin 100,000 UNITS/GM Powder 15 GM Bottle TOPICAL SCH ×4 (08:09→22:22)
[2018-04-01] MEDS ORDERED: Polyethylene Glycol 3350 17 GM Packet PO ONE (11:50)
--- NOTE | 2018-04-01 11:53 | P.PNIM ---
Subjective Interval history: The patient complained of significant itchiness earlier but it is getting better. She states that she has having bowel movements but her stool is very hard and it is uncomfortable. She is awaiting surgery on . No other acute concerns. Physical Exam Vital signs: Vital Signs 03/31/18 12:00 03/31/18 16:00 03/31/18 20:00 Temperature 97.7 F 97.8 F 98.4 F Pulse Rate 92 H 110 H 92 H Respiratory Rate 17 17 20 Blood Pressure 149/68 H 161/77 H 160/69 H Pulse Oximetry 100 98 97 04/01/18 00:27 04/01/18 04:34 04/01/18 08:00 Temperature 97.7 F 97.9 F 98.0 F Pulse Rate 102 H 89 84 Respiratory Rate 20 20 20 Blood Pressure 150/66 H 120/58 L 125/58 L Pulse Oximetry 96 96 97 Intake & Output 03/31/18 04/01/18 04/01/18 18:59 06:59 18:59 Intake Total 960 / 960 730 / 730 50 / 50 Output Total 200 / 200 50 / 50 Balance 760 / 760 680 / 680 50 / 50 Weight 155 kg Intake: IV 50 / 50 50 / 50 Ancef 2 GM Premix Inj 2 gm In 50 / 50 50 / 50 50 ml @ 200 mls/hr IV.SIG Q12H ED Rx#:[id number] Oral 960 / 960 680 / 680 Output: Wound Drainage 200 / 200 50 / 50 # 1 Medial Abdomen 200 / 200 50 / 50 Other: Mode Setting Right Abdomen Continuous Continuous Continuous # Voids 3 4 Date of Last Bowel Movement 03/30/18 # Bowel Movements 1 Narrative: GENERAL: Morbidly obese female in no acute distress. HEENT: NC, AT. CARDIOVASCULAR: Normal rate and regular rhythm without murmurs, gallops, or rubs. RESPIRATORY: Good respiratory efforts. Breath sounds equal and clear to auscultation bilaterally. GASTROINTESTINAL: Abdomen is obese, there is a large wound VAC in place on the lower abdomen. MUSCULOSKELETAL: Extremities with 2+ edema. Resolving cellulitis. NEURO: No gross deficits. - Urinary Catheter Management Indwelling Urethral Catheter Cath placed during this visit: yes, but has since been removed by the nurse Urethral indwelling: No Reason for continuing: Decision to DC catheter Insertion date: 03/15/18 Insertion time: 17:00 Removal date: 03/16/18 Removal time: 06:00 Results - Labs CBC & Chem 7: 03/30/18 04:10 03/31/18 06:30 Laboratory Results - last 24 hr 03/31/18 03/31/18 04/01/18 17:25 21:33 07:23 POC Glucose 130 H 127 H 151 H Assessment and Plan - Assessment (1) Sepsis Code(s): A41.9 - Sepsis, unspecified organism Status: Acute (2) Abdominal wall cellulitis Code(s): L03.311 - Cellulitis of abdominal wall Status: Acute (3) Acute renal failure due to tubular necrosis Code(s): N17.0 - Acute kidney failure with tubular necrosis Status: Acute (4) Acidosis, metabolic Code(s): E87.2 - Acidosis Status: Resolved - Plan 67-year-old female admitted with sepsis secondary to necrotizing infection of the abdominal wall with abscess. She is status post urgent debridement. Patient has a large abdominal wound VAC in place. Severe sepsis secondary to abdominal wall infection with abscess -Status post emergent debridement. Surgery following. -Wound care per surgery. Pain control. -Continue antibiotics per infectious disease. -Plastic surgery following for large abdominal wound. Surgery planned on . -PT, IS. -follow with wound care nurse. Bright red blood per rectum Possibly hemorrhoid bleed. -H&H remained stable. GI signed off. -Per GI continue to monitor H&H and reconsult for significant drop in H&H. Outpatient follow-up advised for colonoscopy if not done inpatient. Acute renal failure requiring hemodialysis -Nephrology consult appreciated. Renal function continues to improve. - Oral Lasix per nephrology. - Avoid nephrotoxins. - outpt follow-up with nephrology. Itchiness May be s/t meds, dry skin. -Benadryl as needed. -Lac-Hydrin for dry skin. Left foot cellulitis/lower extremity edema Improved. -Continue antibiotics per ID -Continue Lasix per nephrology. Diabetes -Continue Levemir. Sliding scale insulin with Accu-Cheks -Hemoglobin A1c of 6.6. Diabetic education. Dietitian consulted. Cough Persistent. CXR unremarkable. - continue cough meds as needed. Constipation Mild. -trial of Miralax. PPx: Held s/t recent GIB Discharge Planning: Will need SNF when ready. May need further surgical procedures. Plastic surgery following.
[2018-04-01] MEDS: Lactic Acid (Ammonium Lactate) 12% Lotion 225 GM Bottle TOPICAL SCH ×2 (12:49→22:22)
[2018-04-01 14:33] LABS: Baso # (Auto) 0.1 th/mm3 (0.0-0.2); Baso % (Auto) 0.9 % (0.0-2.0); Eos # (Auto) 0.3 th/mm3 (0.0-0.4); Eos % (Auto) 5.7 % (0.0-4.0); Hemoglobin 9.8 gm/dL (11.6-15.3); Lymph # (Auto) 1.4 th/mm3 (1.0-4.8); Lymph % (Auto) 24.1 % (9.0-44.0); Mean Corpuscular HGB Conc 33.9 % (32.0-36.0); Mean Corpuscular Volume 97.4 fL (80.0-100.0); Mean Platelet Volume 7.2 fL (7.0-11.0); Mono # (Auto) 0.7 th/mm3 (0.0-0.9); Mono % (Auto) 11.4 % (0.0-8.0); Neut # (Auto) 3.4 th/mm3 (1.8-7.7); Neut % (Auto) 57.9 % (16.0-70.0); Platelet Count 348 th/mm3 (150-450); Red Blood Count 2.98 mil/mm3 (4.00-5.30); Red Cell Distribution Width 14.1 % (11.6-17.2); White Blood Count 5.9 th/mm3 (4.0-11.0)
[2018-04-01 14:52] LABS: Alanine Aminotransferase 10 U/L (10-53); Albumin 2.4 g/dL (3.4-5.0); Anion Gap 6 meq/L (5-15); Aspartate Aminotransferase 23 U/L (15-37); Blood Urea Nitrogen 20 mg/dL (7-18); Calcium 8.3 mg/dL (8.5-10.1); Carbon Dioxide 35.2 meq/L (21.0-32.0); Chloride 96 meq/L (98-107); Glomerular Filtration Rate 31 mL/min (>89); Glucose,Random 149 mg/dL (74-106); Potassium 3.7 meq/L (3.5-5.1); Sodium 137 meq/L (136-145)
[2018-04-01 14:55] LABS: Alkaline Phosphatase 104 U/L (45-117)
[2018-04-02] MEDS: ceFAZolin 2 GM Premix Inj 2 GM/50 ML PIGGYBACK IV.SIG SCH (05:47)
[2018-04-02] MEDS: Calcium Carbonate 500 MG Tablet PO SCH ×2 (09:13→21:31)
[2018-04-02] MEDS: Insulin Detemir Inj 1,000 UNIT/10 ML Vial SQ SCH (09:13)
[2018-04-02] MEDS: Hydrocortisone Acetate 25 MG Supp RECTAL SCH ×2 (09:13→21:31)
[2018-04-02] MEDS: Pantoprazole Inj 40 MG Vial IV.PUSH SCH (09:19)
[2018-04-02] MEDS: Lactic Acid (Ammonium Lactate) 12% Lotion 225 GM Bottle TOPICAL SCH ×2 (09:22→21:31)
[2018-04-02] MEDS: Nystatin 100,000 UNITS/GM Powder 15 GM Bottle TOPICAL SCH ×4 (09:22→21:31)
[2018-04-02] MEDS: Insulin NovoLOG Aspart Correctional Sugar Inj SQ SCH ×4 (09:23→21:30)
[2018-04-02] MEDS: Furosemide 40 MG Tablet PO SCH ×2 (09:27→17:22)
--- NOTE | 2018-04-02 16:36 | P.PNIM ---
Subjective Interval history: The patient was resting comfortably in bed. She was anticipating surgery tomorrow. She said she was a little constipated. She was expecting to go back up to the chair in a little while. Discussed with nursing. Physical Exam Vital signs: Vital Signs 04/01/18 20:21 04/02/18 00:32 04/02/18 04:09 Temperature 98.3 F 97.7 F 97.9 F Pulse Rate 100 H 88 83 Respiratory Rate 18 18 17 Blood Pressure 138/63 128/58 L 114/54 L Pulse Oximetry 96 96 96 04/02/18 08:00 04/02/18 12:00 Temperature 97.9 F 98.6 F Pulse Rate 82 88 Respiratory Rate 18 16 Blood Pressure 131/61 126/61 Pulse Oximetry 95 97 Intake & Output 04/01/18 04/02/18 04/02/18 18:59 06:59 18:59 Intake Total 475 / 475 530 / 530 Output Total 100 / 100 Balance 375 / 375 530 / 530 Weight 155 kg Intake: IV 100 / 100 50 / 50 Ancef 2 GM Premix Inj 2 gm In 100 / 100 50 / 50 50 ml @ 200 mls/hr IV.SIG Q12H ED Rx#:[id number] Oral 375 / 375 480 / 480 Output: Wound Drainage 100 / 100 # 1 Medial Abdomen 100 / 100 Other: Mode Setting Right Abdomen Continuous Continuous Continuous # Voids 2 4 # Bowel Movements 0 Narrative: GENERAL: Morbidly obese female in no acute distress. HEENT: NC, AT. CARDIOVASCULAR: Normal rate and regular rhythm without murmurs, gallops, or rubs. RESPIRATORY: Good respiratory efforts. Breath sounds equal and clear to auscultation bilaterally. GASTROINTESTINAL: Abdomen is obese, there is a large wound VAC in place on the lower abdomen. MUSCULOSKELETAL: Extremities with 2+ edema. Resolving cellulitis. NEURO: No gross deficits. - Urinary Catheter Management Indwelling Urethral Catheter Cath placed during this visit: yes, but has since been removed by the nurse Urethral indwelling: No Reason for continuing: Decision to DC catheter Insertion date: 03/15/18 Insertion time: 17:00 Removal date: 03/16/18 Removal time: 06:00 Results - Labs CBC & Chem 7: 04/01/18 13:45 04/01/18 12:45 Laboratory Results - last 24 hr 07/04/01/18 04/02/18 17:55 22:21 07:42 POC Glucose 108 141 H 132 H 04/02/18 04/02/18 04/02/18 11:26 15:45 15:46 POC Glucose 166 H 89 94 Assessment and Plan - Assessment (1) Sepsis Code(s): A41.9 - Sepsis, unspecified organism Status: Acute (2) Abdominal wall cellulitis Code(s): L03.311 - Cellulitis of abdominal wall Status: Acute (3) Acute renal failure due to tubular necrosis Code(s): N17.0 - Acute kidney failure with tubular necrosis Status: Acute (4) Acidosis, metabolic Code(s): E87.2 - Acidosis Status: Resolved - Plan 67-year-old female admitted with sepsis secondary to necrotizing infection of the abdominal wall with abscess. She is status post urgent debridement. Patient has a large abdominal wound VAC in place. Severe sepsis secondary to abdominal wall infection with abscess -Status post emergent debridement. Surgery following. -Wound care per surgery. Pain control. -Continue antibiotics per infectious disease. -Plastic surgery following for large abdominal wound. Surgery scheduled for tomorrow. -PT, IS. -follow with wound care nurse. Bright red blood per rectum Possibly hemorrhoid bleed. -H&H remained stable. GI signed off. -Per GI continue to monitor H&H and reconsult for significant drop in H&H. Outpatient follow-up advised for colonoscopy. Acute renal failure requiring hemodialysis -Nephrology consult appreciated. Renal function continues to improve. - Oral Lasix per nephrology. - Avoid nephrotoxins. - outpt follow-up with nephrology. Itchiness May be s/t meds, dry skin. -Benadryl as needed. -Lac-Hydrin for dry skin. Improved. Left foot cellulitis/lower extremity edema Improved. -Continue antibiotics per ID -Continue Lasix per nephrology. Diabetes -Continue Levemir. Sliding scale insulin with Accu-Cheks -Hemoglobin A1c of 6.6. Diabetic education. Dietitian consulted. Cough Persistent. CXR unremarkable. - continue cough meds as needed. Constipation Mild. -trial of Miralax. PPx: Held s/t recent GIB Discharge Planning: Will need SNF when ready. May need further surgical procedures. Plastic surgery following.
--- NOTE | 2018-04-02 16:37 | P.PNWCN ---
Wound Care Nurse Consult Communicated with: Doctor Crawley and SHIELA wu Recommendation: Leave wound VAC dressing in place and reinforce dressing as needed, patient will have removed during surgery tomorrow.If wound VAC dressing becomes dislodged and RN can't obtain seal within 2 hours, please remove wound VAC dressing and apply moist to dry dressing. Additional information: Patient not seen today for wound VAC dressing change, patient is going to surgery tomorrow for Abdominal are with Doctor Crawley and will have wound VAC dressing removed in surgery. Spoke with Doctor Crawley ok to leave wound VAC dressing in place. Wound Vac - Wound Vac Right Abdomen Pressure Setting (mmHg): 125 Mode Setting: Continuous Drainage Description: Serosanguinous Foam type: Black
[2018-04-03] MEDS: Calcium Carbonate 500 MG Tablet PO SCH ×2 (08:59→20:15)
[2018-04-03] MEDS: Insulin NovoLOG Aspart Correctional Sugar Inj SQ SCH ×4 (09:00→20:32)
[2018-04-03] MEDS: Insulin Detemir Inj 1,000 UNIT/10 ML Vial SQ SCH (09:00)
[2018-04-03] MEDS: Nystatin 100,000 UNITS/GM Powder 15 GM Bottle TOPICAL SCH ×4 (09:05→20:15)
[2018-04-03] MEDS: Lactic Acid (Ammonium Lactate) 12% Lotion 225 GM Bottle TOPICAL SCH ×2 (09:05→20:15)
[2018-04-03] MEDS: Pantoprazole Inj 40 MG Vial IV.PUSH SCH (09:05)
[2018-04-03] MEDS: Hydrocortisone Acetate 25 MG Supp RECTAL SCH ×2 (09:06→20:15)
--- NOTE | 2018-04-03 09:58 | P.PNIM ---
Subjective Interval history: The patient was upset this morning that her surgery was postponed. She stated that it might not happen until Saturday. She says that her leg dryness is better. Physical Exam Vital signs: Vital Signs 04/02/18 12:00 04/02/18 16:00 04/02/18 20:00 Temperature 98.6 F 98.0 F 98.0 F Pulse Rate 88 90 89 Respiratory Rate 16 18 18 Blood Pressure 126/61 142/64 H 126/62 Pulse Oximetry 97 96 96 04/03/18 00:00 04/03/18 04:00 04/03/18 08:00 Temperature 98.4 F 98.2 F 97.9 F Pulse Rate 90 110 H 86 Respiratory Rate 18 20 17 Blood Pressure 123/56 L 146/76 H 126/59 L Pulse Oximetry 95 96 96 Intake & Output 04/02/18 04/03/18 04/03/18 18:59 06:59 18:59 Intake Total 500 / 500 Balance 500 / 500 Intake: IV 100 / 100 Ancef Inj 2,000 MG In NS Inj 100 / 100 100 ML @ 200 mls/hr IV.SIG Q12H ED Rx#:[id number] Oral 400 / 400 Other: Mode Setting Right Abdomen Continuous Continuous # Voids 4 3 # Bowel Movements 0 1 Narrative: GENERAL: Morbidly obese female in no acute distress. HEENT: NC, AT. CARDIOVASCULAR: Normal rate and regular rhythm without murmurs, gallops, or rubs. RESPIRATORY: Good respiratory efforts. Breath sounds equal and clear to auscultation bilaterally. GASTROINTESTINAL: Abdomen is obese, there is a large wound VAC in place on the lower abdomen. MUSCULOSKELETAL: Extremities with 2+ edema. Resolving cellulitis. NEURO: No gross deficits. - Urinary Catheter Management Indwelling Urethral Catheter Cath placed during this visit: yes, but has since been removed by the nurse Urethral indwelling: No Reason for continuing: Decision to DC catheter Insertion date: 03/15/18 Insertion time: 17:00 Removal date: 03/16/18 Removal time: 06:00 Results - Labs CBC & Chem 7: 04/01/18 13:45 04/01/18 12:45 Laboratory Results - last 24 hr 04/02/18 04/02/18 04/02/18 11:26 15:45 15:46 POC Glucose 166 H 89 94 04/02/18 04/03/18 21:24 07:19 POC Glucose 169 H 124 H Assessment and Plan - Assessment (1) Sepsis Code(s): A41.9 - Sepsis, unspecified organism Status: Acute (2) Abdominal wall cellulitis Code(s): L03.311 - Cellulitis of abdominal wall Status: Acute (3) Acute renal failure due to tubular necrosis Code(s): N17.0 - Acute kidney failure with tubular necrosis Status: Acute (4) Acidosis, metabolic Code(s): E87.2 - Acidosis Status: Resolved - Plan 67-year-old female admitted with sepsis secondary to necrotizing infection of the abdominal wall with abscess. She is status post urgent debridement. Patient has a large abdominal wound VAC in place. Severe sepsis secondary to abdominal wall infection with abscess -Status post emergent debridement. Surgery following. -Wound care per surgery. Pain control. -Continue antibiotics per infectious disease. -Plastic surgery following for large abdominal wound. Surgery has been postponed. -PT, IS. -follow with wound care nurse. Bright red blood per rectum Possibly hemorrhoid bleed. -H&H remained stable. GI signed off. -Per GI continue to monitor H&H and reconsult for significant drop in H&H. Outpatient follow-up advised for colonoscopy. Acute renal failure requiring hemodialysis Nephrology consult appreciated. Renal function seems stable. - Oral Lasix per nephrology. - Avoid nephrotoxins. - outpt follow-up with nephrology. Itchiness May be s/t meds, dry skin. -Benadryl as needed. -Lac-Hydrin for dry skin. Improved. Left foot cellulitis/lower extremity edema Improved. -Continue antibiotics per ID -Continue Lasix per nephrology. Diabetes -Continue Levemir. Sliding scale insulin with Accu-Cheks -Hemoglobin A1c of 6.6. Diabetic education. Dietitian consulted. Cough Persistent. CXR unremarkable. - continue cough meds as needed. Constipation Mild. -trial of Miralax. PPx: Held s/t recent GIB Discharge Planning: Will need SNF when ready. May need further surgical procedures. Plastic surgery following.
[2018-04-03] MEDS: Furosemide 40 MG Tablet PO SCH ×3 (10:31→17:07)
--- NOTE | 2018-04-03 17:32 | P.PNWCN ---
Wound Care Nurse Consult Description: Wound VAC dressing changes to abdomen until surgery next week Recommendation: Leave wound VAC dressing in place and reinforce dressing as needed,if wound VAC dressing becomes saturated or dislodged please remove dressing and apply moist to dry dressing until Wound VAC dressing can be applied. Wound care will change dressing on Saturday04/04/2018. Additional information: Patient not seen today, wound VAC dressing was left in place due to surgery today. Surgery was postponed , will leave wound VAC dressing in place today and change tomorrow 04/04/2018. Wound VAC can be left in place until Saturday or Saturday after tomorrow's change. Ok with Doctor Roxy to leave wound VAC dressing in place until tomorrow. Wound/Pressure Injury - Wound Posterior Sacrum Wound Assessment: Ongoing Is This a Chronic Wound: Yes Requested from Provider a Wound Care Consult: No Wound Bed Appearance: [place] Drainage Amount: None Dressing Status: Open to Air Topical: skin protectant cream applied to redness on bottom Left Upper Foot Wound Assessment: Ongoing Wound Type: Abscess Wound Bed Appearance: Edematous, Peeling Skin, Shiny Surrounding Tissue Appearance: Bright Red, Edematous Surrounding Tissue Temperature: Hot Drainage Amount: None Dressing Status: Open to Air Left Foot Wound Assessment: Ongoing Wound Type: Blister Is This a Chronic Wound: Yes Requested from Provider a Wound Care Consult: No Wound Bed Appearance: [place] Surrounding Tissue Appearance: [place] Surrounding Tissue Temperature: Warm Drainage Amount: None Drainage Odor: No Odor Dressing Status: Open to Air Wound Vac - Wound Vac Right Abdomen Pressure Setting (mmHg): 125 Mode Setting: Continuous Drainage Description: Serosanguinous Foam type: Black Other Foam Type: black Posterior Sacrum Mode Setting: Continuous Drainage Description: Serosanguinous Incision - Incision Abdomen Incision Assessment: Ongoing Incision Type: Incision Incision Description: Approximated Incision Bed Appearance: Edematous Surrounding Tissue Temperature: Warm Drainage Description: Serosanguinous Drainage Amount: None Incision Dressing Status: Dry & Intact Incision Packing Type: Woundvac Sponge Primary Dressing: WOUND VAC,BLACK SPONGE Cover Dressing: Transparent Incision/Surgery Date: 03/15/18 Lower Abdomen Incision Assessment: Ongoing Incision Type: Incision Incision Description: Open Incision Bed Appearance: [place], Red Surrounding Tissue Appearance: Erythema, [place] Surrounding Tissue Temperature: Warm Drainage Description: Serosanguinous Drainage Amount: Moderate Drainage Odor: No Odor Incision Dressing Status: Dry & Intact Incision Packing Type: Woundvac Sponge Primary Dressing: Negative Pressure Wound Dressing Cover Dressing: Drainage Sponge Other Cover Dressing: WoundVac Tape Type: Transparent Incision Dressing Change Date: 03/31/18
[2018-04-04 06:05] LABS: Hematocrit 29.6 % (35.0-46.0); Hemoglobin 10.1 gm/dL (11.6-15.3); Mean Corpuscular HGB Conc 34.1 % (32.0-36.0); Mean Corpuscular Hemoglobin 33.1 pg (27.0-34.0); Mean Platelet Volume 7.4 fL (7.0-11.0); Platelet Count 341 th/mm3 (150-450); Red Blood Count 3.05 mil/mm3 (4.00-5.30); Red Cell Distribution Width 14.2 % (11.6-17.2); White Blood Count 6.6 th/mm3 (4.0-11.0)
[2018-04-04 06:25] LABS: Calcium 8.3 mg/dL (8.5-10.1); Carbon Dioxide 32.9 meq/L (21.0-32.0); Magnesium 2.1 mg/dL (1.5-2.5); Potassium 3.2 meq/L (3.5-5.1)
[2018-04-04] MEDS: Insulin NovoLOG Aspart Correctional Sugar Inj SQ SCH ×4 (09:23→20:08)
[2018-04-04] MEDS: Calcium Carbonate 500 MG Tablet PO SCH ×2 (09:42→20:08)
[2018-04-04] MEDS: Furosemide 40 MG Tablet PO SCH ×2 (09:42→17:51)
[2018-04-04] MEDS: Pantoprazole Inj 40 MG Vial IV.PUSH SCH (09:43)
[2018-04-04] MEDS: Insulin Detemir Inj 1,000 UNIT/10 ML Vial SQ SCH (09:43)
[2018-04-04] MEDS: Hydrocortisone Acetate 25 MG Supp RECTAL SCH ×2 (09:44→20:08)
[2018-04-04] MEDS: Nystatin 100,000 UNITS/GM Powder 15 GM Bottle TOPICAL SCH ×4 (09:48→20:08)
[2018-04-04] MEDS: Lactic Acid (Ammonium Lactate) 12% Lotion 225 GM Bottle TOPICAL SCH ×2 (09:48→20:08)
[2018-04-04] MEDS: HYDROmorphone PF Inj 2 MG/ML Vial IV.PUSH PRN (10:36)
--- NOTE | 2018-04-04 11:39 | P.PNWCN ---
Wound Care Nurse Consult Description: Wound VAC dressing changes to abdomen until surgery next week Communicated with: SHIELA [place] Recommendation: Leave wound VAC dressing in place and reinforce dressing as needed,if wound VAC dressing becomes saturated or dislodged please remove dressing and apply moist to dry dressing until Wound VAC dressing can be applied. Surgery to Abdomen will possibly be on Saturday or Saturday. Wound/Pressure Injury - Wound Right Abdomen Wound Assessment: Ongoing Wound Type: Abscess (Now open surgical wound) Is This a Chronic Wound: No Requested from Provider a Wound Care Consult: Yes Length: 12.9 (cm) Width: 28.5 (cm) Depth: 9.5 (cm) Wound Bed Appearance: Red, Yellow Wound Bed Appearance: Wound bed presents with ~80% red granulation tissue and ~20% adipose tissue. Surrounding Tissue Appearance: [place] Surrounding Tissue Temperature: Warm Drainage Description: Sanguinous Drainage Amount: Minimal Drainage Odor: Slight Odor Dressing Status: Changed Cleansing Solution: Saline Wound Packing Type: Woundvac Sponge Primary Dressing: Negative Pressure Wound Dressing Cover Dressing: Transparent Wound Dressing Change Date: 04/04/18 Wound Margin Description: Wound margins are uneven and steep Wound Vac - Wound Vac Right Abdomen Pressure Setting (mmHg): 125 Mode Setting: Continuous Drainage Description: Serosanguinous Foam type: Black, White - Additional Information Patient seen on for wound VAC dressing change by and Mago KUO, WCC, OMS.Removed all 3 pieces of black granufoam and one piece of white granufoam from wound bed. Wound to abdomen was cleansed with normal saline and patted dry. Applied skin barrier film to periwound and allowed to dry. Window paned wound with VAC drape. Applied Two pieces of white granufoam to wound base loosely packed in tunneled areas and then applied one larger piece of black granufoam to wound secured with VAC drape. A total of 3 pieces of granufoam were applied to wound bed. Secured with VAC drape. Cut half dollar size hole in VAC drape exposing black GranuFoam. Applied one strip of granufoam over VAC drape from exposed granufoam in wound bed and bridged to proximal R lower abdomen. Applied Sensi trac pad with attached mushroom cap of granufoam to bridged granufoam.Covered all exposed granufoam with VAC drape. Willian seal was applied from 4 to 8 o'clock to seal wound VAC dressing. Wound VAC is suctioning at 125 mm/Hg continuous suction.Patient tolerated wound vac change well.
[2018-04-04] MEDS ORDERED: Potassium Chloride 25 MEQ Effervescent Tablet PO ONE (12:22)
--- NOTE | 2018-04-04 12:27 | P.PNIM ---
Subjective Interval history: The patient was sitting up in a chair. She said that surgery might not happen until Saturday. She had questions about the wound VAC after surgery. She mentioned she still has some edema. No other acute concerns. Physical Exam Vital signs: Vital Signs 04/03/18 15:52 04/03/18 17:55 04/03/18 20:00 Temperature 98.2 F 98.3 F Pulse Rate 95 H 109 H Respiratory Rate 18 20 19 Blood Pressure 148/65 H 187/86 H Pulse Oximetry 96 95 04/04/18 00:00 04/04/18 08:00 Temperature 98.1 F 98.1 F Pulse Rate 87 91 H Respiratory Rate 19 17 Blood Pressure 133/63 133/63 Pulse Oximetry 98 97 Intake & Output 04/03/18 04/04/18 04/04/18 18:59 06:59 18:59 Intake Total 780 / 780 240 / 240 Balance 780 / 780 240 / 240 Intake: IV 100 / 100 Ancef Inj 2,000 MG In NS Inj 100 / 100 100 ML @ 200 mls/hr IV.SIG Q12H ED Rx#:[id number] Oral 680 / 680 240 / 240 Other: Mode Setting Posterior Sacrum Continuous Right Abdomen Continuous Continuous Continuous # Voids 4 3 Date of Last Bowel Movement 04/03/18 04/03/18 # Bowel Movements 1 1 Narrative: GENERAL: Morbidly obese female in no acute distress. HEENT: NC, AT. CARDIOVASCULAR: Normal rate and regular rhythm without murmurs, gallops, or rubs. RESPIRATORY: Good respiratory efforts. Breath sounds equal and clear to auscultation bilaterally. GASTROINTESTINAL: Abdomen is obese, there is a large wound VAC in place on the lower abdomen. MUSCULOSKELETAL: Extremities with 2+ edema. Resolving cellulitis. NEURO: No gross deficits. - Urinary Catheter Management Indwelling Urethral Catheter Cath placed during this visit: yes, but has since been removed by the nurse Urethral indwelling: No Reason for continuing: Decision to DC catheter Insertion date: 03/15/18 Insertion time: 17:00 Removal date: 03/16/18 Removal time: 06:00 Results - Labs CBC & Chem 7: 04/04/18 03:23 04/04/18 03:23 Laboratory Results - last 24 hr 04/03/18 04/03/18 04/04/18 16:39 20:21 03:23 WBC 6.6 RBC 3.05 L Hgb 10.1 L Hct 29.6 L MCV 97.0 MCH 33.1 MCHC 34.1 RDW 14.2 Plt Count 341 MPV 7.4 Sodium Potassium Chloride Carbon Dioxide Anion Gap BUN Creatinine Estimated GFR POC Glucose 146 H 162 H Random Glucose Calcium Magnesium 04/04/18 04/04/18 04/04/18 03:23 07:18 11:44 WBC RBC Hgb Hct MCV MCH MCHC RDW Plt Count MPV Sodium 138 Potassium 3.2 L Chloride 98 Carbon Dioxide 32.9 H Anion Gap 7 BUN 19 H Creatinine 1.36 H Estimated GFR 39 L POC Glucose 139 H 144 H Random Glucose 102 Calcium 8.3 L Magnesium 2.1 Assessment and Plan - Assessment (1) Sepsis Code(s): A41.9 - Sepsis, unspecified organism Status: Acute (2) Abdominal wall cellulitis Code(s): L03.311 - Cellulitis of abdominal wall Status: Acute (3) Acute renal failure due to tubular necrosis Code(s): N17.0 - Acute kidney failure with tubular necrosis Status: Acute (4) Acidosis, metabolic Code(s): E87.2 - Acidosis Status: Resolved - Plan 67-year-old female admitted with sepsis secondary to necrotizing infection of the abdominal wall with abscess. She is status post urgent debridement. Patient has a large abdominal wound VAC in place. Severe sepsis secondary to abdominal wall infection with abscess -Status post emergent debridement. Surgery following. -Wound care per surgery. Pain control. -Continue antibiotics per infectious disease. -Plastic surgery following for large abdominal wound. Surgery has been postponed , possibly until Saturday. -PT, IS. -follow with wound care nurse. Bright red blood per rectum Possibly hemorrhoid bleed. -H&H remained stable. GI signed off. -Per GI continue to monitor H&H and reconsult for significant drop in H&H. Outpatient follow-up advised for colonoscopy. Acute renal failure requiring hemodialysis Nephrology consult appreciated. Renal function seems stable. - continue Lasix 40 mg BID. - Avoid nephrotoxins. - outpt follow-up with nephrology. Itchiness May be s/t meds, dry skin. -Benadryl as needed. -Lac-Hydrin for dry skin. Improved. Left foot cellulitis/lower extremity edema Improved. -Continue antibiotics per ID -Continue Lasix per nephrology. Diabetes -Continue Levemir. Sliding scale insulin with Accu-Cheks -Hemoglobin A1c of 6.6. Diabetic education. Dietitian consulted. Cough Persistent. CXR unremarkable. - continue cough meds as needed. Constipation Mild. -trial of Miralax. PPx: Held s/t recent GIB Discharge Planning: Will need SNF when ready. Plastic surgery postponed surgery, possibly until Saturday. Continue diuresis. On wound-vac.
[2018-04-05 06:45] LABS: Calcium 8.4 mg/dL (8.5-10.1); Carbon Dioxide 30.9 meq/L (21.0-32.0); Potassium 3.4 meq/L (3.5-5.1)
[2018-04-05] MEDS: Insulin NovoLOG Aspart Correctional Sugar Inj SQ SCH ×4 (08:50→20:28)
[2018-04-05] MEDS: Insulin Detemir Inj 1,000 UNIT/10 ML Vial SQ SCH (09:35)
[2018-04-05] MEDS: Hydrocortisone Acetate 25 MG Supp RECTAL SCH ×2 (09:36→20:18)
[2018-04-05] MEDS: Calcium Carbonate 500 MG Tablet PO SCH ×2 (09:36→20:16)
[2018-04-05] MEDS: Furosemide 40 MG Tablet PO SCH ×2 (09:36→17:27)
[2018-04-05] MEDS: Lactic Acid (Ammonium Lactate) 12% Lotion 225 GM Bottle TOPICAL SCH ×2 (09:37→20:19)
[2018-04-05] MEDS: Pantoprazole Inj 40 MG Vial IV.PUSH SCH (09:37)
[2018-04-05] MEDS: Nystatin 100,000 UNITS/GM Powder 15 GM Bottle TOPICAL SCH ×4 (09:37→20:19)
--- NOTE | 2018-04-05 10:25 | P.PN ---
Subjective Interval history: Pt seen and examined for f/u of abdominal wall necrotic cellulitis S/P debridement on 03/18. Pt seen resting comfortably in the chair. She has no acute complaints and reports her pain is controlled. She is ambulating with a walker and working with PT. She is tolerating PO without abdominal pain, N/V, or diarrhea. She states the plan is for plastic surgery for abdominal reconstruction and wound closure on Saturday. Physical Exam Vital signs: Vital Signs 04/04/18 11:43 04/04/18 12:00 04/04/18 12:43 Temperature 97.9 F Pulse Rate 87 Respiratory Rate 18 17 18 Blood Pressure 147/76 H Pulse Oximetry 99 04/04/18 16:00 04/04/18 20:00 04/05/18 00:00 Temperature 98.0 F 98.3 F 98.2 F Pulse Rate 89 95 H 86 Respiratory Rate 17 17 Blood Pressure 175/80 H 146/73 H 129/60 Pulse Oximetry 97 95 97 04/05/18 08:00 Temperature 97.8 F Pulse Rate 82 Respiratory Rate 20 Blood Pressure 144/63 H Pulse Oximetry 97 Intake & Output 04/04/18 04/05/18 04/05/18 18:59 06:59 18:59 Intake Total 940 / 940 940 / 940 Balance 940 / 940 940 / 940 Intake: IV 100 / 100 100 / 100 Ancef Inj 2,000 MG In NS Inj 100 / 100 100 / 100 100 ML @ 200 mls/hr IV.SIG Q12H ED Rx#:[id number] Oral 840 / 840 840 / 840 Other: Mode Setting Right Abdomen Continuous Continuous # Voids 5 2 Date of Last Bowel Movement 04/04/18 # Bowel Movements 1 Narrative: GENERAL: Morbidly obese female sitting up in chair in NAD. SKIN: Warm and dry. HEENT: AT/NC. Pupils equal and round. MMM. HEART: RRR no m/r/g. LUNGS: CTAB without wheezes or crackles. ABDOMEN: Wound vac in place in lower abdomen. EXTREMITIES: +LE edema with chronic venous stasis changes. NEURO: Awake and alert. Nonfocal. PSYCH: Appropriate mood and affect. - Urinary Catheter Management Indwelling Urethral Catheter Cath placed during this visit: yes, but has since been removed by the nurse Urethral indwelling: No Reason for continuing: Decision to DC catheter Insertion date: 03/15/18 Insertion time: 17:00 Removal date: 03/16/18 Removal time: 06:00 Results - Labs CBC & Chem 7: 04/04/18 03:23 04/05/18 04:25 Laboratory Results - last 24 hr 04/04/18 04/04/18 04/04/18 11:44 16:37 20:05 Sodium Potassium Chloride Carbon Dioxide Anion Gap BUN Creatinine Estimated GFR POC Glucose 144 H 147 H 142 H Random Glucose Calcium 04/05/18 04/05/18 04:25 08:00 Sodium 136 Potassium 3.4 L Chloride 97 L Carbon Dioxide 30.9 Anion Gap 8 BUN 16 Creatinine 1.42 H Estimated GFR 37 L POC Glucose 114 H Random Glucose 99 Calcium 8.4 L Assessment and Plan - Assessment (1) Sepsis Code(s): A41.9 - Sepsis, unspecified organism Status: Acute (2) Abdominal wall cellulitis Code(s): L03.311 - Cellulitis of abdominal wall Status: Acute (3) Acute renal failure due to tubular necrosis Code(s): N17.0 - Acute kidney failure with tubular necrosis Status: Acute (4) Acidosis, metabolic Code(s): E87.2 - Acidosis Status: Resolved - Plan 67 year old female with history of HTN and RA admitted on 03/14 with severe sepsis secondary to necrotizing infection of the abdominal wall with abscess. She was also found to be in renal failure. 1. Severe sepsis secondary to necrotizing abdominal wall infection - S/p debridement 03/18 by general surgery - Wound vac in place - Cultures growing Group B strep and MSSA - 1 blood culture growing Staph auricularis, likely contamination - ID following, recommend continuing Cefazolin - Plastic surgery following for large abdominal wound requiring reconstruction - Wound care following - PT - Oxycodone PRN - Dilaudid for breakthrough 2. CORONA - Likely on top of CKD but no baseline to compare and patient with no knowledge of renal disease - Nephrology consult appreciated - required short-term dialysis due to worsening azotemia, oliguria, and metabolic acidosis - Renal function has stabilized off HD - Continue Lasix 40 mg BID - Avoid nephrotoxins - Outpatient follow-up with nephrology 3. Hematochezia - No further episodes - Likely an internal hemorrhoid. Hydrocortisone rectally - H&H stable - GI consulted and recommend outpatient f/u 4. Left foot cellulitis/lower extremity edema - Improved - Continue antibiotics per ID as above - Continue Lasix 5. Diabetes mellitus - Continue Levemir 12 units daily - Sliding scale insulin with Accu-Cheks - Hemoglobin A1c of 6.6 6. Cough - resolved - CXR unremarkable - Cough suppressants PRN - Supplemental O2 prn DVT prophylaxis: Heparin, hold if active bleeding
[2018-04-05] MEDS: Heparin - SQ 10,000 UNITS/ML Vial SQ SCH (20:16)
[2018-04-06 07:55] LABS: Hematocrit 27.6 % (35.0-46.0); Hemoglobin 9.6 gm/dL (11.6-15.3); Mean Corpuscular HGB Conc 34.7 % (32.0-36.0); Mean Corpuscular Hemoglobin 33.5 pg (27.0-34.0); Mean Corpuscular Volume 96.6 fL (80.0-100.0); Mean Platelet Volume 7.2 fL (7.0-11.0); Platelet Count 284 th/mm3 (150-450); Red Blood Count 2.86 mil/mm3 (4.00-5.30); Red Cell Distribution Width 14.8 % (11.6-17.2)
[2018-04-06] MEDS: Insulin NovoLOG Aspart Correctional Sugar Inj SQ SCH ×4 (07:58→20:18)
[2018-04-06] MEDS: Hydrocortisone Acetate 25 MG Supp RECTAL SCH ×2 (08:08→20:18)
[2018-04-06] MEDS: Heparin - SQ 10,000 UNITS/ML Vial SQ SCH ×2 (08:08→20:18)
[2018-04-06] MEDS: Insulin Detemir Inj 1,000 UNIT/10 ML Vial SQ SCH (08:08)
[2018-04-06] MEDS: Calcium Carbonate 500 MG Tablet PO SCH ×2 (08:08→20:18)
[2018-04-06] MEDS: Furosemide 40 MG Tablet PO SCH ×2 (08:08→17:50)
[2018-04-06] MEDS: Lactic Acid (Ammonium Lactate) 12% Lotion 225 GM Bottle TOPICAL SCH ×2 (08:09→20:20)
[2018-04-06] MEDS: Nystatin 100,000 UNITS/GM Powder 15 GM Bottle TOPICAL SCH ×4 (08:09→20:20)
[2018-04-06 08:11] LABS: Calcium 8.1 mg/dL (8.5-10.1); Carbon Dioxide 33.6 meq/L (21.0-32.0); Potassium 3.6 meq/L (3.5-5.1)
[2018-04-06] MEDS: Pantoprazole Inj 40 MG Vial IV.PUSH SCH (08:11)
--- NOTE | 2018-04-06 09:58 | P.PN ---
Subjective Interval history: Pt seen and examined. AFVSS. No acute events overnight. Pt is teary today and states she is having "just one of those days." Reports she was ambulating independently around the room today to wash herself up and use the restroom. She does endorse shortness of breath with minimal activity though. Pain is controlled. Looking forward to abdominal reconstruction surgery so she can start healing and move on. Physical Exam Vital signs: Vital Signs 04/05/18 12:00 04/05/18 16:00 04/05/18 20:00 Temperature 97.9 F 97.7 F 98.2 F Pulse Rate 86 96 H 93 H Respiratory Rate 19 19 18 Blood Pressure 134/71 147/67 H 153/65 H Pulse Oximetry 97 96 98 04/05/18 23:49 04/06/18 03:49 04/06/18 08:00 Temperature 98.5 F 98.3 F 97.8 F Pulse Rate 95 H 49 L 90 Respiratory Rate 19 16 18 Blood Pressure 159/67 H 155/65 H 143/65 H Pulse Oximetry 96 95 97 Intake & Output 04/05/18 04/06/18 04/06/18 18:59 06:59 18:59 Intake Total 2620 / 2620 480 / 480 100 / 100 Output Total 25 / 25 Balance 2595 / 2595 480 / 480 100 / 100 Weight 156.2 kg Intake: IV 100 / 100 100 / 100 Ancef Inj 2,000 MG In NS Inj 100 / 100 100 / 100 100 ML @ 200 mls/hr IV.SIG Q12H ED Rx#:[id number] Oral 2520 / 2520 480 / 480 Output: Wound Vac Amount 25 / 25 Right Abdomen 25 / Other: Mode Setting Right Abdomen Continuous Continuous # Voids 5 3 Date of Last Bowel Movement 04/04/18 04/05/18 # Bowel Movements 1 Narrative: GENERAL: Morbidly obese female sitting up in chair in NAD. SKIN: Warm and dry. HEENT: AT/NC. Pupils equal and round. MMM. HEART: RRR no m/r/g. LUNGS: CTAB without wheezes or crackles. ABDOMEN: Wound vac in place in lower abdomen. EXTREMITIES: +LE edema with chronic venous stasis changes. NEURO: Awake and alert. Nonfocal. PSYCH: Appropriate mood and affect. - Urinary Catheter Management Indwelling Urethral Catheter Cath placed during this visit: yes, but has since been removed by the nurse Urethral indwelling: No Reason for continuing: Decision to DC catheter Insertion date: 03/15/18 Insertion time: 17:00 Removal date: 03/16/18 Removal time: 06:00 Results - Labs CBC & Chem 7: 04/06/18 06:00 04/06/18 06:00 Laboratory Results - last 24 hr 04/05/18 04/05/18 04/05/18 11:52 16:54 20:23 WBC RBC Hgb Hct MCV MCH MCHC RDW Plt Count MPV Sodium Potassium Chloride Carbon Dioxide Anion Gap BUN Creatinine Estimated GFR POC Glucose 144 H 103 190 H Random Glucose Calcium 04/06/18 04/06/18 04/06/18 06:00 06:00 07:40 WBC 6.0 RBC 2.86 L Hgb 9.6 L Hct 27.6 L MCV 96.6 MCH 33.5 MCHC 34.7 RDW 14.8 Plt Count 284 MPV 7.2 Sodium 139 Potassium 3.6 Chloride 99 Carbon Dioxide 33.6 H Anion Gap 6 BUN 19 H Creatinine 1.52 H Estimated GFR 34 L POC Glucose 121 H Random Glucose 108 H Calcium 8.1 L Microbiology 03/15/18 08:55 Tissue - Abdominal Fungal Smear - Final No fungal elements seen 03/15/18 08:55 Tissue - Abdominal Fungal Culture - Preliminary No growth in 3 weeks 03/15/18 08:55 Tissue - Abdominal Acid Fast Bacilli Smear - Final No acid fast bacilli seen 03/15/18 08:55 Tissue - Abdominal Mycobacterial Culture - Preliminary No growth in 3 weeks Assessment and Plan - Assessment (1) Sepsis Code(s): A41.9 - Sepsis, unspecified organism Status: Acute (2) Abdominal wall cellulitis Code(s): L03.311 - Cellulitis of abdominal wall Status: Acute (3) Acute renal failure due to tubular necrosis Code(s): N17.0 - Acute kidney failure with tubular necrosis Status: Acute (4) Acidosis, metabolic Code(s): E87.2 - Acidosis Status: Resolved - Plan 67 year old female with history of HTN and RA admitted on 03/14 with severe sepsis secondary to necrotizing infection of the abdominal wall with abscess. She was also found to be in renal failure. 1. Severe sepsis secondary to necrotizing abdominal wall infection - Sepsis resolved - S/p debridement 03/18 by general surgery - Wound vac in place - Cultures growing Group B strep and MSSA - 1 blood culture growing Staph auricularis, likely contamination - ID following, recommend continuing Cefazolin - Plastic surgery following for large abdominal wound requiring reconstruction, anticipating surgery tomorrow - Wound care following - PT - Oxycodone PRN - Dilaudid for breakthrough 2. CORONA - Likely on top of CKD but no baseline to compare and patient with no knowledge of renal disease - Nephrology consult appreciated - required short-term dialysis due to worsening azotemia, oliguria, and metabolic acidosis - Renal function has stabilized off HD - Continue Lasix 40 mg BID - Avoid nephrotoxins - Outpatient follow-up with nephrology 3. Hematochezia - No further episodes - Likely an internal hemorrhoid. Hydrocortisone rectally - H&H stable - GI consulted and recommend outpatient f/u 4. Left foot cellulitis/lower extremity edema - Improved - Continue antibiotics per ID as above - Continue Lasix 5. Diabetes mellitus - Continue Levemir 12 units daily - Sliding scale insulin with Accu-Cheks - Hemoglobin A1c of 6.6 6. Cough - resolved - CXR unremarkable - Cough suppressants PRN - Supplemental O2 prn DVT prophylaxis: Hold heparin tomorrow in anticipation of surgery NPO after midnight Discussed Condition With: The patient
[2018-04-07] MEDS ORDERED: Chlorhexidine Gluconate 2% 1 Pack (2 Cloths) TOPICAL SCH (01:15)
[2018-04-07] MEDS ORDERED: Metoprolol Tartrate 25 MG Tablet PO SCH (01:15)
[2018-04-07] MEDS ORDERED: Sodium Chlor 0.9% Inj 500 ML IV.SIG SCH (02:00)
[2018-04-07 06:13] LABS: Hematocrit 29.4 % (35.0-46.0); Mean Corpuscular HGB Conc 34.1 % (32.0-36.0); Mean Corpuscular Hemoglobin 33.2 pg (27.0-34.0); Mean Corpuscular Volume 97.2 fL (80.0-100.0); Mean Platelet Volume 7.6 fL (7.0-11.0); Platelet Count 298 th/mm3 (150-450); Red Blood Count 3.02 mil/mm3 (4.00-5.30); Red Cell Distribution Width 14.3 % (11.6-17.2)
[2018-04-07 06:41] LABS: Calcium 7.8 mg/dL (8.5-10.1); Carbon Dioxide 31.7 meq/L (21.0-32.0)
[2018-04-07 06:43] LABS: Potassium 3.6 meq/L (3.5-5.1)
[2018-04-07] MEDS ORDERED: Sodium Bicarbonate 8.4% Inj 50 MEQ/50 ML Syringe ONE (06:58)
[2018-04-07] MEDS ORDERED: Lidocaine 0.5%/Epinephrine 1:200,000 Inj 50 ML Vial ONE (06:58)
[2018-04-07] MEDS ORDERED: Dexmedetomidine Inj 200 MCG/2 ML Vial ONE (08:03)
[2018-04-07] MEDS ORDERED: Heparin 10,000 UNITS/10 ML Vial (for IV use) ONE (08:14)
[2018-04-07] MEDS: Insulin NovoLOG Aspart Correctional Sugar Inj SQ SCH ×4 (08:15→20:24)
[2018-04-07] MEDS: Furosemide 40 MG Tablet PO SCH ×2 (08:15→17:20)
[2018-04-07] MEDS: Nystatin 100,000 UNITS/GM Powder 15 GM Bottle TOPICAL SCH ×4 (08:15→20:15)
[2018-04-07] MEDS: Hydrocortisone Acetate 25 MG Supp RECTAL SCH ×2 (08:15→20:09)
[2018-04-07] MEDS: Lactic Acid (Ammonium Lactate) 12% Lotion 225 GM Bottle TOPICAL SCH ×2 (08:15→20:09)
[2018-04-07] MEDS: Calcium Carbonate 500 MG Tablet PO SCH ×2 (08:15→20:09)
[2018-04-07] MEDS: Insulin Detemir Inj 1,000 UNIT/10 ML Vial SQ SCH (08:15)
[2018-04-07] MEDS: Pantoprazole Inj 40 MG Vial IV.PUSH SCH (08:16)
[2018-04-07] MEDS: ceFAZolin 2 GM Premix Inj 2 GM/50 ML PIGGYBACK IV.SIG ONE ×2 (08:53→19:45)
[2018-04-07] MEDS ORDERED: Heparin - SQ 10,000 UNITS/ML Vial ONE (08:54)
[2018-04-07] MEDS ORDERED: Bupivacaine/Epinephrine PF Inj 0.25% 10 ML Vial INFILTRATN ONE (09:47)
[2018-04-07] MEDS ORDERED: Sugammadex Inj 200 MG/2 ML Vial IV.PUSH ONE (09:58)
[2018-04-07] MEDS ORDERED: Morphine Inj 4 MG/ML Vial ONE (11:47)
[2018-04-07] MEDS ORDERED: fentaNYL Citrate Inj 100 MCG/2 ML Ampul ONE ×2 (11:47)
[2018-04-07] MEDS ORDERED: *morphine SULFATE 4 MG/ML PERIprocedure ONLY ONE (11:55)
[2018-04-07] MEDS ORDERED: Phenylephrine/NS 1000 MCG/10ML Syringe IV.PUSH ONE (12:00)
[2018-04-07] MEDS ORDERED: Lidocaine PF 1% Inj 5 ML Syringe INFILTRATN ONE (12:00)
[2018-04-07] MEDS ORDERED: Morphine Inj 4 MG/ML Vial IV.PUSH PRN (12:29)
--- NOTE | 2018-04-07 12:39 | P.PN ---
Subjective Interval history: Pt seen and examined shortly after returning to her room from surgery. Endorses pain in her abdomen. No other complaints. No CP or SOB. Physical Exam Vital signs: Vital Signs 04/06/18 16:00 04/06/18 19:52 04/06/18 21:00 Temperature 97.7 F 97.5 F L Pulse Rate 84 115 H Respiratory Rate 18 19 18 Blood Pressure 127/69 167/74 H Pulse Oximetry 99 95 04/07/18 00:00 04/07/18 06:05 04/07/18 08:00 Temperature 97.7 F 97.5 F L 97.5 F L Pulse Rate 115 H 79 78 Respiratory Rate 18 18 18 Blood Pressure 155/72 H 131/62 144/84 H Pulse Oximetry 96 97 98 04/07/18 11:41 04/07/18 12:00 04/07/18 12:14 Temperature 97.7 F 97.7 F Pulse Rate 86 80 82 Respiratory Rate 18 18 18 Blood Pressure 125/75 135/70 138/76 Pulse Oximetry 100 98 98 Intake & Output 04/06/18 04/07/18 04/07/18 18:59 06:59 18:59 Intake Total 1900 / 1900 200 / 200 2550 / 2550 Output Total 75 / 75 250 / 250 Balance 1825 / 1825 200 / 200 2300 / 2300 Weight 157 kg Intake: IV 100 / 100 200 / 200 1050 / 1050 LR 1000 mL Inj 1,000 ML @ 30 1000 / 1000 mls/hr IV.SIG .Q24H ED Rx#: [id number] Ancef 2 GM Premix Inj 2 gm In 50 / 50 50 ml @ 0 mls/hr IV.SIG .STK- MED ONE Rx#:[id number] Ancef Inj 2,000 MG In NS Inj 100 / 100 200 / 200 100 ML @ 200 mls/hr IV.SIG Q12H [facility] Rx#:[id number] Oral 1800 / 1800 0 / 0 Anesthesia Amount 1500 / 1500 Output: Estimated Blood Loss 150 / 150 Urine Amount (Catheter) 100 / 100 Indwelling Urethral Catheter 100 / 100 Wound Vac Amount 75 / 75 Right Abdomen 75 / 75 Other: Mode Setting Right Abdomen Continuous Continuous Continuous # Voids 3 4 Date of Last Bowel Movement 04/05/18 04/05/18 # Bowel Movements 1 Narrative: GENERAL: Morbidly obese female in NAD. SKIN: Warm and dry. HEENT: AT/NC. Pupils equal and round. MMM. HEART: RRR no m/r/g. LUNGS: CTAB without wheezes or crackles. ABDOMEN: Surgical incision with dressing, clean and dry. Two SALVATORE drains in place. EXTREMITIES: +LE edema with chronic venous stasis changes. NEURO: Awake and alert. Nonfocal. PSYCH: Appropriate mood and affect. - Urinary Catheter Management Indwelling Urethral Catheter Cath placed during this visit: yes, but has since been removed by the nurse Urethral indwelling: No Reason for continuing: Severe pressure ulcer/wound Insertion date: 04/07/18 Insertion time: 08:42 Removal date: 03/16/18 Removal time: 06:00 Results - Labs CBC & Chem 7: 04/07/18 04:02 04/07/18 04:02 Laboratory Results - last 24 hr 04/06/18 04/06/18 04/07/18 16:51 20:13 04:02 WBC 6.0 RBC 3.02 L Hgb 10.0 L Hct 29.4 L MCV 97.2 MCH 33.2 MCHC 34.1 RDW 14.3 Plt Count 298 MPV 7.6 Sodium Potassium Chloride Carbon Dioxide Anion Gap BUN Creatinine Estimated GFR POC Glucose 143 H 128 H Random Glucose Calcium 04/07/18 04/07/18 04:02 12:06 WBC RBC Hgb Hct MCV MCH MCHC RDW Plt Count MPV Sodium 138 Potassium 3.6 Chloride 98 Carbon Dioxide 31.7 Anion Gap 8 BUN 18 Creatinine 1.42 H Estimated GFR 37 L POC Glucose 150 H Random Glucose 84 Calcium 7.8 L Assessment and Plan - Assessment (1) Sepsis Code(s): A41.9 - Sepsis, unspecified organism Status: Acute (2) Abdominal wall cellulitis Code(s): L03.311 - Cellulitis of abdominal wall Status: Acute (3) Acute renal failure due to tubular necrosis Code(s): N17.0 - Acute kidney failure with tubular necrosis Status: Acute (4) Acidosis, metabolic Code(s): E87.2 - Acidosis Status: Resolved - Plan 67 year old female with history of HTN and RA admitted on 03/14 with severe sepsis secondary to necrotizing infection of the abdominal wall with abscess. She was also found to be in renal failure. 1. Severe sepsis secondary to necrotizing abdominal wall infection - Sepsis resolved - Cultures growing Group B strep and MSSA - 1 blood culture growing Staph auricularis, likely contamination - ID following, recommend continuing Cefazolin - S/p debridement with wound vac placement 03/18 by general surgery - Underwent panniculectomy today with plastic surgery - PT - Oxycodone PRN - Dilaudid for breakthrough 2. CORONA - Likely on top of CKD but no baseline to compare and patient with no knowledge of renal disease - Nephrology consult appreciated - required short-term dialysis due to worsening azotemia, oliguria, and metabolic acidosis - Renal function has stabilized off HD - Continue Lasix 40 mg BID - Avoid nephrotoxins - Outpatient follow-up with nephrology 3. Hematochezia - No further episodes - Likely an internal hemorrhoid. Hydrocortisone rectally - H&H stable - GI consulted and recommend outpatient f/u 4. Left foot cellulitis/lower extremity edema - Improved - Continue antibiotics per ID as above - Continue Lasix 5. Diabetes mellitus - Continue Levemir 12 units daily - Sliding scale insulin with Accu-Cheks - Hemoglobin A1c of 6.6 6. Cough - resolved - CXR unremarkable - Cough suppressants PRN - Supplemental O2 prn DVT prophylaxis: Holding heparin post-surgery Code Status: Full Discussed Condition With: The patient and RN
[2018-04-07] MEDS: Enoxaparin Inj 40 MG/0.4 ML Syringe SQ SCH (20:12)
[2018-04-08] MEDS: Insulin NovoLOG Aspart Correctional Sugar Inj SQ SCH ×4 (07:33→22:00)
--- NOTE | 2018-04-08 07:43 | ECG ---
Date Performed: 04/06/2018 Time Performed: 22:01:08 PTAGE: 67 years EKG: Sinus rhythm LOW QRS VOLTAGE IN PRECORDIAL LEADS POSSIBLE ANTERIOR MYOCARDIAL INFARCTION , PROBABLY OLD BORDERLIN E ECG PREVIOUS TRACING : 03/14/2018 15.11 DOCTOR: Alex Mcarthur Interpretating Date/Time 04/08/2018 07:37:21
[2018-04-08] MEDS: Hydrocortisone Acetate 25 MG Supp RECTAL SCH ×2 (08:05→22:05)
[2018-04-08] MEDS: Calcium Carbonate 500 MG Tablet PO SCH ×2 (08:09→22:05)
[2018-04-08] MEDS: Pantoprazole Inj 40 MG Vial IV.PUSH SCH (08:10)
[2018-04-08] MEDS: Furosemide 40 MG Tablet PO SCH ×2 (08:24→17:32)
[2018-04-08] MEDS: Nystatin 100,000 UNITS/GM Powder 15 GM Bottle TOPICAL SCH ×4 (08:24→22:11)
[2018-04-08] MEDS: Insulin Detemir Inj 1,000 UNIT/10 ML Vial SQ SCH (08:24)
[2018-04-08] MEDS: Lactic Acid (Ammonium Lactate) 12% Lotion 225 GM Bottle TOPICAL SCH ×2 (08:25→22:05)
[2018-04-08 09:29] LABS: Hematocrit 27.9 % (35.0-46.0); Hemoglobin 9.1 gm/dL (11.6-15.3); Mean Corpuscular HGB Conc 32.8 % (32.0-36.0); Mean Corpuscular Hemoglobin 32.1 pg (27.0-34.0); Mean Corpuscular Volume 97.9 fL (80.0-100.0); Mean Platelet Volume 7.4 fL (7.0-11.0); Platelet Count 319 th/mm3 (150-450); Red Blood Count 2.85 mil/mm3 (4.00-5.30); White Blood Count 11.4 th/mm3 (4.0-11.0)
[2018-04-08 10:02] LABS: Calcium 7.9 mg/dL (8.5-10.1); Potassium 3.6 meq/L (3.5-5.1)
--- NOTE | 2018-04-08 11:03 | P.PN ---
Subjective Interval history: Pt seen and examined. POD1 s/p panniculectomy. Reports she is feeling a lot better today pain-seo though still with some obvious abdominal discomfort following surgery. Feels very weak but looking forward to working with PT and gaining strength back. Thompson was removed approximately two hours ago and she was working on pushing fluids to help her urinate. She is tolerating PO. Passing flatus but no BM yet. Physical Exam Vital signs: Vital Signs 04/07/18 11:41 04/07/18 12:00 04/07/18 12:14 Temperature 97.7 F 97.7 F Pulse Rate 86 80 82 Respiratory Rate 18 18 18 Blood Pressure 125/75 135/70 138/76 Pulse Oximetry 100 98 98 04/07/18 16:00 04/07/18 20:00 04/08/18 08:00 Temperature 97.6 F 97.7 F 97.4 F L Pulse Rate 78 85 86 Respiratory Rate 16 20 17 Blood Pressure 120/58 L 120/57 L 168/79 H Pulse Oximetry 98 96 96 Intake & Output 04/07/18 04/08/18 04/08/18 18:59 06:59 18:59 Intake Total 3550 / 3550 100 / 100 Output Total 890 / 890 1060 / 1060 40 / 40 Balance 2660 / 2660 -1060 / -1060 60 / 60 Intake: IV 1150 / 1150 100 / 100 LR 1000 mL Inj 1,000 ML @ 30 1000 / 1000 mls/hr IV.SIG .Q24H ED Rx#: [id number] Ancef 2 GM Premix Inj 2 gm In 50 / 50 50 ml @ 0 mls/hr IV.SIG .STK- [facility] Rx#:[id number] Ancef Inj 2,000 MG In NS Inj 100 / 100 100 / 100 100 ML @ 200 mls/hr IV.SIG Q12H [facility] Rx#:[id number] Oral 900 / 900 Anesthesia Amount 1500 / 1500 Output: Urine 600 / 600 Estimated Blood Loss 150 / 150 Urine Amount (Catheter) 100 / 100 1000 / 1000 Indwelling Urethral Catheter 100 / 100 1000 / 1000 Wound Drainage 40 / 40 60 / 60 40 / 40 # 1 Left Lateral Abdomen 30 / 30 40 / 40 20 / 20 # 2 Right Lateral Abdomen 10 / 10 20 / 20 20 / 20 Other: Mode Setting Right Abdomen Continuous Date of Last Bowel Movement 04/05/18 04/05/18 04/05/18 # Bowel Movements 0 Narrative: GENERAL: Morbidly obese female sitting up in chair in NAD. SKIN: Warm and dry. HEENT: AT/NC. Pupils equal and round. MMM. HEART: RRR no m/r/g. LUNGS: CTAB without wheezes or crackles. ABDOMEN: Surgical incision with dressing, clean and dry. Two SALVATORE drains in place. EXTREMITIES: +LE edema with chronic venous stasis changes. NEURO: Awake and alert. Nonfocal. PSYCH: Appropriate mood and affect. - Urinary Catheter Management Indwelling Urethral Catheter Cath placed during this visit: yes, but has since been removed by the nurse Urethral indwelling: No Reason for continuing: Not indwelling catheter Insertion date: 04/07/18 Insertion time: 08:42 Removal date: 04/08/18 Removal time: 06:50 Results - Labs CBC & Chem 7: 04/08/18 08:34 04/08/18 08:34 Laboratory Results - last 24 hr 04/07/18 04/07/18 04/07/18 12:06 13:02 17:23 WBC RBC Hgb Hct MCV MCH MCHC RDW Plt Count MPV Sodium Potassium Chloride Carbon Dioxide Anion Gap BUN Creatinine Estimated GFR POC Glucose 150 H 182 H 182 H Random Glucose Calcium 04/07/18 04/08/18 04/08/18 20:12 07:28 08:34 WBC 11.4 H RBC 2.85 L Hgb 9.1 L Hct 27.9 L MCV 97.9 MCH 32.1 MCHC 32.8 RDW 15.0 Plt Count 319 MPV 7.4 Sodium Potassium Chloride Carbon Dioxide Anion Gap BUN Creatinine Estimated GFR POC Glucose 155 H 129 H Random Glucose Calcium 04/08/18 08:34 WBC RBC Hgb Hct MCV MCH MCHC RDW Plt Count MPV Sodium 138 Potassium 3.6 Chloride 99 Carbon Dioxide 30.0 Anion Gap 9 BUN 15 Creatinine 1.35 H Estimated GFR 39 L POC Glucose Random Glucose 123 H Calcium 7.9 L Assessment and Plan - Assessment (1) Sepsis Code(s): A41.9 - Sepsis, unspecified organism Status: Acute (2) Abdominal wall cellulitis Code(s): L03.311 - Cellulitis of abdominal wall Status: Acute (3) Acute renal failure due to tubular necrosis Code(s): N17.0 - Acute kidney failure with tubular necrosis Status: Acute (4) Acidosis, metabolic Code(s): E87.2 - Acidosis Status: Resolved - Plan 67 year old female with history of HTN and RA admitted on 03/14 with severe sepsis secondary to necrotizing infection of the abdominal wall with abscess. She was also found to be in renal failure. 1. Severe sepsis secondary to necrotizing abdominal wall infection - Sepsis resolved - Cultures growing Group B strep and MSSA - 1 blood culture growing Staph auricularis, likely contamination - ID following, recommend continuing Cefazolin - S/p debridement with wound vac placement 03/18 by general surgery - Underwent panniculectomy 04/07 with plastic surgery - PT - Oxycodone PRN - Dilaudid for breakthrough 2. CORONA - resolved - Creatinine 3.15 on admission and as high as 4.02 during hospitalization - Likely on top of CKD but no baseline to compare and patient with no knowledge of renal disease - Nephrology consult appreciated - required short-term dialysis due to worsening azotemia, oliguria, and metabolic acidosis - Renal function has stabilized off HD and continues to be stable - Continue Lasix 40 mg BID - Avoid nephrotoxins - Outpatient follow-up with nephrology - Continue to monitor renal function 3. Hematochezia - No further episodes - Likely an internal hemorrhoid. Hydrocortisone rectally - GI consulted and recommend outpatient f/u 4. Left foot cellulitis/lower extremity edema - Improved - Continue antibiotics per ID as above - Continue Lasix 5. Diabetes mellitus - Continue Levemir 12 units daily - Sliding scale insulin with Accu-Cheks - Hemoglobin A1c of 6.6 6. Cough - resolved - CXR unremarkable - Cough suppressants PRN - Supplemental O2 prn 7. Anemia - Likely secondary to acute illness and kidney disease - Following CBC - No active bleeding - H&H 9.1/27.9 this AM - Transfuse if Hb <7 or symptomatic DVT prophylaxis: Holding heparin post-surgery Discussed Condition With: Patient Discharge Planning: PT recommending rehab, case management assisting with placement Needs clearance from plastics and ID
--- NOTE | 2018-04-08 12:44 | P.PN ---
Subjective Interval history: Pain controlled. Patient out of bed to chair. No void since Thompson DC'd Physical Exam Vital signs: Vital Signs 04/07/18 16:00 04/07/18 20:00 04/08/18 08:00 Temperature 97.6 F 97.7 F 97.4 F L Pulse Rate 78 85 86 Respiratory Rate 16 20 17 Blood Pressure 120/58 L 120/57 L 168/79 H Pulse Oximetry 98 96 96 04/08/18 12:00 Temperature 97.6 F Pulse Rate 84 Respiratory Rate 16 Blood Pressure 106/52 L Pulse Oximetry 99 Intake & Output 04/07/18 04/08/18 04/08/18 18:59 06:59 18:59 Intake Total 3550 / 3550 100 / 100 Output Total 890 / 890 1060 / 1060 40 / 40 Balance 2660 / 2660 -1060 / -1060 60 / 60 Intake: IV 1150 / 1150 100 / 100 LR 1000 mL Inj 1,000 ML @ 30 1000 / 1000 mls/hr IV.SIG .Q24H [facility] Rx#: [id number] Ancef 2 GM Premix Inj 2 gm In 50 / 50 50 ml @ 0 mls/hr IV.SIG .STK- [facility] Rx#:[id number] Ancef Inj 2,000 MG In NS Inj 100 / 100 100 / 100 100 ML @ 200 mls/hr IV.SIG Q12H [facility] Rx#:[id number] Oral 900 / 900 Anesthesia Amount 1500 / 1500 Output: Urine 600 / 600 Estimated Blood Loss 150 / 150 Urine Amount (Catheter) 100 / 100 1000 / 1000 Indwelling Urethral Catheter 100 / 100 1000 / 1000 Wound Drainage 40 / 40 60 / 60 40 / 40 # 1 Left Lateral Abdomen 30 / 30 40 / 40 20 / 20 # 2 Right Lateral Abdomen 10 / 10 20 / 20 20 / 20 Other: Mode Setting Right Abdomen Continuous Date of Last Bowel Movement 04/05/18 04/05/18 04/05/18 # Bowel Movements 0 Narrative: Abdominal dressing in place with minimal strikethrough Bilateral SALVATORE bulbs with thin serosanguineous fluid Appropriately tender - Urinary Catheter Management Indwelling Urethral Catheter Cath placed during this visit: yes, but has since been removed by the nurse Urethral indwelling: No Reason for continuing: Not indwelling catheter Insertion date: 04/07/18 Insertion time: 08:42 Removal date: 04/08/18 Removal time: 06:50 Results - Labs CBC & Chem 7: 04/08/18 08:34 04/08/18 08:34 Laboratory Results - last 24 hr 04/07/18 04/07/18 04/07/18 13:02 17:23 20:12 WBC RBC Hgb Hct MCV MCH MCHC RDW Plt Count MPV Sodium Potassium Chloride Carbon Dioxide Anion Gap BUN Creatinine Estimated GFR POC Glucose 182 H 182 H 155 H Random Glucose Calcium 04/08/18 04/08/18 04/08/18 07:28 08:34 08:34 WBC 11.4 H RBC 2.85 L Hgb 9.1 L Hct 27.9 L MCV 97.9 MCH 32.1 MCHC 32.8 RDW 15.0 Plt Count 319 MPV 7.4 Sodium 138 Potassium 3.6 Chloride 99 Carbon Dioxide 30.0 Anion Gap 9 BUN 15 Creatinine 1.35 H Estimated GFR 39 L POC Glucose 129 H Random Glucose 123 H Calcium 7.9 L 04/08/18 12:05 WBC RBC Hgb Hct MCV MCH MCHC RDW Plt Count MPV Sodium Potassium Chloride Carbon Dioxide Anion Gap BUN Creatinine Estimated GFR POC Glucose 178 H Random Glucose Calcium Assessment and Plan - Assessment (1) Panniculitis Code(s): M79.3 - Panniculitis, unspecified Status: Acute - Plan 67-year-old female status post 04/07/2018 panniculectomy for panniculectomy wound closure JPs to bulb Lovenox Physical therapy no restrictions Encourage ambulation as much as tolerated SCDs to bilateral lower extremities at all times Patient reminded again today not to remove her SCDs, which she has done since last night Patient expresses understanding of pulmonary embolus risks and agreement with above plan May remove the abdominal dressing and shower with SALVATORE drains in place this Saturday Patient to follow-up in plastic surgery clinic 2 weeks after discharge
--- NOTE | 2018-04-08 12:54 | P.OP ---
Date of procedure: 04/07/18 Procedure: Panniculectomy ([id number]) Anesthesia: GETA Surgeon: Raymon Crawley MD Operation and Findings: 67-year-old female who presents status post wound debridement for necrosis of her pannus and panniculitis by general surgery, now with abdominal wound. Risk benefits and alternative treatments discussed. All questions answered and the patient expressed understanding. Patient elected to assume the risks of panniculectomy in order to excise the above wound and allow for primary closure. Informed consent obtained. The surgical site was marked in the preoperative holding bay. Attempts were made at performing all of the surgical markings, though the patient did not tolerate standing for more than several seconds at a time, despite the assistance of 4 nurses. Patient expressed understanding that in the absence of appropriate preoperative markings, it increases the risk for suboptimal outcome. The patient was given antibiotics on -call to the operating room. The patient was taken to the operating room and all pressure points were padded. A surgical timeout was performed. After the smooth induction of general anesthesia, the surgical site was prepped and draped in the usual sterile fashion. Through skin pinch, an ellipse was marked to allow for wound excision. The wound itself was large and encompassed the extent of the right pannus, and approached the umbilicus to within several centimeters. The inferior incision was made first. After skin incision, Bovie cautery was used to dissect the pannus off of the abdominal wall, leaving several millimeters of sub-Phillip fat. After this the superior incision was made and the panniculectomy specimen was excised and sent for permanent pathology. Weight of the panniculectomy specimen was 4.6 kg. The surgical site was copiously irrigated. Hemostasis was obtained. 2 x 19 Spanish David drains were brought out lateral to the incision, one on each side, and secured with drain suture. The wound was closed in multiple layers, with multiple interrupted 3-0 Vicryls in the Scarpal fascia as well as the deep dermis in roughly 1 cm intervals. The Scarpal sutures were three-point medial to the ASIS. Lastly the skin was closed with a running 4-0 Monocryl in a subcuticular fashion. Surgical site was cleaned and dressed with mupirocin ointment Xeroform gauze dry gauze and Tegaderms. All needle sponge and instrument counts were correct 2. Patient was awoken from anesthesia and arrived stable doing well to the PACU.
--- NOTE | 2018-04-08 13:09 | P.PNID ---
Subjective Remarks: Patient feels well. Sitting up in a chair. Status post panniculectomy on 04/07/2018. Notes mild pain at the abdominal surgical site. No fever, no chills. No other complaints. White blood cell count has increased. This is a 67-year-old white female who was admitted to the hospital After she developed redness of her right foot 5 days ago. She also notes that she had bouts of diarrhea for a couple of days prior to that. The diarrhea continued for 5 days and then stopped. She went to see her primary physician and she notes that they sent her to the emergency department because she appeared pale. She notes that she had a tiny lump on her right abdominal wall underneath the fold of skin. She has obese abdomen with large amount of pannus. She was evaluated in the ED and was noted to have elevated white blood cell count of 35.9 and she had lactic acid level of 3.5. She also had acute kidney disease with creatinine of 3.51. The patient was admitted and eventually taken to surgery for an abdominal wall debridement. She was noted to have necrotic skin at the right lower abdomen. Past Medical History: PAST MEDICAL HISTORY: Hypertension, history of cervical discectomy and allograft bone fusion in 10/2013, bacteremia due to methicillin-sensitive Staphylococcus aureus in 10/2013. Allergies/Adverse Reactions: Allergies No Known Allergies Allergy (Unverified 03/14/18 16:15) Objective Vital Signs 04/07/18 16:00 04/07/18 20:00 04/08/18 08:00 Temperature 97.6 F 97.7 F 97.4 F L Pulse Rate 78 85 86 Respiratory Rate 16 20 17 Blood Pressure 120/58 L 120/57 L 168/79 H Pulse Oximetry 98 96 96 04/08/18 12:00 Temperature 97.6 F Pulse Rate 84 Respiratory Rate 16 Blood Pressure 106/52 L Pulse Oximetry 99 Intake & Output 04/07/18 04/08/18 04/08/18 18:59 06:59 18:59 Intake Total 3550 / 3550 100 / 100 Output Total 890 / 890 1060 / 1060 40 / 40 Balance 2660 / 2660 -1060 / -1060 60 / 60 Intake: IV 1150 / 1150 100 / 100 LR 1000 mL Inj 1,000 ML @ 30 1000 / 1000 mls/hr IV.SIG .Q24H [facility] Rx#: [id number] Ancef 2 GM Premix Inj 2 gm In 50 / 50 50 ml @ 0 mls/hr IV.SIG .STK- [facility] Rx#:[id number] Ancef Inj 2,000 MG In NS Inj 100 / 100 100 / 100 100 ML @ 200 mls/hr IV.SIG Q12H [facility] Rx#:[id number] Oral 900 / 900 Anesthesia Amount 1500 / 1500 Output: Urine 600 / 600 Estimated Blood Loss 150 / 150 Urine Amount (Catheter) 100 / 100 1000 / 1000 Indwelling Urethral Catheter 100 / 100 1000 / 1000 Wound Drainage 40 / 40 60 / 60 40 / 40 # 1 Left Lateral Abdomen 30 / 30 40 / 40 20 / 20 # 2 Right Lateral Abdomen 10 / 10 20 / 20 20 / 20 Other: Mode Setting Right Abdomen Continuous Date of Last Bowel Movement 04/05/18 04/05/18 04/05/18 # Bowel Movements 0 03/15/18 08:55 Tissue - Abdominal Fungal Smear - Final No fungal elements seen 03/15/18 08:55 Tissue - Abdominal Fungal Culture - Preliminary No growth in 3 weeks 03/15/18 08:55 Tissue - Abdominal Acid Fast Bacilli Smear - Final No acid fast bacilli seen 03/15/18 08:55 Tissue - Abdominal Mycobacterial Culture - Preliminary No growth in 3 weeks Lab - Hematology Results 04/07/18 04/08/18 04:02 08:34 WBC 6.0 11.4 H RBC 3.02 L 2.85 L Hgb 10.0 L 9.1 L Hct 29.4 L 27.9 L MCV 97.2 97.9 MCH 33.2 32.1 MCHC 34.1 32.8 RDW 14.3 15.0 Plt Count 298 319 MPV 7.6 7.4 Lab - Chemistry Results 04/06/18 04/06/18 04/07/18 16:51 20:13 04:02 Sodium 138 Potassium 3.6 Chloride 98 Carbon Dioxide 31.7 Anion Gap 8 BUN 18 Creatinine 1.42 H Estimated GFR 37 L POC Glucose 143 H 128 H Random Glucose 84 Calcium 7.8 L 04/07/18 04/07/18 04/07/18 12:06 13:02 17:23 Sodium Potassium Chloride Carbon Dioxide Anion Gap BUN Creatinine Estimated GFR POC Glucose 150 H 182 H 182 H Random Glucose Calcium 04/07/18 04/08/18 04/08/18 20:12 07:28 08:34 Sodium 138 Potassium 3.6 Chloride 99 Carbon Dioxide 30.0 Anion Gap 9 BUN 15 Creatinine 1.35 H Estimated GFR 39 L POC Glucose 155 H 129 H Random Glucose 123 H Calcium 7.9 L 04/08/18 12:05 Sodium Potassium Chloride Carbon Dioxide Anion Gap BUN Creatinine Estimated GFR POC Glucose 178 H Random Glucose Calcium Imaging: ITS Impressions Abdomen/Pelvis CT 03/14/18 16:22 CONCLUSION: 1. No acute intra-abdominal abnormality seen. 2. Edema seen throughout the subcutaneous fat at the anterior abdominal wall. This should be correlated with any inflammatory process in this region. No focal fluid collection to suggest an abscess is seen. Abdomen/Bladder Ultrasound 03/17/18 16:09 CONCLUSION: 1. Limited examination without gross abnormality in the left kidney. 2. Right kidney and urinary bladder not visualized. Chest X-Ray 03/28/18 10:25 CONCLUSION: No acute cardiopulmonary disease. Physical Exam: GENERAL: No acute distress. Awake and alert and oriented. HEENT: EOMI,VICENTE. No icterus. Poor dentition. NECK: Supple without adenopathy. LUNGS: Decreased breath sounds. HEART: Regular S1, S2. No murmurs, rubs or gallops. ABDOMEN: Bowel sounds present, obese, soft. Abdominal wound. Postop. 2 SALVATORE drains serous drainage. EXTREMITIES: The left foot has mild erythema at the dorsum. Edema of the legs and thighs is decreased. Both feet has 2+ edema. SKIN: No diffuse rash. NEUROLOGIC: No gross focal findings. PSYCHIATRIC: Calm and cooperative. Assessment and Plan - Plan IMPRESSION: 1. Necrotic cellulitis of the abdominal wall. Patient with large abdominal wound with wound VAC. Group B beta strep and MSSA. Cellulitis improved. 2. Sepsis. Improved. 3. Left foot cellulitis. Continues to improve. 4. Acute kidney disease. Slowly improving. 5. Leukocytosis. White blood cell count is elevated. The one positive blood culture bottle with coag negative staph identified as staph auricularis which I think is contamination. RECOMMENDATIONS: 1. Continue Cefazolin. Anticipate antibiotics until 04/15/2018. 2. Continue to monitor renal function. 3. Monitor clinical status.
[2018-04-08] MEDS: ceFAZolin Inj 2,000 MG in Sodium Chlor 0.9% Inj 100 ML IV.SIG SCH (15:56)
[2018-04-08] MEDS: Enoxaparin Inj 40 MG/0.4 ML Syringe SQ SCH (22:05)
[2018-04-09] MEDS: ceFAZolin Inj 2,000 MG in Sodium Chlor 0.9% Inj 100 ML IV.SIG SCH ×2 (04:24→15:54)
[2018-04-09 06:44] LABS: Hematocrit 25.6 % (35.0-46.0); Hemoglobin 8.6 gm/dL (11.6-15.3); Mean Corpuscular HGB Conc 33.6 % (32.0-36.0); Mean Corpuscular Hemoglobin 33.3 pg (27.0-34.0); Mean Corpuscular Volume 99.2 fL (80.0-100.0); Mean Platelet Volume 7.5 fL (7.0-11.0); Platelet Count 255 th/mm3 (150-450); Red Blood Count 2.58 mil/mm3 (4.00-5.30); Red Cell Distribution Width 15.1 % (11.6-17.2); White Blood Count 8.3 th/mm3 (4.0-11.0)
[2018-04-09 06:54] LABS: Calcium 7.6 mg/dL (8.5-10.1); Carbon Dioxide 30.9 meq/L (21.0-32.0); Potassium 3.4 meq/L (3.5-5.1)
[2018-04-09] MEDS: Pantoprazole Inj 40 MG Vial IV.PUSH SCH (08:10)
[2018-04-09] MEDS: Calcium Carbonate 500 MG Tablet PO SCH ×2 (08:10→21:32)
[2018-04-09] MEDS: Nystatin 100,000 UNITS/GM Powder 15 GM Bottle TOPICAL SCH ×4 (08:11→21:32)
[2018-04-09] MEDS: Insulin Detemir Inj 1,000 UNIT/10 ML Vial SQ SCH (08:19)
[2018-04-09] MEDS: Furosemide 40 MG Tablet PO SCH ×2 (08:19→17:07)
[2018-04-09] MEDS: Insulin NovoLOG Aspart Correctional Sugar Inj SQ SCH ×4 (08:23→21:34)
[2018-04-09] MEDS: Hydrocortisone Acetate 25 MG Supp RECTAL SCH ×2 (08:24→21:32)
[2018-04-09] MEDS: Lactic Acid (Ammonium Lactate) 12% Lotion 225 GM Bottle TOPICAL SCH ×2 (08:24→21:33)
--- NOTE | 2018-04-09 11:14 | P.PNIM ---
Subjective Interval history: Patient states pain controlled overall no complaints. Would prefer to go to rehab. Physical Exam Vital signs: Vital Signs 04/08/18 12:00 04/08/18 16:00 04/08/18 20:00 Temperature 97.6 F 97.8 F 98.1 F Pulse Rate 84 90 92 H Respiratory Rate 16 16 18 Blood Pressure 106/52 L 120/60 126/60 Pulse Oximetry 99 99 98 04/09/18 00:00 04/09/18 08:00 Temperature 98.7 F 97.9 F Pulse Rate 84 103 H Respiratory Rate 18 20 Blood Pressure 102/51 L 139/63 Pulse Oximetry 96 100 Intake & Output 04/08/18 04/09/18 04/09/18 18:59 06:59 18:59 Intake Total 1100 / 1100 Output Total 350 / 350 770 / 770 Balance 750 / 750 -770 / -770 Intake: IV 200 / 200 Ancef Inj 2,000 MG In NS Inj 100 / 100 100 ML @ 200 mls/hr IV.SIG Q12H [facility] Rx#:[id number] Ancef Inj 2,000 MG In NS Inj 100 / 100 100 ML @ 200 mls/hr IV.SIG Q12H [facility] Rx#:[id number] Oral 900 / 900 Output: Urine 250 / 250 750 / 750 Wound Drainage 100 / 100 20 / 20 # 1 Left Lateral Abdomen 50 / 50 10 / 10 # 2 Right Lateral Abdomen 50 / 50 10 / 10 Other: # Voids 2 Date of Last Bowel Movement 04/05/18 04/06/18 # Bowel Movements 0 Narrative: GENERAL: This is a well-nourished, obese well-developed patient, in no apparent distress. CARDIOVASCULAR: Regular rate and rhythm without murmurs, gallops, or rubs. RESPIRATORY: Clear to auscultation. Breath sounds equal bilaterally. No wheezes , rales, or rhonchi. GASTROINTESTINAL: Abdomen soft, obese non-tender, nondistended. Normal active bowel sounds, lower abdomen bandage clean dry intact with 2 SALVATORE drains on both sides in place MUSCULOSKELETAL: Extremities without clubbing, cyanosis, trace edema NEURO: Alert & Oriented x4 to person, place, time, situation. Moves all ext x4 - Urinary Catheter Management Indwelling Urethral Catheter Cath placed during this visit: yes, but has since been removed by the nurse Urethral indwelling: No Reason for continuing: Not indwelling catheter Insertion date: 04/07/18 Insertion time: 08:42 Removal date: 04/08/18 Removal time: 06:50 Results - Labs CBC & Chem 7: 04/09/18 05:16 04/09/18 05:16 Laboratory Results - last 24 hr 04/08/18 04/08/18 04/08/18 12:05 17:31 22:32 WBC RBC Hgb Hct MCV MCH MCHC RDW Plt Count MPV Sodium Potassium Chloride Carbon Dioxide Anion Gap BUN Creatinine Estimated GFR POC Glucose 178 H 127 H 140 H Random Glucose Calcium 04/09/18 04/09/18 04/09/18 05:16 05:16 08:08 WBC 8.3 RBC 2.58 L Hgb 8.6 L Hct 25.6 L MCV 99.2 MCH 33.3 MCHC 33.6 RDW 15.1 Plt Count 255 MPV 7.5 Sodium 138 Potassium 3.4 L Chloride 100 Carbon Dioxide 30.9 Anion Gap 7 BUN 17 Creatinine 1.37 H Estimated GFR 39 L POC Glucose 116 H Random Glucose 106 Calcium 7.6 L Assessment and Plan - Assessment (1) Sepsis Code(s): A41.9 - Sepsis, unspecified organism Status: Acute (2) Abdominal wall cellulitis Code(s): L03.311 - Cellulitis of abdominal wall Status: Acute (3) Acute renal failure due to tubular necrosis Code(s): N17.0 - Acute kidney failure with tubular necrosis Status: Acute (4) Acidosis, metabolic Code(s): E87.2 - Acidosis Status: Resolved - Plan 67 year old female with history of HTN and RA admitted on 03/14 with severe sepsis secondary to necrotizing infection of the abdominal wall with abscess. She was also found to be in renal failure. 1. Severe sepsis secondary to necrotizing abdominal wall infection - Sepsis resolved - Cultures growing Group B strep and MSSA - 1 blood culture growing Staph auricularis, likely contamination - ID following, recommend continuing Cefazolin through April 15 - S/p debridement with wound vac placement 03/18 by general surgery - Underwent panniculectomy 04/07 with plastic surgery -Continue with PT - Oxycodone PRN - Dilaudid IV for breakthrough 2. CORONA superimposed on chronic kidney disease stage III resolved - Creatinine 3.15 on admission and as high as 4.02 during hospitalization - Likely on top of CKD but no baseline to compare and patient with no knowledge of renal disease - Nephrology consult appreciated - required short-term dialysis due to worsening azotemia, oliguria, and metabolic acidosis - Renal function has stabilized off HD and continues to be stable - Continue Lasix 40 mg BID - Avoid nephrotoxins - Outpatient follow-up with nephrology - Continue to monitor renal function 3. Hematochezia - No further episodes - Likely an internal hemorrhoid. Hydrocortisone rectally - GI consulted and recommend outpatient f/u 4. Left foot cellulitis/lower extremity edema - Improved - Continue antibiotics per ID as above - Continue Lasix 5. Diabetes mellitus type II, insulin-dependent - Continue Levemir 12 units daily - Sliding scale insulin with Accu-Cheks - Hemoglobin A1c of 6.6 6. Cough - resolved - CXR unremarkable - Cough suppressants PRN - Supplemental O2 prn 7. Anemia due to chronic kidney disease - Likely secondary to acute illness and kidney disease - Following CBC - No active bleeding - Transfuse if Hb <7 or symptomatic DVT prophylaxis: Holding heparin post-surgery Discharge Planning: To rehab with case management assisting. Will need clearance from infectious disease and plastics.
--- NOTE | 2018-04-09 13:28 | P.PN ---
Physical Exam Vital signs: Vital Signs 04/08/18 16:00 04/08/18 20:00 04/09/18 00:00 Temperature 97.8 F 98.1 F 98.7 F Pulse Rate 90 92 H 84 Respiratory Rate 16 18 18 Blood Pressure 120/60 126/60 102/51 L Pulse Oximetry 99 98 96 04/09/18 08:00 04/09/18 12:00 Temperature 97.9 F 98.7 F Pulse Rate 103 H 92 H Respiratory Rate 20 20 Blood Pressure 139/63 134/62 Pulse Oximetry 100 100 Intake & Output 04/08/18 04/09/18 04/09/18 18:59 06:59 18:59 Intake Total 1100 / 1100 Output Total 350 / 350 770 / 770 50 / 50 Balance 750 / 750 -770 / -770 -50 / -50 Intake: IV 200 / 200 Ancef Inj 2,000 MG In NS Inj 100 / 100 100 ML @ 200 mls/hr IV.SIG Q12H ED Rx#:[id number] Ancef Inj 2,000 MG In NS Inj 100 / 100 100 ML @ 200 mls/hr IV.SIG Q12H ED Rx#:[id number] Oral 900 / 900 Output: Urine 250 / 250 750 / 750 Wound Drainage 100 / 100 20 / 20 50 / 50 # 1 Left Lateral Abdomen 50 / 50 10 / 10 25 / 25 # 2 Right Lateral Abdomen 50 / 50 10 / 10 25 / 25 Other: # Voids 2 Date of Last Bowel Movement 04/05/18 04/06/18 # Bowel Movements 0 - Urinary Catheter Management Indwelling Urethral Catheter Cath placed during this visit: yes, but has since been removed by the nurse Urethral indwelling: No Reason for continuing: Not indwelling catheter Insertion date: 04/07/18 Insertion time: 08:42 Removal date: 04/08/18 Removal time: 06:50 Results - Labs CBC & Chem 7: 04/09/18 05:16 04/09/18 05:16 Laboratory Results - last 24 hr 04/08/18 04/08/18 04/09/18 17:31 22:32 05:16 WBC 8.3 RBC 2.58 L Hgb 8.6 L Hct 25.6 L MCV 99.2 MCH 33.3 MCHC 33.6 RDW 15.1 Plt Count 255 MPV 7.5 Sodium Potassium Chloride Carbon Dioxide Anion Gap BUN Creatinine Estimated GFR POC Glucose 127 H 140 H Random Glucose Calcium 04/09/18 04/09/18 04/09/18 05:16 08:08 11:56 WBC RBC Hgb Hct MCV MCH MCHC RDW Plt Count MPV Sodium 138 Potassium 3.4 L Chloride 100 Carbon Dioxide 30.9 Anion Gap 7 BUN 17 Creatinine 1.37 H Estimated GFR 39 L POC Glucose 116 H 155 H Random Glucose 106 Calcium 7.6 L Assessment and Plan - Assessment (1) Panniculitis Code(s): M79.3 - Panniculitis, unspecified Status: Acute - Plan 67-year-old female status post 04/07/2018 panniculectomy for panniculectomy wound closure JPs to bulb Lovenox until ambulatory while inpt Physical therapy no restrictions Encourage ambulation as much as tolerated SCDs to bilateral lower extremities at all times May remove the abdominal dressing and shower with SALVATORE drains in place this Saturday Discharge per primary Patient to follow-up in plastic surgery clinic 2 weeks after discharge
[2018-04-09] MEDS: Enoxaparin Inj 40 MG/0.4 ML Syringe SQ SCH (21:32)
[2018-04-10] MEDS: ceFAZolin Inj 2,000 MG in Sodium Chlor 0.9% Inj 100 ML IV.SIG SCH ×2 (05:30→16:33)
[2018-04-10] MEDS: Insulin NovoLOG Aspart Correctional Sugar Inj SQ SCH ×4 (07:31→21:16)
[2018-04-10] MEDS: Calcium Carbonate 500 MG Tablet PO SCH ×2 (11:00→21:20)
[2018-04-10] MEDS: Hydrocortisone Acetate 25 MG Supp RECTAL SCH ×2 (11:00→21:15)
[2018-04-10] MEDS: Nystatin 100,000 UNITS/GM Powder 15 GM Bottle TOPICAL SCH ×4 (11:01→21:15)
[2018-04-10] MEDS: Pantoprazole Inj 40 MG Vial IV.PUSH SCH (11:01)
[2018-04-10] MEDS: Lactic Acid (Ammonium Lactate) 12% Lotion 225 GM Bottle TOPICAL SCH ×2 (11:02→21:15)
[2018-04-10] MEDS: Furosemide 40 MG Tablet PO SCH ×2 (11:08→17:37)
[2018-04-10] MEDS: Insulin Detemir Inj 1,000 UNIT/10 ML Vial SQ SCH (11:09)
--- NOTE | 2018-04-10 12:31 | P.PNIM ---
Subjective Interval history: FU abdominal surgery. Patient states she is ready to go to rehab. She states she can not go home with these drains, and is very concerned that they will not get pulled at rehab. She states her pain is controlled, and denies any chest pain. Physical Exam Vital signs: Vital Signs 04/09/18 20:33 04/10/18 00:01 Temperature 97.8 F 98.0 F Pulse Rate 91 H 64 Respiratory Rate 21 20 Blood Pressure 118/58 L 127/73 Pulse Oximetry 96 98 Intake & Output 04/09/18 04/10/18 04/10/18 18:59 06:59 18:59 Intake Total 100 / 100 480 / 480 100 / 100 Output Total 100 / 100 Balance 0 / 0 480 / 480 100 / 100 Weight 157 kg Intake: IV 100 / 100 100 / 100 Ancef Inj 2,000 MG In NS Inj 100 / 100 100 / 100 100 ML @ 200 mls/hr IV.SIG Q12H ED Rx#:[id number] Oral 480 / 480 Output: Wound Drainage 100 / 100 # 1 Left Lateral Abdomen 55 / 55 # 2 Right Lateral Abdomen 45 / 45 Other: # Voids 3 Narrative: GENERAL: This is a well-nourished, obese well-developed patient, in no apparent distress. CARDIOVASCULAR: Regular rate and rhythm without murmurs, gallops, or rubs. RESPIRATORY: Clear to auscultation. Breath sounds equal bilaterally. No wheezes , rales, or rhonchi. GASTROINTESTINAL: Abdomen soft, obese non-tender, nondistended. Normal active bowel sounds, lower abdomen bandage clean dry intact with 2 SALVATORE drains on both sides in place draining sero sanguinous fluid MUSCULOSKELETAL: Extremities without clubbing, cyanosis, trace edema NEURO: Alert & Oriented x4 to person, place, time, situation. Moves all ext x4 - Urinary Catheter Management Indwelling Urethral Catheter Cath placed during this visit: yes, but has since been removed by the nurse Urethral indwelling: No Reason for continuing: Not indwelling catheter Insertion date: 04/07/18 Insertion time: 08:42 Removal date: 04/08/18 Removal time: 06:50 Results - Labs CBC & Chem 7: 04/09/18 05:16 04/09/18 05:16 Laboratory Results - last 24 hr 04/09/18 04/09/18 04/10/18 16:34 21:34 07:18 POC Glucose 108 145 H 113 H 04/10/18 11:11 POC Glucose 130 H Assessment and Plan - Assessment (1) Sepsis Code(s): A41.9 - Sepsis, unspecified organism Status: Acute (2) Abdominal wall cellulitis Code(s): L03.311 - Cellulitis of abdominal wall Status: Acute (3) Acute renal failure due to tubular necrosis Code(s): N17.0 - Acute kidney failure with tubular necrosis Status: Acute (4) Acidosis, metabolic Code(s): E87.2 - Acidosis Status: Resolved - Plan 67 year old female with history of HTN and RA admitted on 03/14 with severe sepsis secondary to necrotizing infection of the abdominal wall with abscess. She was also found to be in renal failure. Severe sepsis secondary to necrotizing abdominal wall infection - Sepsis resolved - Cultures growing Group B strep and MSSA - 1 blood culture growing Staph auricularis, likely contamination - ID following, recommend continuing Cefazolin through April 15 - S/p debridement with wound vac placement 03/18 by general surgery - Underwent panniculectomy 04/07 with plastic surgery, FU with plastics 2 weeks after discharge -Continue with PT - Oxycodone PRN - Dilaudid IV for breakthrough - Patient is requesting the drains be pulled at rehab prior to going home, she can not manage them at home. CORONA superimposed on chronic kidney disease stage III resolved - Creatinine 3.15 on admission and as high as 4.02 during hospitalization - Likely on top of CKD but no baseline to compare and patient with no knowledge of renal disease - Nephrology consult appreciated - required short-term dialysis due to worsening azotemia, oliguria, and metabolic acidosis - Renal function has stabilized off HD and continues to be stable - Continue Lasix 40 mg BID - Avoid nephrotoxins - Outpatient follow-up with nephrology - Continue to monitor renal function Hematochezia - No further episodes - Likely an internal hemorrhoid. Hydrocortisone rectally - GI consulted and recommend outpatient f/u Left foot cellulitis/lower extremity edema - Improved - Continue antibiotics per ID as above, Cefazolin through April 15 - Continue Lasix Diabetes mellitus type II, insulin-dependent - Continue Levemir 12 units daily - Sliding scale insulin with Accu-Cheks - Hemoglobin A1c of 6.6 Cough - resolved - CXR unremarkable - Cough suppressants PRN - Supplemental O2 prn Anemia due to chronic kidney disease - Likely secondary to acute illness and kidney disease - Following CBC - No active bleeding - Transfuse if Hb <7 or symptomatic DVT prophylaxis: Lovenox Discussed 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
[2018-04-10] MEDS: Enoxaparin Inj 40 MG/0.4 ML Syringe SQ SCH (21:15)
[2018-04-11] MEDS: ceFAZolin Inj 2,000 MG in Sodium Chlor 0.9% Inj 100 ML IV.SIG SCH ×2 (04:35→16:15)
[2018-04-11] MEDS: Insulin NovoLOG Aspart Correctional Sugar Inj SQ SCH ×4 (07:24→23:01)
[2018-04-11] MEDS: Hydrocortisone Acetate 25 MG Supp RECTAL SCH ×2 (08:09→23:00)
[2018-04-11] MEDS: Calcium Carbonate 500 MG Tablet PO SCH ×2 (08:11→23:00)
[2018-04-11] MEDS: Furosemide 40 MG Tablet PO SCH ×2 (08:11→17:24)
[2018-04-11] MEDS: Lactic Acid (Ammonium Lactate) 12% Lotion 225 GM Bottle TOPICAL SCH ×2 (08:11→23:02)
[2018-04-11] MEDS: Insulin Detemir Inj 1,000 UNIT/10 ML Vial SQ SCH (08:12)
[2018-04-11] MEDS: Nystatin 100,000 UNITS/GM Powder 15 GM Bottle TOPICAL SCH ×4 (08:12→23:03)
[2018-04-11] MEDS: Pantoprazole Inj 40 MG Vial IV.PUSH SCH (08:12)
[2018-04-11 10:34] LABS: Baso # (Auto) 0.1 th/mm3 (0.0-0.2); Baso % (Auto) 0.5 % (0.0-2.0); Eos # (Auto) 0.5 th/mm3 (0.0-0.4); Eos % (Auto) 3.7 % (0.0-4.0); Hematocrit 29.1 % (35.0-46.0); Hemoglobin 9.6 gm/dL (11.6-15.3); Lymph % (Auto) 23.9 % (9.0-44.0); Mean Corpuscular HGB Conc 32.9 % (32.0-36.0); Mean Corpuscular Volume 100.3 fL (80.0-100.0); Mean Platelet Volume 7.6 fL (7.0-11.0); Mono % (Auto) 7.7 % (0.0-8.0); Neut # (Auto) 8.1 th/mm3 (1.8-7.7); Neut % (Auto) 64.2 % (16.0-70.0); Platelet Count 371 th/mm3 (150-450); Red Cell Distribution Width 15.5 % (11.6-17.2); White Blood Count 12.7 th/mm3 (4.0-11.0)
[2018-04-11 10:48] LABS: Calcium 8.1 mg/dL (8.5-10.1); Carbon Dioxide 31.2 meq/L (21.0-32.0); Potassium 3.3 meq/L (3.5-5.1)
--- NOTE | 2018-04-11 14:33 | P.PN ---
Subjective Interval history: Follow up: 67 year old female with history of HTN and RA admitted on 03/14 with severe sepsis secondary to necrotizing infection of the abdominal wall with abscess and renal failure. Patient sitting up in chair reports feeling well her main concern is her SALVATORE drain, she feel that she will not be able to manage them at home Physical Exam Vital signs: Vital Signs 04/10/18 16:00 04/10/18 20:10 04/11/18 00:04 Temperature 98.4 F 98.5 F 98.3 F Pulse Rate 89 91 H 91 H Respiratory Rate 20 20 18 Blood Pressure 142/67 H 135/62 132/59 L Pulse Oximetry 99 95 97 04/11/18 08:00 04/11/18 12:00 Temperature 98.2 F 98.0 F Pulse Rate 79 104 H Respiratory Rate 20 20 Blood Pressure 136/63 150/65 H Pulse Oximetry 97 100 Intake & Output 04/10/18 04/11/18 04/11/18 18:59 06:59 18:59 Intake Total 1600 / 1600 780 / 780 Output Total 470 / 470 55 / 55 35 / 35 Balance 1130 / 1130 725 / 725 -35 / -35 Weight 157 kg Intake: IV 200 / 200 100 / 100 Ancef Inj 2,000 MG In NS Inj 200 / 200 100 / 100 100 ML @ 200 mls/hr IV.SIG Q12H ED Rx#:[id number] Oral 1400 / 1400 680 / 680 Output: Urine 400 / 400 Wound Drainage 70 / 70 55 / 55 35 / 35 # 1 Left Lateral Abdomen 50 / 50 30 / 30 15 / 15 # 2 Right Lateral Abdomen 20 / 20 25 / 25 20 / 20 Other: # Voids 3 # Bowel Movements 1 Narrative: GENERAL: This is a well-nourished, obese well-developed patient, in no apparent distress. CARDIOVASCULAR: Regular rate and rhythm RESPIRATORY: Clear to auscultation. Breath sounds equal bilaterally. GASTROINTESTINAL: Abdomen soft, obese non-tender, nondistended. Normal active bowel sounds, lower abdomen bandage clean dry intact with SALVATORE drain on each side (total of two SALVATORE darins) in place draining sero sanguinous fluid MUSCULOSKELETAL: Extremities without clubbing, cyanosis, trace edema NEURO: Alert & Oriented x4 to person, place, time, situation. Moves all ext x4 - Urinary Catheter Management Indwelling Urethral Catheter Cath placed during this visit: yes, but has since been removed by the nurse Urethral indwelling: No Reason for continuing: Not indwelling catheter Insertion date: 04/07/18 Insertion time: 08:42 Removal date: 04/08/18 Removal time: 06:50 Results - Labs CBC & Chem 7: 04/11/18 09:35 04/11/18 09:35 Laboratory Results - last 24 hr 04/10/18 04/10/18 04/11/18 16:36 21:16 07:18 WBC RBC Hgb Hct MCV MCH MCHC RDW Plt Count MPV Neut % (Auto) Lymph % (Auto) [place] % (Auto) Eos % (Auto) Baso % (Auto) Neut # (Auto) Lymph # (Auto) [place] # (Auto) Eos # (Auto) Baso # (Auto) WBC Differential Differential Comment Sodium Potassium Chloride Carbon Dioxide Anion Gap BUN Creatinine Estimated GFR POC Glucose 114 H 185 H 127 H Random Glucose Calcium 04/11/18 04/11/18 04/11/18 09:35 09:35 11:10 WBC 12.7 H RBC 2.90 L Hgb 9.6 L Hct 29.1 L MCV 100.3 H MCH 33.0 MCHC 32.9 RDW 15.5 Plt Count 371 D MPV 7.6 Neut % (Auto) 64.2 Lymph % (Auto) 23.9 [place] % (Auto) 7.7 Eos % (Auto) 3.7 Baso % (Auto) 0.5 Neut # (Auto) 8.1 H Lymph # (Auto) 3.0 [place] # (Auto) 1.0 H Eos # (Auto) 0.5 H Baso # (Auto) 0.1 WBC Differential . Differential Comment Auto diff final Sodium 137 Potassium 3.3 L Chloride 98 Carbon Dioxide 31.2 Anion Gap 8 BUN 15 Creatinine 1.38 H Estimated GFR 38 L POC Glucose 184 H Random Glucose 175 H Calcium 8.1 L Assessment and Plan - Plan 67 year old female with history of HTN and RA admitted on 03/14 with severe sepsis secondary to necrotizing infection of the abdominal wall with abscess. She was also found to be in renal failure. Severe sepsis secondary to necrotizing abdominal wall infection - Sepsis resolved - Cultures growing Group B strep and MSSA - 1 blood culture growing Staph auricularis, likely contamination - ID following, recommend continuing Cefazolin through April 15 - S/p debridement with wound vac placement 03/18 by general surgery - Underwent panniculectomy 04/07 with plastic surgery, FU with plastics 2 weeks after discharge -Continue with PT - Oxycodone PRN - Dilaudid IV for breakthrough - Patient is requesting the drains be pulled at rehab prior to going home, she feels that she can not manage them at home. CORONA superimposed on chronic kidney disease stage III resolved - Creatinine 3.15 on admission and as high as 4.02 during hospitalization - Likely on top of CKD but no baseline to compare and patient with no knowledge of renal disease - Nephrology consult appreciated - required short-term dialysis due to worsening azotemia, oliguria, and metabolic acidosis - Renal function has stabilized off HD and continues to be stable - Continue Lasix 40 mg BID - Avoid nephrotoxins - Outpatient follow-up with nephrology - Continue to monitor renal function Hematochezia - No further episodes - Likely an internal hemorrhoid. Hydrocortisone rectally - GI consulted and recommend outpatient f/u Left foot cellulitis/lower extremity edema - Improved - Continue antibiotics per ID as above, Cefazolin through April 15 - Continue Lasix Diabetes mellitus type II, insulin-dependent - Continue Levemir 12 units daily - Sliding scale insulin with Accu-Cheks - Hemoglobin A1c of 6.6 Cough - resolved - CXR unremarkable - Cough suppressants PRN - Supplemental O2 prn Anemia due to chronic kidney disease - Likely secondary to acute illness and kidney disease - Following CBC - No active bleeding - Transfuse if Hb <7 or symptomatic DVT prophylaxis: Lovenox Discussed Condition With: Supervising physician Dr. Briseno, Patient and client server developer Planning: Once cleared by plastics and DC abx recommendation per ID
[2018-04-11] MEDS: Enoxaparin Inj 40 MG/0.4 ML Syringe SQ SCH (23:03)
[2018-04-12] MEDS: ceFAZolin Inj 2,000 MG in Sodium Chlor 0.9% Inj 100 ML IV.SIG SCH ×2 (04:36→15:37)
[2018-04-12] MEDS: Calcium Carbonate 500 MG Tablet PO SCH ×2 (09:12→20:30)
[2018-04-12] MEDS: Furosemide 40 MG Tablet PO SCH (09:12)
[2018-04-12] MEDS: Insulin Detemir Inj 1,000 UNIT/10 ML Vial SQ SCH (09:13)
[2018-04-12] MEDS: Hydrocortisone Acetate 25 MG Supp RECTAL SCH ×2 (09:14→20:30)
[2018-04-12] MEDS: Insulin NovoLOG Aspart Correctional Sugar Inj SQ SCH ×3 (09:14→20:52)
[2018-04-12] MEDS: Pantoprazole Inj 40 MG Vial IV.PUSH SCH (09:15)
[2018-04-12] MEDS: Lactic Acid (Ammonium Lactate) 12% Lotion 225 GM Bottle TOPICAL SCH ×2 (09:15→20:32)
[2018-04-12] MEDS: Nystatin 100,000 UNITS/GM Powder 15 GM Bottle TOPICAL SCH ×2 (09:15→20:31)
--- NOTE | 2018-04-12 10:58 | P.PNIM ---
Subjective Interval history: The patient was resting comfortably in bed. She stated that her pain was controlled. She said that she still had some swelling in her upper thighs. She was hoping to go to rehab on Saturday. No acute concerns. Physical Exam Vital signs: Vital Signs 04/11/18 12:00 04/11/18 16:00 04/11/18 20:00 Temperature 98.0 F 99.0 F 98.1 F Pulse Rate 104 H 94 H 88 Respiratory Rate 20 18 19 Blood Pressure 150/65 H 143/63 H 127/60 Pulse Oximetry 100 99 94 L 04/12/18 00:00 04/12/18 04:00 04/12/18 08:00 Temperature 98.3 F 98 F 98.1 F Pulse Rate 85 85 90 Respiratory Rate 19 19 20 Blood Pressure 125/67 127/69 154/64 H Pulse Oximetry 93 L 94 L 98 Intake & Output 04/11/18 04/12/18 04/12/18 18:59 06:59 18:59 Intake Total 1900 / 1900 480 / 480 Output Total 110 / 110 80 / 80 Balance 1790 / 1790 400 / 400 Weight 156.7 kg Intake: IV 100 / 100 Ancef Inj 2,000 MG In NS Inj 100 / 100 100 ML @ 200 mls/hr IV.SIG Q12H ED Rx#:[id number] Oral 1800 / 1800 480 / 480 Output: Wound Drainage 110 / 110 80 / 80 # 1 Left Lateral Abdomen 70 / 70 60 / 60 # 2 Right Lateral Abdomen 40 / 40 20 / 20 Other: # Voids 4 3 Date of Last Bowel Movement 04/06/18 Narrative: GENERAL: This is a well-nourished, obese well-developed patient, in no apparent distress. CARDIOVASCULAR: Regular rate and rhythm RESPIRATORY: Clear to auscultation. Breath sounds equal bilaterally. GASTROINTESTINAL: Abdomen soft, obese non-tender, nondistended. Normal active bowel sounds, lower abdomen bandage clean dry intact with SALVATORE drain on each side (total of two SALVATORE darins) in place draining serosanguinous fluid MUSCULOSKELETAL: Extremities without clubbing, cyanosis, + edema NEURO: Alert & Oriented x4 to person, place, time, situation. Moves all ext x4 - Urinary Catheter Management Indwelling Urethral Catheter Cath placed during this visit: yes, but has since been removed by the nurse Urethral indwelling: No Reason for continuing: Not indwelling catheter Insertion date: 04/07/18 Insertion time: 08:42 Removal date: 04/08/18 Removal time: 06:50 Results - Labs CBC & Chem 7: 04/11/18 09:35 04/11/18 09:35 Laboratory Results - last 24 hr 04/11/18 04/11/18 04/11/18 09:35 11:10 16:23 Sodium 137 Potassium 3.3 L Chloride 98 Carbon Dioxide 31.2 Anion Gap 8 BUN 15 Creatinine 1.38 H Estimated GFR 38 L POC Glucose 184 H 127 H Random Glucose 175 H Calcium 8.1 L 04/11/18 04/12/18 20:06 07:24 Sodium Potassium Chloride Carbon Dioxide Anion Gap BUN Creatinine Estimated GFR POC Glucose 134 H 152 H Random Glucose Calcium Assessment and Plan - Assessment (1) Sepsis Code(s): A41.9 - Sepsis, unspecified organism Status: Acute (2) Abdominal wall cellulitis Code(s): L03.311 - Cellulitis of abdominal wall Status: Acute (3) Acute renal failure due to tubular necrosis Code(s): N17.0 - Acute kidney failure with tubular necrosis Status: Acute (4) Acidosis, metabolic Code(s): E87.2 - Acidosis Status: Resolved - Plan 67 year old female with history of HTN and RA admitted on 03/14 with severe sepsis secondary to necrotizing infection of the abdominal wall with abscess. She was also found to be in renal failure. Severe sepsis secondary to necrotizing abdominal wall infection - Sepsis resolved - Cultures growing Group B strep and MSSA - 1 blood culture growing Staph auricularis, likely contamination - ID following, recommend continuing Cefazolin through April 15 - S/p debridement with wound vac placement 03/18 by general surgery - Underwent panniculectomy 04/07 with plastic surgery, FU with plastics 2 weeks after discharge -Continue with PT and OT. - Oxycodone PRN, Dilaudid IV for breakthrough - case management assistance appreciated. Anticipate d/c to SNF on Saturday. CORONA superimposed on chronic kidney disease stage III resolved - Creatinine 3.15 on admission and as high as 4.02 during hospitalization - Likely on top of CKD but no baseline to compare and patient with no knowledge of renal disease - Nephrology consult appreciated - required short-term dialysis due to worsening azotemia, oliguria, and metabolic acidosis - Renal function has stabilized off HD and continues to be stable - Continue Lasix 40 mg BID along with potassium - Avoid nephrotoxins - Outpatient follow-up with nephrology Hematochezia - No further episodes - Likely an internal hemorrhoid. Hydrocortisone rectally - GI consulted and recommend outpatient f/u Left foot cellulitis/lower extremity edema - Improved - Continue antibiotics per ID as above, Cefazolin through April 15 - Continue Lasix Diabetes mellitus type II, insulin-dependent Well controlled. - Continue Levemir 12 units daily - Sliding scale insulin with Accu-Cheks - Hemoglobin A1c of 6.6% Cough - resolved - CXR unremarkable - Cough suppressants PRN - Supplemental O2 prn Anemia due to chronic kidney disease - Likely secondary to acute illness and kidney disease - Following CBC - No active bleeding - Transfuse if Hb <7 or symptomatic DVT prophylaxis: Lovenox
[2018-04-12 13:37] LABS: Baso % (Auto) 0.5 % (0.0-2.0); Eos # (Auto) 0.3 th/mm3 (0.0-0.4); Eos % (Auto) 3.3 % (0.0-4.0); Hematocrit 25.4 % (35.0-46.0); Hemoglobin 8.8 gm/dL (11.6-15.3); Lymph # (Auto) 1.3 th/mm3 (1.0-4.8); Lymph % (Auto) 14.9 % (9.0-44.0); Mean Corpuscular HGB Conc 34.4 % (32.0-36.0); Mean Corpuscular Hemoglobin 34.4 pg (27.0-34.0); Mean Corpuscular Volume 99.9 fL (80.0-100.0); Mean Platelet Volume 7.9 fL (7.0-11.0); Mono # (Auto) 0.8 th/mm3 (0.0-0.9); Mono % (Auto) 8.8 % (0.0-8.0); Neut # (Auto) 6.6 th/mm3 (1.8-7.7); Neut % (Auto) 72.5 % (16.0-70.0); Platelet Count 266 th/mm3 (150-450); Red Blood Count 2.55 mil/mm3 (4.00-5.30); Red Cell Distribution Width 15.2 % (11.6-17.2); White Blood Count 9.1 th/mm3 (4.0-11.0)
[2018-04-12 13:56] LABS: Calcium 7.8 mg/dL (8.5-10.1); Carbon Dioxide 30.2 meq/L (21.0-32.0); Potassium 3.9 meq/L (3.5-5.1)
[2018-04-12] MEDS: Potassium Chloride 25 MEQ Effervescent Tablet PO SCH (14:29)
[2018-04-12] MEDS: Enoxaparin Inj 40 MG/0.4 ML Syringe SQ SCH (20:30)
[2018-04-13] MEDS: Insulin NovoLOG Aspart Correctional Sugar Inj SQ SCH ×6 (01:49→21:21)
[2018-04-13] MEDS: ceFAZolin Inj 2,000 MG in Sodium Chlor 0.9% Inj 100 ML IV.SIG SCH ×2 (04:34→16:41)
[2018-04-13 06:01] LABS: Baso % (Auto) 0.4 % (0.0-2.0); Eos # (Auto) 0.4 th/mm3 (0.0-0.4); Eos % (Auto) 5.5 % (0.0-4.0); Hematocrit 23.7 % (35.0-46.0); Hemoglobin 8.3 gm/dL (11.6-15.3); Lymph # (Auto) 2.2 th/mm3 (1.0-4.8); Lymph % (Auto) 28.3 % (9.0-44.0); Mean Corpuscular HGB Conc 34.8 % (32.0-36.0); Mean Corpuscular Volume 97.8 fL (80.0-100.0); Mean Platelet Volume 7.7 fL (7.0-11.0); Mono # (Auto) 0.7 th/mm3 (0.0-0.9); Neut # (Auto) 4.3 th/mm3 (1.8-7.7); Neut % (Auto) 56.8 % (16.0-70.0); Platelet Count 252 th/mm3 (150-450); Red Blood Count 2.43 mil/mm3 (4.00-5.30); Red Cell Distribution Width 15.1 % (11.6-17.2); White Blood Count 7.6 th/mm3 (4.0-11.0)
[2018-04-13 06:26] LABS: Calcium 8.1 mg/dL (8.5-10.1); Carbon Dioxide 30.9 meq/L (21.0-32.0); Potassium 4.1 meq/L (3.5-5.1)
[2018-04-13] MEDS: Nystatin 100,000 UNITS/GM Powder 15 GM Bottle TOPICAL SCH ×6 (07:13→21:20)
[2018-04-13] MEDS: Furosemide 40 MG Tablet PO SCH ×3 (07:14→17:07)
[2018-04-13] MEDS: Pantoprazole Inj 40 MG Vial IV.PUSH SCH (08:36)
[2018-04-13] MEDS: Insulin Detemir Inj 1,000 UNIT/10 ML Vial SQ SCH (08:36)
[2018-04-13] MEDS: Potassium Chloride 25 MEQ Effervescent Tablet PO SCH (08:36)
[2018-04-13] MEDS: Calcium Carbonate 500 MG Tablet PO SCH (08:37)
--- NOTE | 2018-04-13 13:50 | P.PNIM ---
Subjective Interval history: The patient was a little tearful. She stated that she misses home. She was hoping that she would be able to have the drain removed before going home. She was worried about her blood sugar. She says she has been ambulatory. No other acute concerns. Physical Exam Vital signs: Vital Signs 04/12/18 16:00 04/12/18 20:00 04/13/18 00:00 Temperature 98.5 F 98.3 F 97.3 F L Pulse Rate 105 H 97 H 97 H Respiratory Rate 20 18 18 Blood Pressure 134/62 135/63 131/59 L Pulse Oximetry 100 98 97 04/13/18 08:00 04/13/18 12:00 Temperature 97.6 F 97.9 F Pulse Rate 84 88 Respiratory Rate 18 20 Blood Pressure 135/60 136/68 Pulse Oximetry 99 99 Intake & Output 04/12/18 04/13/18 04/13/18 18:59 06:59 18:59 Intake Total 1999 / 1999 240 / 240 100 / 100 Output Total 80 / 80 90 / 90 Balance 1920 / 1920 150 / 150 100 / 100 Intake: IV 200 / 200 100 / 100 Ancef Inj 2,000 MG In NS Inj 200 / 200 100 / 100 100 ML @ 200 mls/hr IV.SIG Q12H ED Rx#:[id number] Oral 1800 / 1800 240 / 240 Output: Wound Drainage 80 / 80 90 / 90 # 1 Left Lateral Abdomen 30 / 30 50 / 50 # 2 Right Lateral Abdomen 50 / 50 40 / 40 Other: # Voids 5 2 Date of Last Bowel Movement 04/06/18 04/06/18 # Bowel Movements 1 Narrative: GENERAL: This is a well-nourished, obese, well-developed patient, in no apparent distress. CARDIOVASCULAR: Regular rate and rhythm RESPIRATORY: Clear to auscultation. Breath sounds equal bilaterally. GASTROINTESTINAL: Abdomen soft, obese non-tender, nondistended. Normal active bowel sounds, lower abdomen bandage clean dry intact with SALVATORE drain. MUSCULOSKELETAL: Extremities without clubbing, cyanosis, + edema NEURO: Alert & Oriented x4 to person, place, time, situation. Moves all ext x4 - Urinary Catheter Management Indwelling Urethral Catheter Cath placed during this visit: yes, but has since been removed by the nurse Urethral indwelling: No Reason for continuing: Not indwelling catheter Insertion date: 04/07/18 Insertion time: 08:42 Removal date: 04/08/18 Removal time: 06:50 Results - Labs CBC & Chem 7: 04/13/18 04:25 04/13/18 04:25 Laboratory Results - last 24 hr 04/12/18 04/12/18 04/12/18 11:30 15:45 20:45 WBC RBC Hgb Hct MCV MCH MCHC RDW Plt Count MPV Neut % (Auto) Lymph % (Auto) [place] % (Auto) Eos % (Auto) Baso % (Auto) Neut # (Auto) Lymph # (Auto) [place] # (Auto) Eos # (Auto) Baso # (Auto) WBC Differential Differential Comment Sodium 138 Potassium 3.9 Chloride 100 Carbon Dioxide 30.2 Anion Gap 8 BUN 15 Creatinine 1.10 H Estimated GFR 50 L POC Glucose 149 H 158 H Random Glucose 113 H Calcium 7.8 L 04/13/18 04/13/18 04/13/18 04:25 04:25 07:40 WBC 7.6 RBC 2.43 L Hgb 8.3 L Hct 23.7 L MCV 97.8 MCH 34.0 MCHC 34.8 RDW 15.1 Plt Count 252 MPV 7.7 Neut % (Auto) 56.8 Lymph % (Auto) 28.3 [place] % (Auto) 9.0 H Eos % (Auto) 5.5 H Baso % (Auto) 0.4 Neut # (Auto) 4.3 Lymph # (Auto) 2.2 [place] # (Auto) 0.7 Eos # (Auto) 0.4 Baso # (Auto) 0.0 WBC Differential . Differential Comment Auto diff final Sodium 138 Potassium 4.1 Chloride 99 Carbon Dioxide 30.9 Anion Gap 8 BUN 18 Creatinine 1.12 H Estimated GFR 49 L POC Glucose 139 H Random Glucose 108 H Calcium 8.1 L 04/13/18 11:22 WBC RBC Hgb Hct MCV MCH MCHC RDW Plt Count MPV Neut % (Auto) Lymph % (Auto) [place] % (Auto) Eos % (Auto) Baso % (Auto) Neut # (Auto) Lymph # (Auto) [place] # (Auto) Eos # (Auto) Baso # (Auto) WBC Differential Differential Comment Sodium Potassium Chloride Carbon Dioxide Anion Gap BUN Creatinine Estimated GFR POC Glucose 175 H Random Glucose Calcium Microbiology 03/15/18 08:55 Tissue - Abdominal Fungal Smear - Final No fungal elements seen 03/15/18 08:55 Tissue - Abdominal Fungal Culture - Final No growth in 4 weeks 03/15/18 08:55 Tissue - Abdominal Acid Fast Bacilli Smear - Final No acid fast bacilli seen 03/15/18 08:55 Tissue - Abdominal Mycobacterial Culture - Preliminary No growth in 4 weeks Assessment and Plan - Assessment (1) Sepsis Code(s): A41.9 - Sepsis, unspecified organism Status: Acute (2) Abdominal wall cellulitis Code(s): L03.311 - Cellulitis of abdominal wall Status: Acute (3) Acute renal failure due to tubular necrosis Code(s): N17.0 - Acute kidney failure with tubular necrosis Status: Acute (4) Acidosis, metabolic Code(s): E87.2 - Acidosis Status: Resolved - Plan 67 year old female with history of HTN and RA admitted on 03/14 with severe sepsis secondary to necrotizing infection of the abdominal wall with abscess. She was also found to be in renal failure. Severe sepsis secondary to necrotizing abdominal wall infection - Sepsis resolved - Cultures growing Group B strep and MSSA - 1 blood culture growing Staph auricularis, likely contamination - ID following, recommend continuing Cefazolin through April 15 - S/p debridement with wound vac placement 03/18 by general surgery - Underwent panniculectomy 04/07 with plastic surgery, FU with plastics 2 weeks after discharge - Continue with PT and OT. - Oxycodone PRN, Dilaudid IV for breakthrough - case management assistance appreciated. Anticipate d/c to SNF on Saturday. CORONA superimposed on chronic kidney disease stage III resolved - Creatinine 3.15 on admission and as high as 4.02 during hospitalization - Likely on top of CKD but no baseline to compare and patient with no knowledge of renal disease - Nephrology consult appreciated - required short-term dialysis due to worsening azotemia, oliguria, and metabolic acidosis - Renal function has stabilized - Continue Lasix 40 mg BID along with potassium - Avoid nephrotoxins - Outpatient follow-up with nephrology Hematochezia - No further episodes - Likely an internal hemorrhoid. Hydrocortisone rectally - GI consulted and recommend outpatient f/u Left foot cellulitis/lower extremity edema - Improved - Continue antibiotics per ID as above, Cefazolin through April 15 - Continue Lasix Diabetes mellitus Well controlled. - Continue Levemir 12 units daily - Sliding scale insulin with Accu-Cheks - Hemoglobin A1c of 6.6% - would d/c on glipizide 2.5 mg daily. Cough - resolved - CXR unremarkable - Cough suppressants PRN - Supplemental O2 prn Anemia due to chronic kidney disease - Likely secondary to acute illness and kidney disease - Following CBC - No active bleeding - Transfuse if Hb <7 or symptomatic DVT prophylaxis: Lovenox Discharge Planning: Will need SNF when ready. Plastic surgery postponed surgery, possibly until Saturday. Continue diuresis. On wound-vac.
[2018-04-13] MEDS: Hydrocortisone Acetate 25 MG Supp RECTAL SCH ×2 (14:15→21:20)
[2018-04-13] MEDS: Lactic Acid (Ammonium Lactate) 12% Lotion 225 GM Bottle TOPICAL SCH ×2 (14:16→21:15)
[2018-04-13] MEDS: Enoxaparin Inj 40 MG/0.4 ML Syringe SQ SCH (21:14)
[2018-04-14] MEDS: ceFAZolin Inj 2,000 MG in Sodium Chlor 0.9% Inj 100 ML IV.SIG SCH ×2 (03:51→16:30)
[2018-04-14 05:42] LABS: Hematocrit 24.8 % (35.0-46.0); Hemoglobin 8.6 gm/dL (11.6-15.3); Mean Corpuscular HGB Conc 34.8 % (32.0-36.0); Mean Corpuscular Hemoglobin 34.2 pg (27.0-34.0); Mean Corpuscular Volume 98.4 fL (80.0-100.0); Mean Platelet Volume 7.8 fL (7.0-11.0); Platelet Count 244 th/mm3 (150-450); Red Blood Count 2.52 mil/mm3 (4.00-5.30); Red Cell Distribution Width 15.1 % (11.6-17.2); White Blood Count 6.7 th/mm3 (4.0-11.0)
[2018-04-14] MEDS: Insulin NovoLOG Aspart Correctional Sugar Inj SQ SCH ×4 (07:39→21:05)
[2018-04-14] MEDS: Hydrocortisone Acetate 25 MG Supp RECTAL SCH (08:51)
[2018-04-14] MEDS: Lactic Acid (Ammonium Lactate) 12% Lotion 225 GM Bottle TOPICAL SCH ×2 (08:51→21:05)
[2018-04-14] MEDS: Potassium Chloride 25 MEQ Effervescent Tablet PO SCH (08:51)
[2018-04-14] MEDS: Calcium Carbonate 500 MG Tablet PO SCH (08:52)
[2018-04-14] MEDS: Furosemide 40 MG Tablet PO SCH ×2 (08:52→17:02)
[2018-04-14] MEDS: Insulin Detemir Inj 1,000 UNIT/10 ML Vial SQ SCH (08:53)
[2018-04-14] MEDS: Nystatin 100,000 UNITS/GM Powder 15 GM Bottle TOPICAL SCH ×4 (08:53→21:05)
--- NOTE | 2018-04-14 10:20 | P.DS ---
Date of admission: 03/14/18 21:07 Primary care physician: Hayden Cisneros Anticipated date of discharge: 04/15/18 Brief History from admission: The patient is a 67-year-old female with a past medical history of hypertension and rheumatoid arthritis, who presented from Dr. Cisneros's office, her primary care physician for generalized weakness, edema of her lower extremities and diarrhea. The patient states that she was seen by the nurse practitioner for Dr. Cisneros and after her visit, she was advised to go to the ED for further evaluation and management of her symptoms. On arrival to the ER, the patient was found hypotensive with a systolic blood pressure in the 80s and her laboratory data showed multiple electrolyte abnormalities with potassium level 3.0. In addition, the patient was in renal failure, BUN 62, creatinine 3.15, and with lactic acidosis, lactic acid level 3.5 and anion gap of 17. In addition, her blood sugar recorded at 355 on a BMP. The patient, however, denies any history of diabetes mellitus. Also, she was found to have a significant leukocytosis with a WBC of 35.9. ABG was performed on room air which showed a pH of 7.39, CO2 of 28, PaO2 of 85, bicarbonate 17, saturation 95%. When seen, she is on room air oxygen and she was given 1 liter of fluids by EMS and an additional 1 liter in the ED with current blood pressure of 91/50 with a MAP of 67. She reports occasional shortness of breath with exertion. Denies any chest pain. She reports feeling nauseous, having diarrhea for 3 days. She reports a wound culture that is draining from her lower abdomen. In addition to fluids, she is in the process of receiving 6 units of IV insulin and starting on insulin drip. Also, the patient was given vancomycin and Zosyn. She denies any cough or any constitutional symptoms. The patient is afebrile with a temperature of 97.8. Chest x-ray in the ED showed no evidence of any acute cardiopulmonary process. She is scheduled to undergo CT scan of the abdomen and pelvis. In addition, Dr. Mckee from General Surgery was notified regarding possible abscess in her pannus area. DS: Diagnosis - Discharge Diagnosis (1) Sepsis Status: Acute (2) Abdominal wall cellulitis Status: Acute (3) Acute renal failure due to tubular necrosis Status: Acute (4) Acidosis, metabolic Status: Resolved DS: Medications - Discharge Medications Prescriptions: cephalexin [Keflex] 500 mg PO QID 7 Days #56 cap glipizide 2.5 mg PO DAILY #30 tab lisinopril 5 mg PO DAILY #30 tab oxycodone-acetaminophen [Percocet] 1 tab PO Q6H PRN #12 tab PRN Reason: Pain DS: Summary Hospital Course: Wound infection 67 year old female with history of HTN and RA admitted on 03/14 with severe sepsis secondary to necrotizing infection of the abdominal wall with abscess. She was started on IV antibiotics and surgery was consulted. S/p debridement with wound vac placement 03/18 by general surgery. Cultures growing Group B strep and MSSA. One blood culture growing staph auricularis. Infectious disease was consulted. Underwent panniculectomy 04/07 with plastic surgery. She worked with physical and occupational therapy. She received pain control with a bowel regimen. She has some residual erythema surrounding the drain on the left. ID recommended switching IV cefazolin to PO Keflex for an additional week. She will follow up with plastic surgery as an outpt. Case management was consulted and assisted with the discharge process. CORONA Creatinine as high as 4.02 during hospitalization. Nephrology was consulted. The pt required short-term dialysis due to worsening azotemia, oliguria and metabolic acidosis. Renal function has stabilized and dialysis was discontinued. She will continue Lasix 40 mg BID along with potassium supplementation. She will follow up with nephrology as an outpt. Hematochezia GI was consulted. Hydrocortisone was added. No further episodes. Hemoglobin remained stable. She will follow up with GI as an outpt. Left foot cellulitis/ Lower extremity edema She was continued on antibiotics per ID as above, as well as Lasix. We encouraged ambulation. Diabetes mellitus A1c was 6.6%. We continued Levemir daily along with sliding scale insulin. Will d/c on glipizide 2.5 mg daily. She will follow up with her PCP. - Time Spent with Patient Total time spent providing and/or coordinating discharge services: Greater than 30 minutes Exam Vital signs: Vital Signs 04/13/18 12:00 04/13/18 16:00 04/13/18 20:00 Temperature 97.9 F 97.7 F 98.1 F Pulse Rate 88 87 87 Respiratory Rate 18 18 Blood Pressure 136/68 146/65 H 135/62 Pulse Oximetry 99 100 100 04/14/18 00:00 04/14/18 08:00 Temperature 97.8 F 97.9 F Pulse Rate 90 85 Respiratory Rate 18 17 Blood Pressure 109/50 L 114/62 Pulse Oximetry 100 100 Intake & Output 04/13/18 04/14/18 04/14/18 18:59 06:59 18:59 Intake Total 200 / 200 340 / 340 Output Total 105 / 105 Balance 200 / 200 235 / 235 Weight 156.7 kg Intake: IV 200 / 200 100 / 100 Ancef Inj 2,000 MG In NS Inj 200 / 200 100 / 100 100 ML @ 200 mls/hr IV.SIG Q12H ED Rx#:[id number] Oral 240 / 240 Output: Wound Drainage 105 / 105 # 1 Left Lateral Abdomen 80 / 80 # 2 Right Lateral Abdomen 25 / 25 Other: # Voids 2 Date of Last Bowel Movement 04/06/18 Narrative: GENERAL: This is a well-nourished, obese, well-developed patient, in no apparent distress. CARDIOVASCULAR: Regular rate and rhythm RESPIRATORY: Clear to auscultation. Breath sounds equal bilaterally. GASTROINTESTINAL: Abdomen soft, obese non-tender, nondistended. Normal active bowel sounds, lower abdomen bandage clean dry intact with SALVATORE drain. Some surrounding erythema. Crusted skin lesions on right flank. MUSCULOSKELETAL: Extremities without clubbing, cyanosis, + edema NEURO: Alert & Oriented x4 to person, place, time, situation. Moves all ext x4 Results Procedures completed during hospitalization: See hospital course Completed studies during hospitalization: Pending at discharge 04/07/18 11:33 Surgical [PTH] Routine Labs on day of discharge: Labs from last 24 hours 04/14/18 04/14/18 04/13/18 07:29 03:51 21:19 WBC 6.7 RBC 2.52 L Hgb 8.6 L Hct 24.8 L MCV 98.4 MCH 34.2 H MCHC 34.8 RDW 15.1 Plt Count 244 MPV 7.8 POC Glucose 130 H 143 H 04/13/18 04/13/18 16:40 11:22 WBC RBC Hgb Hct MCV MCH MCHC RDW Plt Count MPV POC Glucose 127 H 175 H Preliminary micro results at discharge 03/15/18 08:55 Mycobacterial Culture - Preliminary Tissue - Abdominal No growth in 4 weeks - Impressions ITS Impressions Abdomen/Pelvis CT 03/14/18 16:22 CONCLUSION: 1. No acute intra-abdominal abnormality seen. 2. Edema seen throughout the subcutaneous fat at the anterior abdominal wall. This should be correlated with any inflammatory process in this region. No focal fluid collection to suggest an abscess is seen. Abdomen/Bladder Ultrasound 03/17/18 16:09 CONCLUSION: 1. Limited examination without gross abnormality in the left kidney. 2. Right kidney and urinary bladder not visualized. Chest X-Ray 03/28/18 10:25 CONCLUSION: No acute cardiopulmonary disease. Discharge Plan - Discharge Disposition Patient Disposition: 03 Discharge to SNF - Discharge Condition Condition: Stable - Discharge Order Discharge Orders: Discharge Order (Routine); Ordered 04/14/18 Ordered By: Deepak Bales - Discharge Details Anticipated Discharge Date: 04/14/18 - Physicians Team Primary Care Provider: Hayden Cisneros Attending Provider: Deepak Bales Other Providers: Maxi Fitzgerald MD ; Chandana Olvera MD ; Raymon Crawley MD ; Mark Brush MD ; [facility] ; [facility]
--- NOTE | 2018-04-14 11:55 | P.PNID ---
Subjective Remarks: Patient feels okay. Sitting up in a chair. Has pain at both lateral abdomen where SALVATORE drains are located. Status post panniculectomy on 04/07/2018. No fever or chills. no difficulty with Bowel movements or urination. This is a 67-year-old white female who was admitted to the hospital on 03/14 after she developed redness of her right foot 5 days ago. She also notes that she had bouts of diarrhea for a couple of days prior to that. The diarrhea continued for 5 days and then stopped. She went to see her primary physician and she notes that they sent her to the emergency department because she appeared pale. She notes that she had a tiny lump on her right abdominal wall underneath the fold of skin. She has obese abdomen with large amount of pannus. She was evaluated in the ED and was noted to have elevated white blood cell count of 35.9 and she had lactic acid level of 3.5. She also had acute kidney disease with creatinine of 3.51. The patient was admitted and eventually taken to surgery for an abdominal wall debridement. She was noted to have necrotic skin at the right lower abdomen. Past Medical History: PAST MEDICAL HISTORY: Hypertension, history of cervical discectomy and allograft bone fusion in 10/2013, bacteremia due to methicillin-sensitive Staphylococcus aureus in 10/2013. Allergies/Adverse Reactions: Allergies No Known Allergies Allergy (Unverified 03/14/18 16:15) Objective Vital Signs 04/13/18 12:00 04/13/18 16:00 04/13/18 20:00 Temperature 97.9 F 97.7 F 98.1 F Pulse Rate 88 87 87 Respiratory Rate 20 18 18 Blood Pressure 136/68 146/65 H 135/62 Pulse Oximetry 99 100 100 04/14/18 00:00 04/14/18 08:00 Temperature 97.8 F 97.9 F Pulse Rate 90 85 Respiratory Rate 18 17 Blood Pressure 109/50 L 114/62 Pulse Oximetry 100 100 Intake & Output 04/13/18 04/14/18 04/14/18 18:59 06:59 18:59 Intake Total 200 / 200 340 / 340 Output Total 105 / 105 Balance 200 / 200 235 / 235 Weight 156.7 kg Intake: IV 200 / 200 100 / 100 Ancef Inj 2,000 MG In NS Inj 200 / 200 100 / 100 100 ML @ 200 mls/hr IV.SIG Q12H [facility] Rx#:[id number] Oral 240 / 240 Output: Wound Drainage 105 / 105 # 1 Left Lateral Abdomen 80 / 80 # 2 Right Lateral Abdomen 25 / 25 Other: # Voids 2 Date of Last Bowel Movement 04/06/18 03/15/18 08:55 Tissue - Abdominal Fungal Smear - Final No fungal elements seen 03/15/18 08:55 Tissue - Abdominal Fungal Culture - Final No growth in 4 weeks 03/15/18 08:55 Tissue - Abdominal Acid Fast Bacilli Smear - Final No acid fast bacilli seen 03/15/18 08:55 Tissue - Abdominal Mycobacterial Culture - Preliminary No growth in 4 weeks Lab - Hematology Results 04/12/18 04/13/18 04/14/18 11:30 04:25 03:51 WBC 9.1 7.6 6.7 RBC 2.55 L 2.43 L 2.52 L Hgb 8.8 L 8.3 L 8.6 L Hct 25.4 L 23.7 L 24.8 L MCV 99.9 97.8 98.4 MCH 34.4 H 34.0 34.2 H MCHC 34.4 34.8 34.8 RDW 15.2 15.1 15.1 Plt Count 266 252 244 MPV 7.9 7.7 7.8 Neut % (Auto) 72.5 H 56.8 Lymph % (Auto) 14.9 28.3 [place] % (Auto) 8.8 H 9.0 H Eos % (Auto) 3.3 5.5 H Baso % (Auto) 0.5 0.4 Neut # (Auto) 6.6 4.3 Lymph # (Auto) 1.3 2.2 [place] # (Auto) 0.8 0.7 Eos # (Auto) 0.3 0.4 Baso # (Auto) 0.0 0.0 WBC Differential . . Differential Comment Auto diff final Auto diff final Lab - Chemistry Results 04/12/18 04/12/18 04/12/18 11:30 11:38 15:45 Sodium 138 Potassium 3.9 Chloride 100 Carbon Dioxide 30.2 Anion Gap 8 BUN 15 Creatinine 1.10 H Estimated GFR 50 L POC Glucose 132 H 149 H Random Glucose 113 H Calcium 7.8 L 04/12/18 04/13/18 04/13/18 20:45 04:25 07:40 Sodium 138 Potassium 4.1 Chloride 99 Carbon Dioxide 30.9 Anion Gap 8 BUN 18 Creatinine 1.12 H Estimated GFR 49 L POC Glucose 158 H 139 H Random Glucose 108 H Calcium 8.1 L 04/13/18 04/13/18 04/13/18 11:22 16:40 21:19 Sodium Potassium Chloride Carbon Dioxide Anion Gap BUN Creatinine Estimated GFR POC Glucose 175 H 127 H 143 H Random Glucose Calcium 04/14/18 04/14/18 07:29 11:34 Sodium Potassium Chloride Carbon Dioxide Anion Gap BUN Creatinine Estimated GFR POC Glucose 130 H 106 Random Glucose Calcium Imaging: ITS Impressions Abdomen/Pelvis CT 03/14/18 16:22 CONCLUSION: 1. No acute intra-abdominal abnormality seen. 2. Edema seen throughout the subcutaneous fat at the anterior abdominal wall. This should be correlated with any inflammatory process in this region. No focal fluid collection to suggest an abscess is seen. Abdomen/Bladder Ultrasound 03/17/18 16:09 CONCLUSION: 1. Limited examination without gross abnormality in the left kidney. 2. Right kidney and urinary bladder not visualized. Chest X-Ray 03/28/18 10:25 CONCLUSION: No acute cardiopulmonary disease. Physical Exam: GENERAL: No acute distress. Awake and alert and oriented. HEENT: EOMI,VICENTE. No icterus. NECK: Supple without adenopathy or swelling. LUNGS: Decreased breath sounds. HEART: Regular S1, S2. No murmurs, rubs or gallops. ABDOMEN: Bowel sounds present, obese, soft. Abdominal wound. Postop. 2 SALVATORE drains serous drainage. Redness at the left flank at the area of the left SALVATORE drain. EXTREMITIES: 2+ edema at the legs. No erythema, clubbing or cyanosis. SKIN: No diffuse rash. NEUROLOGIC: No gross focal findings. PSYCHIATRIC: Calm and cooperative. Assessment and Plan - Plan IMPRESSION: 1. Necrotic cellulitis of the abdominal wall. Post panniculectomy after debridement and wound vac. Group B beta strep and MSSA. Mild redness at the left flank. Has drain in place post op. cellulitis vs irritation. 2. Sepsis. Resolved. 3. Left foot cellulitis. Resolved. 4. Acute kidney disease. Slowly improving. 5. Leukocytosis. Improved. RECOMMENDATIONS: 1. Stop Cefazolin IV. 2. Keflex PO X 1 week. Okay to discharge to rehab. Discussed with DR Bales and case management.
--- NOTE | 2018-04-14 16:58 | P.PNIM ---
Subjective Interval history: The patient complained of some itchiness around her right flank. She was ready to be discharged. Discussed with nursing and case management. Physical Exam Vital signs: Vital Signs 04/13/18 20:00 04/14/18 00:00 04/14/18 08:00 Temperature 98.1 F 97.8 F 97.9 F Pulse Rate 87 90 85 Respiratory Rate 18 18 17 Blood Pressure 135/62 109/50 L 114/62 Pulse Oximetry 100 100 100 04/14/18 12:00 04/14/18 16:00 Temperature 97.5 F L 97.7 F Pulse Rate 85 88 Respiratory Rate 17 17 Blood Pressure 112/67 118/85 Pulse Oximetry 95 96 Intake & Output 04/13/18 04/14/18 04/14/18 18:59 06:59 18:59 Intake Total 200 / 200 340 / 340 Output Total 105 / 105 45 / 45 Balance 200 / 200 235 / 235 -45 / -45 Weight 156.7 kg Intake: IV 200 / 200 100 / 100 Ancef Inj 2,000 MG In NS Inj 200 / 200 100 / 100 100 ML @ 200 mls/hr IV.SIG Q12H ED Rx#:[id number] Oral 240 / 240 Output: Wound Drainage 105 / 105 45 / 45 # 1 Left Lateral Abdomen 80 / 80 45 / 45 # 2 Right Lateral Abdomen 25 / 25 Other: # Voids 2 Date of Last Bowel Movement 04/06/18 Narrative: GENERAL: This is a well-nourished, obese, well-developed patient, in no apparent distress. CARDIOVASCULAR: Regular rate and rhythm RESPIRATORY: Clear to auscultation. Breath sounds equal bilaterally. GASTROINTESTINAL: Abdomen soft, obese non-tender, nondistended. Normal active bowel sounds, lower abdomen bandage clean dry intact with SALVATORE drain. MUSCULOSKELETAL: Extremities without clubbing, cyanosis, + edema NEURO: Alert & Oriented x4 to person, place, time, situation. Moves all ext x4 - Urinary Catheter Management Indwelling Urethral Catheter Cath placed during this visit: yes, but has since been removed by the nurse Urethral indwelling: No Reason for continuing: Not indwelling catheter Insertion date: 04/07/18 Insertion time: 08:42 Removal date: 04/08/18 Removal time: 06:50 Results - Labs CBC & Chem 7: 04/14/18 03:51 08/12/18 04:25 Laboratory Results - last 24 hr 04/13/18 04/13/18 04/14/18 16:40 21:19 03:51 WBC 6.7 RBC 2.52 L Hgb 8.6 L Hct 24.8 L MCV 98.4 MCH 34.2 H MCHC 34.8 RDW 15.1 Plt Count 244 MPV 7.8 POC Glucose 127 H 143 H 04/14/18 04/14/18 04/14/18 07:29 11:34 16:31 WBC RBC Hgb Hct MCV MCH MCHC RDW Plt Count MPV POC Glucose 130 H 106 124 H - Procedures See hospital course Assessment and Plan - Assessment (1) Sepsis Code(s): A41.9 - Sepsis, unspecified organism Status: Acute (2) Abdominal wall cellulitis Code(s): L03.311 - Cellulitis of abdominal wall Status: Acute (3) Acute renal failure due to tubular necrosis Code(s): N17.0 - Acute kidney failure with tubular necrosis Status: Acute (4) Acidosis, metabolic Code(s): E87.2 - Acidosis Status: Resolved - Plan 67 year old female with history of HTN and RA admitted on 03/14 with severe sepsis secondary to necrotizing infection of the abdominal wall with abscess. She was also found to be in renal failure. Severe sepsis secondary to necrotizing abdominal wall infection - Sepsis resolved - Cultures growing Group B strep and MSSA - 1 blood culture growing Staph auricularis, likely contamination - ID following, recommend continuing Keflex for 1 week after discharge. - S/p debridement with wound vac placement 03/18 by general surgery - Underwent panniculectomy 04/07 with plastic surgery, FU with plastics 2 weeks after discharge - Continue with PT and OT. - Oxycodone PRN, Dilaudid IV for breakthrough - case management assistance appreciated. Discharge to SNF when bed available. CORONA superimposed on chronic kidney disease stage III resolved - Creatinine 3.15 on admission and as high as 4.02 during hospitalization - Likely on top of CKD but no baseline to compare and patient with no knowledge of renal disease - Nephrology consult appreciated - required short-term dialysis due to worsening azotemia, oliguria, and metabolic acidosis - Renal function has stabilized - Continue Lasix 40 mg BID along with potassium - Avoid nephrotoxins - Outpatient follow-up with nephrology Hematochezia - No further episodes - Likely an internal hemorrhoid. Hydrocortisone rectally - GI consulted and recommend outpatient f/u Left foot cellulitis/lower extremity edema - Improved - Continue antibiotics per ID as above. - Continue Lasix Diabetes mellitus Well controlled. - Continue Levemir 12 units daily - Sliding scale insulin with Accu-Cheks - Hemoglobin A1c of 6.6% - will d/c on glipizide 2.5 mg daily. Cough - resolved - CXR unremarkable - Cough suppressants PRN - Supplemental O2 prn Anemia due to chronic kidney disease - Likely secondary to acute illness and kidney disease - Following CBC - No active bleeding - Transfuse if Hb <7 or symptomatic DVT prophylaxis: Lovenox Discharge Planning: Will need SNF when ready. Plastic surgery postponed surgery, possibly until Saturday. Continue diuresis. On wound-vac.
[2018-04-14] MEDS: Enoxaparin Inj 40 MG/0.4 ML Syringe SQ SCH (21:04)
[2018-04-15] MEDS: ceFAZolin Inj 2,000 MG in Sodium Chlor 0.9% Inj 100 ML IV.SIG SCH (03:46)
[2018-04-15 08:27] VITALS: RESP 17
[2018-04-15 08:35] VITALS: TEMP 97.6
[2018-04-15] MEDS: Calcium Carbonate 500 MG Tablet PO SCH (08:58)
[2018-04-15] MEDS: Potassium Chloride 25 MEQ Effervescent Tablet PO SCH (08:58)
[2018-04-15] MEDS: Insulin NovoLOG Aspart Correctional Sugar Inj SQ SCH (08:59)
[2018-04-15] MEDS: Nystatin 100,000 UNITS/GM Powder 15 GM Bottle TOPICAL SCH (09:02)
[2018-04-15] MEDS: Lactic Acid (Ammonium Lactate) 12% Lotion 225 GM Bottle TOPICAL SCH (09:02)
[2018-04-15] MEDS: Furosemide 40 MG Tablet PO SCH (09:05)
[2018-04-15] MEDS: Insulin Detemir Inj 1,000 UNIT/10 ML Vial SQ SCH (11:13)
[2018-04-15 12:13] VITALS: BP 121/58; PULSE 96; O2SAT 96
== END 2018-04-15 13:43 ==
LOC: NEPC 14:48 → NEDA 21:07 → N03 23:23 → N07 03-19 16:56
PROVIDERS: ADMIT Hospitalist; ATTEND Hospitalist